=== PATIENT | male | born 1950 | race Caucasian/White ===

== ENCOUNTER 2017-11-16 08:43 | Inpatient (IN) | payer BC, MEDICARE ==
[2017-11-16] MEDS ORDERED: IPRATROPIUM-ALBUTEROL 3 ML NEB INHALATION STA (08:57)
[2017-11-16] MEDS ORDERED: SODIUM CHLORIDE 0.9% 1,000 ML IV STA (08:57)
[2017-11-16] MEDS ORDERED: SODIUM CHLORIDE 0.9% 500 ML IV STA (08:57)
--- NOTE | 2017-11-16 09:00 | ED ---
SOB HPI - General Chief Complaint: Shortness of Breath Stated Complaint: Difficulty Breathing Time Seen by Provider: 11/16/17 08:48 Source: patient, RN notes reviewed, old records reviewed Mode of arrival: wheelchair Limitations: no limitations - History of Present Illness Initial Comments: 67-year-old male presents to emergency department today chief complaint of shortness of breath. It's been worse over the past 2 days. He denies any chest pain this time. Shortness of breath worse with supine position. He does have a history of CHF,, cardiac stent, and COPD, and A. fib. He is on Coumadin. He does smoke half pack a day. He reports he did do a breathing treatment yesterday. He has had a nonproductive cough. He reports no nausea or vomiting. He denies any bloody stools. - Related Data Home Medications Medication Instructions Recorded Confirmed Atorvastatin [Lipitor] 40 mg PO HS 04/01/14 10/11/15 Isosorbide Mononitrate [Imdur] 30 mg PO HS 04/01/14 10/11/15 Losartan Potassium 100 mg PO HS 04/01/14 10/11/15 Nitroglycerin Sl Tabs [Nitrostat] 0.4 mg PO Q5M PRN 01/11/15 10/18/15 Warfarin [Coumadin] 7.5 mg PO DAILY 01/11/15 10/18/15 amLODIPine [Norvasc] 10 mg PO DAILY 01/11/15 10/11/15 Celecoxib [CeleBREX] 200 mg PO BID 02/15/15 10/11/15 Furosemide [Lasix] 40 mg PO DAILY 02/15/15 10/11/15 Metoprolol Tartrate [Lopressor] 25 mg PO BID 02/15/15 10/11/15 Ipratropium-Albuterol Nebulize 3 ml INHALATION QID PRN 02/16/15 10/18/15 [Duoneb 0.5 mg-3 mg/3 ml Soln] Etanercept [Enbrel] 50 mg SQ Q7DAYS 10/11/15 10/18/15 Omeprazole 20 mg PO DAILY 10/11/15 10/11/15 Aspirin 325 mg PO ONCE 10/18/15 10/18/15 Allergies Allergy/AdvReac Type Severity Reaction Status Date / Time No Known Allergies Allergy Verified 11/16/17 08:48 Review of Systems ROS Statement: Those systems with pertinent positive or pertinent negative responses have been documented in the HPI. ROS Other: All systems not noted in ROS Statement are negative. Past Medical History Past Medical History: Atrial Fibrillation, Coronary Artery Disease (CAD), Heart Failure, COPD, Diabetes Mellitus, GERD/Reflux, Hyperlipidemia, Hypertension, Osteoarthritis (OA), Pneumonia, Rheumatoid Arthritis (RA) Additional Past Medical History / Comment(s): heart murmer,hiatal hernia, "borderline diabetic", STATES DOES NOT CHECK BLOOD SUGAR, benign colon polyps, diverticulosis. History of Any Multi-Drug Resistant Organisms: None Reported Past Surgical History: Heart Catheterization With Stent, Orthopedic Surgery Additional Past Surgical History / Comment(s): 06/04/13 angioplasty with stent to LAD, 06/07/13 JOLIE, bone spur rt elbow removed, L elbow surgery, colonoscopies and polypectomy, EGD, bilateral cataract surgery. Past Anesthesia/Blood Transfusion Reactions: No Reported Reaction Additional Past Anesthesia/Blood Transfusion Reaction / Comment(s): Pt has never recieved blood. Date of Last Stent Placement:: 05/2013 Past Psychological History: No Psychological Hx Reported Smoking Status: Current every day smoker Past Alcohol Use History: None Reported Past Drug Use History: None Reported - Past Family History Father Family Medical History: Cancer Additional Family Medical History / Comment(s): Father of cancer at age 65yrs. Cancer was in his "chest" Mother Family Medical History: Coronary Artery Disease (CAD) Additional Family Medical History / Comment(s): Mother had CABG. She of CHF at age 73 yrs. Brother(s) Family Medical History: Coronary Artery Disease (CAD) Additional Family Medical History / Comment(s): CABG Sister(s) Family Medical History: Coronary Artery Disease (CAD), Myocardial Infarction ([place] ) Daughter(s) Family Medical History: No Reported History Son(s) Family Medical History: No Reported History General Exam - General Exam Comments Initial Comments: 67-year-old male. Alert and oriented. No acute distress. Limitations: no limitations General appearance: alert, in no apparent distress Head exam: Present: atraumatic, normocephalic, normal inspection Eye exam: Present: normal appearance, PERRL, EOMI. Absent: scleral icterus, conjunctival injection, periorbital swelling ENT exam: Present: normal exam, mucous membranes moist Neck exam: Present: normal inspection. Absent: tenderness, meningismus, lymphadenopathy Respiratory exam: Present: wheezes (Mild wheeze.), decreased breath sounds. Absent: normal lung sounds bilaterally, respiratory distress, rales, rhonchi, stridor Cardiovascular Exam: Present: normal rhythm, bradycardia (Heart rates between 40 -45 beats were minute. ), normal heart sounds. Absent: regular rate, systolic murmur, diastolic murmur, rubs, gallop, clicks GI/Abdominal exam: Present: soft, normal bowel sounds. Absent: distended, tenderness, guarding, rebound, rigid Extremities exam: Present: normal inspection, full ROM, normal capillary refill. Absent: tenderness, pedal edema, joint swelling, calf tenderness Back exam: Present: normal inspection Neurological exam: Present: alert, oriented X3, CN II-XII intact Psychiatric exam: Present: normal affect, normal mood Skin exam: Present: warm, dry, intact, normal color. Absent: rash Course Vital Signs 11/16/17 11/16/17 11/16/17 08:45 09:20 09:31 Temperature 98.7 F Pulse Rate 52 L 42 L 48 L Respiratory 20 22 Rate Blood Pressure 146/62 131/61 O2 Sat by Pulse 97 97 Oximetry 11/16/17 09:40 Temperature Pulse Rate 47 L Respiratory Rate Blood Pressure O2 Sat by Pulse Oximetry Medical Decision Making - Medical Decision Making 67-year-old male presents emergency department 2 days of shortness of breath. Patient denies emergency department for bradycardic heart rate between 40 and 45 beats minute. Patient reports this is abnormal. Does have history of A. fib. He is on Coumadin. Symptoms are showing some mild wheezing but are relatively clear on exam. I did give Patient a breathing treatment. Patient chest x-ray shows no evidence of acute pleural effusion. His BNP is elevated at 7650. Troponin is 0.8033. This is similiar his previous troponins. He denies any chest pain at this time. Patient is resting comfortably in bed. At this time, the Patient for her bradycardia, and CHF. Consult his refund clerk Dr. Sharp. - Lab Data Result diagrams: 11/16/17 08:05 11/16/17 08:05 Lab Results 11/16/17 11/16/17 11/16/17 Range/Units 08:05 08:05 08:05 WBC 9.0 (3.8-10.6) k/uL RBC 3.56 L (4.30-5.90) m/uL Hgb 11.0 L (13.0-17.5) gm/dL Hct 32.9 L (39.0-53.0) % MCV 92.4 (80.0-100.0) fL MCH 30.8 (25.0-35.0) pg MCHC 33.4 (31.0-37.0) g/dL RDW 14.4 (11.5-15.5) % Plt Count 239 (150-450) k/uL Neutrophils % 75 % Lymphocytes % 12 % Monocytes % 9 % Eosinophils % 2 % Basophils % 1 % Neutrophils # 6.7 (1.3-7.7) k/uL Lymphocytes # 1.1 (1.0-4.8) k/uL Monocytes # 0.8 (0-1.0) k/uL Eosinophils # 0.2 (0-0.7) k/uL Basophils # 0.0 (0-0.2) k/uL PT (9.0-12.0) sec INR (<1.2) APTT (22.0-30.0) sec Sodium 144 (137-145) mmol/L Potassium 4.4 (3.5-5.1) mmol/L Chloride 108 H (98-107) mmol/L Carbon Dioxide 25 (22-30) mmol/L Anion Gap 11 mmol/L BUN 23 H (9-20) mg/dL Creatinine 1.49 H (0.66-1.25) mg/dL Est GFR (CKD-EPI)AfAm 56 (>60 ml/min/1.73 sqM) Est GFR (CKD-EPI)NonAf 48 (>60 ml/min/1.73 sqM) Glucose 180 H (74-99) mg/dL Calcium 9.5 (8.4-10.2) mg/dL Magnesium 2.1 (1.6-2.3) mg/dL Total Bilirubin 0.7 (0.2-1.3) mg/dL AST 36 (17-59) U/L ALT 38 (21-72) U/L Alkaline Phosphatase 77 (38-126) U/L Total Creatine Kinase 45 L (55-170) U/L CK-MB (CK-2) 0.4 (0.0-2.4) ng/mL CK-MB (CK-2) Rel Index 0.9 Troponin I 0.033 (0.000-0.034) ng/mL NT-Pro-B Natriuret Pep pg/mL Total Protein 6.9 (6.3-8.2) g/dL Albumin 4.0 (3.5-5.0) g/dL Urine Color Urine Appearance (Clear) Urine pH (5.0-8.0) Ur Specific [place] (1.001-1.035) Urine Protein (Negative) Urine Glucose (UA) (Negative) Urine Ketones (Negative) Urine Blood (Negative) Urine Nitrite (Negative) Urine Bilirubin (Negative) Urine Urobilinogen (<2.0) mg/dL Ur Leukocyte Esterase (Negative) Urine RBC (0-5) /hpf Urine WBC (0-5) /hpf Ur Squamous Epith Cells (0-4) /hpf Urine Mucus (None) /hpf 11/16/17 11/16/17 11/16/17 Range/Units 08:05 08:05 08:05 WBC (3.8-10.6) k/uL RBC (4.30-5.90) m/uL Hgb (13.0-17.5) gm/dL Hct (39.0-53.0) % MCV (80.0-100.0) fL MCH (25.0-35.0) pg MCHC (31.0-37.0) g/dL RDW (11.5-15.5) % Plt Count (150-450) k/uL Neutrophils % % Lymphocytes % % Monocytes % % Eosinophils % % Basophils % % Neutrophils # (1.3-7.7) k/uL Lymphocytes # (1.0-4.8) k/uL Monocytes # (0-1.0) k/uL Eosinophils # (0-0.7) k/uL Basophils # (0-0.2) k/uL PT 18.4 H (9.0-12.0) sec INR 2.0 H (<1.2) APTT 31.9 H (22.0-30.0) sec Sodium (137-145) mmol/L Potassium (3.5-5.1) mmol/L Chloride (98-107) mmol/L Carbon Dioxide (22-30) mmol/L Anion Gap mmol/L BUN (9-20) mg/dL Creatinine (0.66-1.25) mg/dL Est GFR (CKD-EPI)AfAm (>60 ml/min/1.73 sqM) Est GFR (CKD-EPI)NonAf (>60 ml/min/1.73 sqM) Glucose (74-99) mg/dL Calcium (8.4-10.2) mg/dL Magnesium (1.6-2.3) mg/dL Total Bilirubin (0.2-1.3) mg/dL AST (17-59) U/L ALT (21-72) U/L Alkaline Phosphatase (38-126) U/L Total Creatine Kinase (55-170) U/L CK-MB (CK-2) (0.0-2.4) ng/mL CK-MB (CK-2) Rel Index Troponin I (0.000-0.034) ng/mL NT-Pro-B Natriuret Pep 7650 pg/mL Total Protein (6.3-8.2) g/dL Albumin (3.5-5.0) g/dL Urine Color Yellow Urine Appearance Clear (Clear) Urine pH 6.0 (5.0-8.0) Ur Specific [place] 1.014 (1.001-1.035) Urine Protein 1+ H (Negative) Urine Glucose (UA) Trace H (Negative) Urine Ketones Negative (Negative) Urine Blood Negative (Negative) Urine Nitrite Negative (Negative) Urine Bilirubin Negative (Negative) Urine Urobilinogen 2.0 (<2.0) mg/dL Ur Leukocyte Esterase Negative (Negative) Urine RBC <1 (0-5) /hpf Urine WBC <1 (0-5) /hpf Ur Squamous Epith Cells <1 (0-4) /hpf Urine Mucus Rare H (None) /hpf 11/16/17 10:13 EKG shows normal rhythm, left ventricular hypertrophy with repolarization abnormality. Abnormally KG. Injury reported. Basement repair want her checked. QRS duration 100 ms. QT QTc is 524/453 ms. - Radiology Data Radiology results: report reviewed Chest x-ray shows no focal air opacity pleural effusion or pneumothorax seen. Overlying cardiac leads. Patient is rotated. Apical pleural thickening stable. Cardiac silhouette is stable heart size may be borderline enlarged. Coronary artery calcifications. Prominent pulmonary artery suggest possible pulmonary artery hypertension, aortic stents and somewhat tachypneic. Osseous structures are intact. Dr. Hickman. Disposition Clinical Impression: Bradycardia, Congestive heart failure Disposition: ADMITTED IP TO THIS HOSP Condition: Stable Is patient prescribed a controlled substance at d/c from ED?: No When asked, does pt state using other controlled substances?: No If prescribed controlled substance>3 days was MAPS reviewed?: No If opioid is for acute pain is fill amount 7 days or less?: No If Rx opioid, was Start Talking consent form obtained?: No Referrals: Ilya Saavedra MD [Primary Care Provider] - 1-2 days Time of Disposition: 10:44
[2017-11-16 09:41] LABS: Basophils % (A) 1 %; Eosinophils # (A) 0.2 k/uL (0-0.7); Eosinophils % (A) 2 %; HCT 32.9 % (39.0-53.0); Lymphocytes # (A) 1.1 k/uL (1.0-4.8); Lymphocytes % (A) 12 %; MCH 30.8 pg (25.0-35.0); MCHC 33.4 g/dL (31.0-37.0); MCV 92.4 fL (80.0-100.0); Mean Platelet Volume 8.3; Monocytes # (A) 0.8 k/uL (0-1.0); Monocytes % (A) 9 %; Neutrophils # (A) 6.7 k/uL (1.3-7.7); Neutrophils % (A) 75 %; Platelet Count 239 k/uL (150-450); RBC 3.56 m/uL (4.30-5.90); RDW 14.4 % (11.5-15.5)
[2017-11-16 09:44] LABS: Appearance,Urine Clear (Clear); Bilirubin,Urine Negative (Negative); Blood,Urine Negative (Negative); Color,Urine Yellow; Glucose,Urine (UA) Trace (Negative); Ketones,Urine Negative (Negative); Leukocyte Esterase,Urine Negative (Negative); Mucus,Urine Rare /hpf; Nitrite,Urine Negative (Negative); Protein,Urine 1+ (Negative); RBC,Urine <1 /hpf (0-5); Specific Gravity,Urine 1.014 (1.001-1.035); Squamous Epithelial Cell,Urine <1 /hpf (0-4); WBC,Urine <1 /hpf (0-5)
--- NOTE | 2017-11-16 09:45 | XR ---
EXAMINATION TYPE: XR chest 2V DATE OF EXAM: 11/16/2017 COMPARISON: Prior chest x-ray 01/13/2015 HISTORY: Difficulty breathing, shortness of breath and cough TECHNIQUE: Frontal and lateral views of the chest are obtained. FINDINGS: There is no focal air space opacity, pleural effusion, or pneumothorax seen. There are ove rlying cardiac leads. Patient is rotated. Apical pleural thickening is stable. The cardiac silhouette size is stable, heart may be borderline enlarged. There are coronary artery calcifications. Prominen t pulmonary artery suggests possible pulmonary artery hypertension, aorta is dense and somewhat ectat ic. The osseous structures are intact. IMPRESSION: No acute cardiopulmonary process. Additional findings above.
[2017-11-16 09:49] LABS: Partial Thromboplastin Time 31.9 sec (22.0-30.0); Prothrombin Time 18.4 sec (9.0-12.0)
[2017-11-16 09:51] LABS: Calcium 9.5 mg/dL (8.4-10.2); Magnesium 2.1 mg/dL (1.6-2.3); Potassium 4.4 mmol/L (3.5-5.1); Total Bilirubin 0.7 mg/dL (0.2-1.3); Total Protein 6.9 g/dL (6.3-8.2)
[2017-11-16 10:24] LABS: Creatine Kinase MB 0.4 ng/mL (0.0-2.4); Troponin I 0.033 ng/mL (0.000-0.034)
[2017-11-16] MEDS ORDERED: ASPIRIN 325 MG TAB PO STA (10:45)
[2017-11-16] MEDS ORDERED: NITROGLYCERIN SL TABS 0.4 MG TAB SUBLINGUAL PRN (13:31)
[2017-11-16] MEDS: FUROSEMIDE 10 MG/ML 4 ML VIAL IV SCH ×2 (13:37→20:54)
[2017-11-16] MEDS: NITROGLYCERIN OINT 1 INCH/GM PACKET TOPICAL SCH ×3 (13:37→20:51)
[2017-11-16] MEDS: SODIUM CHLORIDE 0.9% 1,000 ML IV SCH (13:38)
--- NOTE | 2017-11-16 17:43 | P.HPIM ---
History of Present Illness H&P Date: 11/16/17 Chief Complaint: Shortness of breath his is a 67-year-old male one of Dr. Saavedra , Dr. GEORGE Sharp with a previous medical history significant for coronary artery disease status post PCI and stent placement of the LAD in May 2013, hypertension and hypertensive cardiovascular disease, hyperlipidemia, prediabetes, e\\atrial fibrillation chronically on Coumadin . His last cardiac vascular workup from our facility was 10/18/2015 with a JOLIE, showing mild degree of prolapse with the cost posterior mitral leaflet with evidence of moderate MR, poorly cooperating aortic valve with moderate AR left ventricle end-diastolic pressure normal, normal systolic function left atrium moderately enlarged intra-atrial septum intact cardiac catheterization 10/18/2015 Dr. Sharp, shows stenosis 35% on the previous stenting, located at the LAD, left posterior circumflex 80% stenosis, RCA 40% stenosis left main free of disease no intervention done at that time, medical management. Patient comes into the emergency room secondary to shortness of breath, worse for the past 3 days, worse with supine position, he does smoke half a pack per day, has nonproductive cough without fever and chills, patient denies any palpitations or lightheadedness, however he was noted to be bradycardic in the emergency room with a heart rate 42-52, troponins are 0.033 BNP 7650, creatinine of 1.49 INR 2.0 patient is mildly wheezing on examination given a nebulized treatment, patient was admitted for COPD exacerbation CHF exacerbation with bradycardia Review of Systems Constitutional: Reports as per HPI, Reports anorexia, Denies chills, Denies chronic headaches, Denies chronic pain, Denies daytime sleepiness, Denies fatigue, Denies fever, Denies lethargy, Denies malaise, Denies night sweats, Denies poor appetite, Denies sweats, Denies weakness, Denies weight gain, Denies weight loss Ears, nose, mouth and throat: Reports as per HPI, Denies ant. neck pain, Denies bleeding gums, Denies dental pain, Denies dysphagia, Denies epistaxis, Denies headache, Denies hoarseness, Denies mouth pain, Denies nasal congestion, Denies nasal discharge, Denies neck fullness/pressure, Denies neck lump, Denies nose pain, Denies odynophagia, Denies post-nasal drip, Denies sinus pain, Denies sinus pressure, Denies swelling in mouth, Denies swelling in throat, Denies sore throat, Denies vertigo, Denies voice changes Cardiovascular: Reports decreased exercise tolerance, Reports dyspnea on exertion, Reports shortness of breath Respiratory: Reports as per HPI, Reports cough, Reports dyspnea, Reports wheezing, Denies congestion, Denies cough with sputum, Denies excessive sputum, Denies hemoptysis, Denies home oxygen, Denies pain, Denies pain on inspiration, Denies pleurisy, Denies respiratory infections, Denies sleep apnea, Denies snoring Gastrointestinal: Reports as per HPI, Denies abdominal pain, Denies belching, Denies bloating, Denies BRBPR, Denies change in bowel habits, Denies coffee ground emesis, Denies constipation, Denies diarrhea, Denies dyspepsia, Denies early satiety, Denies excessive gas, Denies heartburn, Denies hematemesis, Denies hematochezia, Denies indigestion, Denies jaundice, Denies lactose intolerance, Denies loss of appetite, Denies melena, Denies nausea, Denies vomiting Genitourinary: Reports as per HPI Musculoskeletal: Reports as per HPI Integumentary: Reports as per HPI Neurological: Reports as per HPI, Denies aphasia, Denies ataxia, Denies balance difficulties, Denies change in mentation, Denies change in smell/taste, Denies change in speech, Denies confusion, Denies convulsions, Denies double vision, Denies gait dysfunction, Denies head injury, Denies headaches, Denies hearing difficulties, Denies lack of coordination, Denies loss of vision, Denies memory loss, Denies migraines, Denies motor disturbance, Denies numbness, Denies paralysis, Denies paresthesias, Denies seizures, Denies sensory deficit, Denies spasticity, Denies syncope, Denies tic, Denies tingling, Denies transient paralysis, Denies tremors, Denies vertigo, Denies weakness, Denies visual changes Psychiatric: Reports as per HPI Endocrine: Reports as per HPI Hematologic/Lymphatic: Reports as per HPI Allergic/Immunologic: Reports as per HPI Past Medical History Past Medical History: Atrial Fibrillation, Coronary Artery Disease (CAD), Heart Failure, COPD, Diabetes Mellitus, GERD/Reflux, Hyperlipidemia, Hypertension, Osteoarthritis (OA), Pneumonia, Rheumatoid Arthritis (RA) Additional Past Medical History / Comment(s): heart murmer,hiatal hernia, "borderline diabetic", STATES DOES NOT CHECK BLOOD SUGAR, benign colon polyps, diverticulosis. History of Any Multi-Drug Resistant Organisms: None Reported Past Surgical History: Heart Catheterization With Stent, Orthopedic Surgery Additional Past Surgical History / Comment(s): 06/04/13 angioplasty with stent to LAD, 06/07/13 JOLIE, bone spur rt elbow removed, L elbow surgery, colonoscopies and polypectomy, EGD, bilateral cataract surgery. Past Anesthesia/Blood Transfusion Reactions: No Reported Reaction Additional Past Anesthesia/Blood Transfusion Reaction / Comment(s): Pt has never recieved blood. Date of Last Stent Placement:: 05/2013 Past Psychological History: No Psychological Hx Reported Smoking Status: Current every day smoker Past Alcohol Use History: None Reported Past Drug Use History: None Reported - Past Family History Father Family Medical History: Cancer Additional Family Medical History / Comment(s): Father of cancer at age 65yrs. Cancer was in his "chest" Mother Family Medical History: Coronary Artery Disease (CAD) Additional Family Medical History / Comment(s): Mother had CABG. She of CHF at age 73 yrs. Brother(s) Family Medical History: Coronary Artery Disease (CAD) Additional Family Medical History / Comment(s): CABG Sister(s) Family Medical History: Coronary Artery Disease (CAD), Myocardial Infarction (AL ) Daughter(s) Family Medical History: No Reported History Son(s) Family Medical History: No Reported History Medications and Allergies Home Medications Medication Instructions Recorded Confirmed Type Atorvastatin [Lipitor] 40 mg PO DAILY 04/01/14 11/16/17 History Isosorbide Mononitrate [Imdur] 30 mg PO DAILY 04/01/14 11/16/17 History Losartan Potassium 100 mg PO DAILY 04/01/14 11/16/17 History Nitroglycerin Sl Tabs [Nitrostat] 0.4 mg PO Q5M PRN 01/11/15 11/16/17 History Warfarin [Coumadin] 7.5 mg PO MOTUWETHFRSA 01/11/15 11/16/17 History amLODIPine [Norvasc] 10 mg PO DAILY 01/11/15 11/16/17 History Celecoxib [CeleBREX] 400 mg PO BID 02/15/15 11/16/17 History Furosemide [Lasix] 80 mg PO DAILY 02/15/15 11/16/17 History Metoprolol Tartrate [Lopressor] 50 mg PO DAILY 02/15/15 11/16/17 History Etanercept [Enbrel] 50 mg SQ FR 10/11/15 11/16/17 History Omeprazole 20 mg PO DAILY 10/11/15 11/16/17 History Furosemide [Lasix] 40 mg PO HS 11/16/17 11/16/17 History Metoprolol Tartrate [Lopressor] 25 mg PO HS 11/16/17 11/16/17 History Warfarin [Coumadin] 10 mg PO HERZOG 11/16/17 11/16/17 History metFORMIN HCL [metFORMIN HCL ER] 1,000 mg PO BID 11/16/17 11/16/17 History Allergies Allergy/AdvReac Type Severity Reaction Status Date / Time No Known Allergies Allergy Verified 11/16/17 14:09 Physical Exam Vitals: Vital Signs Temp Pulse Resp BP Pulse Ox 11/16/17 09:40 47 L 11/16/17 09:31 48 L 11/16/17 09:20 42 L 22 131/61 97 11/16/17 08:45 98.7 F 52 L 20 146/62 97 Intake and Output 11/15/17 11/16/17 11/16/17 22:59 06:59 14:59 Other: Weight 89.811 kg Results CBC & Chem 7: 11/16/17 08:05 11/16/17 08:05 Labs: Abnormal Lab Results - Last 24 Hours (Table) 11/16/17 11/16/17 11/16/17 Range/Units 08:05 08:05 08:05 RBC 3.56 L (4.30-5.90) m/uL Hgb 11.0 L (13.0-17.5) gm/dL Hct 32.9 L (39.0-53.0) % PT (9.0-12.0) sec INR (<1.2) APTT (22.0-30.0) sec Chloride 108 H (98-107) mmol/L BUN 23 H (9-20) mg/dL Creatinine 1.49 H (0.66-1.25) mg/dL Glucose 180 H (74-99) mg/dL Total Creatine Kinase 45 L (55-170) U/L Urine Protein (Negative) Urine Glucose (UA) (Negative) Urine Mucus (None) /hpf 11/16/17 11/16/17 Range/Units 08:05 08:05 RBC (4.30-5.90) m/uL Hgb (13.0-17.5) gm/dL Hct (39.0-53.0) % PT 18.4 H (9.0-12.0) sec INR 2.0 H (<1.2) APTT 31.9 H (22.0-30.0) sec Chloride (98-107) mmol/L BUN (9-20) mg/dL Creatinine (0.66-1.25) mg/dL Glucose (74-99) mg/dL Total Creatine Kinase (55-170) U/L Urine Protein 1+ H (Negative) Urine Glucose (UA) Trace H (Negative) Urine Mucus Rare H (None) /hpf Laboratory Results WBC 9.0 k/uL (3.8-10.6) 11/16/17 08:05 RBC 3.56 m/uL (4.30-5.90) L 11/16/17 08:05 Hgb 11.0 gm/dL (13.0-17.5) L 11/16/17 08:05 Hct 32.9 % (39.0-53.0) L 11/16/17 08:05 MCV 92.4 fL (80.0-100.0) 11/16/17 08:05 MCH 30.8 pg (25.0-35.0) 11/16/17 08:05 MCHC 33.4 g/dL (31.0-37.0) 11/16/17 08:05 RDW 14.4 % (11.5-15.5) 11/16/17 08:05 Plt Count 239 k/uL (150-450) 11/16/17 08:05 Neutrophils % 75 % 11/16/17 08:05 Lymphocytes % 12 % 11/16/17 08:05 Monocytes % 9 % 11/16/17 08:05 Eosinophils % 2 % 11/16/17 08:05 Basophils % 1 % 11/16/17 08:05 Neutrophils # 6.7 k/uL (1.3-7.7) 11/16/17 08:05 Lymphocytes # 1.1 k/uL (1.0-4.8) 11/16/17 08:05 Monocytes # 0.8 k/uL (0-1.0) 11/16/17 08:05 Eosinophils # 0.2 k/uL (0-0.7) 11/16/17 08:05 Basophils # 0.0 k/uL (0-0.2) 11/16/17 08:05 PT 18.4 sec (9.0-12.0) H 11/16/17 08:05 INR 2.0 (<1.2) H 11/16/17 08:05 APTT 31.9 sec (22.0-30.0) H 11/16/17 08:05 Sodium 144 mmol/L (137-145) 11/16/17 08:05 Potassium 4.4 mmol/L (3.5-5.1) 11/16/17 08:05 Chloride 108 mmol/L (98-107) H 11/16/17 08:05 Carbon Dioxide 25 mmol/L (22-30) 11/16/17 08:05 Anion Gap 11 mmol/L 11/16/17 08:05 BUN 23 mg/dL (9-20) H 11/16/17 08:05 Creatinine 1.49 mg/dL (0.66-1.25) H 11/16/17 08:05 Est GFR (CKD-EPI)AfAm 56 (>60 ml/min/1.73 sqM) 11/16/17 08:05 Est GFR (CKD-EPI)NonAf 48 (>60 ml/min/1.73 sqM) 11/16/17 08:05 Glucose 180 mg/dL (74-99) H 11/16/17 08:05 Calcium 9.5 mg/dL (8.4-10.2) 11/16/17 08:05 Magnesium 2.1 mg/dL (1.6-2.3) 11/16/17 08:05 Total Bilirubin 0.7 mg/dL (0.2-1.3) 11/16/17 08:05 AST 36 U/L (17-59) 11/16/17 08:05 ALT 38 U/L (21-72) 11/16/17 08:05 Alkaline Phosphatase 77 U/L (38-126) 11/16/17 08:05 Total Creatine Kinase 45 U/L (55-170) L 11/16/17 08:05 CK-MB (CK-2) 0.4 ng/mL (0.0-2.4) 11/16/17 08:05 CK-MB (CK-2) Rel Index 0.9 11/16/17 08:05 Troponin I 0.027 ng/mL (0.000-0.034) 11/16/17 13:56 NT-Pro-B Natriuret Pep 7650 pg/mL 11/16/17 08:05 Total Protein 6.9 g/dL (6.3-8.2) 11/16/17 08:05 Albumin 4.0 g/dL (3.5-5.0) 11/16/17 08:05 Urine Color Yellow 11/16/17 08:05 Urine Appearance Clear (Clear) 11/16/17 08:05 Urine pH 6.0 (5.0-8.0) 11/16/17 08:05 Ur Specific [place] 1.014 (1.001-1.035) 11/16/17 08:05 Urine Protein 1+ (Negative) H 11/16/17 08:05 Urine Glucose (UA) Trace (Negative) H 11/16/17 08:05 Urine Ketones Negative (Negative) 11/16/17 08:05 Urine Blood Negative (Negative) 11/16/17 08:05 Urine Nitrite Negative (Negative) 11/16/17 08:05 Urine Bilirubin Negative (Negative) 11/16/17 08:05 Urine Urobilinogen 2.0 mg/dL (<2.0) 11/16/17 08:05 Ur Leukocyte Esterase Negative (Negative) 11/16/17 08:05 Urine RBC <1 /hpf (0-5) 11/16/17 08:05 Urine WBC <1 /hpf (0-5) 11/16/17 08:05 Ur Squamous Epith Cells <1 /hpf (0-4) 11/16/17 08:05 Urine Mucus Rare /hpf (None) H 11/16/17 08:05 Thrombosis Risk Factor Assmnt - DVT/VTE Prophylaxis DVT/VTE Prophylaxis: Pharmacologic Prophylaxis ordered - Choose All That Apply Each Risk Factor Represents 2 Points: Age 61-74 years Thrombosis Risk Factor Assessment Total Risk Factor Score: 2 Thrombosis Risk Factor Assessment Level: Low Risk Assessment and Plan Plan: 1. Acute diastolic heart failure, we will start the patient on the Lasix 40 mg IV push every 8 hours, continue metoprolol 50 mg orally twice every day, losartan 100 mg orally once every day, Imdur 30 mg orally once every day, we will obtain cardiology consultation, echocardiogram, patient has elevated BNP on entry we will check input and output and daily weight. 2. Acute COPD exacerbations currently a smoker, with bronchospasms, patient would be started on Solu-Medrol short-term with nebulized albuterol Atrovent, nicotine patches were offered, for smoking cessation, no current antibiotic needed 3. History of CAD status post PCI of the LAD back in May 2013. We will continue with aspirin 81 mg once a day, Plavix 75 mg orally once every day, Imdur 30 mg orally once every day, metoprolol 50 mg orally twice every day, Lipitor 40 mg orally once every day. 4. Current junctional rhythm with known history of Atrial fibrillation. Metoprolol is on hold secondary to bradycardia and junctional rhythm, Coumadin 5 mg alternating with 7.5 mg every other day, monitor PT and INR on a regular basis. Cardiology is going to follow the patient closely 5. Hypertension and hypertensive cardiovascular disease we will continue patient on metoprolol 50 mg orally twice every day, amlodipine 10 mg orally once every day, and losartan 100 mg orally once every day. 6. History of GERD. Stable 7 History of prediabetes. Patient will be placed on consistent carb her diet, A1c to be done, With the current use of Solu-Medrol, correctional insulin scale for coverage 8. History of rheumatoid arthritis. Stable. 9Valvular heart disease in the form of moderate MR, moderate AR, 10. DVT prophylaxis. Long-term anticoagulation with Coumadin, INRs to be done 11. GI prophylaxis. Omeprazole 20 mg orally once every day. 12. Estimated length of stay 3 days.
[2017-11-16] MEDS ORDERED: WARFARIN 10 MG TAB PO SCH (18:00)
[2017-11-16] MEDS ORDERED: WARFARIN 7.5 MG TAB PO SCH (18:00)
[2017-11-16] MEDS: methylPREDNISolone SOD SUCCI 125 MG/2 ML VIAL IV SCH ×2 (18:44→23:30)
[2017-11-16] MEDS: ATORVASTATIN 40 MG TAB PO SCH (20:54)
[2017-11-16] MEDS: LOSARTAN 50 MG TAB PO SCH (20:55)
[2017-11-16] MEDS: IPRATROPIUM-ALBUTEROL 3 ML NEB INHALATION PRN (20:57)
[2017-11-16] MEDS: BUDESONIDE 0.5 MG/2 ML NEBU INHALATION SCH (20:57)
[2017-11-16 21:04] LABS: Glucose,Whole Blood 251 mg/dL (75-99)
[2017-11-17] MEDS: FUROSEMIDE 10 MG/ML 4 ML VIAL IV SCH ×3 (05:47→21:39)
[2017-11-17 06:13] LABS: Glucose,Whole Blood 311 mg/dL (75-99)
[2017-11-17 06:15] LABS: Basophils % (A) 0 %; Eosinophils % (A) 0 %; HCT 32.4 % (39.0-53.0); HGB 10.6 gm/dL (13.0-17.5); Lymphocytes # (A) 0.3 k/uL (1.0-4.8); Lymphocytes % (A) 7 %; MCH 30.6 pg (25.0-35.0); MCHC 32.8 g/dL (31.0-37.0); MCV 93.5 fL (80.0-100.0); Mean Platelet Volume 7.9; Monocytes # (A) 0.1 k/uL (0-1.0); Monocytes % (A) 3 %; Neutrophils # (A) 4.2 k/uL (1.3-7.7); Neutrophils % (A) 89 %; Platelet Count 212 k/uL (150-450); RBC 3.47 m/uL (4.30-5.90); RDW 14.1 % (11.5-15.5); WBC 4.7 k/uL (3.8-10.6)
[2017-11-17] MEDS: methylPREDNISolone SOD SUCCI 125 MG/2 ML VIAL IV SCH (06:27)
[2017-11-17] MEDS: PANTOPRAZOLE 40 MG TABLET PO SCH (06:27)
[2017-11-17] MEDS: INSULIN ASPART 100 UNIT/ML 1 ML 10 ML VIAL SQ SCH ×4 (06:28→18:08)
[2017-11-17 06:29] LABS: INR 1.9 (<1.2); Prothrombin Time 17.3 sec (9.0-12.0)
[2017-11-17 06:37] LABS: Albumin 3.8 g/dL (3.5-5.0); Calcium 9.1 mg/dL (8.4-10.2); Potassium 4.3 mmol/L (3.5-5.1); Total Bilirubin 0.6 mg/dL (0.2-1.3); Total Protein 6.5 g/dL (6.3-8.2)
[2017-11-17 07:33] LABS: T4, Free (Free Thyroxine) 1.19 ng/dL (0.78-2.19)
[2017-11-17] MEDS: MELOXICAM 7.5 MG TAB PO SCH (08:31)
[2017-11-17] MEDS: NITROGLYCERIN OINT 1 INCH/GM PACKET TOPICAL SCH ×4 (08:32→21:39)
[2017-11-17] MEDS: BUDESONIDE 0.5 MG/2 ML NEBU INHALATION SCH ×2 (08:34→20:59)
[2017-11-17] MEDS: IPRATROPIUM-ALBUTEROL 3 ML NEB INHALATION PRN ×2 (08:34→20:59)
[2017-11-17 11:59] LABS: Glucose,Whole Blood 477 mg/dL (75-99)
[2017-11-17] MEDS ORDERED: INSULIN ASPART 100 UNIT/ML 1 ML 10 ML VIAL SQ ONE (12:14)
[2017-11-17] MEDS: SODIUM CHLORIDE 0.9% 1,000 ML IV SCH (12:18)
[2017-11-17] MEDS: NICOTINE 14MG/24HR PATCH TRANSDERM SCH (12:31)
--- NOTE | 2017-11-17 13:41 | P.PN ---
Subjective his is a 67-year-old male one of Dr. Saavedra , Dr. GEORGE Sharp with a previous medical history significant for coronary artery disease status post PCI and stent placement of the LAD in May 2013, hypertension and hypertensive cardiovascular disease, hyperlipidemia, prediabetes, e\atrial fibrillation chronically on Coumadin . His last cardiac vascular workup from our facility was 10/18/2015 with a JOLIE, showing mild degree of prolapse with the cost posterior mitral leaflet with evidence of moderate MR, poorly cooperating aortic valve with moderate AR left ventricle end-diastolic pressure normal, normal systolic function left atrium moderately enlarged intra-atrial septum intact cardiac catheterization 10/18/2015 Dr. Sharp, shows stenosis 35% on the previous stenting, located at the LAD, left posterior circumflex 80% stenosis, RCA 40% stenosis left main free of disease no intervention done at that time, medical management. Patient comes into the emergency room secondary to shortness of breath, worse for the past 3 days, worse with supine position, he does smoke half a pack per day, has nonproductive cough without fever and chills, patient denies any palpitations or lightheadedness, however he was noted to be bradycardic in the emergency room with a heart rate 42-52, troponins are 0.033 BNP 7650, creatinine of 1.49 INR 2.0 patient is mildly wheezing on examination given a nebulized treatment, patient was admitted for COPD exacerbation CHF exacerbation with bradycardia 7/2: Patient seen today, sitting up in bed with at bedside. States breathing and shortness of breath has improved from yesterday. Still has a slight cough, denies any chest pain or palpitations. Troponin's have been negative x3. Glucose elevated at 311. He continues on Novolog sliding scale, he is only on Metformin at home, metformin ordered. Will check A1c and adjust medication if needed. Solumedrol decreased to 40mg Q8 hours, will continue on pulmicort and Duonebs. Patient states he smokes about 1/2 packs per day, counseled on smoking cessation, agreeable to nicotine patches. Objective - Vital Signs Vital signs: Vital Signs Temp 96.7 F L 11/17/17 08:00 Pulse 58 L 11/17/17 08:50 Resp 16 11/17/17 08:50 BP 150/53 11/17/17 08:00 Pulse Ox 97 11/17/17 08:34 Intake & Output 11/16/17 11/17/17 11/17/17 18:59 06:59 18:59 Intake Total 416 Output Total 400 350 Balance -400 66 Weight 85.5 kg 81 kg Intake: Oral 416 Output: Urine 400 350 Other: Voiding Method Toilet - Constitutional General appearance: Present: cooperative, no acute distress - EENT Eyes: Present: EOMI, PERRLA, normal appearance ENT: Present: hearing grossly normal, normal oropharynx. Absent: pharyngeal erythema, thrush - Neck Neck: Present: normal ROM. Absent: lymphadenopathy, stridor, thyromegaly - Respiratory Respiratory: bilateral: wheezing, negative: diminished, dullness, rales, rhonchi - Cardiovascular Rhythm: regular Heart sounds: normal: S1, S2 - Gastrointestinal General gastrointestinal: Present: normal bowel sounds, soft. Absent: decreased bowel sounds, distended, hepatomegaly, organomegaly, tenderness - Integumentary Integumentary: Present: normal. Absent: cellulitis, rash - Neurologic Neurologic: Present: CNII-XII intact. Absent: focal deficits - Musculoskeletal Musculoskeletal: Present: gait normal, strength equal bilaterally - Psychiatric Psychiatric: Present: A&O x's 3, appropriate affect - Labs CBC & Chem 7: 11/17/17 05:18 11/17/17 05:18 Labs: Abnormal Lab Results - Last 24 Hours (Table) 11/16/17 11/16/17 11/16/17 Range/Units 08:05 08:05 20:59 RBC (4.30-5.90) m/uL Hgb (13.0-17.5) gm/dL Hct (39.0-53.0) % Lymphocytes # (1.0-4.8) k/uL PT (9.0-12.0) sec INR (<1.2) Chloride 108 H (98-107) mmol/L BUN 23 H (9-20) mg/dL Creatinine 1.49 H (0.66-1.25) mg/dL Glucose 180 H (74-99) mg/dL POC Glucose (mg/dL) 251 H (75-99) mg/dL Total Creatine Kinase 45 L (55-170) U/L TSH (0.465-4.680) mIU/L 11/17/17 11/17/17 11/17/17 Range/Units 05:18 05:18 05:18 RBC 3.47 L (4.30-5.90) m/uL Hgb 10.6 L (13.0-17.5) gm/dL Hct 32.4 L (39.0-53.0) % Lymphocytes # 0.3 L (1.0-4.8) k/uL PT 17.3 H (9.0-12.0) sec INR 1.9 H (<1.2) Chloride (98-107) mmol/L BUN 23 H (9-20) mg/dL Creatinine 1.37 H (0.66-1.25) mg/dL Glucose 306 H (74-99) mg/dL POC Glucose (mg/dL) (75-99) mg/dL Total Creatine Kinase (55-170) U/L TSH 0.397 L (0.465-4.680) mIU/L 11/17/17 Range/Units 06:03 RBC (4.30-5.90) m/uL Hgb (13.0-17.5) gm/dL Hct (39.0-53.0) % Lymphocytes # (1.0-4.8) k/uL PT (9.0-12.0) sec INR (<1.2) Chloride (98-107) mmol/L BUN (9-20) mg/dL Creatinine (0.66-1.25) mg/dL Glucose (74-99) mg/dL POC Glucose (mg/dL) 311 H (75-99) mg/dL Total Creatine Kinase (55-170) U/L TSH (0.465-4.680) mIU/L Assessment and Plan Plan: 1. Acute diastolic heart failure, we will start the patient on the Lasix 40 mg IV push every 8 hours, continue metoprolol 50 mg orally twice every day, losartan 100 mg orally once every day, Imdur 30 mg orally once every day, we will obtain cardiology consultation, echocardiogram, patient has elevated BNP on entry we will check input and output and daily weight. 2. Acute COPD exacerbations currently a smoker, with bronchospasms, patient would be started on Solu-Medrol short-term with nebulized albuterol Atrovent, nicotine patches were offered, for smoking cessation, no current antibiotic needed 3. History of CAD status post PCI of the LAD back in May 2013. We will continue with aspirin 81 mg once a day, Plavix 75 mg orally once every day, Imdur 30 mg orally once every day, metoprolol 50 mg orally twice every day, Lipitor 40 mg orally once every day. 4. Current junctional rhythm with known history of Atrial fibrillation. Metoprolol is on hold secondary to bradycardia and junctional rhythm, Coumadin 5 mg alternating with 7.5 mg every other day, monitor PT and INR on a regular basis. Cardiology is going to follow the patient closely 5. Hypertension and hypertensive cardiovascular disease we will continue patient on metoprolol 50 mg orally twice every day, amlodipine 10 mg orally once every day, and losartan 100 mg orally once every day. 6. History of GERD. Stable 7 History of prediabetes. Patient will be placed on consistent carb her diet, A1c to be done, With the current use of Solu-Medrol, correctional insulin scale for coverage 8. History of rheumatoid arthritis. Stable. 9Valvular heart disease in the form of moderate MR, moderate AR, 10. DVT prophylaxis. Long-term anticoagulation with Coumadin, INRs to be done 11. GI prophylaxis. Omeprazole 20 mg orally once every day. 12. Estimated length of stay 3 days. The above impression and plan of care have been discussed and directed by signing physician. Iram Sanders nurse practitioner acting as scribe for signing physician.
[2017-11-17 14:37] VITALS: BMI 22.3
[2017-11-17] MEDS: methylPREDNISolone SOD SUCCI 40 MG/ML 1 ML VIAL IV SCH (16:20)
[2017-11-17 16:29] LABS: Hemoglobin A1C 6.5 % (4.0-6.0)
--- NOTE | 2017-11-17 16:36 | CONS ---
CONSULTATION CHIEF COMPLAINT: Shortness of breath. This is a 67-year-old gentleman with history of coronary artery disease, status post angioplasty of LAD, hypertension, chronic atrial fibrillation and moderate mitral regurgitation who presented to hospital complaining of shortness of breath for the last 3 days. He has paroxysmal nocturnal dyspnea and orthopnea, also. His shortness of breath gets worse with activity and improves with rest. He does not have any leg edema. On admission, his BNP was elevated at 7650. He is in atrial fibrillation with slow ventricular rate. PAST MEDICAL HISTORY: 1. Coronary artery disease, status post angioplasty. 2. Mitral regurgitation. 3. Hypertension. 4. Diabetes. 5. Dyslipidemia. CURRENT MEDICATIONS: 1. Norvasc 10 daily. 2. Coumadin. 3. Omeprazole. 4. Lopressor .. 5. Losartan. 6. Imdur. 7. Lasix. 8. Enbrel. 9. Celebrex. 10.Lipitor. ALLERGIES: NO KNOWN DRUG ALLERGIES. FAMILY HISTORY: Negative for premature coronary artery disease. SOCIAL HISTORY: Negative for current smoking, EtOH abuse or drug abuse. REVIEW OF SYSTEMS: HEENT is unremarkable. CARDIAC: As described above. RESPIRATORY: As described above. GI: Negative. GENITOURINARY: Negative. : Negative. MUSCULOSKELETAL: Significant for arthritis. PSYCHOSOCIAL: Negative. ENDOCRINE: Negative. DERMATOLOGIC: Negative. CONSTITUTIONAL: Negative. ONCOLOGICAL: Negative. MIXING ROLL OPERATOR: Negative. Rest of the system review is not relevant. PHYSICAL EXAMINATION: Heart rate is 58 beats per minute. Blood pressure is 150/50, respiratory rate is 18. There is no jugular venous distention. Oxygen saturation is 97%. Carotid upstroke is diminished. There is no bruit. Chest exam reveals diminished air entry at the bases. Heart exam reveals first and second heart sounds, irregular rhythm, and a systolic murmur at the apex. Abdomen is soft. Examination of the extremities did not reveal any edema. Peripheral pulses are felt. ASSESSMENT: 1. Acute exacerbation of chronic congestive heart failure, probably diastolic. 2. Mitral regurgitation. 3. Coronary artery disease, status post angioplasty. 4. Chronic atrial fibrillation. PLAN: I will treat the patient with IV Lasix. Continue the Coumadin. Hold off on beta blockers because of slow ventricular rate. We can resume it at a lower dose. I will obtain a 2D echo to reassess the valvular heart disease. MMODL / IJN: [id number] /
[2017-11-17 16:40] LABS: Glucose,Whole Blood 327 mg/dL (75-99)
[2017-11-17] MEDS ORDERED: WARFARIN 7.5 MG TAB PO SCH (18:00)
[2017-11-17] MEDS: metFORMIN 500 MG TAB PO SCH (18:09)
--- NOTE | 2017-11-17 18:33 | ECHOF ---
Referral Reason:chf MEASUREMENTS -------- HEIGHT: 190.5 cm WEIGHT: 80.7 kg BP: 166/72 RVIDd: 3.5 cm (< 3.3) IVSd: 1.5 cm (0.6 - 1.1) LVIDd: 4.4 cm (3.9 - 5.3) LVPWd: 1.5 cm (0.6 - 1.1) IVSs: 1.9 cm LVIDs: 3.8 cm LVPWs: 1.7 cm LA Diam: 4.1 cm (2.7 - 3.8) LAESV Index (A-L): 44.47 ml/m Ao Diam: 3.5 cm (2.0 - 3.7) AV Cusp: 2.7 cm (1.5 - 2.6) MV EXCURSION: 12.690 mm (> 18.000) MV EF SLOPE: 64 mm/s (70 - 150) EPSS: 0.3 cm AV maxP.29 mmHg AV meanP.49 mmHg AR PHT: 490 ms RAP: 15.00 mmHg RVSP: 51.78 mmHg FINDINGS -------- Atrial fibrillation. This was a technically good study. The left ventricular size is normal. There is moderate concentric left ventricular hypertrophy. O verall left ventricular systolic function is normal with, an EF between 60 - 65 %. The right ventricle is mildly enlarged. LA is severely dilated >40 ml/m2 The right atrium is normal in size. There is mild aortic valve sclerosis. There is moderate aortic regurgitation. There is mild aorti c stenosis present. Peak/mean gradient across the Aortic Valve is 33.29mmHg / 15.49mmHg. The mitral valve leaflets are mildly thickened. Mild mitral annular calcification present. Mild m itral regurgitation is present. The peak and mean MV gradients are 15.62mmHg 4.27mmHg as measured by doppler. Mild tricuspid regurgitation present. There is moderate pulmonary hypertension. The right ventric ular systolic pressure, as measured by Doppler, is 51.78mmHg. Moderate pulmonic regurgitation. The aortic root size is normal. The inferior vena cava is dilated with no significant inspiratory collapse which is consistent estima felicia right atrial pressure of >15 mmHg. There is no pericardial effusion. CONCLUSIONS -------- 1. Atrial fibrillation. 2. This was a technically good study. 3. The left ventricular size is normal. 4. There is moderate concentric left ventricular hypertrophy. 5. Overall left ventricular systolic function is normal with, an EF between 60 - 65 %. 6. The right ventricle is mildly enlarged. 7. LA is severely dilated >40 ml/m2 8. The right atrium is normal in size. 9. There is mild aortic valve sclerosis. 10. There is moderate aortic regurgitation. 11. There is mild aortic stenosis present. 12. Peak/mean gradient across the Aortic Valve is 33.29mmHg / 15.49mmHg. 13. The mitral valve leaflets are mildly thickened. 14. Mild mitral annular calcification present. 15. Mild mitral regurgitation is present. 16. The peak and mean MV gradients are 15.62mmHg 4.27mmHg as measured by doppler. 17. Mild tricuspid regurgitation present. 18. There is moderate pulmonary hypertension. 19. The right ventricular systolic pressure, as measured by Doppler, is 51.78mmHg. 20. Moderate pulmonic regurgitation. 21. The aortic root size is normal. 22. The inferior vena cava is dilated with no significant inspiratory collapse which is consistent es timated right atrial pressure of >15 mmHg. 23. There is no pericardial effusion. [employer]: Lakisha Espana RDCS
[2017-11-17 20:48] LABS: Glucose,Whole Blood 280 mg/dL (75-99)
[2017-11-17] MEDS: ATORVASTATIN 40 MG TAB PO SCH (21:38)
[2017-11-17] MEDS: LOSARTAN 50 MG TAB PO SCH (21:38)
[2017-11-18] MEDS: methylPREDNISolone SOD SUCCI 40 MG/ML 1 ML VIAL IV SCH ×2 (03:08→08:06)
[2017-11-18 06:13] LABS: Glucose,Whole Blood 262 mg/dL (75-99)
[2017-11-18] MEDS: FUROSEMIDE 10 MG/ML 4 ML VIAL IV SCH ×2 (06:24→12:28)
[2017-11-18] MEDS: INSULIN ASPART 100 UNIT/ML 1 ML 10 ML VIAL SQ SCH ×4 (06:24→12:27)
[2017-11-18] MEDS: metFORMIN 500 MG TAB PO SCH (06:25)
[2017-11-18] MEDS: PANTOPRAZOLE 40 MG TABLET PO SCH (06:26)
[2017-11-18 06:51] LABS: INR 1.8 (<1.2); Prothrombin Time 16.5 sec (9.0-12.0)
[2017-11-18 06:53] LABS: Basophils % (A) 0 %; Eosinophils % (A) 0 %; HCT 30.8 % (39.0-53.0); HGB 10.1 gm/dL (13.0-17.5); Lymphocytes # (A) 0.4 k/uL (1.0-4.8); Lymphocytes % (A) 4 %; MCH 30.5 pg (25.0-35.0); MCHC 32.8 g/dL (31.0-37.0); MCV 92.9 fL (80.0-100.0); Mean Platelet Volume 8.4; Monocytes # (A) 0.4 k/uL (0-1.0); Monocytes % (A) 4 %; Neutrophils # (A) 9.6 k/uL (1.3-7.7); Neutrophils % (A) 91 %; Platelet Count 222 k/uL (150-450); RBC 3.31 m/uL (4.30-5.90); RDW 14.3 % (11.5-15.5); WBC 10.5 k/uL (3.8-10.6)
[2017-11-18 07:18] LABS: Albumin 3.7 g/dL (3.5-5.0); Calcium 9.4 mg/dL (8.4-10.2); Potassium 4.3 mmol/L (3.5-5.1); Total Bilirubin 0.3 mg/dL (0.2-1.3); Total Protein 6.4 g/dL (6.3-8.2)
[2017-11-18] MEDS ORDERED: INSULIN ASPART 100 UNIT/ML 1 ML 10 ML VIAL SQ SCH (07:30)
[2017-11-18] MEDS: NICOTINE 14MG/24HR PATCH TRANSDERM SCH (08:08)
[2017-11-18] MEDS: MELOXICAM 7.5 MG TAB PO SCH (08:08)
[2017-11-18] MEDS: NITROGLYCERIN OINT 1 INCH/GM PACKET TOPICAL SCH ×2 (08:08→12:28)
[2017-11-18] MEDS: BUDESONIDE 0.5 MG/2 ML NEBU INHALATION SCH (08:47)
[2017-11-18] MEDS: IPRATROPIUM-ALBUTEROL 3 ML NEB INHALATION PRN (08:48)
[2017-11-18] MEDS: SODIUM CHLORIDE 0.9% 1,000 ML IV SCH (09:42)
[2017-11-18 10:21] VITALS: RESP 18
[2017-11-18 11:38] LABS: Glucose,Whole Blood 334 mg/dL (75-99)
--- NOTE | 2017-11-18 12:41 | P.PN ---
Subjective Progress Note Date: 11/18/17 Principal diagnosis: bradycardia This a pleasant 67-year-old gentleman with a history of CAD, status post angioplasty of the LAD hypertension, chronic atrial fibrillation and moderate mitral regurgitation. Presented to the hospital with complaints of shortness of breath over the last few days. He also had complaints of paroxysmal nocturnal dyspnea and orthopnea. Patient was started on IV Lasix and has diuresed well. Patient was also found to be in atrial fibrillation with a slow ventricular response. Beta blockers have been held and heart rate has improved. Upon examination, patient is resting comfortably in bed. Head of bed is flat without any difficulties breathing. He's been up ambulating without difficulties. He has no complaints of dizziness, lightheadedness, syncope, shortness of breath, chest discomfort or edema. Echocardiogram completed yesterday showed an ejection fraction of 60-65% with moderate AR, mild AF, mild MR and moderate pulmonary hypertension. Objective - Vital Signs Vital signs: Vital Signs Temp 97.1 F L 11/18/17 08:00 Pulse 68 11/18/17 09:03 Resp 18 11/18/17 08:00 BP 150/60 11/18/17 08:00 Pulse Ox 99 11/18/17 08:49 Intake & Output 11/17/17 11/18/17 11/18/17 18:59 06:59 18:59 Intake Total 866 360 Output Total 1150 Balance -284 360 Weight 81 kg 84 kg Intake: Oral 866 360 Output: Urine 1150 Other: Voiding Method Urinal Urinal # Voids 1 1 - Exam PHYSICAL EXAMINATION: HEENT: Head is atraumatic, normocephalic. Pupils equal, round. Neck is supple. There is no elevated jugular venous pressure. HEART EXAMINATION: Heart sounds irregularly irregular, S1 and S2 with a systolic murmur. CHEST EXAMINATION: Lungs are clear to auscultation and precussion. No chest wall tenderness is noted on palpation or with deep breathing. ABDOMEN: Soft, nontender. Bowel sounds are heard. No organomegaly noted. EXTREMITIES: 2+ peripheral pulses with no evidence of peripheral edema and no calf tenderness noted. NEUROLOGIC patient is awake, alert and oriented x3. . - Labs CBC & Chem 7: 11/18/17 06:29 11/18/17 06:29 Labs: Abnormal Lab Results - Last 24 Hours (Table) 11/17/17 11/17/17 11/17/17 Range/Units 05:18 16:39 20:46 RBC (4.30-5.90) m/uL Hgb (13.0-17.5) gm/dL Hct (39.0-53.0) % Neutrophils # (1.3-7.7) k/uL Lymphocytes # (1.0-4.8) k/uL PT (9.0-12.0) sec INR (<1.2) BUN (9-20) mg/dL Creatinine (0.66-1.25) mg/dL Glucose (74-99) mg/dL POC Glucose (mg/dL) 327 H 280 H (75-99) mg/dL Hemoglobin A1c 6.5 H (4.0-6.0) % 11/18/17 11/18/17 11/18/17 Range/Units 06:01 06:29 06:29 RBC 3.31 L (4.30-5.90) m/uL Hgb 10.1 L (13.0-17.5) gm/dL Hct 30.8 L (39.0-53.0) % Neutrophils # 9.6 H (1.3-7.7) k/uL Lymphocytes # 0.4 L (1.0-4.8) k/uL PT (9.0-12.0) sec INR (<1.2) BUN 38 H (9-20) mg/dL Creatinine 1.40 H (0.66-1.25) mg/dL Glucose 261 H (74-99) mg/dL POC Glucose (mg/dL) 262 H (75-99) mg/dL Hemoglobin A1c (4.0-6.0) % 11/18/17 11/18/17 Range/Units 06:29 11:29 RBC (4.30-5.90) m/uL Hgb (13.0-17.5) gm/dL Hct (39.0-53.0) % Neutrophils # (1.3-7.7) k/uL Lymphocytes # (1.0-4.8) k/uL PT 16.5 H (9.0-12.0) sec INR 1.8 H (<1.2) BUN (9-20) mg/dL Creatinine (0.66-1.25) mg/dL Glucose (74-99) mg/dL POC Glucose (mg/dL) 334 H (75-99) mg/dL Hemoglobin A1c (4.0-6.0) % Microbiology - Last 24 Hours (Table) 11/16/17 08:05 Blood Culture - Preliminary Blood No Growth after 48 hours Assessment and Plan Assessment: #1 acute on chronic diastolic congestive heart failure #2 mitral regurgitation #3 coronary artery disease, status post angioplasty #4 chronic atrial fibrillation, anticoagulated on Coumadin #5 bradycardia, beta blockers have been on hold, will resume at a lower dose. #6 aortic regurgitation Plan: From cardiology's perspective, patient may be discharged home today. We will resume metoprolol tartrate at 12.5 mg by mouth twice a day. Patient will follow -up as an outpatient. The above dictated assessment and findings were discussed with signing physician. The impression and plan of care have been directed as dictated. Roselyn Milton, Nurse Practitioner, acting as scribe for signing physician.
--- NOTE | 2017-11-18 12:57 | P.DS ---
Providers Date of admission: 11/17/17 15:07 Attending physician: Leatha Moreno Consults: 11/16/17 10:45 Consult Physician Stat Consulting Provider: Fiorella Sharp Consult Reason/Comments: Bradycardia, CHF Do you want consulting provider notified?: Yes [facility] Course: This is a 67-year-old male one of Dr. Saavedra , Dr. GEORGE Sharp with a previous medical history significant for coronary artery disease status post PCI and stent placement of the LAD in May 2013, hypertension and hypertensive cardiovascular disease, hyperlipidemia, prediabetes, atrial fibrillation chronically on Coumadin . His last cardiac vascular workup from our facility was 10/18/2015 with a JOLIE, showing mild degree of prolapse with the cost posterior mitral leaflet with evidence of moderate MR, poorly cooperating aortic valve with moderate AR left ventricle end-diastolic pressure normal, normal systolic function left atrium moderately enlarged intra-atrial septum intact cardiac catheterization 10/18/2015 Dr. Sharp, shows stenosis 35% on the previous stenting, located at the LAD, left posterior circumflex 80% stenosis, RCA 40% stenosis left main free of disease no intervention done at that time, medical management. Patient comes into the emergency room secondary to shortness of breath, worse for the past 3 days, worse with supine position, he does smoke half a pack per day, has nonproductive cough without fever and chills, patient denies any palpitations or lightheadedness, however he was noted to be bradycardic in the emergency room with a heart rate 42-52, troponins are 0.033 BNP 7650, creatinine of 1.49 INR 2.0 patient is mildly wheezing on examination given a nebulized treatment, patient was admitted for COPD exacerbation CHF exacerbation with bradycardia 7/2: Patient seen today, sitting up in bed with at bedside. States breathing and shortness of breath has improved from yesterday. Still has a slight cough, denies any chest pain or palpitations. Troponin's have been negative x3. Glucose elevated at 311. He continues on Novolog sliding scale, he is only on Metformin at home, metformin ordered. Will check A1c and adjust medication if needed. Solumedrol decreased to 40mg Q8 hours, will continue on pulmicort and Duonebs. Patient states he smokes about 1/2 packs per day, counseled on smoking cessation, agreeable to nicotine patches. 11/18: Patient evaluated today, states he is feeling well today and would actually like to go home. He reports his breathing has improved significantly. Heart rate running in the 60's and still shows atrial fibrillation. He denies any chest pain, shortness of breath, or palpitations. He still has slight nonproductive cough. He's been ambulating in the hallways without difficulty. He denies any dizziness or syncope, shortness breath, chest discomfort. For his bradycardia, metoprolol was decreased to 12.5 mg twice a day. Echocardiogram revealed ejection fraction between 60 and 65%, moderate concentric left ventricular hypertrophy, mild aortic regurgitation, mild aortic stenosis, mild mitral regurgitation, mild tricuspid regurgitation, and moderate pulmonary hypertension. Discharge diagnoses 1. Acute diastolic heart failure 2. Acute COPD exacerbations 3. History of CAD status post PCI of the LAD back in May 2013. 4. Current junctional rhythm with known history of Atrial fibrillation. 5. Hypertension and hypertensive cardiovascular disease 6. History of GERD. 7 History of prediabetes. 8. History of rheumatoid arthritis. 9. Valvular heart disease The above impression and plan of care have been discussed and directed by signing physician. Iram Sanders nurse practitioner acting as scribe for signing physician. Patient Condition at Discharge: Good Plan - Discharge Summary Discharge Rx Participant: No New Discharge Prescriptions: New Budesonide-Formot 160-4.5 Mcg [Symbicort 160-4.5 Mcg Inhaler] 2 puff INHALATION BID #1 inhaler Ipratropium-Albuterol Nebulize [Duoneb 0.5 mg-3 mg/3 ml Soln] 3 ml INHALATION QID PRN ampul.neb PRN Reason: sob Ipratropium/Albuterol Sulfate [Combivent Respimat Inhaler] 1 puff INHALATION QID #1 inhaler metFORMIN HCL [Glucophage] 500 mg PO BID-W/MEALS #60 tab Metoprolol Tartrate 12.5 mg PO BID #1 tab Nicotine 14Mg/24Hr Patch [Habitrol] 1 patch TRANSDERM DAILY #21 patch predniSONE 10 mg PO DAILY #20 tab Metoprolol Tartrate [Lopressor] 12.5 mg PO BID #180 tab Continue Isosorbide Mononitrate [Imdur] 30 mg PO DAILY Atorvastatin [Lipitor] 40 mg PO DAILY Losartan Potassium 100 mg PO DAILY Nitroglycerin Sl Tabs [Nitrostat] 0.4 mg PO Q5M PRN PRN Reason: Chest Pain amLODIPine [Norvasc] 10 mg PO DAILY Warfarin [Coumadin] 7.5 mg PO MOTUWETHFRSA Furosemide [Lasix] 80 mg PO DAILY Celecoxib [CeleBREX] 400 mg PO BID Omeprazole 20 mg PO DAILY Etanercept [Enbrel] 50 mg SQ FR Furosemide [Lasix] 40 mg PO HS metFORMIN HCL [metFORMIN HCL ER] 1,000 mg PO BID Warfarin [Coumadin] 10 mg PO HERZOG Discontinued Metoprolol Tartrate [Lopressor] 50 mg PO DAILY Metoprolol Tartrate [Lopressor] 25 mg PO HS Discharge Medication List Atorvastatin [Lipitor] 40 mg PO DAILY 04/01/14 [History] Isosorbide Mononitrate [Imdur] 30 mg PO DAILY 04/01/14 [History] Losartan Potassium 100 mg PO DAILY 04/01/14 [History] Nitroglycerin Sl Tabs [Nitrostat] 0.4 mg PO Q5M PRN 01/11/15 [History] Warfarin [Coumadin] 7.5 mg PO MOTUWETHFRSA 01/11/15 [History] amLODIPine [Norvasc] 10 mg PO DAILY 01/11/15 [History] Celecoxib [CeleBREX] 400 mg PO BID 02/15/15 [History] Furosemide [Lasix] 80 mg PO DAILY 02/15/15 [History] Etanercept [Enbrel] 50 mg SQ FR 10/11/15 [History] Omeprazole 20 mg PO DAILY 10/11/15 [History] Furosemide [Lasix] 40 mg PO HS 11/16/17 [History] Warfarin [Coumadin] 10 mg PO HERZOG 11/16/17 [History] metFORMIN HCL [metFORMIN HCL ER] 1,000 mg PO BID 11/16/17 [History] Budesonide-Formot 160-4.5 Mcg [Symbicort 160-4.5 Mcg Inhaler] 2 puff INHALATION BID #1 inhaler 11/18/17 [Rx] Ipratropium-Albuterol Nebulize [Duoneb 0.5 mg-3 mg/3 ml Soln] 3 ml INHALATION QID PRN ampul.neb 11/18/17 [Rx] Ipratropium/Albuterol Sulfate [Combivent Respimat Inhaler] 1 puff INHALATION QID #1 inhaler 11/18/17 [Rx] Metoprolol Tartrate 12.5 mg PO BID #1 tab 11/18/17 [Rx] Metoprolol Tartrate [Lopressor] 12.5 mg PO BID #180 tab 11/18/17 [Rx] Nicotine 14Mg/24Hr Patch [Habitrol] 1 patch TRANSDERM DAILY #21 patch 11/18/17 [ Rx] metFORMIN HCL [Glucophage] 500 mg PO BID-W/MEALS #60 tab 11/18/17 [Rx] predniSONE 10 mg PO DAILY #20 tab 11/18/17 [Rx] Follow up Appointment(s)/Referral(s): Fiorella Sharp MD [Family Provider] - 1 Week (office will call with follow up appointment date and time) Ilya Saavedra MD [Primary Care Provider] - 11/24/17 2:00 pm (FRIDAY WITH [facility]NAL[facility]) Patient Instructions/Handouts: Heart Failure (DC), Heart Healthy Diet (DC) Discharge Disposition: HOME SELF-CARE
[2017-11-18 17:40] VITALS: BP 138/61; PULSE 64; TEMP 97.2
[2017-11-18] MEDS ORDERED: METOPROLOL TARTRATE 12.5 MG TAB PO SCH (21:00)
[2017-11-23] MEDS ORDERED: PATIENT'S OWN MED (Etanercept [Enbrel] 50 MG) SQ SCH (09:00)
== END 2017-11-18 14:00 | disposition home or self-care (01) | DRG 292 ==
LOC: EC 08:43 → 6SEL 11:31 → OBSVTOIN 11-17 15:07 → 6SEL 11-18 17:30
PROVIDERS: ADMIT Family Medicine; ATTEND Family Medicine
DX: I11.0 Hypertensive heart disease with heart failure (principal); J44.1 Chronic obstructive pulmonary disease with (acute) exacerbation; I50.33 Acute on chronic diastolic (congestive) heart failure; I25.10 Atherosclerotic heart disease of native coronary artery without angina pectoris; I48.2 Chronic atrial fibrillation; E11.9 Type 2 diabetes mellitus without complications; I08.0 Rheumatic disorders of both mitral and aortic valves; E78.5 Hyperlipidemia, unspecified; F17.210 Nicotine dependence, cigarettes, uncomplicated; R00.1 Bradycardia, unspecified; I27.20 Pulmonary hypertension, unspecified; K21.9 Gastro-esophageal reflux disease without esophagitis; M06.9 Rheumatoid arthritis, unspecified; Z95.5 Presence of coronary angioplasty implant and graft; Z79.01 Long term (current) use of anticoagulants; Z79.82 Long term (current) use of aspirin; Z79.899 Other long term (current) drug therapy; Z80.9 Family history of malignant neoplasm, unspecified; Z82.49 Family history of ischemic heart disease and other diseases of the circulatory system
CPT/HCPCS: 36415; 71046; 80053; 81001; 82550; 82553; 83036; 83735; 83880; 84439; 84443; 84484; 85025; 85610; 85730; 87040; 93005; 93306; 94640; 94760; 96361; 96374; 96375; 99285

== ENCOUNTER 2017-11-29 20:05 | Emergency (ER) | payer MEDICARE ==
[2017-11-29 20:15] VITALS: TEMP 97.9
--- NOTE | 2017-11-29 20:33 | ED ---
General Adult HPI - General Chief complaint: ENT Stated complaint: NOSE BLEED Time Seen by Provider: 11/29/17 20:08 Source: patient, EMS, RN notes reviewed Mode of arrival: EMS Limitations: no limitations - History of Present Illness Initial comments: Chief complaint history of present illness a 67-year-old male here with complaint of a bloody nose last 2 hours. She was EMS got there. The patient is a history of A. fib and is on Coumadin. His last INR was last week and was in a normal range at 2.0. Currently no bleeding anteriorly or posteriorly. The patient does report that he stuffed toilet paper in his nose and a forced the blood backwards. - Related Data Home Medications Medication Instructions Recorded Confirmed Atorvastatin [Lipitor] 40 mg PO DAILY 04/01/14 11/16/17 Isosorbide Mononitrate [Imdur] 30 mg PO DAILY 04/01/14 11/16/17 Losartan Potassium 100 mg PO DAILY 04/01/14 11/16/17 Nitroglycerin Sl Tabs [Nitrostat] 0.4 mg PO Q5M PRN 01/11/15 11/16/17 Warfarin [Coumadin] 7.5 mg PO MOTUWETHFRSA 01/11/15 11/16/17 amLODIPine [Norvasc] 10 mg PO DAILY 01/11/15 11/16/17 Celecoxib [CeleBREX] 400 mg PO BID 02/15/15 11/16/17 Furosemide [Lasix] 80 mg PO DAILY 02/15/15 11/16/17 Etanercept [Enbrel] 50 mg SQ FR 10/11/15 11/16/17 Omeprazole 20 mg PO DAILY 10/11/15 11/16/17 Furosemide [Lasix] 40 mg PO HS 11/16/17 11/16/17 Warfarin [Coumadin] 10 mg PO HERZOG 11/16/17 11/16/17 metFORMIN HCL [metFORMIN HCL ER] 1,000 mg PO BID 11/16/17 11/16/17 Previous Rx's Medication Instructions Recorded Budesonide-Formot 160-4.5 Mcg 2 puff INHALATION BID #1 inhaler 11/18/17 [Symbicort 160-4.5 Mcg Inhaler] Ipratropium-Albuterol Nebulize 3 ml INHALATION QID PRN ampul.neb 11/18/17 [Duoneb 0.5 mg-3 mg/3 ml Soln] Ipratropium/Albuterol Sulfate 1 puff INHALATION QID #1 inhaler 11/18/17 [Combivent Respimat Inhaler] Metoprolol Tartrate 12.5 mg PO BID #1 tab 11/18/17 Metoprolol Tartrate [Lopressor] 12.5 mg PO BID #180 tab 11/18/17 Nicotine 14Mg/24Hr Patch [Habitrol] 1 patch TRANSDERM DAILY #21 patch 11/18/17 metFORMIN HCL [Glucophage] 500 mg PO BID-W/MEALS #60 tab 11/18/17 predniSONE 10 mg PO DAILY #20 tab 11/18/17 Allergies Allergy/AdvReac Type Severity Reaction Status Date / Time No Known Allergies Allergy Verified 11/16/17 14:09 Review of Systems ROS Statement: Those systems with pertinent positive or pertinent negative responses have been documented in the HPI. Review of systems no complaint of headache or visual acuity changes no neck pain sore throat chest pain palpitations shortness of breath. Currently no epistaxis. Denies injuring his nose recently. Denies having a fever or ALLERGIES. All systems reviewed. Past medical problems significant for A. fib on Coumadin. History of CHF, COPD. He just stopped smoking 4 days ago. He has [id number] diabetes mellitus, GERD, hyperlipidemia hypertension. States he has osteoarthritis. Has had a history of pneumonia and rheumatoid arthritis. Patient REPORTS having had a heart murmur in the past hernia diagnosed. Surgeries include elbow, right arm. Cataracts, angioplasty with heart catheterization in 2013. Family history noncontributory no known ALLERGIES. He drinks alcohol daily. And again states he quit smoking 4 days ago. ROS Other: All systems not noted in ROS Statement are negative. Past Medical History Past Medical History: Atrial Fibrillation, Coronary Artery Disease (CAD), Heart Failure, COPD, Diabetes Mellitus, GERD/Reflux, Hyperlipidemia, Hypertension, Osteoarthritis (OA), Pneumonia, Rheumatoid Arthritis (RA) Additional Past Medical History / Comment(s): heart murmer,hiatal hernia, "borderline diabetic", STATES DOES NOT CHECK BLOOD SUGAR, benign colon polyps, diverticulosis. History of Any Multi-Drug Resistant Organisms: None Reported Past Surgical History: Heart Catheterization With Stent, Orthopedic Surgery Additional Past Surgical History / Comment(s): 06/04/13 angioplasty with stent to LAD, 06/07/13 JOLIE, bone spur rt elbow removed, L elbow surgery, colonoscopies and polypectomy, EGD, bilateral cataract surgery. Past Anesthesia/Blood Transfusion Reactions: No Reported Reaction Additional Past Anesthesia/Blood Transfusion Reaction / Comment(s): Pt has never recieved blood. Date of Last Stent Placement:: 05/2013 Past Psychological History: No Psychological Hx Reported Smoking Status: Current every day smoker Past Alcohol Use History: None Reported Past Drug Use History: None Reported - Past Family History Father Family Medical History: Cancer Additional Family Medical History / Comment(s): Father of cancer at age 65yrs. Cancer was in his "chest" Mother Family Medical History: Coronary Artery Disease (CAD) Additional Family Medical History / Comment(s): Mother had CABG. She of CHF at age 73 yrs. Brother(s) Family Medical History: Coronary Artery Disease (CAD) Additional Family Medical History / Comment(s): CABG Sister(s) Family Medical History: Coronary Artery Disease (CAD), Myocardial Infarction (ND ) Daughter(s) Family Medical History: No Reported History Son(s) Family Medical History: No Reported History General Exam - General Exam Comments Initial Comments: General: The patient is awake and alert, here because of episode of epistaxis for 2 hours which is stopped spontaneously. Current vital signs temp 97.9 pulse 50, respiratory rate 16 blood pressure 170/72 Eye: Pupils are equal, round and reactive to light, extra-ocular movements are intact ; there is normal conjunctiva bilaterally. No signs of icterus. History of cataract surgery. Ears, nose, mouth and throat: There are moist mucous membranes and no oral lesions. No evidence of any bleeding anteriorly and no blood posteriorly. No clear evidence of area of epistaxis can be seen by examination on the right side along the septum with the patient reports he had some bleeding. Neck: The neck is supple, there is no tenderness . Cardiovascular: There is a regular rate and rhythm. No murmur appreciated on today's examination but the patient does report having had a history of murmur in the past. Respiratory: Lungs are clear to auscultation, respirations are non-labored, breath sounds are equal. No wheezes, stridor, rales, or rhonchi. History of COPD. The patient used alcohol for earlier. States he stopped smoking 4 days ago. Gastrointestinal: Soft, non-distended, non-tender abdomen without masses or organomegaly noted. There is no rebound or guarding present. No CVA tenderness. Bowel sounds are unremarkable. Back: No back pain. Musculoskeletal: No pain to the upper or lower extremities. Neurological: Denies any numbness, no balance problems. No focal or lateralizing findings. Skin: Skin is warm and dry and no rashes or lesions are noted. Psychiatric: Cooperative, Limitations: no limitations Course Vital Signs 11/29/17 11/29/17 20:12 20:15 Temperature 97.9 F Pulse Rate 50 L 69 Respiratory 16 16 Rate Blood Pressure 170/72 O2 Sat by Pulse 98 100 Oximetry Medical Decision Making - Medical Decision Making Medical decision making; is a 67-year-old male here with family. He is brought in because of an epistaxis of 2 hour duration. EMS brought him in. Patient reports she was EMS got to the nosebleed stopped. Unable to determine if was an anterior posterior nasal bleed at this time. Examination did not find any strong evidence for anterior nasal bleed. No bleeding upon arrival. Vital signs are stable. Labs show white count 7.9 hemoglobin 11 hematocrit 33 an INR 3.0. The patient is on Coumadin for A. fib. Vital signs remained stable. We discussed at length anterior versus posterior nasal bleed. The patient received small fluid while in emergency room. He did some lawnmowing yesterday which may be irritated his nose. Neurologically intact patient does not feel dizzy. He was given a nose clamp advised how to use it. If though with nose Is No Bleeding Anteriorly and He Does Have Blood Going Posteriorly into the Back of His Throat He Is Return Emergency Room for Further Evaluation and Probable Posterior Nasal Packing. - Lab Data Result diagrams: 11/29/17 20:22 Lab Results 11/29/17 11/29/17 Range/Units 20:22 20:22 WBC 7.9 (3.8-10.6) k/uL RBC 3.68 L (4.30-5.90) m/uL Hgb 11.1 L (13.0-17.5) gm/dL Hct 33.2 L (39.0-53.0) % MCV 90.1 (80.0-100.0) fL MCH 30.2 (25.0-35.0) pg MCHC 33.5 (31.0-37.0) g/dL RDW 14.5 (11.5-15.5) % Plt Count 275 (150-450) k/uL Neutrophils % 68 % Lymphocytes % 20 % Monocytes % 6 % Eosinophils % 3 % Basophils % 1 % Neutrophils # 5.3 (1.3-7.7) k/uL Lymphocytes # 1.6 (1.0-4.8) k/uL Monocytes # 0.5 (0-1.0) k/uL Eosinophils # 0.2 (0-0.7) k/uL Basophils # 0.1 (0-0.2) k/uL PT 27.1 H (9.0-12.0) sec INR 3.0 H (<1.2) Disposition Clinical Impression: Epistaxis not due to trauma Disposition: HOME SELF-CARE Condition: Good Instructions: Nosebleed (ED) Additional Instructions: Do not pick or rub or blow your nose. Use a nasal clamp as directed. If he started bleeding again and the anterior nasal clamp does not stop the bleeding and is going back and throat return emergency room for further evaluation and posterior nasal packing. Follow-up with her family physician. Continue with her home medications. Increase fluid intake for the next 2 days. Is patient prescribed a controlled substance at d/c from ED?: No Referrals: Ilya Saavedra MD [Primary Care Provider] - 1-2 days Time of Disposition: 21:23
[2017-11-29 20:44] LABS: Basophils # (A) 0.1 k/uL (0-0.2); Basophils % (A) 1 %; Eosinophils # (A) 0.2 k/uL (0-0.7); Eosinophils % (A) 3 %; HCT 33.2 % (39.0-53.0); HGB 11.1 gm/dL (13.0-17.5); Lymphocytes # (A) 1.6 k/uL (1.0-4.8); Lymphocytes % (A) 20 %; MCH 30.2 pg (25.0-35.0); MCHC 33.5 g/dL (31.0-37.0); MCV 90.1 fL (80.0-100.0); Mean Platelet Volume 8.2; Monocytes # (A) 0.5 k/uL (0-1.0); Monocytes % (A) 6 %; Neutrophils # (A) 5.3 k/uL (1.3-7.7); Neutrophils % (A) 68 %; Platelet Count 275 k/uL (150-450); RBC 3.68 m/uL (4.30-5.90); RDW 14.5 % (11.5-15.5); WBC 7.9 k/uL (3.8-10.6)
[2017-11-29 20:46] LABS: Prothrombin Time 27.1 sec (9.0-12.0)
[2017-11-29 21:33] VITALS: BP 159/72; PULSE 50; RESP 18
== END 2017-11-29 21:35 | disposition home or self-care (01) ==
LOC: EC 20:05
DX: R04.0 Epistaxis (principal); I48.91 Unspecified atrial fibrillation; I25.10 Atherosclerotic heart disease of native coronary artery without angina pectoris; I11.0 Hypertensive heart disease with heart failure; I50.9 Heart failure, unspecified; K21.9 Gastro-esophageal reflux disease without esophagitis; E78.5 Hyperlipidemia, unspecified; E11.9 Type 2 diabetes mellitus without complications; M19.90 Unspecified osteoarthritis, unspecified site; M06.9 Rheumatoid arthritis, unspecified; F17.200 Nicotine dependence, unspecified, uncomplicated; Z95.1 Presence of aortocoronary bypass graft; Z79.01 Long term (current) use of anticoagulants; Z79.1 Long term (current) use of non-steroidal anti-inflammatories (NSAID); Z79.84 Long term (current) use of oral hypoglycemic drugs; Z79.899 Other long term (current) drug therapy
CPT/HCPCS: 36415; 85025; 85610; 99283

== ENCOUNTER 2017-12-17 06:42 | Day surgery (SDC) | payer MEDICARE ==
[2017-12-09 15:54] VITALS: BMI 23.1
[~2017-12-17 06:42] MED LIST: SODIUM CHLORIDE 0.9% 1,000 ML IV SCH
[2017-12-17 07:25] VITALS: TEMP 97.7
[2017-12-17 07:33] LABS: INR 3.5 (<1.2); Prothrombin Time 31.1 sec (9.0-12.0)
[2017-12-17 07:43] LABS: Glucose,Whole Blood 164 mg/dL (75-99)
[2017-12-17] MEDS ORDERED: SODIUM CHLORIDE 0.9% 500 ML IV ONE (07:47)
[2017-12-17] MEDS ORDERED: PROPOFOL 10 MG/ML 20 ML VIAL IV ONE (08:01)
--- NOTE | 2017-12-17 08:48 | CE ---
CARDIAC ELECTROPHYSIOLOGY REPORT DATE OF SERVICE: 12/17/2017 PROCEDURE: Electrical cardioversion. PERFORMED BY: Dr. Pako Sharp. INDICATION: Persistent atrial fibrillation. Mr. Ricco Cordova is a 67-year-old gentleman with history of CAD and valve disease with aortic and mitral regurgitation, status post stenting of LAD, who has developed atrial fibrillation with a somewhat slow ventricular rate. He was brought in for the procedure electively because of persistent A. fib. He was well anticoagulated with the Coumadin with acceptable INR. Rationale, risks, benefits, options were explained. PROCEDURE NOTE: Under the influence of ultra short-acting intravenous anesthetic agent with the attendance of the anesthesiologist, an initial shock of 200 joules was delivered. Patient remained in atrial fibrillation with a slow rate. A second shock of 250 joules was delivered with anterior and posterior patches. He converted to sinus rhythm, remained hemodynamically stable and neurologically intact. This was a successful electrical cardioversion. The patient will be discharged later today once he is up and about on the same medical regimen, but metoprolol will be reduced to 12.5 mg in the morning only. I will see him in the office within 1 week. Results were discussed with the patient and his . MMODL / IJN: [id number] /
[2017-12-17 11:18] VITALS: BP 164/70; PULSE 64; RESP 18
== END 2017-12-17 10:55 | disposition home or self-care (01) ==
LOC: CATHCVL 06:42
PROVIDERS: ATTEND Internal Medicine Interventional Cardiology
DX: I48.1 Persistent atrial fibrillation (principal); I25.10 Atherosclerotic heart disease of native coronary artery without angina pectoris; Z79.01 Long term (current) use of anticoagulants; Z95.5 Presence of coronary angioplasty implant and graft; I11.0 Hypertensive heart disease with heart failure; I50.9 Heart failure, unspecified; E11.9 Type 2 diabetes mellitus without complications; J44.9 Chronic obstructive pulmonary disease, unspecified; F17.200 Nicotine dependence, unspecified, uncomplicated; I08.0 Rheumatic disorders of both mitral and aortic valves; E78.00 Pure hypercholesterolemia, unspecified; E78.5 Hyperlipidemia, unspecified; K21.9 Gastro-esophageal reflux disease without esophagitis; Z79.899 Other long term (current) drug therapy; Z79.84 Long term (current) use of oral hypoglycemic drugs; Z79.1 Long term (current) use of non-steroidal anti-inflammatories (NSAID)
CPT/HCPCS: 92960; 85610; J2704

== ENCOUNTER → 2018-12-15 | Outpatient (CLI) | payer MEDICARE ==
--- NOTE | 2018-12-15 10:55 | CT ---
EXAMINATION TYPE: CT chest wo con DATE OF EXAM: 12/15/2018 COMPARISON: Prior chest x-ray 01/11/2015 HISTORY: Abnormal weight loss CT DLP: 270.1 mGycm. Automated Exposure Control for Dose Reduction was Utilized. TECHNIQUE: CT scan of the thorax is performed without IV contrast due to abnormal laboratory values. FINDINGS: Lack of contrast could compromise sensitivity. LUNGS: The lungs are grossly clear, there is no concerning parenchymal mass or nodule identified. T here is no pleural effusion or pneumothorax seen. The tracheobronchial tree is patent. MEDIASTINUM: Lack of IV contrast is noted to limit evaluation for mediastinal and especially hilar ad enopathy. There are no definitive greater than 1 cm hilar or mediastinal lymph nodes. No cardiomega ly or pericardial effusion is seen. There are extensive coronary artery calcifications. Pulmonary art zev is dilated, correlate for pulmonary artery hypertension. OTHER: Extensive aortic, mesenteric calcifications are present within the abdomen IMPRESSION: Correlate for pulmonary artery hypertension. Coronary artery disease. Noncontrast exam as described above.
== END | disposition home or self-care (01) ==
LOC: RADCTMAIN 07:53
PROVIDERS: ATTEND Internal Medicine Geriatric Medicine
DX: I27.20 Pulmonary hypertension, unspecified (principal); I25.10 Atherosclerotic heart disease of native coronary artery without angina pectoris; R63.4 Abnormal weight loss
CPT/HCPCS: 36415; 71250; 82565; 84520

== ENCOUNTER → 2019-01-01 | Outpatient (CLI) | payer MEDICARE ==
--- NOTE | 2019-01-02 09:34 | CT ---
EXAMINATION TYPE: CT abdomen pelvis w con DATE OF EXAM: 01/01/2019 COMPARISON: None HISTORY: vascular disorder of intestines CT DLP: 605.1 mGycm CONTRAST: CT scan of the abdomen and pelvis is performed with Oral Contrast and with IV Contrast, patient injec felicia with 100 mL of Isovue 300. FINDINGS: LUNG BASES-: No visible nodule. No infiltrate. LIVER/GB: No calcified gallstones. No space occupying hepatic lesion. Biliary tree is of normal ca liber. PANCREAS: No inflammation. No distinct mass. SPLEEN: No splenic enlargement. No lesion seen. ADRENALS: No nodule. No thickening. KIDNEYS/BLADDER: No hydronephrosis. No nephrolithiasis. No distinct renal mass. Urinary bladder g rossly unremarkable. BOWEL: Normal appendix. Normal bowel caliber. No inflammation. GENITAL ORGANS: No gross abnormality. LYMPH NODES: No greater than 1cm abdominal or pelvic lymph nodes are appreciated. AORTA: Atheromatous changes of the abdominal aorta without evidence for aneurysm. Dense calcification s at the origin of the SMA and to a lesser extent the celiac axis. Dense calcification is also noted at the origins of the bilateral renal arteries. OSSEOUS STRUCTURES: Degenerative changes of the lumbar spine and bilateral hips. OTHER: No significant additional abnormality is seen. IMPRESSION: 1. Atheromatous changes of the abdominal aorta and branch vessels as noted.
== END | disposition home or self-care (01) ==
LOC: RADCTMAIN 16:06
PROVIDERS: ATTEND Internal Medicine Geriatric Medicine
DX: I70.0 Atherosclerosis of aorta (principal); K55.1 Chronic vascular disorders of intestine
CPT/HCPCS: 82565; 84520; 74177; 36415; Q9967

== ENCOUNTER 2019-10-06 08:13 | Inpatient (IN) | payer MEDICARE ==
[2019-10-06] MEDS ORDERED: PANTOPRAZOLE 40 MG/10 ML VIAL IVP STA (08:32)
--- NOTE | 2019-10-06 08:40 | ED ---
SOB HPI <Maximiliano Hunt - Last Filed: 10/06/19 10:18> - General Source: family Mode of arrival: wheelchair Limitations: altered mental status, physical limitation <Aman Lundy - Last Filed: 10/06/19 10:38> - General Chief Complaint: Shortness of Breath Stated Complaint: chest discomfort Time Seen by Provider: 10/06/19 08:23 - History of Present Illness Initial Comments: Patient is 69-year-old male with history of COPD, heart failure, GI bleed and diabetes presenting to the emergency department with a chief complaint of shortness of breath. is also present in the room to answer questions. He states the patient was recently hospitalized in [place] about 2 months ago for a GI bleed. Patient states currently his developed substernal chest pain and epigastric abdominal pain started last night with gradual increase in severity. Patient also reports shortness breath at rest. States his pain is "in the esophagus". states Dr. Sharp recently increased his Coumadin dose due to insufficient therapeutic levels. Patient does report nausea but no vomiting. states the patient is also having dark stools over the last few days. Patient does report lightheadedness but no dizziness. Denies any headaches, one-sided weakness paresthesias. (Aman Lundy) - Related Data Home Medications Medication Instructions Recorded Confirmed Atorvastatin [Lipitor] 40 mg PO DAILY 04/01/14 12/09/17 Isosorbide Mononitrate [Imdur] 30 mg PO DAILY 04/01/14 12/09/17 Losartan Potassium 100 mg PO DAILY 04/01/14 12/09/17 Nitroglycerin Sl Tabs [Nitrostat] 0.4 mg PO Q5M PRN 01/11/15 12/09/17 Warfarin [Coumadin] 7.5 mg PO DIRECTED 01/11/15 12/17/17 amLODIPine [Norvasc] 10 mg PO DAILY 01/11/15 12/09/17 Celecoxib [CeleBREX] 400 mg PO BID 02/15/15 12/09/17 Furosemide [Lasix] 80 mg PO DAILY 02/15/15 12/09/17 Etanercept [Enbrel] 50 mg SQ FR 10/11/15 12/17/17 Omeprazole 20 mg PO DAILY 10/11/15 12/17/17 Furosemide [Lasix] 40 mg PO HS 11/16/17 12/17/17 metFORMIN HCL [metFORMIN HCL ER] 1,000 mg PO BID 11/16/17 12/17/17 Metoprolol Tartrate [Lopressor] 25 mg PO BID 12/09/17 12/09/17 Warfarin [Coumadin] 5 mg PO DIRECTED 12/09/17 12/17/17 Previous Rx's Medication Instructions Recorded Budesonide-Formot 160-4.5 Mcg 2 puff INHALATION BID #1 inhaler 11/18/17 [Symbicort 160-4.5 Mcg Inhaler] Ipratropium-Albuterol Nebulize 3 ml INHALATION QID PRN ampul.neb 11/18/17 [Duoneb 0.5 mg-3 mg/3 ml Soln] Ipratropium/Albuterol Sulfate 1 puff INHALATION QID #1 inhaler 11/18/17 [Combivent Respimat Inhaler] Allergies Allergy/AdvReac Type Severity Reaction Status Date / Time No Known Allergies Allergy Verified 10/06/19 08:21 Review of Systems ROS Other: All systems not noted in ROS Statement are negative. <Maximiliano Hunt - Last Filed: 10/06/19 10:18> ROS Other: All systems not noted in ROS Statement are negative. <Aman Lundy - Last Filed: 10/06/19 10:38> ROS Statement: Those systems with pertinent positive or pertinent negative responses have been documented in the HPI. Past Medical History Past Medical History: Atrial Fibrillation, Coronary Artery Disease (CAD), Heart Failure, COPD, Diabetes Mellitus, GERD/Reflux, Hyperlipidemia, Hypertension, Osteoarthritis (OA), Pneumonia, Rheumatoid Arthritis (RA) Additional Past Medical History / Comment(s): gi bleed, anemia, restless leg syndrome, alcoholism, kidney injury History of Any Multi-Drug Resistant Organisms: None Reported Past Surgical History: Heart Catheterization With Stent, Orthopedic Surgery Additional Past Surgical History / Comment(s): 06/04/13 angioplasty with stent to LAD, 06/07/13 JOLIE, bone spur rt elbow removed, L elbow surgery, bilateral cataract surgery. Past Anesthesia/Blood Transfusion Reactions: No Reported Reaction Additional Past Anesthesia/Blood Transfusion Reaction / Comment(s): Pt has never recieved blood. Date of Last Stent Placement:: 05/2013 Past Psychological History: No Psychological Hx Reported Smoking Status: Current some day smoker Past Alcohol Use History: Abuse, Daily Past Drug Use History: None Reported - Past Family History Father Family Medical History: Cancer Additional Family Medical History / Comment(s): Father of cancer at age 65yrs. Cancer was in his "chest" Mother Family Medical History: Coronary Artery Disease (CAD) Additional Family Medical History / Comment(s): Mother had CABG. She of CHF at age 73 yrs. Brother(s) Family Medical History: Coronary Artery Disease (CAD) Additional Family Medical History / Comment(s): CABG Sister(s) Family Medical History: Coronary Artery Disease (CAD), Myocardial Infarction (IA) Daughter(s) Family Medical History: No Reported History Son(s) Family Medical History: No Reported History <Aman Lundy Last Filed: 10/06/19 10:38> General Exam Limitations: altered mental status, physical limitation General appearance: alert, in no apparent distress Head exam: Present: atraumatic, normocephalic, normal inspection Eye exam: Present: normal appearance, PERRL, EOMI, other (Conjunctival pallor) Pupils: Present: normal accommodation ENT exam: Present: normal exam. Absent: normal oropharynx (Pale mucous membranes) Neck exam: Present: normal inspection, full ROM Respiratory exam: Present: normal lung sounds bilaterally. Absent: respiratory distress, wheezes, rales, rhonchi, stridor, chest wall tenderness Cardiovascular Exam: Present: regular rate, normal rhythm, normal heart sounds GI/Abdominal exam: Present: soft, tenderness (Epigastric tenderness). Absent: distended, guarding, rebound, rigid Extremities exam: Present: normal inspection, full ROM Back exam: Present: normal inspection, full ROM Neurological exam: Present: alert, oriented X3 Psychiatric exam: Present: normal affect, normal mood Skin exam: Present: warm, dry, intact, normal color <Aman Lundy Last Filed: 10/06/19 10:38> Course Vital Signs 10/06/19 10/06/19 10/06/19 08:18 08:30 08:41 Temperature Pulse Rate 95 70 Respiratory 24 17 20 Rate Blood Pressure 116/47 O2 Sat by Pulse 100 100 Oximetry 05/10/06/19 10/06/19 08:44 09:00 09:30 Temperature 97.4 F L Pulse Rate 65 73 Respiratory 18 17 Rate Blood Pressure 116/56 108/63 O2 Sat by Pulse 100 98 Oximetry 10/06/19 10:00 Temperature Pulse Rate 71 Respiratory 17 Rate Blood Pressure 123/62 O2 Sat by Pulse 100 Oximetry Medical Decision Making - Lab Data Result diagrams: 10/06/19 08:37 10/06/19 08:37 <Maximiliano Hunt - Last Filed: 10/06/19 10:18> - Lab Data Result diagrams: 10/06/19 08:37 10/06/19 08:37 <Aman Lundy - Last Filed: 10/06/19 10:38> - Medical Decision Making Patient was seen and evaluated bedside. He presents today with chest pain concerning for acute coronary syndrome. Chart review shows that patient has significant coronary artery disease. EKG was reviewed showing similar features to EKG compared from 2016 however there seemed to be more depressed lateral ST depressions. He does have ST elevations in the anterior precordial leads that appears similar to 2016 however with upsloping convexity that would not support the diagnosis of ST segment elevation IA. Nonetheless, case is discussed with Dr. Sepulveda at 9:05 AM. It was requested cardiology to review EKG. He states that he will be down shortly to evaluate patient and review EKG to determine possible need for emergent cardiac catheterization. Dr. Sepulveda bedside at 925a. Patient's clinical presentations complex because he did have melanotic stool digital rectal exam according to physician orthopaedic physician assistant. Laboratory results were reviewed by myself. Hemoglobin is 5.3, INR 6.5 still cold blood positive. Patient's lactic acidosis of 17.7., Troponin 1.570. Clinical presentation consistent with type II myocardial infarction. Patient case was rediscussed with Dr. Sepulveda. Here recommends that patient is not stable for cardiac catheterization at this time. He recommends Coumadin reversal. Considering degree of laboratory abnormalities we will admit patient to intensive care unit. (Maximiliano Hunt) - Lab Data Lab Results 10/06/19 10/06/19 10/06/19 Range/Units 08:36 08:37 08:37 WBC 15.8 H (3.8-10.6) k/uL RBC 2.05 L (4.30-5.90) m/uL Hgb 5.3 L* (13.0-17.5) gm/dL Hct 18.9 L* (39.0-53.0) % MCV 91.8 (80.0-100.0) fL MCH 25.7 (25.0-35.0) pg MCHC 28.0 L (31.0-37.0) g/dL RDW 18.9 H (11.5-15.5) % Plt Count 449 (150-450) k/uL Neutrophils % 89 % Lymphocytes % 5 % Monocytes % 4 % Eosinophils % 0 % Basophils % 0 % Neutrophils # 14.0 H (1.3-7.7) k/uL Lymphocytes # 0.8 L (1.0-4.8) k/uL Monocytes # 0.7 (0-1.0) k/uL Eosinophils # 0.0 (0-0.7) k/uL Basophils # 0.0 (0-0.2) k/uL Hypochromasia Marked Poikilocytosis Slight Anisocytosis Slight PT (9.0-12.0) sec INR (<1.2) APTT (22.0-30.0) sec Sodium (137-145) mmol/L Potassium (3.5-5.1) mmol/L Chloride (98-107) mmol/L Carbon Dioxide (22-30) mmol/L Anion Gap mmol/L BUN (9-20) mg/dL Creatinine (0.66-1.25) mg/dL Est GFR (CKD-EPI)AfAm (>60 ml/min/1.73 sqM) Est GFR (CKD-EPI)NonAf (>60 ml/min/1.73 sqM) Glucose (74-99) mg/dL Plasma Lactic Acid Rc (0.7-2.0) mmol/L Calcium (8.4-10.2) mg/dL Magnesium (1.6-2.3) mg/dL Total Bilirubin (0.2-1.3) mg/dL AST (17-59) U/L ALT (4-49) U/L Alkaline Phosphatase (38-126) U/L Troponin I (0.000-0.034) ng/mL Total Protein (6.3-8.2) g/dL Albumin (3.5-5.0) g/dL Stool Occult Blood Positive (Negative) Blood Type Blood Type Confirm O Positive Blood Type Recheck Bld Type Recheck Status Antibody Screen Crossmatch Spec Expiration Date 10/06/19 10/06/19 10/06/19 Range/Units 08:37 08:37 08:37 WBC (3.8-10.6) k/uL RBC (4.30-5.90) m/uL Hgb (13.0-17.5) gm/dL Hct (39.0-53.0) % MCV (80.0-100.0) fL MCH (25.0-35.0) pg MCHC (31.0-37.0) g/dL RDW (11.5-15.5) % Plt Count (150-450) k/uL Neutrophils % % Lymphocytes % % Monocytes % % Eosinophils % % Basophils % % Neutrophils # (1.3-7.7) k/uL Lymphocytes # (1.0-4.8) k/uL Monocytes # (0-1.0) k/uL Eosinophils # (0-0.7) k/uL Basophils # (0-0.2) k/uL Hypochromasia Poikilocytosis Anisocytosis PT 66.5 H (9.0-12.0) sec INR 6.5 H* (<1.2) APTT 32.9 H (22.0-30.0) sec Sodium 140 (137-145) mmol/L Potassium 4.3 (3.5-5.1) mmol/L Chloride 102 (98-107) mmol/L Carbon Dioxide 8 L* (22-30) mmol/L Anion Gap 30 mmol/L BUN 86 H (9-20) mg/dL Creatinine 2.22 H (0.66-1.25) mg/dL Est GFR (CKD-EPI)AfAm 34 (>60 ml/min/1.73 sqM) Est GFR (CKD-EPI)NonAf 29 (>60 ml/min/1.73 sqM) Glucose 249 H (74-99) mg/dL Plasma Lactic Acid Rc 17.7 H* (0.7-2.0) mmol/L Calcium 9.6 (8.4-10.2) mg/dL Magnesium 2.3 (1.6-2.3) mg/dL Total Bilirubin 0.3 (0.2-1.3) mg/dL AST 45 (17-59) U/L ALT 29 (4-49) U/L Alkaline Phosphatase 80 (38-126) U/L Troponin I (0.000-0.034) ng/mL Total Protein 6.8 (6.3-8.2) g/dL Albumin 3.9 (3.5-5.0) g/dL Stool Occult Blood (Negative) Blood Type Blood Type Confirm Blood Type Recheck Bld Type Recheck Status Antibody Screen Crossmatch Spec Expiration Date 10/06/19 10/06/19 Range/Units 08:37 08:59 WBC (3.8-10.6) k/uL RBC (4.30-5.90) m/uL Hgb (13.0-17.5) gm/dL Hct (39.0-53.0) % MCV (80.0-100.0) fL MCH (25.0-35.0) pg MCHC (31.0-37.0) g/dL RDW (11.5-15.5) % Plt Count (150-450) k/uL Neutrophils % % Lymphocytes % % Monocytes % % Eosinophils % % Basophils % % Neutrophils # (1.3-7.7) k/uL Lymphocytes # (1.0-4.8) k/uL Monocytes # (0-1.0) k/uL Eosinophils # (0-0.7) k/uL Basophils # (0-0.2) k/uL Hypochromasia Poikilocytosis Anisocytosis PT (9.0-12.0) sec INR (<1.2) APTT (22.0-30.0) sec Sodium (137-145) mmol/L Potassium (3.5-5.1) mmol/L Chloride (98-107) mmol/L Carbon Dioxide (22-30) mmol/L Anion Gap mmol/L BUN (9-20) mg/dL Creatinine (0.66-1.25) mg/dL Est GFR (CKD-EPI)AfAm (>60 ml/min/1.73 sqM) Est GFR (CKD-EPI)NonAf (>60 ml/min/1.73 sqM) Glucose (74-99) mg/dL Plasma Lactic Acid Rc (0.7-2.0) mmol/L Calcium (8.4-10.2) mg/dL Magnesium (1.6-2.3) mg/dL Total Bilirubin (0.2-1.3) mg/dL AST (17-59) U/L ALT (4-49) U/L Alkaline Phosphatase (38-126) U/L Troponin I 1.570 H* (0.000-0.034) ng/mL Total Protein (6.3-8.2) g/dL Albumin (3.5-5.0) g/dL Stool Occult Blood (Negative) Blood Type O Positive Blood Type Confirm Blood Type Recheck No Previous Record Bld Type Recheck Status CABO Indicated Antibody Screen NEGATIVE Crossmatch See Detail Spec Expiration Date 10/09/2019 0835 Disposition <Maximiliano Hunt - Last Filed: 10/06/19 10:18> Is patient prescribed a controlled substance at d/c from ED?: No Time of Disposition: 10:34 <Aman Lundy - Last Filed: 10/06/19 10:38> Clinical Impression: Anemia, GI bleed, Chest pain, Type 2 myocardial infarction due to anemia Disposition: ADMITTED IP TO THIS HOSP Condition: Fair Referrals: Ilya Saavedra MD [Primary Care Provider] - 1-2 days
[2019-10-06] MEDS ORDERED: ASPIRIN 81 MG PO STA (09:06)
--- NOTE | 2019-10-06 09:08 | XR ---
EXAMINATION TYPE: XR chest 2V DATE OF EXAM: 10/06/2019 COMPARISON: 11/16/2017 HISTORY: Difficulty breathing and weakness TECHNIQUE: Frontal and lateral views of the chest are obtained. FINDINGS: Chronic interstitial prominence. There is no focal air space opacity, pleural effusion, or pneumothorax seen. Pulmonary hyperinflation suggests underlying COPD. The cardiac silhouette size is enlarged. The osseous structures are intact. Mild multilevel degenerative change of the spine. IMPRESSION: Chronic changes with no acute cardiopulmonary process.
[2019-10-06] MEDS: NITROGLYCERIN OINT 1 INCH/GM PACKET TOPICAL STA ×2 (09:12→10:03)
[2019-10-06 09:38] LABS: Anisocytosis Slight; Basophils % (A) 0 %; Eosinophils % (A) 0 %; Hypochromasia Marked; Lymphocytes # (A) 0.8 k/uL (1.0-4.8); Lymphocytes % (A) 5 %; MCH 25.7 pg (25.0-35.0); MCV 91.8 fL (80.0-100.0); Monocytes # (A) 0.7 k/uL (0-1.0); Monocytes % (A) 4 %; Neutrophils % (A) 89 %; Platelet Count 449 k/uL (150-450); Poikilocytosis Slight; RBC 2.05 m/uL (4.30-5.90); RDW 18.9 % (11.5-15.5); WBC 15.8 k/uL (3.8-10.6)
[2019-10-06 09:41] LABS: HGB 5.3 gm/dL (13.0-17.5)
[2019-10-06 09:42] LABS: HCT 18.9 % (39.0-53.0); Potassium 4.3 mmol/L (3.5-5.1)
[2019-10-06 09:43] LABS: Albumin 3.9 g/dL (3.5-5.0); Calcium 9.6 mg/dL (8.4-10.2); Magnesium 2.3 mg/dL (1.6-2.3); Partial Thromboplastin Time 32.9 sec (22.0-30.0); Prothrombin Time 66.5 sec (9.0-12.0); Total Bilirubin 0.3 mg/dL (0.2-1.3); Total Protein 6.8 g/dL (6.3-8.2)
[2019-10-06 10:05] LABS: INR 6.5 (<1.2)
[2019-10-06] MEDS ORDERED: PHYTONADIONE 10 MG in SODIUM CHLORIDE 0.9% 50 ML IVPB STA (10:18)
[2019-10-06] MEDS ORDERED: NALOXONE 0.4 MG/ML 1 ML VIAL IV PRN (10:30)
[2019-10-06] MEDS ORDERED: SODIUM CHLORIDE 0.9% 1,000 ML IV ONE ×2 (10:51→14:51)
[2019-10-06] MEDS: SODIUM CHLORIDE 0.9% 1,000 ML IV SCH (10:59)
--- NOTE | 2019-10-06 11:55 | CONS ---
FRED Chacko is a 69-year-old gentleman with history of valvular heart disease, coronary artery disease, status post prior angioplasty of LAD, hypertension, dyslipidemia, permanent atrial fibrillation, and recent history of GI bleed, who presents to hospital complaining of epigastric discomfort and chest pain. His EKG shows atrial fibrillation with extensive ST-T wave changes which are worse than what the baseline EKG shows. The patient at the time of my evaluation appears in discomfort and his stool guaiac is positive. After my initial evaluation, his labs came back, hemoglobin is 5.3, INR is 6.5, BUN and creatinine are elevated. His clinical presentation seems to be related to acute blood loss anemia with a non ST-segment elevation secondary to severe anemia. I asked the emergency room doctor to transfuse him and then reverse the Coumadin. The patient does not require any cardiac evaluation at this time. He is not a candidate for invasive procedures. He is not a candidate for antiplatelets or anticoagulants at this time. In the long run, I do not think he is a candidate for anticoagulation for atrial fibrillation. PAST MEDICAL HISTORY: Significant for coronary artery disease, status post angioplasty. He had a cardiac catheterization in 2016. I reviewed the results. Hypertension, diabetes, dyslipidemia. MEDICATIONS: At home included metformin, Norvasc Coumadin, omeprazole, Lopressor, losartan, Imdur, Combivent, Lasix, Enbrel, Celebrex, Symbicort, and Lipitor. ALLERGIES: There are no known drug allergies. FAMILY HISTORY: Negative for premature coronary artery disease. SOCIAL HISTORY: Negative for smoking, EtOH abuse, or drug abuse. REVIEW OF SYSTEMS: HEENT: Unremarkable. CARDIAC: As described above. RESPIRATORY: As described above. GI: Significant for GI bleed. GENITOURINARY: Negative. ALLERGY/IMMUNOLOGY: Negative. SKIN: Negative. MUSCULOSKELETAL: Significant for arthritis. PSYCHOSOCIAL: Negative. ENDOCRINE: Negative. CONSTITUTIONAL: Negative. ONCOLOGICAL: Negative. Rest of the system review is not relevant. PHYSICAL EXAMINATION: On exam, patient is afebrile. Heart rate is 70 beats per minute, blood pressure is 122/60, respiratory rate is 18, O2 saturation is 100%. There is no jugular venous distention. Chest exam reveals good air entry bilaterally. Heart exam reveals first and second heart sounds, irregular rhythm, no murmur. Abdomen is soft, nontender. Exam of extremities did not reveal any edema. Peripheral pulses are palpable. LABS: Show a hemoglobin of 5.3, platelet count is 449, INR is 6.5, BUN is 86, creatinine is 2.2. Troponin is 1.5. ASSESSMENT: 1. Severe symptomatic anemia secondary to GI blood loss. 2. Permanent atrial fibrillation with controlled ventricular rate. 3. Acute non ST-segment elevation UT secondary to anemia. This is secondary to supply demand mismatch. 4. Permanent atrial fibrillation. PLAN: Patient is not a candidate for antiplatelet, anticoagulants or invasive procedures. Transfuse the patient, reverse the Coumadin, needs GI evaluation. He is not a candidate for long-term anticoagulation in the long run. MMODL / IJN: [id number] /
[2019-10-06 12:31] LABS: Glucose,Whole Blood 204 mg/dL (75-99)
[2019-10-06] MEDS ORDERED: MAG HYDROX/AL HYDROX/SIMETH 30 ML CUP PO PRN (12:43)
[2019-10-06 13:23] LABS: Anisocytosis Slight; HCT 20.5 % (39.0-53.0); Hypochromasia Marked; MCH 26.1 pg (25.0-35.0); MCV 93.1 fL (80.0-100.0); Mean Platelet Volume 10.8; Platelet Count 293 k/uL (150-450); Poikilocytosis Slight; WBC 14.6 k/uL (3.8-10.6)
--- NOTE | 2019-10-06 13:39 | P.CONS ---
History of Present Illness - Reason for Consult Consult date: 10/06/19 Anemia, GI bleed Requesting physician: Ilya Saavedra - Chief Complaint Shortness of breath - History of Present Illness 69-year-old male with multiple medical comorbidities including CHF, COPD, hypertension, hyperlipidemia, coronary artery disease, atrial fibrillation on anticoagulation therapy with warfarin who presents to the hospital due to complaints of shortness of breath. The patient had been having increasing shortness of breath over the past few days. He has also noticed dark melanotic bowel movements over the past 3 days. Denies any increased in frequency of bowel movements. He is reporting some epigastric abdominal pain and substernal chest pain. The patient had similar presentation 2 months ago in [place] and at that time reports are that the patient had endoscopic evaluation with treatment of a upper GI bleed. Coumadin was held for a short while and then restarted. Patient also reports taking Aleve daily. On presentation hemoglobin found to be 5.3 with 2 units of packed red blood cells ordered. He did have a supratherapeutic INR greater than 6 on presentation with an elevated creatinine of 2.22. Stool testing was positive for occult blood. Past Medical History Past Medical History: Atrial Fibrillation, Coronary Artery Disease (CAD), Heart Failure, COPD, Diabetes Mellitus, GERD/Reflux, Hyperlipidemia, Hypertension, Myocardial Infarction ([place]), Osteoarthritis (OA), Pneumonia, Rheumatoid Arthritis (RA) Additional Past Medical History / Comment(s): gi bleed, anemia, restless leg syndrome, alcoholism, kidney injury Last Myocardial Infarction Date:: 2013 History of Any Multi-Drug Resistant Organisms: None Reported Past Surgical History: Heart Catheterization With Stent, Orthopedic Surgery Additional Past Surgical History / Comment(s): 06/04/13 angioplasty with stent to LAD, 06/07/13 JOLIE, bone spur rt elbow removed, L elbow surgery, bilateral cataract surgery. Past Anesthesia/Blood Transfusion Reactions: No Reported Reaction Additional Past Anesthesia/Blood Transfusion Reaction / Comm: Pt has never recieved blood. Date of Last Stent Placement:: 05/2013 Past Psychological History: No Psychological Hx Reported Additional Psychological History / Comment(s): Pt resides with his spouse. He is independent. He uses no assistive device or home care. He drives. Smoking Status: Current every day smoker Past Alcohol Use History: Abuse, Daily Additional Past Alcohol Use History / Comment(s): He started smoking in 1968 and was 1ppd smoker-smoking approx 4 cig per day. He drinks 5-6 beers about 4 times a week-no alcohol Past Drug Use History: None Reported - Past Family History Father Family Medical History: Cancer Additional Family Medical History / Comment(s): Father of cancer at age 65yrs. Cancer was in his "chest" Mother Family Medical History: Coronary Artery Disease (CAD) Additional Family Medical History / Comment(s): Mother had CABG. She of CHF at age 73 yrs. Brother(s) Family Medical History: Coronary Artery Disease (CAD) Additional Family Medical History / Comment(s): CABG Sister(s) Family Medical History: Coronary Artery Disease (CAD), Myocardial Infarction ([place]) Daughter(s) Family Medical History: No Reported History Son(s) Family Medical History: No Reported History Medications and Allergies Home Medications Medication Instructions Recorded Confirmed Type Atorvastatin [Lipitor] 40 mg PO DAILY 04/01/14 10/06/19 History Isosorbide Mononitrate [Imdur] 30 mg PO DAILY 04/01/14 10/06/19 History Losartan Potassium 100 mg PO DAILY 04/01/14 10/06/19 History Warfarin [Coumadin] 7.5 mg PO DAILY 01/11/15 10/06/19 History amLODIPine [Norvasc] 10 mg PO DAILY 01/11/15 10/06/19 History Furosemide [Lasix] 40 mg PO DAILY 11/16/17 10/06/19 History metFORMIN HCL [metFORMIN HCL ER] 1,000 mg PO BID 11/16/17 10/06/19 History Clotrimazole Cream [Lotrimin Cream] 1 applic TOPICAL BID PRN 10/06/19 10/06/19 History Metolazone [Zaroxolyn] 2.5 mg PO DAILY 10/06/19 10/06/19 History Potassium Chloride ER [K-Dur 20] 20 meq PO BID 10/06/19 10/06/19 History Pramipexole [Mirapex] 0.5 mg PO HS 10/06/19 10/06/19 History hydrALAZINE HCL [Apresoline] 25 mg PO TID 10/06/19 10/06/19 History Allergies Allergy/AdvReac Type Severity Reaction Status Date / Time No Known Allergies Allergy Verified 10/06/19 08:21 Physical Exam Vitals: Vital Signs Temp Pulse Resp BP Pulse Ox 10/06/19 13:00 71 18 107/58 100 10/06/19 12:30 53 L 14 97/47 100 10/06/19 12:05 97 F L 62 20 110/49 100 10/06/19 12:00 97 F L 74 20 110/49 100 10/06/19 11:57 97.0 F L 61 18 98/66 97 10/06/19 11:35 97.0 F L 61 19 101/55 100 10/06/19 11:25 97 F L 61 18 98/59 100 10/06/19 10:00 71 17 123/62 100 10/06/19 09:30 73 17 108/63 98 10/06/19 09:00 65 18 116/56 100 10/06/19 08:44 97.4 F L 10/06/19 08:41 20 10/06/19 08:30 70 17 100 10/06/19 08:18 95 24 116/47 100 Intake and Output 10/05/19 10/06/19 10/06/19 22:59 06:59 14:59 Intake Total 1630 Balance 1630 Intake: IV 1150 Sodium Chloride 0.9% 1, 150 000 ml @ 75 mls/hr IV . [id number] Rx#:[id number] Sodium Chloride 0.9% 1, 1000 000 ml @ 999 mls/hr IV . Q1H1M [facility] Rx#:[id number] Oral 480 Blood Product 0 Rc As-1 Unit 0 [id number] Other: # Voids 1 Weight 65.771 kg On physical examination, patient appears comfortable in no apparent distress. HEAD: Normocephalic, atraumatic. EYES: No scleral icterus. No conjunctival injection. MOUTH: No lesions, tongue midline. NECK: Trachea midline, no gross abnormalities. CHEST: Decreased air entry in all lung alanis. HEART: S1-S2 appreciated. ABDOMEN: Soft, mildly tender to palpation. Bowel sounds are positive. No organomegaly. No guarding or rigidity. EXTREMITIES: No pedal edema. SKIN: No rashes, no jaundice. NEUROLOGIC: Alert and oriented x3. No focal deficits. Results CBC & Chem 7: 10/06/19 08:37 10/06/19 08:37 Labs: Abnormal Lab Results - Last 24 Hours (Table) 10/06/19 10/06/19 10/06/19 Range/Units 08:37 08:37 08:37 WBC 15.8 H (3.8-10.6) k/uL RBC 2.05 L (4.30-5.90) m/uL Hgb 5.3 L* (13.0-17.5) gm/dL Hct 18.9 L* (39.0-53.0) % MCHC 28.0 L (31.0-37.0) g/dL RDW 18.9 H (11.5-15.5) % Neutrophils # 14.0 H (1.3-7.7) k/uL Lymphocytes # 0.8 L (1.0-4.8) k/uL PT 66.5 H (9.0-12.0) sec INR 6.5 H* (<1.2) APTT 32.9 H (22.0-30.0) sec Carbon Dioxide 8 L* (22-30) mmol/L BUN 86 H (9-20) mg/dL Creatinine 2.22 H (0.66-1.25) mg/dL Glucose 249 H (74-99) mg/dL POC Glucose (mg/dL) (75-99) mg/dL Plasma Lactic Acid Rc (0.7-2.0) mmol/L Troponin I (0.000-0.034) ng/mL Crossmatch 10/06/19 10/06/19 10/06/19 Range/Units 08:37 08:37 08:59 WBC (3.8-10.6) k/uL RBC (4.30-5.90) m/uL Hgb (13.0-17.5) gm/dL Hct (39.0-53.0) % MCHC (31.0-37.0) g/dL RDW (11.5-15.5) % Neutrophils # (1.3-7.7) k/uL Lymphocytes # (1.0-4.8) k/uL PT (9.0-12.0) sec INR (<1.2) APTT (22.0-30.0) sec Carbon Dioxide (22-30) mmol/L BUN (9-20) mg/dL Creatinine (0.66-1.25) mg/dL Glucose (74-99) mg/dL POC Glucose (mg/dL) (75-99) mg/dL Plasma Lactic Acid Rc 17.7 H* (0.7-2.0) mmol/L Troponin I 1.570 H* (0.000-0.034) ng/mL Crossmatch See Detail 10/06/19 Range/Units 12:30 WBC (3.8-10.6) k/uL RBC (4.30-5.90) m/uL Hgb (13.0-17.5) gm/dL Hct (39.0-53.0) % MCHC (31.0-37.0) g/dL RDW (11.5-15.5) % Neutrophils # (1.3-7.7) k/uL Lymphocytes # (1.0-4.8) k/uL PT (9.0-12.0) sec INR (<1.2) APTT (22.0-30.0) sec Carbon Dioxide (22-30) mmol/L BUN (9-20) mg/dL Creatinine (0.66-1.25) mg/dL Glucose (74-99) mg/dL POC Glucose (mg/dL) 204 H (75-99) mg/dL Plasma Lactic Acid Rc (0.7-2.0) mmol/L Troponin I (0.000-0.034) ng/mL Crossmatch Chest x-ray: report reviewed (Chronic changes with no acute cardiopulmonary changes noted on chest x-ray) Assessment and Plan Assessment: 1. Melena: 61-year-old with multiple medical comorbidities including atrial fibrillation on anticoagulant therapy who presented to the hospital with a supratherapeutic INR status post administration of reversal agents, and found to be anemic with a hemoglobin of 5.3 initially with complaints of shortness of breath and chest and abdominal pain. The patient had been seen dark colored bowel movements over the past few days. He previously had similar symptoms a few months ago in [place] which was treated with endoscopic evaluation and holding of his Coumadin for approximately one week. The patient does have a mild elevation in his INR which is felt to be secondary to a supply demand mismatch in the setting of anemia. Denies any nausea or vomiting. Patient does take Aleve daily. Suspicion is for peptic ulcer disease, gastritis, esophagitis, AVM or other etiology. 2. Anemia of acute blood loss. 3. Other medical comorbidities per primary team. Plan: Supportive care Clear liquid diet Nothing by mouth after midnight Continue to monitor CBC and transfuse as needed, currently 2 units packed red blood cells are ordered Continue to hold anticoagulation therapy Protonix 40 mg IV twice daily Avoid NSAID use Plan for EGD tomorrow for further evaluation, patient should be nothing by mouth after midnight Cardiology has been contacted and have cleared the patient for endoscopic evaluation tomorrow Thank you for allowing us to participate in the care of the patient we will continue to follow
[2019-10-06] MEDS: clonazePAM 0.5 MG TAB PO SCH ×2 (13:55→21:07)
[2019-10-06] MEDS ORDERED: IPRATROPIUM-ALBUTEROL 3 ML NEB INHALATION PRN (13:56)
[2019-10-06] MEDS: CLOTRIMAZOLE 1% CREAM 15 GM TUBE TOPICAL SCH ×2 (13:56→21:00)
--- NOTE | 2019-10-06 13:56 | P.CNPUL ---
History of Present Illness Consult date: 10/06/19 Requesting physician: Ilya Saavedra Reason for consult: other Chief complaint: Shortness of breath and chest pain. History of present illness: This is a 69-year-old white male, known history of multiple medical problems including COPD, previous history of upper GI bleeding, his last episode of upper GI bleeding was in July while he was in [place], history of coronary artery disease, type 2 diabetes, patient presented to the ER complaining of 1 day history of intermittent episodes of chest pain, some shortness of breath, he also described epigastric discomfort and intermittent episodes of black stools. Patient is on anticoagulation therapy/Coumadin for chronic atrial fibrillation, at the dose was recently increased. Patient describes intermittent episodes of nausea, but no vomiting. And according to the he had black dark stools for the last few days. Patient was found to have a low hemoglobin of 5.3 his INR was 6.5, he was also noted to be metabolically acidotic with an anion gap of 30, his BUN was 86 and creatinine 2.22. Troponin was also elevated at 1.57 BNP was elevated at 9380 and his lactic acid was 17.7. Stool occult blood was positive. Considering his profound anemia abnormal troponin lactic acidosis chest pain, I was asked to see the patient on consultation. I did evaluate the patient in the ER, and I recommended that transfusion of 2 units of packed RBCs, a 1 L of IV fluid bolus in the form of 0.9 normal saline, and the patient was already seen by cardiology addressing his abnormal troponin. His EKG showed mostly atrial fibrillation with lateral T wave abnormality suggestive of ischemia. Chest x- ray showed chronic changes, no evidence of acute cardiopulmonary process. Looking back at this patient's previous workup, he did have a recent workup for weight loss, and he had basically unremarkable CT of the chest and CT of the abdomen and pelvis done less than a year ago. Patient was seen by cardiology and felt that the patient had severe symptomatic anemia and acute non-ST elevation TN secondary to anemia as well as permanent atrial fibrillation. Patient was seen by gastroenterology on consultation, the recommendation was to hold anticoagulation therapy, start Protonix at 40 mg IV push twice a day, and avoid nonsteroidal anti-inflammatory drugs. Patient may undergo EGD in the next 24 hours. Review of Systems Constitutional: Denies any fever or chills, denies any recent weight change, however last year had significant weight loss, and workup was nondiagnostic. HEENT: Negative Pulmonary: Shortness of breath, no cough, no wheezing, no fever no chills no hemoptysis. cardiac: Substernal chest pain associated with nausea, but no vomiting. GI: As noted in HPI, mostly nausea and black stools for the last few days. genitourinary: Negative Musculoskeletal: Negative Psychiatric: Negative Skin: Negative Neurologic: Denies any headache blurred vision or dizziness Hematologic: No previous history of clotting bleeding or bruising except for last episode of upper GI bleeding in July while he was in [place]. Patient is on Coumadin for chronic atrial fibrillation. Endocrine: Denies any cold or heat intolerance. Past Medical History Past Medical History: Atrial Fibrillation, Coronary Artery Disease (CAD), Heart Failure, COPD, Diabetes Mellitus, GERD/Reflux, Hyperlipidemia, Hypertension, Myocardial Infarction ([place]), Osteoarthritis (OA), Pneumonia, Rheumatoid Arthritis (RA) Additional Past Medical History / Comment(s): gi bleed, anemia, restless leg syndrome, alcoholism, kidney injury Last Myocardial Infarction Date:: 2013 History of Any Multi-Drug Resistant Organisms: None Reported Past Surgical History: Heart Catheterization With Stent, Orthopedic Surgery Additional Past Surgical History / Comment(s): 06/04/13 angioplasty with stent to LAD, 06/07/13 JOLIE, bone spur rt elbow removed, L elbow surgery, bilateral cataract surgery. Past Anesthesia/Blood Transfusion Reactions: No Reported Reaction Additional Past Anesthesia/Blood Transfusion Reaction / Comment(s): Pt has never recieved blood. Date of Last Stent Placement:: 05/2013 Past Psychological History: No Psychological Hx Reported Additional Psychological History / Comment(s): Pt resides with his spouse. He is independent. He uses no assistive device or home care. He drives. Smoking Status: Current every day smoker Past Alcohol Use History: Abuse, Daily Additional Past Alcohol Use History / Comment(s): He started smoking in 1968 and was 1ppd smoker-smoking approx 4 cig per day. He drinks 5-6 beers about 4 times a week-no alcohol Past Drug Use History: None Reported - Past Family History Father Family Medical History: Cancer Additional Family Medical History / Comment(s): Father of cancer at age 65yrs. Cancer was in his "chest" Mother Family Medical History: Coronary Artery Disease (CAD) Additional Family Medical History / Comment(s): Mother had CABG. She of CHF at age 73 yrs. Brother(s) Family Medical History: Coronary Artery Disease (CAD) Additional Family Medical History / Comment(s): CABG Sister(s) Family Medical History: Coronary Artery Disease (CAD), Myocardial Infarction ([place]) Daughter(s) Family Medical History: No Reported History Son(s) Family Medical History: No Reported History Medications and Allergies Home Medications Medication Instructions Recorded Confirmed Type Atorvastatin [Lipitor] 40 mg PO DAILY 04/01/14 10/06/19 History Isosorbide Mononitrate [Imdur] 30 mg PO DAILY 04/01/14 10/06/19 History Losartan Potassium 100 mg PO DAILY 04/01/14 10/06/19 History Warfarin [Coumadin] 7.5 mg PO DAILY 01/11/15 10/06/19 History amLODIPine [Norvasc] 10 mg PO DAILY 01/11/15 10/06/19 History Furosemide [Lasix] 40 mg PO DAILY 11/16/17 10/06/19 History metFORMIN HCL [metFORMIN HCL ER] 1,000 mg PO BID 11/16/17 10/06/19 History Clotrimazole Cream [Lotrimin Cream] 1 applic TOPICAL BID PRN 10/06/19 10/06/19 History Metolazone [Zaroxolyn] 2.5 mg PO DAILY 10/06/19 10/06/19 History Potassium Chloride ER [K-Dur 20] 20 meq PO BID 10/06/19 10/06/19 History Pramipexole [Mirapex] 0.5 mg PO HS 10/06/19 10/06/19 History hydrALAZINE HCL [Apresoline] 25 mg PO TID 10/06/19 10/06/19 History Allergies Allergy/AdvReac Type Severity Reaction Status Date / Time No Known Allergies Allergy Verified 10/06/19 08:21 Physical Exam Vitals: Vital Signs Temp Pulse Resp BP Pulse Ox 10/06/19 13:00 71 18 107/58 100 10/06/19 12:30 53 L 14 97/47 100 10/06/19 12:05 97 F L 62 20 110/49 100 10/06/19 12:00 97 F L 74 20 110/49 100 10/06/19 11:57 97.0 F L 61 18 98/66 97 10/06/19 11:35 97.0 F L 61 19 101/55 100 10/06/19 11:25 97 F L 61 18 98/59 100 10/06/19 10:00 71 17 123/62 100 10/06/19 09:30 73 17 108/63 98 10/06/19 09:00 65 18 116/56 100 10/06/19 08:44 97.4 F L 10/06/19 08:41 20 10/06/19 08:30 70 17 100 10/06/19 08:18 95 24 116/47 100 Intake and Output 10/05/19 10/06/19 10/06/19 22:59 06:59 14:59 Intake Total 1630 Balance 1630 Intake: IV 1150 Sodium Chloride 0.9% 1, 150 000 ml @ 75 mls/hr IV . [id number] [facility] Rx#:[id number] Sodium Chloride 0.9% 1, 1000 000 ml @ 999 mls/hr IV . Q1H1M [facility] Rx#:[id number] Oral 480 Blood Product 0 Rc As-1 Unit 0 [id number] Other: # Voids 1 Weight 65.771 kg General: Revealed 69-year-old white male in no form of respiratory distress. HEAD: Normocephalic, atraumatic. EYES: PERRLA, EOMI, no icterus, MOUTH: Dry mucous membranes, throat is clear. NECK: No neck masses no JVD no stridor. CHEST: Symmetrical chest expansion, diminished breath sounds at the bases no rhonchi and no wheezes HEART: Irregular irregular rhythm, no S3 gallop. ABDOMEN: Flat, soft, nontender, no megaly, no rebound, no guarding. EXTREMITIES: No clubbing, no edema, no cyanosis. SKIN: No rashes NEUROLOGIC: Alert and oriented 3, no gross focal neurologic deficits. Psychiatric: Normal mood, affect and normal mental status examination. Lymphatics: No lymphadenopathy was appreciated. Results - Laboratory Findings CBC and BMP: 10/06/19 08:37 10/06/19 08:37 PT/INR, D-dimer PT 66.5 sec (9.0-12.0) H 10/06/19 08:37 INR 6.5 (<1.2) H* 10/06/19 08:37 Abnormal lab findings: Abnormal Labs 10/06/19 10/06/19 10/06/19 08:37 08:37 08:37 WBC 15.8 H RBC 2.05 L Hgb 5.3 L* Hct 18.9 L* MCHC 28.0 L RDW 18.9 H Neutrophils # 14.0 H Lymphocytes # 0.8 L PT 66.5 H INR 6.5 H* APTT 32.9 H Carbon Dioxide 8 L* BUN 86 H Creatinine 2.22 H Glucose 249 H POC Glucose (mg/dL) Plasma Lactic Acid Rc Troponin I Crossmatch 10/06/19 10/06/19 10/06/19 08:37 08:37 08:59 WBC RBC Hgb Hct MCHC RDW Neutrophils # Lymphocytes # PT INR APTT Carbon Dioxide BUN Creatinine Glucose POC Glucose (mg/dL) Plasma Lactic Acid Rc 17.7 H* Troponin I 1.570 H* Crossmatch See Detail 10/06/19 12:30 WBC RBC Hgb Hct MCHC RDW Neutrophils # Lymphocytes # PT INR APTT Carbon Dioxide BUN Creatinine Glucose POC Glucose (mg/dL) 204 H Plasma Lactic Acid Rc Troponin I Crossmatch - Diagnostic Findings Chest x-ray: image reviewed (As noted in HPI.) Assessment and Plan Assessment: Impression: Acute blood loss anemia Acute melena, suspect upper GI bleeding Acute non-ST elevation myocardial infarction Coumadin coagulopathy with elevated INR. Symptomatic severe anemia secondary to GI blood loss. Chronic atrial fibrillation. History of coronary artery disease. History of COPD. Acute kidney injury secondary to acute tumor necrosis, hypotension, and profound anemia. Acute anion gap metabolic acidosis, multifactorial mostly secondary to acute kidney injury and poor perfusion secondary to anemia, strongly doubt sepsis. History of alcoholism. History of type 2 diabetes. History of GERD and hiatal hernia Degenerative joint disease Restless leg syndrome Recommendation: Patient to be transfused at least 2 units of packed RBCs while in the ER. Patient to receive fluid bolus of 1 L of 0.9 normal saline now. Patient to remain nothing by mouth, may have to be considered for EGD. Hold Coumadin, consider treatment with vitamin K and fresh was a plasma if necessary. Protonix 40 mg IV push twice a day. Monitor cardiac rhythm closely in the ICU. Patient is in chronic atrial fibrillation but rate seems to be fairly well controlled at present. Placed on bronchodilators for his underlying COPD Placed on thiamine and see what protocol for history of alcoholism. Monitor sugars closely, may have to consider insulin drip if necessary. Prognosis is guarded, we will monitor the patient closely in the ICU. Accepted for transfer to the ICU. We'll continue to follow. Time with Patient: Greater than 30
[2019-10-06 13:57] LABS: HGB 5.7 gm/dL (13.0-17.5)
[2019-10-06] MEDS ORDERED: LORazepam 2 MG/ML INJ IV PRN ×3 (13:57)
[2019-10-06] MEDS ORDERED: THIAMINE 100 MG/ML 2 ML VIAL IM STA (13:57)
--- NOTE | 2019-10-06 13:57 | P.HPIM ---
History of Present Illness H&P Date: 10/06/19 Chief Complaint: Difficulty in breathing, weakness, black stools This is a 64-year-old male one of Dr. Saavedra and Dr. GEORGE Sharp with a previous medical history significant for coronary artery disease status post PCI and stent placement of the LAD in May 2013, hypertension and hypertensive cardiovascular disease, hyperlipidemia, prediabetes, paroxysmal atrial fi brillation on long-term Coumadin, GERD, history of rheumatoid arthritis. Patient normally [facility] in [place] and was hospitalized at [facility], [place] for acute upper GI bleed in July. He underwent an EGD at that time and does not know results. His Coumadin was placed on hold from July 29 and resumed on August 09. Patient came back to [place] the end of August. He is complaining of difficulty breathing as well as a tightness in his chest but not true chest pain. He complains of epigastric and reflux type pain. He states he is waking up gasping for air like he's having a panic attack. He complains of black stools for the past few days. He also complains of lightheadedness. He is also complaining of restless leg syndrome recently started Requip without any improvement. Patient is drinking 6 beers per day on the weekends only. He states this is not a daily event. He is smoking 1 pack per day. Patient came into [facility] urgency center for evaluation. Kalpesh davis was afebrile, heart rate 70-95, blood pressure initially 116/47 fluctuating between 97/47. Hemoglobin 5.3, WBC 15.8, platelet count 449. INR 6.5, CO2 8, BUN 86, creatinine 2.22, blood sugar 204. Lactic acid 17.7, proBNP 9380, troponin 1.570, stool for occult blood positive. Chest x-ray reveals chronic changes with no acute cardio pulmonary process. EKG atrial fibrillation with T wave changes. 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 Patient is not currently requiring vasopressors. Review of Systems Constitutional: Reports anorexia, Reports chronic pain, Reports fatigue, Reports poor appetite, Reports weakness, Denies chills, Denies fever Eyes: denies blurred vision, denies pain Ears, nose, mouth and throat: Denies dysphagia, Denies headache, Denies nasal congestion, Denies nasal discharge, Denies sore throat, Denies vertigo Cardiovascular: Reports chest pain, Reports dyspnea on exertion, Reports lightheadedness, Denies edema, Denies leg edema Respiratory: Reports dyspnea, Denies cough, Denies cough with sputum, Denies excessive sputum, Denies hemoptysis, Denies home oxygen, Denies respiratory infections, Denies wheezing Gastrointestinal: Reports abdominal pain, Reports change in bowel habits, Reports dyspepsia, Reports heartburn, Reports loss of appetite, Reports melena, Denies coffee ground emesis, Denies diarrhea, Denies nausea, Denies vomiting Genitourinary: Denies dysuria, Denies urinary retention Musculoskeletal: Reports muscle weakness, Denies frequent falls, Denies gait dysfunction, Denies myalgias Integumentary: Denies pruritus, Denies rash, Denies wounds Neurological: Denies change in mentation, Denies change in speech, Denies gait dysfunction, Denies numbness, Denies seizures, Denies weakness Psychiatric: Denies anxiety, Denies depression Endocrine: Denies fatigue, Denies weight change Past Medical History Past Medical History: Atrial Fibrillation, Coronary Artery Disease (CAD), Heart Failure, COPD, Diabetes Mellitus, GERD/Reflux, Hyperlipidemia, Hypertension, Osteoarthritis (OA), Pneumonia, Rheumatoid Arthritis (RA) Additional Past Medical History / Comment(s): gi bleed, anemia, restless leg syndrome, alcoholism, kidney injury History of Any Multi-Drug Resistant Organisms: None Reported Past Surgical History: Heart Catheterization With Stent, Orthopedic Surgery Additional Past Surgical History / Comment(s): 06/04/13 angioplasty with stent to LAD, 06/07/13 JOLIE, bone spur rt elbow removed, L elbow surgery, bilateral cataract surgery. Past Anesthesia/Blood Transfusion Reactions: No Reported Reaction Additional Past Anesthesia/Blood Transfusion Reaction / Comment(s): Pt has never recieved blood. Date of Last Stent Placement:: 05/2013 Past Psychological History: No Psychological Hx Reported Smoking Status: Current some day smoker Past Alcohol Use History: Abuse, Daily Additional Past Alcohol Use History / Comment(s): Patient is a smoker one pack per day since he was 15 years of age. He is currently drinking 6 beers per day on the weekends. He denies daily alcohol intake. He lives at home with his . He does have a nebulizer. No CPAP, no oxygen at home. Patient denies any marijuana use, street drug use. Past Drug Use History: None Reported - Past Family History Father Family Medical History: Cancer Additional Family Medical History / Comment(s): Father of prostate cancer at age 65yrs. Mother Family Medical History: Coronary Artery Disease (CAD) Additional Family Medical History / Comment(s): Mother had CABG. She of CHF at age 73 yrs. Brother(s) Family Medical History: Coronary Artery Disease (CAD) Additional Family Medical History / Comment(s): Patient has 2 brothers and one has history of myocardial infarction and five-vessel CABG, one has history of prostate cancer. Sister(s) Family Medical History: Coronary Artery Disease (CAD), Myocardial Infarction (MT) Additional Family Medical History / Comment(s): Patient has 2 sisters and one has history of myocardial infarction. Daughter(s) Family Medical History: No Reported History Additional Family Medical History / Comment(s): Patient has a total of 3 children with no major medical problems. Son(s) Family Medical History: No Reported History Medications and Allergies Home Medications Medication Instructions Recorded Confirmed Type Atorvastatin [Lipitor] 40 mg PO DAILY 04/01/14 10/06/19 History Isosorbide Mononitrate [Imdur] 30 mg PO DAILY 04/01/14 10/06/19 History Losartan Potassium 100 mg PO DAILY 04/01/14 10/06/19 History Warfarin [Coumadin] 7.5 mg PO DAILY 01/11/15 10/06/19 History amLODIPine [Norvasc] 10 mg PO DAILY 01/11/15 10/06/19 History Furosemide [Lasix] 40 mg PO DAILY 11/16/17 10/06/19 History metFORMIN HCL [metFORMIN HCL ER] 1,000 mg PO BID 11/16/17 10/06/19 History Clotrimazole Cream [Lotrimin Cream] 1 applic TOPICAL BID PRN 10/06/19 10/06/19 History Metolazone [Zaroxolyn] 2.5 mg PO DAILY 10/06/19 10/06/19 History Potassium Chloride ER [K-Dur 20] 20 meq PO BID 10/06/19 10/06/19 History Pramipexole [Mirapex] 0.5 mg PO HS 10/06/19 10/06/19 History hydrALAZINE HCL [Apresoline] 25 mg PO TID 10/06/19 10/06/19 History Allergies Allergy/AdvReac Type Severity Reaction Status Date / Time No Known Allergies Allergy Verified 10/06/19 08:21 Physical Exam Vitals: Vital Signs Temp Pulse Resp BP Pulse Ox 10/06/19 10:00 71 17 123/62 100 10/06/19 09:30 73 17 108/63 98 10/06/19 09:00 65 18 116/56 100 10/06/19 08:44 97.4 F L 10/06/19 08:41 20 10/06/19 08:30 70 17 100 10/06/19 08:18 95 24 116/47 100 Intake and Output 10/05/19 10/06/19 10/06/19 22:59 06:59 14:59 Other: Weight 65.771 kg Gen: This is a 69-year-old thin male. He is resting in the ER stretcher. He appears to be in no acute distress. Patient's is at bedside. HEENT: Head is atraumatic, normocephalic. Pupils equal, round. Sclerae is anicteric. Conjunctiva pale. NECK: Supple. No JVD. No lymphadenopathy. No thyromegaly. LUNGS: Clear to auscultation. No wheezes or rhonchi. No intercostal retractions. HEART: Irregularly irate and rhythm. 2/6 murmur at the left sternal border. ABDOMEN: Soft. Bowel sounds are present. No masses. Mild epigastric tenderness. EXTREMITIES: No pedal edema. No calf tenderness. Dorsalis pedis +1 bilaterally. Tinea infection to bilateral feet. NEUROLOGICAL: Patient is awake, alert and oriented x3. Cranial nerves 2 through 12 are grossly intact. Results CBC & Chem 7: 10/06/19 08:37 10/06/19 08:37 Labs: Abnormal Lab Results - Last 24 Hours (Table) 10/06/19 10/06/19 10/06/19 Range/Units 08:37 08:37 08:37 WBC 15.8 H (3.8-10.6) k/uL RBC 2.05 L (4.30-5.90) m/uL Hgb 5.3 L* (13.0-17.5) gm/dL Hct 18.9 L* (39.0-53.0) % MCHC 28.0 L (31.0-37.0) g/dL RDW 18.9 H (11.5-15.5) % Neutrophils # 14.0 H (1.3-7.7) k/uL Lymphocytes # 0.8 L (1.0-4.8) k/uL PT 66.5 H (9.0-12.0) sec INR 6.5 H* (<1.2) APTT 32.9 H (22.0-30.0) sec Carbon Dioxide 8 L* (22-30) mmol/L BUN 86 H (9-20) mg/dL Creatinine 2.22 H (0.66-1.25) mg/dL Glucose 249 H (74-99) mg/dL Plasma Lactic Acid Rc (0.7-2.0) mmol/L Troponin I (0.000-0.034) ng/mL Crossmatch 10/06/19 10/06/19 10/06/19 Range/Units 08:37 08:37 08:59 WBC (3.8-10.6) k/uL RBC (4.30-5.90) m/uL Hgb (13.0-17.5) gm/dL Hct (39.0-53.0) % MCHC (31.0-37.0) g/dL RDW (11.5-15.5) % Neutrophils # (1.3-7.7) k/uL Lymphocytes # (1.0-4.8) k/uL PT (9.0-12.0) sec INR (<1.2) APTT (22.0-30.0) sec Carbon Dioxide (22-30) mmol/L BUN (9-20) mg/dL Creatinine (0.66-1.25) mg/dL Glucose (74-99) mg/dL Plasma Lactic Acid Rc 17.7 H* (0.7-2.0) mmol/L Troponin I 1.570 H* (0.000-0.034) ng/mL Crossmatch See Detail Thrombosis Risk Factor Assmnt - DVT/VTE Prophylaxis DVT/VTE Prophylaxis: Mechanical Prophylaxis ordered Assessment and Plan Plan: 1. Generalized weakness, fatigue, chest pain and hypotension secondary to acute blood loss anemia. 2. Acute blood loss anemia secondary to acute upper GI bleed. Coumadin on hold and status post vitamin K. Patient be transfused 2 units of packed RBCs. Recheck CBC every 8 hours, GI consultation with plan for EGD tomorrow, Protonix 40 mg IV twice daily. Patient to start clear liquids. 3. Acute non-ST elevated myocardial infarction secondary to anemia with supply and demand mismatch. Cardiology consult appreciated. 4. Chronic atrial fibrillation. Patient will be off Coumadin permanently. 5. Coagulopathy secondary to Coumadin and GI bleed. Status post vitamin K. Patient is off Coumadin. 6. SIRS with hypotension, leukocytosis and lactic acidosis. 7. Recent acute GI bleed while in [place]. Obtain documentation from [facility]. 8. Acute kidney injury. Hold Lasix and losartan, avoid hypotensive episodes and nephrotoxic agents. 9. Chronic diastolic heart failure. Hold Lasix 10. History of CAD status post PCI of the LAD back in May 2013. Continue Imdur 30 mg orally once every day with parameters, Lipitor 40 mg orally once every day. 11. Hypertension and hypertensive cardiovascular disease, presented with hypotension. Hold amlodipine 10 mg orally once every day and hold losartan 100 mg orally once every day. 12. History of GERD. Protonix. 13. History of prediabetes. Patient will be placed on NovoLog scale 14. History of rheumatoid arthritis. Stable. 15. DVT Prophylaxis. SCDs and ABE hose. 16. GI prophylaxis. Protonix. Estimated length of stay 3 days. CODE STATUS: Full code. Discharge plan: Most likely return home. Plan to order PT and OT once patient is stable. Impression and plan of care have been directed as dictated by the signing physician. Regina Shields nurse practitioner acting as scribe for signing physician.
[2019-10-06 13:58] LABS: Reticulocyte % 2.9 % (0.5-2.0)
[2019-10-06 16:43] LABS: Glucose,Whole Blood 221 mg/dL (75-99)
[2019-10-06] MEDS: INSULIN ASPART (NovoLOG) 100 UNIT/ML VIAL SQ SCH ×2 (17:01→20:55)
[2019-10-06] MEDS: THIAMINE 100 MG TAB PO SCH (17:01)
[2019-10-06 18:40] LABS: Anisocytosis Slight; HCT 22.7 % (39.0-53.0); Hypochromasia Marked; MCH 26.3 pg (25.0-35.0); MCHC 29.5 g/dL (31.0-37.0); MCV 89.3 fL (80.0-100.0); Platelet Count 277 k/uL (150-450); Poikilocytosis Slight; RBC 2.55 m/uL (4.30-5.90); RDW 17.6 % (11.5-15.5)
[2019-10-06 18:44] LABS: HGB 6.7 gm/dL (13.0-17.5)
[2019-10-06 20:03] LABS: % Iron Saturation 0.23 (15.00-50.00); Iron <2 ug/dL (65-175); Total Iron Binding Capacity 426 ug/dL (228-460)
[2019-10-06 20:32] LABS: Glucose,Whole Blood 237 mg/dL (75-99)
[2019-10-06] MEDS: PANTOPRAZOLE 40 MG/10 ML VIAL IVP SCH (20:56)
[2019-10-07 05:43] LABS: Anisocytosis Slight; HCT 25.5 % (39.0-53.0); HGB 7.9 gm/dL (13.0-17.5); Hypochromasia Marked; MCH 26.6 pg (25.0-35.0); MCHC 30.9 g/dL (31.0-37.0); Mean Platelet Volume 8.9; Platelet Count 267 k/uL (150-450); Poikilocytosis Moderate; RBC 2.96 m/uL (4.30-5.90); RDW 17.7 % (11.5-15.5); WBC 30.6 k/uL (3.8-10.6)
[2019-10-07] MEDS: SODIUM CHLORIDE 0.9% 1,000 ML IV SCH ×2 (05:49→20:45)
[2019-10-07 05:53] LABS: Partial Thromboplastin Time 26.8 sec (22.0-30.0); Prothrombin Time 19.7 sec (9.0-12.0)
[2019-10-07 06:22] LABS: Calcium 9.1 mg/dL (8.4-10.2); Potassium 4.8 mmol/L (3.5-5.1)
[2019-10-07 07:01] LABS: Glucose,Whole Blood 179 mg/dL (75-99)
[2019-10-07] MEDS: THIAMINE 100 MG TAB PO SCH ×2 (07:28→16:40)
[2019-10-07] MEDS: INSULIN ASPART (NovoLOG) 100 UNIT/ML VIAL SQ SCH ×4 (07:28→20:44)
[2019-10-07] MEDS: clonazePAM 0.5 MG TAB PO SCH ×2 (08:12→20:43)
[2019-10-07] MEDS: ISOSORBIDE MONONITRATE ER 30 MG TAB.ER.24H PO SCH (08:12)
[2019-10-07] MEDS: PANTOPRAZOLE 40 MG/10 ML VIAL IVP SCH ×2 (08:13→20:43)
[2019-10-07] MEDS: CLOTRIMAZOLE 1% CREAM 15 GM TUBE TOPICAL SCH ×2 (08:15→20:46)
--- NOTE | 2019-10-07 09:18 | XR ---
EXAMINATION TYPE: XR chest 1V portable DATE OF EXAM: 10/07/2019 COMPARISON: 10/06/2019 INDICATION: Short of breath TECHNIQUE: Single frontal view of the chest is obtained. FINDINGS: The heart size is normal. The pulmonary vasculature is normal. Diffuse mild increased lung markings are present. This is slightly increased over the interval. Consi dianne atypical pneumonia. IMPRESSION: 1. Mild increasing diffuse lung markings. Consider atypical pneumonia within the differential for a f ollow-up is recommended.
--- NOTE | 2019-10-07 11:55 | ECHOF ---
Referral Reason:shortness of breath MEASUREMENTS -------- HEIGHT: 182.9 cm WEIGHT: 73.0 kg BP: RVIDd: 3.2 cm (< 3.3) IVSd: 1.3 cm (0.6 - 1.1) LVIDd: 4.6 cm (3.9 - 5.3) LVPWd: 1.4 cm (0.6 - 1.1) IVSs: 2.0 cm LVIDs: 2.5 cm LVPWs: 2.3 cm LAESV Index (A-L): 51.23 ml/m Ao Diam: 3.2 cm (2.0 - 3.7) AV Cusp: 2.0 cm (1.5 - 2.6) LA Diam: 3.4 cm (2.7 - 3.8) MV EXCURSION: 12.495 mm (> 18.000) MV EF SLOPE: 99 mm/s (70 - 150) EPSS: 0.8 cm MV E Soham: 1.21 m/s MV DecT: 207 ms MV A Soham: 0.22 m/s MV E/A Ratio: 5.45 AR PHT: 404 ms RAP: 15.00 mmHg RVSP: 72.83 mmHg FINDINGS -------- The left ventricular size is normal. There is mild concentric left ventricular hypertrophy. Overa ll left ventricular systolic function is low-normal with, an EF between 50 - 55 %. Increased LAP Gr nicole 3 Diastolic Dysfunction. The right ventricle is mildly enlarged. LA is severely dilated >40 ml/m2 The right atrial size is normal. Interatrial and interventricular septum intact. Aortic valve is trileaflet and is mildly thickened. There is [id number] aortic regurgitatio n. The mitral valve is normal. The mitral valve leaflets are mildly thickened. Severe mitral regurgi tation is present. The tricuspid valve appears structurally normal. Severe tricuspid regurgitation present. There is severe pulmonary hypertension. The right ventricular systolic pressure, as measured by Doppler, is 72.83mmHg. There is no pulmonic regurgitation present. The aortic root size is normal. There is no pericardial effusion. CONCLUSIONS -------- 1. The left ventricular size is normal. 2. There is mild concentric left ventricular hypertrophy. 3. Increased LAP Grade 3 Diastolic Dysfunction. 4. The right ventricle is mildly enlarged. 5. LA is severely dilated >40 ml/m2 6. The right atrial size is normal. 7. Interatrial and interventricular septum intact. 8. Aortic valve is trileaflet and is mildly thickened. 9. The mitral valve is normal. 10. The mitral valve leaflets are mildly thickened. 11. Severe mitral regurgitation is present. 12. The tricuspid valve appears structurally normal. 13. Severe tricuspid regurgitation present. 14. There is severe pulmonary hypertension. 15. The right ventricular systolic pressure, as measured by Doppler, is 72.83mmHg. 16. There is no pulmonic regurgitation present. 17. The aortic root size is normal. 18. There is no pericardial effusion. FINANCIAL SALES PROFESSIONAL: Kelly Cintron RDCS
--- NOTE | 2019-10-07 12:03 | P.PN ---
Subjective Progress Note Date: 10/07/19 This is a 64-year-old male one of Dr. Saavedra and Dr. GEORGE Sharp with a previous medical history significant for coronary artery disease status post PCI and stent placement of the LAD in May 2013, hypertension and hypertensive cardiovascular disease, hyperlipidemia, prediabetes, paroxysmal atrial fibrillation on long-term Coumadin, GERD, history of rheumatoid arthritis. Patient normally [place] in [place] and was hospitalized at [facility] [place] for acute upper GI bleed in July. He underwent an EGD at that time and does not know results. His Coumadin was placed on hold from July 29 and resumed on August 09. Patient came back to [place] the end of August. He is complaining of difficulty breathing as well as a tightness in his chest but not true chest pain. He complains of epigastric and reflux type pain. He states he is waking up gasping for air like he's having a panic attack. He complains of black stools for the past few days. He also complains of lightheadedness. He is also complaining of restless leg syndrome recently started Requip without any improvement. Patient is drinking 6 beers per day on the weekends only. He states this is not a daily event. He is smoking 1 pack per day. Patient came into [facility] urgency center for evaluation. Patient was afebrile, heart rate 70-95, blood pressure initially 116/47 fluctuating between 97/47. Hemoglobin 5.3, WBC 15.8, platelet count 449. INR 6.5, CO2 8, BUN 86, creatinine 2.22, blood sugar 204. Lactic acid 17.7, proBNP 9380, troponin 1.570, stool for occult blood positive. Chest x-ray reveals chronic changes with no acute cardio pulmonary process. EKG atrial fibrillation with T wave changes. Patient was given vitamin K 10 mg, 1 L of IV fluids, Protonix, aspirin, transfusion of 2 units packed RBCs, consult with GI, cardiology, benefits clerk. Patient is not currently requiring vasopressors. 10/06: Patient remains in the intensive care unit. He is status post transfusion of 3 units of packed RBCs and hemoglobin is currently at 7.9, INR 2, BUN 87 creatinine 1.73, CO2 21, troponin 4.4 with repeat at 10 AM of 2.3. Repeat troponin 14.2. Another repeat troponin and echocardiogram has been ordered by Dr. Melendez. Patient is tentatively scheduled for EGD today at noon. Patient has been afebrile, heart rate in the 60s to 70s, blood pressure 134/71, pulse ox 94% on 2 L nasal cannula. Objective - Vital Signs Vital signs: Vital Signs Temp 98 F 10/07/19 08:00 Pulse 76 10/07/19 08:00 Resp 21 10/07/19 08:00 BP 134/71 10/07/19 08:00 Pulse Ox 94 L 10/07/19 08:00 Intake & Output 10/06/19 10/07/19 10/07/19 18:59 06:59 18:59 Intake Total 3985 1530 150 Output Total 0 700 100 Balance 3985 830 50 Weight 65.771 kg 65.7 kg Intake: IV 2525 900 150 Sodium Chloride 0.9% 1, 525 900 150 000 ml @ 75 mls/hr IV . [id number] GUEVARA Rx#:[id number] Sodium Chloride 0.9% 1, 1000 000 ml @ 999 mls/hr IV . Q1H1M ONE Rx#:[id number] Sodium Chloride 0.9% 1, 1000 000 ml @ 999 mls/hr IV . Q1H1M ONE Rx#:[id number] Oral 840 320 Blood Product 620 310 As-1 Unit 310 [id number] As-1 Unit 310 [id number] Rc As-3 Unit 310 [id number] Output: Urine 0 700 100 Other: Voiding Method Urinal Urinal # Voids 1 1 # Bowel Movements 1 - Exam Review of Systems Constitutional: Reports anorexia, Reports chronic pain, Reports fatigue, Reports poor appetite, Reports weakness, Denies chills, Denies fever Eyes: denies blurred vision, denies pain Ears, nose, mouth and throat: Denies dysphagia, Denies headache, Denies nasal congestion, Denies nasal discharge, Denies sore throat, Denies vertigo Cardiovascular: Reports chest pain, Reports dyspnea on exertion, Reports lightheadedness, Denies edema, Denies leg edema Respiratory: Reports dyspnea, Denies cough, Denies cough with sputum, Denies excessive sputum, Denies hemoptysis, Denies home oxygen, Denies respiratory infections, Denies wheezing Gastrointestinal: Denies abdominal pain, Reports change in bowel habits, Reports dyspepsia, denies heartburn, Reports loss of appetite, Reports melena, Denies coffee ground emesis, Denies diarrhea, Denies nausea, Denies vomiting Genitourinary: Denies dysuria, Denies urinary retention Musculoskeletal: Reports muscle weakness, Denies frequent falls, Denies gait dysfunction, Denies myalgias Integumentary: Denies pruritus, Denies rash, Denies wounds Neurological: Denies change in mentation, Denies change in speech, Denies gait dysfunction, Denies numbness, Denies seizures, Denies weakness Psychiatric: Denies anxiety, Denies depression Endocrine: Denies fatigue, Denies weight change Physical examination: Gen: This is a 69-year-old thin male. He is resting in the ICU bed. He appears to be in no acute distress. HEENT: Head is atraumatic, normocephalic. Pupils equal, round. Sclerae is anicteric. Conjunctiva pale. NECK: Supple. No JVD. No lymphadenopathy. No thyromegaly. LUNGS: Clear to auscultation. No wheezes or rhonchi. No intercostal retraction s. HEART: Irregularly irate and rhythm. 2/6 murmur at the left sternal border. ABDOMEN: Soft. Bowel sounds are present. No masses. No tenderness. EXTREMITIES: No pedal edema. No calf tenderness. Dorsalis pedis +1 bilaterally. Tinea infection to bilateral feet. NEUROLOGICAL: Patient is awake, alert and oriented x3. Cranial nerves 2 through 12 are grossly intact. - Labs CBC & Chem 7: 10/07/19 05:14 10/07/19 05:14 Labs: Abnormal Lab Results - Last 24 Hours (Table) 10/06/19 10/06/19 10/06/19 Range/Units 08:33 08:37 08:59 WBC (3.8-10.6) k/uL RBC (4.30-5.90) m/uL Hgb (13.0-17.5) gm/dL Hct (39.0-53.0) % MCHC (31.0-37.0) g/dL RDW (11.5-15.5) % Retic Count (0.5-2.0) % PT (9.0-12.0) sec INR (<1.2) Carbon Dioxide (22-30) mmol/L BUN (9-20) mg/dL Creatinine (0.66-1.25) mg/dL Glucose (74-99) mg/dL POC Glucose (mg/dL) (75-99) mg/dL Plasma Lactic Acid Rc (0.7-2.0) mmol/L Iron <2 L (65-175) ug/dL % Saturation 0.23 L (15.00-50.00) Ferritin 21.0 L (22.0-322.0) ng/mL Troponin I 1.570 H* (0.000-0.034) ng/mL Crossmatch See Detail 10/06/19 10/06/19 10/06/19 Range/Units 12:30 13:09 13:09 WBC 14.6 H (3.8-10.6) k/uL RBC 2.20 L (4.30-5.90) m/uL Hgb 5.7 L* (13.0-17.5) gm/dL Hct 20.5 L (39.0-53.0) % MCHC 28.0 L (31.0-37.0) g/dL RDW 18.0 H (11.5-15.5) % Retic Count 2.9 H (0.5-2.0) % PT (9.0-12.0) sec INR (<1.2) Carbon Dioxide (22-30) mmol/L BUN (9-20) mg/dL Creatinine (0.66-1.25) mg/dL Glucose (74-99) mg/dL POC Glucose (mg/dL) 204 H (75-99) mg/dL Plasma Lactic Acid Rc 16.7 H* (0.7-2.0) mmol/L Iron (65-175) ug/dL % Saturation (15.00-50.00) Ferritin (22.0-322.0) ng/mL Troponin I (0.000-0.034) ng/mL Crossmatch 10/06/19 10/06/19 10/06/19 Range/Units 16:41 18:13 18:13 WBC 20.0 H (3.8-10.6) k/uL RBC 2.55 L (4.30-5.90) m/uL Hgb 6.7 L* (13.0-17.5) gm/dL Hct 22.7 L (39.0-53.0) % MCHC 29.5 L (31.0-37.0) g/dL RDW 17.6 H (11.5-15.5) % Retic Count (0.5-2.0) % PT (9.0-12.0) sec INR (<1.2) Carbon Dioxide (22-30) mmol/L BUN (9-20) mg/dL Creatinine (0.66-1.25) mg/dL Glucose (74-99) mg/dL POC Glucose (mg/dL) 221 H (75-99) mg/dL Plasma Lactic Acid Rc 11.0 H* (0.7-2.0) mmol/L Iron (65-175) ug/dL % Saturation (15.00-50.00) Ferritin (22.0-322.0) ng/mL Troponin I (0.000-0.034) ng/mL Crossmatch 10/06/19 10/06/19 10/07/19 Range/Units 20:31 22:07 02:01 WBC (3.8-10.6) k/uL RBC (4.30-5.90) m/uL Hgb (13.0-17.5) gm/dL Hct (39.0-53.0) % MCHC (31.0-37.0) g/dL RDW (11.5-15.5) % Retic Count (0.5-2.0) % PT (9.0-12.0) sec INR (<1.2) Carbon Dioxide (22-30) mmol/L BUN (9-20) mg/dL Creatinine (0.66-1.25) mg/dL Glucose (74-99) mg/dL POC Glucose (mg/dL) 237 H (75-99) mg/dL Plasma Lactic Acid Rc 8.3 H* 4.7 H* (0.7-2.0) mmol/L Iron (65-175) ug/dL % Saturation (15.00-50.00) Ferritin (22.0-322.0) ng/mL Troponin I (0.000-0.034) ng/mL Crossmatch 10/07/19 10/07/19 10/07/19 Range/Units 05:14 05:14 05:14 WBC 30.6 H (3.8-10.6) k/uL RBC 2.96 L (4.30-5.90) m/uL Hgb 7.9 L (13.0-17.5) gm/dL Hct 25.5 L (39.0-53.0) % MCHC 30.9 L (31.0-37.0) g/dL RDW 17.7 H (11.5-15.5) % Retic Count (0.5-2.0) % PT 19.7 H (9.0-12.0) sec INR 2.0 H (<1.2) Carbon Dioxide 21 L (22-30) mmol/L BUN 87 H (9-20) mg/dL Creatinine 1.73 H (0.66-1.25) mg/dL Glucose 138 H (74-99) mg/dL POC Glucose (mg/dL) (75-99) mg/dL Plasma Lactic Acid Rc (0.7-2.0) mmol/L Iron (65-175) ug/dL % Saturation (15.00-50.00) Ferritin (22.0-322.0) ng/mL Troponin I (0.000-0.034) ng/mL Crossmatch 10/07/19 10/07/19 10/07/19 Range/Units 06:03 06:03 06:59 WBC (3.8-10.6) k/uL RBC (4.30-5.90) m/uL Hgb (13.0-17.5) gm/dL Hct (39.0-53.0) % MCHC (31.0-37.0) g/dL RDW (11.5-15.5) % Retic Count (0.5-2.0) % PT (9.0-12.0) sec INR (<1.2) Carbon Dioxide (22-30) mmol/L BUN (9-20) mg/dL Creatinine (0.66-1.25) mg/dL Glucose (74-99) mg/dL POC Glucose (mg/dL) 179 H (75-99) mg/dL Plasma Lactic Acid Rc 4.4 H* (0.7-2.0) mmol/L Iron (65-175) ug/dL % Saturation (15.00-50.00) Ferritin (22.0-322.0) ng/mL Troponin I 14.200 H* (0.000-0.034) ng/mL Crossmatch Assessment and Plan Plan: 1. Generalized weakness, fatigue, chest pain and hypotension secondary to acute blood loss anemia. 2. Acute blood loss anemia secondary to acute upper GI bleed. Coumadin on hold and status post vitamin K. Patient be transfused 2 units of packed RBCs. Recheck CBC every 8 hours, GI consultation with plan for EGD tomorrow, Protonix 40 mg IV twice daily. Patient to start clear liquids. 3. Acute non-ST elevated myocardial infarction secondary to anemia with supply and demand mismatch. Cardiology consult appreciated. 4. Chronic atrial fibrillation. Patient will be off Coumadin permanently. 5. Coagulopathy secondary to Coumadin and GI bleed. Status post vitamin K. Patient is off Coumadin. 6. SIRS with hypotension, leukocytosis and lactic acidosis. 7. Recent acute GI bleed while in [place]. Obtain documentation from [facility]. 8. Acute kidney injury. Hold Lasix and losartan, avoid hypotensive episodes and nephrotoxic agents. 9. Chronic diastolic heart failure. Hold Lasix 10. History of CAD status post PCI of the LAD back in May 2013. Continue Imdur 30 mg orally once every day with parameters, Lipitor 40 mg orally once every day. 11. Hypertension and hypertensive cardiovascular disease, presented with hypotension. Hold amlodipine 10 mg orally once every day and hold losartan 100 mg orally once every day. 12. History of GERD. Protonix. 13. History of prediabetes. Patient will be placed on NovoLog scale, new glucometer ordered for the patient. 14. History of rheumatoid arthritis. Stable. 15. DVT Prophylaxis. SCDs and ABE hose. 16. GI prophylaxis. Protonix. 17. COVID-19 infection not present. 18. History of alcohol abuse. CIWA protocol. CODE STATUS: Full code. Discharge plan: Most likely return home. PT and OT ordered. Impression and plan of care have been directed as dictated by the signing physician. Regina Shields nurse practitioner acting as scribe for signing physician.
[2019-10-07] MEDS ORDERED: FUROSEMIDE 10 MG/ML 2 ML VIAL IV ONE (12:06)
--- NOTE | 2019-10-07 12:12 | P.PN ---
Subjective Progress Note Date: 10/07/19 Principal diagnosis: Upper GI bleeding and acute blood loss anemia, acute non-ST elevation myocardial infarction This is a 69-year-old white male, known history of multiple medical problems including COPD, previous history of upper GI bleeding, his last episode of upper GI bleeding was in July while he was in [place], history of coronary artery disease, type 2 diabetes, patient presented to the ER complaining of 1 day history of intermittent episodes of chest pain, some shortness of breath, he also described epigastric discomfort and intermittent episodes of black stools. Patient is on anticoagulation therapy/Coumadin for chronic atrial fibrillation, at the dose was recently increased. Patient describes intermittent episodes of nausea, but no vomiting. And according to the he had black dark stools for the last few days. Patient was found to have a low hemoglobin of 5.3 his INR was 6.5, he was also noted to be metabolically acidotic with an anion gap of 30, his BUN was 86 and creatinine 2.22. Troponin was also elevated at 1.57 BNP was elevated at 9380 and his lactic acid was 17.7. Stool occult blood was positive. Considering his profound anemia abnormal troponin lactic acidosis chest pain, I was asked to see the patient on consultation. I did evaluate the patient in the ER, and I recommended that transfusion of 2 units of packed RBCs, a 1 L of IV fluid bolus in the form of 0.9 normal saline, and the patient was already seen by cardiology addressing his abnormal troponin. His EKG showed mostly atrial fibrillation with lateral T wave abnormality suggestive of ischemia. Chest x- ray showed chronic changes, no evidence of acute cardiopulmonary process. Looking back at this patient's previous workup, he did have a recent workup for weight loss, and he had basically unremarkable CT of the chest and CT of the abdomen and pelvis done less than a year ago. Patient was seen by cardiology and felt that the patient had severe symptomatic anemia and acute non-ST elevation TX secondary to anemia as well as permanent atrial fibrillation. Pat angelant was seen by gastroenterology on consultation, the recommendation was to hold anticoagulation therapy, start Protonix at 40 mg IV push twice a day, and avoid nonsteroidal anti-inflammatory drugs. Patient may undergo EGD in the next 24 hours. Patient was reevaluated today on 10/07/19, patient is still in the ICU, I saw him yesterday on consultation, he was admitted with non-ST elevation myocardial infarction and anemia with suspected upper GI bleeding. Patient received a total of 3 units of packed RBCs since admission. Continues to have symptoms of shortness of breath, his IV fluid is at 75 mL per hour. Hemoglobin today is 7.9. INR is 2.0. Basic metabolic profile is normal BUN is down to 87 and creatinine is down to 1.73. Troponin is even much higher today, 14.2. His troponin yesterday was 1.57. Patient is being followed closely by cardiology. Lactic acid is down to 2.3. It was as high as 17.7 on admission. Chest x-ray showed slight increase in interstitial markings, suspect some component of mild interstitial edema, hence I will cut down his IV fluid to KVO. We will hold on diuretics for now. His echocardiogram showed good LV function, however there is suggestion of grade 3 diastolic dysfunction. There is also evidence of severe pulmonary hypertension with a right-sided pressures in the range of 73. There is also evidence of severe mitral regurgitation. After reviewing the echocardiogram, I believe the patient may benefit from a touch of diuresis hence I recommended Lasix 20 mg IV push 1. Objective - Vital Signs Vital signs: Vital Signs Temp 98 F 10/07/19 08:00 Pulse 67 10/07/19 10:00 Resp 18 10/07/19 10:00 BP 147/84 10/07/19 10:00 Pulse Ox 94 L 10/07/19 08:00 Intake & Output 10/06/19 10/07/19 10/07/19 18:59 06:59 18:59 Intake Total 3985 1530 200 Output Total 0 700 350 Balance 3985 830 -150 Weight 65.771 kg 65.7 kg Intake: IV 2525 900 200 Sodium Chloride 0.9% 1, 525 900 200 000 ml @ 20 mls/hr IV . Q24H GUEVARA Rx#:[id number] Sodium Chloride 0.9% 1, 1000 000 ml @ 999 mls/hr IV . Q1H1M ONE Rx#:[id number] Sodium Chloride 0.9% 1, 1000 000 ml @ 999 mls/hr IV . Q1H1M ONE Rx#:[id number] Oral 840 320 Blood Product 620 310 Rc As-1 Unit 310 [id number] Rc As-1 Unit 310 [id number] Rc As-3 Unit 310 [id number] Output: Urine 0 700 350 Other: Voiding Method Urinal Urinal # Voids 1 1 # Bowel Movements 1 - Exam General: Revealed 69-year-old white male in no form of respiratory distress. On 2 L nasal cannula, O2 saturations 94%. HEAD: Normocephalic, atraumatic. EYES: PERRLA, EOMI, no icterus, MOUTH: Dry mucous membranes, throat is clear. NECK: No neck masses no JVD no stridor. CHEST: Symmetrical chest expansion, diminished breath sounds at the bases no rhonchi and no wheezes HEART: Irregular irregular rhythm, no S3 gallop. ABDOMEN: Flat, soft, nontender, no megaly, no rebound, no guarding. EXTREMITIES: No clubbing, 1+ bipedal edema, no cyanosis. SKIN: No rashes NEUROLOGIC: Alert and oriented 3, no gross focal neurologic deficits. Psychiatric: Normal mood, affect and normal mental status examination. Lymphatics: No lymphadenopathy was appreciated. - Labs CBC & Chem 7: 10/07/19 05:14 10/07/19 05:14 Labs: Abnormal Lab Results - Last 24 Hours (Table) 10/06/19 10/06/19 10/06/19 Range/Units 08:33 08:59 12:30 WBC (3.8-10.6) k/uL RBC (4.30-5.90) m/uL Hgb (13.0-17.5) gm/dL Hct (39.0-53.0) % MCHC (31.0-37.0) g/dL RDW (11.5-15.5) % Retic Count (0.5-2.0) % PT (9.0-12.0) sec INR (<1.2) Carbon Dioxide (22-30) mmol/L BUN (9-20) mg/dL Creatinine (0.66-1.25) mg/dL Glucose (74-99) mg/dL POC Glucose (mg/dL) 204 H (75-99) mg/dL Plasma Lactic Acid Rc (0.7-2.0) mmol/L Iron <2 L (65-175) ug/dL % Saturation 0.23 L (15.00-50.00) Ferritin 21.0 L (22.0-322.0) ng/mL Troponin I (0.000-0.034) ng/mL Crossmatch See Detail 10/06/19 10/06/19 10/06/19 Range/Units 13:09 13:09 16:41 WBC 14.6 H (3.8-10.6) k/uL RBC 2.20 L (4.30-5.90) m/uL Hgb 5.7 L* (13.0-17.5) gm/dL Hct 20.5 L (39.0-53.0) % MCHC 28.0 L (31.0-37.0) g/dL RDW 18.0 H (11.5-15.5) % Retic Count 2.9 H (0.5-2.0) % PT (9.0-12.0) sec INR (<1.2) Carbon Dioxide (22-30) mmol/L BUN (9-20) mg/dL Creatinine (0.66-1.25) mg/dL Glucose (74-99) mg/dL POC Glucose (mg/dL) 221 H (75-99) mg/dL Plasma Lactic Acid Rc 16.7 H* (0.7-2.0) mmol/L Iron (65-175) ug/dL % Saturation (15.00-50.00) Ferritin (22.0-322.0) ng/mL Troponin I (0.000-0.034) ng/mL Crossmatch 10/06/19 10/06/19 10/06/19 Range/Units 18:13 18:13 20:31 WBC 20.0 H (3.8-10.6) k/uL RBC 2.55 L (4.30-5.90) m/uL Hgb 6.7 L* (13.0-17.5) gm/dL Hct 22.7 L (39.0-53.0) % MCHC 29.5 L (31.0-37.0) g/dL RDW 17.6 H (11.5-15.5) % Retic Count (0.5-2.0) % PT (9.0-12.0) sec INR (<1.2) Carbon Dioxide (22-30) mmol/L BUN (9-20) mg/dL Creatinine (0.66-1.25) mg/dL Glucose (74-99) mg/dL POC Glucose (mg/dL) 237 H (75-99) mg/dL Plasma Lactic Acid Cr 11.0 H* (0.7-2.0) mmol/L Iron (65-175) ug/dL % Saturation (15.00-50.00) Ferritin (22.0-322.0) ng/mL Troponin I (0.000-0.034) ng/mL Crossmatch 10/06/19 10/07/19 10/07/19 Range/Units 22:07 02:01 05:14 WBC 30.6 H (3.8-10.6) k/uL RBC 2.96 L (4.30-5.90) m/uL Hgb 7.9 L (13.0-17.5) gm/dL Hct 25.5 L (39.0-53.0) % MCHC 30.9 L (31.0-37.0) g/dL RDW 17.7 H (11.5-15.5) % Retic Count (0.5-2.0) % PT (9.0-12.0) sec INR (<1.2) Carbon Dioxide (22-30) mmol/L BUN (9-20) mg/dL Creatinine (0.66-1.25) mg/dL Glucose (74-99) mg/dL POC Glucose (mg/dL) (75-99) mg/dL Plasma Lactic Acid Rc 8.3 H* 4.7 H* (0.7-2.0) mmol/L Iron (65-175) ug/dL % Saturation (15.00-50.00) Ferritin (22.0-322.0) ng/mL Troponin I (0.000-0.034) ng/mL Crossmatch 10/07/19 10/07/19 10/07/19 Range/Units 05:14 05:14 06:03 WBC (3.8-10.6) k/uL RBC (4.30-5.90) m/uL Hgb (13.0-17.5) gm/dL Hct (39.0-53.0) % MCHC (31.0-37.0) g/dL RDW (11.5-15.5) % Retic Count (0.5-2.0) % PT 19.7 H (9.0-12.0) sec INR 2.0 H (<1.2) Carbon Dioxide 21 L (22-30) mmol/L BUN 87 H (9-20) mg/dL Creatinine 1.73 H (0.66-1.25) mg/dL Glucose 138 H (74-99) mg/dL POC Glucose (mg/dL) (75-99) mg/dL Plasma Lactic Acid Rc 4.4 H* (0.7-2.0) mmol/L Iron (65-175) ug/dL % Saturation (15.00-50.00) Ferritin (22.0-322.0) ng/mL Troponin I (0.000-0.034) ng/mL Crossmatch 10/07/19 10/07/19 10/07/19 Range/Units 06:03 06:59 10:16 WBC (3.8-10.6) k/uL RBC (4.30-5.90) m/uL Hgb (13.0-17.5) gm/dL Hct (39.0-53.0) % MCHC (31.0-37.0) g/dL RDW (11.5-15.5) % Retic Count (0.5-2.0) % PT (9.0-12.0) sec INR (<1.2) Carbon Dioxide (22-30) mmol/L BUN (9-20) mg/dL Creatinine (0.66-1.25) mg/dL Glucose (74-99) mg/dL POC Glucose (mg/dL) 179 H (75-99) mg/dL Plasma Lactic Acid Rc 2.3 H* (0.7-2.0) mmol/L Iron (65-175) ug/dL % Saturation (15.00-50.00) Ferritin (22.0-322.0) ng/mL Troponin I 14.200 H* (0.000-0.034) ng/mL Crossmatch Assessment and Plan Assessment: Impression: Acute blood loss anemia, patient received a total of 3 units of packed RBCs since admission. Acute melena, suspect upper GI bleeding, gastroenterology is consider EGD. Acute non-ST elevation myocardial infarction, significant rise in troponin noted, that being addressed by cardiology on the case. Coumadin coagulopathy with elevated INR. Symptomatic severe anemia secondary to GI blood loss. Chronic atrial fibrillation. Severe mitral regurgitation. Severe pulmonary hypertension. Acute diastolic congestive heart failure is strongly suspected. History of coronary artery disease. History of COPD. Acute kidney injury secondary to acute tumor necrosis, hypotension, and profound anemia. Improving since yesterday. Acute anion gap metabolic acidosis, multifactorial mostly secondary to acute kidney injury and poor perfusion secondary to anemia, improving since admission. History of alcoholism. History of type 2 diabetes. History of GERD and hiatal hernia Degenerative joint disease Restless leg syndrome Recommendation: Continue to monitor the patient in the ICU. IV fluid to KVO and gentle diuresis. Patient to remain nothing by mouth, GI to decide on EGD today. Continue to hold Coumadin. Protonix 40 mg IV push twice a day. Monitor cardiac rhythm closely in the ICU. Patient is in chronic atrial fibrillation but rate seems to be fairly well controlled at present. Continue bronchodilators for his underlying COPD Placed on thiamine and see what protocol for history of alcoholism. Monitor sugars closely, may have to consider insulin drip if necessary. Prognosis remains relatively poor and guarded. Critical care time is 33 minutes. We'll continue to follow. Time with Patient: Greater than 30
[2019-10-07 12:25] LABS: Glucose,Whole Blood 211 mg/dL (75-99)
[2019-10-07] MEDS ORDERED: FUROSEMIDE 10 MG/ML 4 ML VIAL IV STA (12:35)
[2019-10-07 12:37] LABS: Anisocytosis Slight; HGB 7.9 gm/dL (13.0-17.5); Hypochromasia Marked; MCH 27.1 pg (25.0-35.0); MCHC 31.6 g/dL (31.0-37.0); MCV 85.7 fL (80.0-100.0); Mean Platelet Volume 8.9; Platelet Count 264 k/uL (150-450); Poikilocytosis Moderate; RBC 2.91 m/uL (4.30-5.90); RDW 17.5 % (11.5-15.5); WBC 24.6 k/uL (3.8-10.6)
[2019-10-07] MEDS ORDERED: PROPOFOL 10 MG/ML 20 ML VIAL IV ONE (12:51)
[2019-10-07] MEDS ORDERED: LIDOCAINE 1% INJ 10MG/ML (20 ML MDV) ONE (12:51)
[2019-10-07] MEDS ORDERED: IV FLUID CONTINUATION 1,000 ML IV ONE ×2 (12:56)
--- NOTE | 2019-10-07 13:15 | P.PCN ---
Date of Procedure: 10/07/19 Procedure(s) Performed: BRIEF HISTORY: Patient is a 61-year-old, pleasant, 8 male scheduled for an upper endoscopy as a part of evaluation of anemia and black tarry stools. He presents to the hospital with a hemoglobin of 5.6 requiring 2 units of blood transfusion. He had an episode of acute upper GI bleed while he was in [place] early part of this year and he had an upper endoscopy. He has A. fib on Coumadin which is currently on hold and INR is 2 today. He scheduled for an upper endoscopy to evaluate for upper GI source of bleeding. PROCEDURE PERFORMED: Esophagogastroduodenoscopy. PREOPERATIVE DIAGNOSIS:. GI bleed/anemia. IV sedation per anesthesia. PROCEDURE: After informed consent was obtained, the patient was brought into the endoscopy unit. IV sedation was administered by Anesthesia under continuous monitoring. Initially the Olympus GIF-140 video endoscope was inserted into the mouth. Esophagus intubated without any difficulty. It was gradually advanced into the stomach and duodenum and carefully examined. The bulb and the second part of the duodenum appeared normal. The scope at this time was withdrawn to the stomach, adequately insufflated with air, and upon careful examination, mucosa of the antrum, body, cardia and the fundus appeared normal. The scope was then withdrawn into the esophagus. Small sliding type hiatal hernia noted. The GE junction was located at 39 cm from the incisors. The esophagus appeared normal. There were no erosions or ulcerations seen and the patient tolerated the procedure well. IMPRESSION: 1. Small hiatal hernia. 2. No evidence of esophagitis, peptic ulcer disease or active upper GI bleed. RECOMMENDATIONS: The findings of this examination were discussed with the patient. At this time will be started on clear liquid diet. He is noted to have elevated troponin and hence will discuss with cardiology and decide if she'll be a candidate for a colonoscopy to evaluate for colonic source of GI bleed. At this time continue to hold Coumadin..
[2019-10-07 16:36] LABS: Glucose,Whole Blood 204 mg/dL (75-99)
[2019-10-07] MEDS: ATORVASTATIN 40 MG TAB PO SCH (16:40)
[2019-10-07] MEDS: ACETAMINOPHEN TAB 500 MG TAB PO PRN (18:49)
--- NOTE | 2019-10-07 19:29 | PN ---
PROGRESS NOTE 69-year-old gentleman is admitted to hospital with symptomatic anemia, GI bleed and non ST-segment elevation NM and permanent atrial fibrillation. The patient underwent blood transfusion this morning. He is chest pain-free and he is awaiting an EGD. On exam, heart rate is 67 beats per minute. Blood pressure is 140/82, respirations 18. Chest exam reveals diminished air entry at the bases. Patient has occasional crackles and bilateral rhonchi in the lung. Heart exam reveals first and second heart sounds, irregular rhythm and grade 3 x 6 systolic murmur at the apex. Abdomen is soft. Exam of extremities reveal trace edema. Labs show a hemoglobin of 7.9. Troponin is 14. An echocardiogram shows normal LV systolic function, severe mitral regurgitation, positive severe aortic regurgitation, severe tricuspid regurgitation. Severe pulmonary hypertension. ASSESSMENT: 1. Severe gastrointestinal bleed. 2. Symptomatic anemia. 3. Acute non ST-segment elevation myocardial infarction. 4. Severe mitral regurgitation. 5. Permanent atrial fibrillation. PLAN: Continue with current therapy. Will await EGD results. He is not a candidate for any cardiac intervention at this time. MMODL / IJN: [id number] /
[2019-10-07 20:38] LABS: Glucose,Whole Blood 205 mg/dL (75-99)
[2019-10-08 00:10] LABS: Anisocytosis Slight; HCT 23.8 % (39.0-53.0); HGB 7.3 gm/dL (13.0-17.5); Hypochromasia Marked; MCH 26.3 pg (25.0-35.0); MCHC 30.8 g/dL (31.0-37.0); MCV 85.5 fL (80.0-100.0); Mean Platelet Volume 10.7; Platelet Count 222 k/uL (150-450); Poikilocytosis Moderate; RBC 2.78 m/uL (4.30-5.90); RDW 17.8 % (11.5-15.5); WBC 18.4 k/uL (3.8-10.6)
[2019-10-08 05:51] LABS: Albumin 3.3 g/dL (3.5-5.0); Calcium 8.7 mg/dL (8.4-10.2); Potassium 3.7 mmol/L (3.5-5.1); Total Bilirubin 1.1 mg/dL (0.2-1.3); Total Protein 6.2 g/dL (6.3-8.2)
[2019-10-08 07:15] LABS: Glucose,Whole Blood 189 mg/dL (75-99)
--- NOTE | 2019-10-08 07:32 | XR ---
EXAMINATION TYPE: XR chest 1V portable DATE OF EXAM: 10/08/2019 COMPARISON: 10/07/2019 HISTORY: Shortness of breath with exertion TECHNIQUE: Single frontal view of the chest is obtained. FINDINGS: Pulmonary hyperinflation of underlying COPD. Diffuse interstitial prominence appears to co ntinue increasing slightly. Cardiomediastinal silhouette is upper limits of normal. Osseous structure s are grossly intact. No sizable pleural effusion or pneumothorax. IMPRESSION: Continued increase in diffuse interstitial prominence. Consider fluid overload or atypic al pneumonia.
[2019-10-08] MEDS ORDERED: FUROSEMIDE 10 MG/ML 4 ML VIAL IV STA (07:58)
[2019-10-08 08:28] LABS: Glucose,Whole Blood 331 mg/dL (75-99)
[2019-10-08] MEDS: clonazePAM 0.5 MG TAB PO SCH ×2 (08:36→20:12)
[2019-10-08] MEDS: PANTOPRAZOLE 40 MG/10 ML VIAL IVP SCH ×2 (08:36→20:12)
[2019-10-08] MEDS: ISOSORBIDE MONONITRATE ER 30 MG TAB.ER.24H PO SCH (08:36)
[2019-10-08] MEDS: ATORVASTATIN 40 MG TAB PO SCH (08:36)
[2019-10-08] MEDS: THIAMINE 100 MG TAB PO SCH ×2 (08:37→18:03)
[2019-10-08] MEDS: INSULIN ASPART (NovoLOG) 100 UNIT/ML VIAL SQ SCH ×4 (08:37→20:25)
[2019-10-08] MEDS: CLOTRIMAZOLE 1% CREAM 15 GM TUBE TOPICAL SCH (08:37)
--- NOTE | 2019-10-08 11:25 | P.PN ---
Subjective Progress Note Date: 10/08/19 This is a 64-year-old male one of Dr. Saavedra and Dr. GEORGE Sharp with a previous medical history significant for coronary artery disease status post PCI and stent placement of the LAD in May 2013, hypertension and hypertensive cardiovascular disease, hyperlipidemia, prediabetes, paroxysmal atrial fibrillation on long-term Coumadin, GERD, history of rheumatoid arthritis. Patient normally [place] in [place] and was hospitalized at [facility] for acute upper GI bleed in July. He underwent an EGD at that time and does not know results. His Coumadin was placed on hold from July 29 and resumed on August 09. Patient came back to [place] the end of August. He is complaining of difficulty breathing as well as a tightness in his chest but not true chest pain. He complains of epigastric and reflux type pain. He states he is waking up gasping for air like he's having a panic attack. He complains of black stools for the past few days. He also complains of lightheadedness. He is also complaining of restless leg syndrome recently started Requip without any improvement. Patient is drinking 6 beers per day on the weekends only. He states this is not a daily event. He is smoking 1 pack per day. Patient came into [facility] urgency center for evaluation. Patient was afebrile, heart rate 70-95, blood pressure initially 116/47 fluctuating between 97/47. Hemoglobin 5.3, WBC 15.8, platelet count 449. INR 6.5, CO2 8, BUN 86, creatinine 2.22, blood sugar 204. Lactic acid 17.7, proBNP 9380, troponin 1.570, stool for occult blood positive. Chest x-ray reveals chronic changes with no acute cardio pulmonary process. EKG atrial fibrillation with T wave changes. Patient was given vitamin K 10 mg, 1 L of IV fluids, Protonix, aspirin, transfusion of 2 units packed RBCs, consult with GI, cardiology, castables worker. Patient is not currently requiring vasopressors. 10/06: Patient remains in the intensive care unit. He is status post transfusion of 3 units of packed RBCs and hemoglobin is currently at 7.9, INR 2, BUN 87 creatinine 1.73, CO2 21, troponin 4.4 with repeat at 10 AM of 2.3. Repeat troponin 14.2. Another repeat troponin and echocardiogram has been ordered by Dr. Melendez. Patient is tentatively scheduled for EGD today at noon. Patient has been afebrile, heart rate in the 60s to 70s, blood pressure 134/71, pulse ox 94% on 2 L nasal cannula. 10/07: Patient underwent EGD yesterday with Dr. Irby that found a small hiatal hernia. No evidence of esophagitis, peptic ulcer disease or active upper GI bleed. Patient was cleared to start a clear liquid diet. She was planning to discuss if patient is a candidate for colonoscopy. Coumadin remains on hold. Cardiology is not planning for any cardiac intervention at this time. Hemoglo bin this morning is 7.3 and patient is status post a total of 3 units of packed RBCs. No active bleeding. White count is 18.4, BUN 66 and creatinine 1.4. Blood sugars running anywhere between 146 - 331. Patient has been afebrile, heart rate in 80s, blood pressure initially this morning 162/114 and repeated 161/69, pulse ox 96% on 3 L nasal cannula. Patient has been cleared by Dr. Melendez for transfer out of the intensive care unit. Ferrlecit has been ordered daily for 3 doses. Anticipate discharge on Friday. Objective - Vital Signs Vital signs: Vital Signs Temp 98.2 F 10/08/19 08:00 Pulse 85 10/08/19 09:00 Resp 25 H 10/08/19 09:00 BP 161/69 10/08/19 09:00 Pulse Ox 95 10/08/19 09:00 Intake & Output 10/07/19 10/08/19 10/08/19 18:59 06:59 18:59 Intake Total 1350 655 30 Output Total 3400 1200 0 Balance -2049 - 30 Weight 65 kg Intake: IV 525 255 30 Sodium Chloride 0.9% 1, 425 255 30 000 ml @ 20 mls/hr IV . Q24H GUEVARA Rx#:[id number] Intake, IV Titration 25 Amount Sodium Chloride 0.9% 1, 25 000 ml @ 20 mls/hr IV . Q24H GUEVARA Rx#:[id number] Oral 800 250 Tube Feeding 150 Output: Urine 3400 1200 0 Other: Voiding Method Urinal Urinal # Voids 1 1 - Exam Review of Systems Constitutional: Denies anorexia, Reports chronic pain, Reports fatigue, Reports poor appetite, Reports weakness, Denies chills, Denies fever Eyes: denies blurred vision, denies pain Ears, nose, mouth and throat: Denies dysphagia, Denies headache, Denies nasal congestion, Denies nasal discharge, Denies sore throat, Denies vertigo Cardiovascular: Denies eports chest pain, Reports dyspnea on exertion, Reports lightheadedness, Denies edema, Denies leg edema Respiratory: Reports dyspnea, Denies cough, Denies cough with sputum, Denies excessive sputum, Denies hemoptysis, Denies home oxygen, Denies respiratory infections, Denies wheezing Gastrointestinal: Denies abdominal pain, Reports change in bowel habits, Reports dyspepsia, denies heartburn, Reports loss of appetite, Reports melena, Denies coffee ground emesis, Denies diarrhea, Denies nausea, Denies vomiting Genitourinary: Denies dysuria, Denies urinary retention Musculoskeletal: Reports muscle weakness, Denies frequent falls, Denies gait dysfunction, Denies myalgias Integumentary: Denies pruritus, Denies rash, Denies wounds Neurological: Denies change in mentation, Denies change in speech, Denies gait dysfunction, Denies numbness, Denies seizures, Denies weakness Psychiatric: Denies anxiety, Denies depression Endocrine: Denies fatigue, Denies weight change Physical examination: Gen: This is a 69-year-old thin male. He is resting in the ICU bed patient is resting comfortably and appears to be in no acute distress. HEENT: Head is atraumatic, normocephalic. Pupils equal, round. Sclerae is anicteric. Conjunctiva pale. NECK: Supple. No JVD. No lymphadenopathy. No thyromegaly. LUNGS: Clear to auscultation. No wheezes or rhonchi. No intercostal retractions. HEART: Irregularly irate and rhythm. 2/6 murmur at the left sternal border. ABDOMEN: Soft. Bowel sounds are present. No masses. No tenderness. EXTREMITIES: No pedal edema. No calf tenderness. Dorsalis pedis +1 bilaterally. Tinea infection to bilateral feet. NEUROLOGICAL: Patient is awake, alert and oriented x3. Cranial nerves 2 through 12 are grossly intact. - Labs CBC & Chem 7: 10/07/19 23:52 10/08/19 05:07 Labs: Abnormal Lab Results - Last 24 Hours (Table) 10/06/19 10/07/19 10/07/19 Range/Units 08:33 10:16 12:14 WBC 24.6 H (3.8-10.6) k/uL RBC 2.91 L (4.30-5.90) m/uL Hgb 7.9 L (13.0-17.5) gm/dL Hct 25.0 L (39.0-53.0) % MCHC (31.0-37.0) g/dL RDW 17.5 H (11.5-15.5) % Sodium (137-145) mmol/L BUN (9-20) mg/dL Creatinine (0.66-1.25) mg/dL Glucose (74-99) mg/dL POC Glucose (mg/dL) (75-99) mg/dL Plasma Lactic Acid Rc 2.3 H* (0.7-2.0) mmol/L AST (17-59) U/L ALT (4-49) U/L Troponin I (0.000-0.034) ng/mL Total Protein (6.3-8.2) g/dL Albumin (3.5-5.0) g/dL RBC Folate 2,038 H (280 - 791) ng/mL 10/07/19 10/07/19 10/07/19 Range/Units 12:24 15:29 16:34 WBC (3.8-10.6) k/uL RBC (4.30-5.90) m/uL Hgb (13.0-17.5) gm/dL Hct (39.0-53.0) % MCHC (31.0-37.0) g/dL RDW (11.5-15.5) % Sodium (137-145) mmol/L BUN (9-20) mg/dL Creatinine (0.66-1.25) mg/dL Glucose (74-99) mg/dL POC Glucose (mg/dL) 211 H 204 H (75-99) mg/dL Plasma Lactic Acid Rc (0.7-2.0) mmol/L AST (17-59) U/L ALT (4-49) U/L Troponin I 8.520 H* (0.000-0.034) ng/mL Total Protein (6.3-8.2) g/dL Albumin (3.5-5.0) g/dL RBC Folate (280 - 791) ng/mL 10/07/19 10/07/19 10/08/19 Range/Units 20:36 23:52 05:07 WBC 18.4 H (3.8-10.6) k/uL RBC 2.78 L (4.30-5.90) m/uL Hgb 7.3 L (13.0-17.5) gm/dL Hct 23.8 L (39.0-53.0) % MCHC 30.8 L (31.0-37.0) g/dL RDW 17.8 H (11.5-15.5) % Sodium 135 L (137-145) mmol/L BUN 66 H (9-20) mg/dL Creatinine 1.40 H (0.66-1.25) mg/dL Glucose 146 H (74-99) mg/dL POC Glucose (mg/dL) 205 H (75-99) mg/dL Plasma Lactic Acid Rc (0.7-2.0) mmol/L AST 490 H (17-59) U/L ALT 411 H (4-49) U/L Troponin I (0.000-0.034) ng/mL Total Protein 6.2 L (6.3-8.2) g/dL Albumin 3.3 L (3.5-5.0) g/dL RBC Folate (280 - 791) ng/mL 10/08/19 10/08/19 Range/Units 07:13 08:26 WBC (3.8-10.6) k/uL RBC (4.30-5.90) m/uL Hgb (13.0-17.5) gm/dL Hct (39.0-53.0) % MCHC (31.0-37.0) g/dL RDW (11.5-15.5) % Sodium (137-145) mmol/L BUN (9-20) mg/dL Creatinine (0.66-1.25) mg/dL Glucose (74-99) mg/dL POC Glucose (mg/dL) 189 H 331 H (75-99) mg/dL Plasma Lactic Acid Rc (0.7-2.0) mmol/L AST (17-59) U/L ALT (4-49) U/L Troponin I (0.000-0.034) ng/mL Total Protein (6.3-8.2) g/dL Albumin (3.5-5.0) g/dL RBC Folate (280 - 791) ng/mL Assessment and Plan Plan: 1. Generalized weakness, fatigue, chest pain and hypotension secondary to acute blood loss anemia. 2. Acute blood loss anemia secondary to acute upper GI bleed. Coumadin on hold and status post vitamin K. Patient be transfused total of 3 units of packed RBCs. Monitor hemoglobin daily, GI consultation appreciated status post EGD, Protonix 40 mg IV twice daily. Patient on clear liquids. 3. Acute non-ST elevated myocardial infarction secondary to anemia with supply and demand mismatch. Cardiology consult appreciated. No plan for intervention. 4. Chronic atrial fibrillation. Patient will be off Coumadin permanently. 5. Coagulopathy secondary to Coumadin and GI bleed. Status post vitamin K. Patient is off Coumadin. 6. SIRS with hypotension, leukocytosis and lactic acidosis. 7. Recent acute GI bleed while in [place]. Obtain documentation from [facility]. 8. Acute kidney injury. Hold Lasix and losartan, avoid hypotensive episodes and nephrotoxic agents. 9. Chronic diastolic heart failure. Hold Lasix 10. History of CAD status post PCI of the LAD back in May 2013. Continue Imdur 30 mg orally once every day with parameters, Lipitor 40 mg orally once every day. 11. Hypertension and hypertensive cardiovascular disease, presented with hypotension. Hold amlodipine 10 mg orally once every day and hold losartan 100 mg orally once every day. 12. History of GERD. Protonix. 13. History of prediabetes. Patient will be placed on NovoLog scale, new glucometer ordered for the patient. 14. History of rheumatoid arthritis. Stable. 15. DVT Prophylaxis. SCDs and ABE hose. 16. GI prophylaxis. Protonix. 17. COVID-19 infection not present. 18. History of alcohol abuse. CIWA protocol. CODE STATUS: Full code. Discharge plan: Most likely return home. PT and OT ordered. Impression and plan of care have been directed as dictated by the signing physician. Regina Shields nurse practitioner acting as scribe for signing physician.
[2019-10-08 11:31] LABS: Anisocytosis Slight; HCT 24.1 % (39.0-53.0); HGB 7.5 gm/dL (13.0-17.5); Hypochromasia Marked; MCH 27.6 pg (25.0-35.0); MCHC 31.1 g/dL (31.0-37.0); MCV 88.8 fL (80.0-100.0); Platelet Count 227 k/uL (150-450); Poikilocytosis Moderate; RBC 2.71 m/uL (4.30-5.90); RDW 17.4 % (11.5-15.5); WBC 17.5 k/uL (3.8-10.6)
[2019-10-08] MEDS: SODIUM FERRIC GLUCONAT-SUCROSE 125 MG in SODIUM CHLORIDE 0.9% 100 ML IVPB SCH (11:34)
--- NOTE | 2019-10-08 11:41 | PN ---
PROGRESS NOTE DATE OF SERVICE: 10/08/2019 Patient is a 69-year-old pleasant white male admitted to the hospital with severe symptomatic anemia and hemoglobin of 5.7, requiring 3 units of blood transfusion. He was having some black-colored stools. He underwent an upper endoscopy by me yesterday that revealed a small hiatal hernia, but no evidence of active upper GI bleed or peptic ulcer disease noted. 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 Had also had an EGD colonoscopy study followed by a small bowel capsule endoscopy done in July of 2018 in [place] for severe symptomatic anemia and according to the patient, no obvious source of bleeding was identified. He is doing well. He denies any active bleeding. He reports no abdominal pain. Has some shortness of breath. PHYSICAL EXAMINATION: Appears comfortable, in no apparent distress. VITAL SIGNS: Stable, blood pressure is 162/114, temperature 98.2, pulse rate 88. HEENT: Examination unremarkable, conjunctivae are pink, sclerae nonicteric, oral cavity no lesions. NECK: No JVD or lymph node enlargement. CHEST: Clear to auscultation. HEART: Regular rate and rhythm. ABDOMEN: Soft, nontender, nondistended. Bowel sounds are positive. No organomegaly. EXTREMITIES: No pedal edema. SKIN: No rashes. NEURO: He is alert and oriented x3. No focal deficits. LABS: From today are still pending, BUN is down to 56 and creatinine 1.40. Troponins were 14 an yesterday and today is 8.5. This is consistent with severe iron deficiency anemia with an iron saturation of 0.2% and ferritin of 21. IMPRESSION: 1. Severe iron-deficiency anemia and intermittent black-colored stools, status post EGD yesterday that was unremarkable. He has an upper endoscopy as well as colonoscopy in [place] in July of 2018 along with a small bowel capsule endoscopy for evaluation of anemia and according to the patient it was all negative. He received 3 units of blood transfusion and his hemoglobin at this time, stable at 7.3 g/dL. 2. History of atrial fibrillation on Coumadin. This was currently on hold for the last 3 days. He presents with supratherapeutic INR at 6.5. 3. Elevated troponin/non ST-segment elevation myocardial infarction. Cardiology following the patient closely. 4. History of congestive heart failure, hypertension and hyperlipidemia. RECOMMENDATIONS: 1. Continue to hold Coumadin. 2. Had a lengthy discussion with the patient in regards to anemia. At this time, he received three units of blood transfusion and hemoglobin is 7.3 g/dL. He did not have any further episodes of bleeding. Upper endoscopy yesterday was unremarkable. Since he did have a colonoscopy and a small bowel capsule endoscopy a year ago in [place], I do not plan on any repeat endoscopy intervention at the present time, especially in view of elevated troponins. This was discussed with his auxiliary equipment tender and at this time, they recommended no further endoscopic investigations. Will treat him symptomatic and transfuse him if the hemoglobin is less than 7. Will follow with him closely. Thank you for this consultation. DESTINY / REID: [id number] /
[2019-10-08 11:42] LABS: Glucose,Whole Blood 80 mg/dL (75-99)
--- NOTE | 2019-10-08 12:12 | P.PN ---
Subjective Progress Note Date: 10/08/19 Principal diagnosis: Upper GI bleeding and acute blood loss anemia, acute non-ST elevation myocardial infarction This is a 69-year-old white male, known history of multiple medical problems including COPD, previous history of upper GI bleeding, his last episode of upper GI bleeding was in July while he was in [place], history of coronary artery disease, type 2 diabetes, patient presented to the ER complaining of 1 day history of intermittent episodes of chest pain, some shortness of breath, he also described epigastric discomfort and intermittent episodes of black stools. Patient is on anticoagulation therapy/Coumadin for chronic atrial fibrillation, at the dose was recently increased. Patient describes intermittent episodes of nausea, but no vomiting. And according to the he had black dark stools for the last few days. Patient was found to have a low hemoglobin of 5.3 his INR was 6.5, he was also noted to be metabolically acidotic with an anion gap of 30, his BUN was 86 and creatinine 2.22. Troponin was also elevated at 1.57 BNP was elevated at 9380 and his lactic acid was 17.7. Stool occult blood was positive. Considering his profound anemia abnormal troponin lactic acidosis chest pain, I was asked to see the patient on consultation. I did evaluate the patient in the ER, and I recommended that transfusion of 2 units of packed RBCs, a 1 L of IV fluid bolus in the form of 0.9 normal saline, and the patient was already seen by cardiology addressing his abnormal troponin. His EKG showed mostly atrial fibrillation with lateral T wave abnormality suggestive of ischemia. Chest x- ray showed chronic changes, no evidence of acute cardiopulmonary process. Looking back at this patient's previous workup, he did have a recent workup for weight loss, and he had basically unremarkable CT of the chest and CT of the abdomen and pelvis done less than a year ago. Patient was seen by cardiology and felt that the patient had severe symptomatic anemia and acute non-ST elevation HI secondary to anemia as well as permanent atrial fibrillation. Pat angelant was seen by gastroenterology on consultation, the recommendation was to hold anticoagulation therapy, start Protonix at 40 mg IV push twice a day, and avoid nonsteroidal anti-inflammatory drugs. Patient may undergo EGD in the next 24 hours. Patient was reevaluated today on 10/07/19, patient is still in the ICU, I saw him yesterday on consultation, he was admitted with non-ST elevation myocardial infarction and anemia with suspected upper GI bleeding. Patient received a total of 3 units of packed RBCs since admission. Continues to have symptoms of shortness of breath, his IV fluid is at 75 mL per hour. Hemoglobin today is 7.9. INR is 2.0. Basic metabolic profile is normal BUN is down to 87 and creatinine is down to 1.73. Troponin is even much higher today, 14.2. His troponin yesterday was 1.57. Patient is being followed closely by cardiology. Lactic acid is down to 2.3. It was as high as 17.7 on admission. Chest x-ray showed slight increase in interstitial markings, suspect some component of mild interstitial edema, hence I will cut down his IV fluid to KVO. We will hold on diuretics for now. His echocardiogram showed good LV function, however there is suggestion of grade 3 diastolic dysfunction. There is also evidence of severe pulmonary hypertension with a right-sided pressures in the range of 73. There is also evidence of severe mitral regurgitation. After reviewing the echocardiogram, I believe the patient may benefit from a touch of diuresis hence I recommended Lasix 20 mg IV push 1. Reevaluated today on 10/08/19, patient remains in the ICU today, he is on 3 L nasal cannula with O2 saturation of 96%. Patient is doing relatively well. He underwent EGD yesterday, and there was no evidence of active upper GI bleeding. He was noted to have small hiatal hernia, no evidence of peptic ulcer disease, esophageal varices, and no evidence of esophagitis. His hemoglobin today is 7.3, patient received a total of 3 units of packed RBCs since admission. Clinically is not having any active bleeding. Patient denies any chest pain. He was seen by cardiology and he is not felt to be a candidate for cardiac catheterization or intervention at this point. Hence I plan to thousand the patient out of the ICU to a monitor bed on selective today. And I discussed his status with his admitting physician/Dr. Saavedra. Objective - Vital Signs Vital signs: Vital Signs Temp 98.2 F 10/08/19 08:00 Pulse 85 10/08/19 09:00 Resp 25 H 10/08/19 09:00 BP 161/69 10/08/19 09:00 Pulse Ox 95 10/08/19 09:00 Intake & Output 10/07/19 10/08/19 10/08/19 18:59 06:59 18:59 Intake Total 1350 655 30 Output Total 3400 1200 0 Balance -2049 30 Weight 65 kg Intake: IV 525 255 30 Sodium Chloride 0.9% 1, 425 255 30 000 ml @ 20 mls/hr IV . Q24H [facility] Rx#:[id number] Intake, IV Titration 25 Amount Sodium Chloride 0.9% 1, 25 000 ml @ 20 mls/hr IV . Q24H [facility] Rx#:[id number] Oral 800 250 Tube Feeding 150 Output: Urine 3400 1200 0 Other: Voiding Method Urinal Urinal Urinal # Voids 1 1 - Exam General: Revealed 69-year-old white male in no form of respiratory distress. On 3 L nasal cannula, Head: Atraumatic, normocephalic. EYES: PERRLA, EOMI, no icterus, MOUTH: Dry mucous membranes, throat is clear. NECK: No neck masses no JVD no stridor. CHEST: Symmetrical chest expansion, diminished breath sounds at the bases no rhonchi and no wheezes HEART: Irregular irregular rhythm, no S3 gallop. ABDOMEN: Flat, soft, nontender, no megaly, no rebound, no guarding. EXTREMITIES: No clubbing, 1+ bipedal edema, no cyanosis. SKIN: No rashes NEUROLOGIC: Alert and oriented 3, no gross focal neurologic deficits. Psychiatric: Normal mood, affect and normal mental status examination. Lymphatics: No lymphadenopathy was appreciated. - Labs CBC & Chem 7: 10/08/19 05:43 10/08/19 05:07 Labs: Abnormal Lab Results - Last 24 Hours (Table) 10/06/19 10/07/19 10/07/19 Range/Units 08:33 12:14 12:24 WBC 24.6 H (3.8-10.6) k/uL RBC 2.91 L (4.30-5.90) m/uL Hgb 7.9 L (13.0-17.5) gm/dL Hct 25.0 L (39.0-53.0) % MCHC (31.0-37.0) g/dL RDW 17.5 H (11.5-15.5) % Sodium (137-145) mmol/L BUN (9-20) mg/dL Creatinine (0.66-1.25) mg/dL Glucose (74-99) mg/dL POC Glucose (mg/dL) 211 H (75-99) mg/dL AST (17-59) U/L ALT (4-49) U/L Troponin I (0.000-0.034) ng/mL Total Protein (6.3-8.2) g/dL Albumin (3.5-5.0) g/dL RBC Folate 2,038 H (280 - 791) ng/mL 10/07/19 10/07/19 10/07/19 Range/Units 15:29 16:34 20:36 WBC (3.8-10.6) k/uL RBC (4.30-5.90) m/uL Hgb (13.0-17.5) gm/dL Hct (39.0-53.0) % MCHC (31.0-37.0) g/dL RDW (11.5-15.5) % Sodium (137-145) mmol/L BUN (9-20) mg/dL Creatinine (0.66-1.25) mg/dL Glucose (74-99) mg/dL POC Glucose (mg/dL) 204 H 205 H (75-99) mg/dL AST (17-59) U/L ALT (4-49) U/L Troponin I 8.520 H* (0.000-0.034) ng/mL Total Protein (6.3-8.2) g/dL Albumin (3.5-5.0) g/dL RBC Folate (280 - 791) ng/mL 10/07/19 10/08/19 10/08/19 Range/Units 23:52 05:07 05:43 WBC 18.4 H 17.5 H (3.8-10.6) k/uL RBC 2.78 L 2.71 L (4.30-5.90) m/uL Hgb 7.3 L 7.5 L (13.0-17.5) gm/dL Hct 23.8 L 24.1 L (39.0-53.0) % MCHC 30.8 L (31.0-37.0) g/dL RDW 17.8 H 17.4 H (11.5-15.5) % Sodium 135 L (137-145) mmol/L BUN 66 H (9-20) mg/dL Creatinine 1.40 H (0.66-1.25) mg/dL Glucose 146 H (74-99) mg/dL POC Glucose (mg/dL) (75-99) mg/dL AST 490 H (17-59) U/L ALT 411 H (4-49) U/L Troponin I (0.000-0.034) ng/mL Total Protein 6.2 L (6.3-8.2) g/dL Albumin 3.3 L (3.5-5.0) g/dL RBC Folate (280 - 791) ng/mL 10/08/19 10/08/19 Range/Units 07:13 08:26 WBC (3.8-10.6) k/uL RBC (4.30-5.90) m/uL Hgb (13.0-17.5) gm/dL Hct (39.0-53.0) % MCHC (31.0-37.0) g/dL RDW (11.5-15.5) % Sodium (137-145) mmol/L BUN (9-20) mg/dL Creatinine (0.66-1.25) mg/dL Glucose (74-99) mg/dL POC Glucose (mg/dL) 189 H 331 H (75-99) mg/dL AST (17-59) U/L ALT (4-49) U/L Troponin I (0.000-0.034) ng/mL Total Protein (6.3-8.2) g/dL Albumin (3.5-5.0) g/dL RBC Folate (280 - 791) ng/mL Assessment and Plan Assessment: Impression: Acute blood loss anemia, patient received a total of 3 units of packed RBCs since admission. Hemoglobin today is 7.5. Upper GI bleeding, however negative EGD findings. And aspirin and urology is not planning any further workup since he had colonoscopy in the last 2 years. Not to mention he is not actively bleeding at this point.. Acute non-ST elevation myocardial infarction, significant rise in troponin noted, that being addressed by cardiology on the case. Coumadin coagulopathy with elevated INR. Symptomatic severe anemia secondary to GI blood loss. Chronic atrial fibrillation. Severe mitral regurgitation. Severe pulmonary hypertension. Acute diastolic congestive heart failure is strongly suspected. History of coronary artery disease. History of COPD. Acute kidney injury secondary to acute tumor necrosis, hypotension, and profound anemia. Improving since yesterday. Acute anion gap metabolic acidosis, multifactorial mostly secondary to acute kidney injury and poor perfusion secondary to anemia, improving since admission. History of alcoholism. History of type 2 diabetes. History of GERD and hiatal hernia Degenerative joint disease Restless leg syndrome Recommendation: Transfer patient to cardiac telemetry bed. Lasix 20 mg IV push 1 today. Continue to hold Coumadin. Protonix 40 mg IV push twice a day. Can be switched to oral Protonix upon disc harge. Continue bronchodilators for his underlying COPD Placed on thiamine and see what protocol for history of alcoholism. Prognosis remains relatively poor and guarded. Discussed his condition with the admitting physician/Dr. Saavedra on the case. We'll continue to follow. Time with Patient: Less than 30
[2019-10-08] MEDS: amLODIPine 10 MG TAB PO SCH (12:25)
[2019-10-08] MEDS: LOSARTAN 25 MG TAB PO SCH (12:25)
--- NOTE | 2019-10-08 16:25 | PN ---
PROGRESS NOTE CARDIOLOGY FOLLOW-UP NOTE: This patient is a 69-year-old gentleman who is admitted to hospital with chest pain and abdominal discomfort, ruled in for myocardial infarction. Peak troponin was 14. He, however, has severe anemia with hemoglobin around 6. The patient was on Coumadin for atrial fibrillation, which is stopped, and he is not a candidate for long-term anticoagulation as this is his second episode of bleeding. He had an EGD yesterday that did not reveal any active bleeding. The patient is currently on Lipitor, Imdur. On exam, heart rate is 85 beats per minute, blood pressure 160/69, respiration rate 18. Oxygen saturation is 95%. There is no jugular venous distention. Chest exam reveals diminished air entry at the bases. I do not hear any crackles or rhonchi. Heart exam reveals first and second heart sounds, systolic murmur at the apex. Abdomen is soft. Examination of extremities did not reveal any edema. Peripheral pulses are felt. Labs show a BUN of 66, creatinine of 1.4. Hemoglobin is 7.5. ASSESSMENT: 1. Acute symptomatic anemia secondary to gastrointestinal blood loss. 2. Acute rea-DP-japvagk-elevation myocardial infarction. 3. Permanent atrial fibrillation. PLAN: The patient is not a candidate for anticoagulation. Once he is stable from GI standpoint, he will need a cardiac catheterization to evaluate his coronary anatomy, but it will not be at this time. His blood pressure is elevated. I am going to start back the Norvasc that he was on along with the losartan. Prognosis is guarded. MMODL / IJN: [id number] /
[2019-10-08] MEDS: SODIUM CHLORIDE 0.9% 1,000 ML IV SCH (17:57)
[2019-10-08] MEDS: ACETAMINOPHEN TAB 500 MG TAB PO PRN (20:13)
[2019-10-08 20:23] LABS: Glucose,Whole Blood 207 mg/dL (75-99)
[2019-10-08] MEDS: INSULIN DETEMIR (LEVEMIR) 100 UNIT/ML SYR SQ SCH (20:25)
[2019-10-08 20:40] LABS: Glucose,Whole Blood 198 mg/dL (75-99)
[2019-10-09] MEDS: CLOTRIMAZOLE 1% CREAM 15 GM TUBE TOPICAL SCH ×3 (00:04→20:43)
[2019-10-09] MEDS: ACETAMINOPHEN TAB 500 MG TAB PO PRN (04:30)
[2019-10-09] MEDS: THIAMINE 100 MG TAB PO SCH ×2 (06:17→15:45)
[2019-10-09] MEDS: INSULIN ASPART (NovoLOG) 100 UNIT/ML VIAL SQ SCH ×4 (06:17→20:47)
[2019-10-09 06:24] LABS: Glucose,Whole Blood 90 mg/dL (75-99)
[2019-10-09 06:40] LABS: Magnesium 2.4 mg/dL (1.6-2.3); Potassium 3.1 mmol/L (3.5-5.1)
[2019-10-09] MEDS: SODIUM FERRIC GLUCONAT-SUCROSE 125 MG in SODIUM CHLORIDE 0.9% 100 ML IVPB SCH (08:38)
[2019-10-09] MEDS: ATORVASTATIN 40 MG TAB PO SCH (08:45)
[2019-10-09] MEDS: amLODIPine 10 MG TAB PO SCH (08:45)
[2019-10-09] MEDS: PANTOPRAZOLE 40 MG/10 ML VIAL IVP SCH ×2 (08:45→20:31)
[2019-10-09] MEDS: ISOSORBIDE MONONITRATE ER 30 MG TAB.ER.24H PO SCH (08:45)
[2019-10-09] MEDS: LOSARTAN 25 MG TAB PO SCH (08:45)
[2019-10-09] MEDS: clonazePAM 0.5 MG TAB PO SCH ×2 (08:45→20:31)
[2019-10-09 08:50] LABS: Anisocytosis Slight; HCT 23.3 % (39.0-53.0); HGB 7.2 gm/dL (13.0-17.5); Hypochromasia Marked; MCH 26.6 pg (25.0-35.0); MCHC 30.7 g/dL (31.0-37.0); MCV 86.6 fL (80.0-100.0); Mean Platelet Volume 9.3; Platelet Count 221 k/uL (150-450); Poikilocytosis Moderate; RBC 2.69 m/uL (4.30-5.90); RDW 17.7 % (11.5-15.5); WBC 12.3 k/uL (3.8-10.6)
[2019-10-09] MEDS ORDERED: Potassium Replacement Protocol 1 EACH MISC MISCELLANE PRN ×2 (08:54→14:23)
[2019-10-09 09:07] LABS: Calcium 8.4 mg/dL (8.4-10.2)
[2019-10-09] MEDS: POTASSIUM CHLORIDE ER 20 MEQ TAB.ER PO SCH ×3 (09:16→15:28)
[2019-10-09] MEDS: HYDROmorphone 1 MG/ML 1 ML SYRINGE IVP PRN ×3 (12:04→20:32)
[2019-10-09 12:20] LABS: Glucose,Whole Blood 232 mg/dL (75-99)
--- NOTE | 2019-10-09 12:37 | PN ---
PROGRESS NOTE DATE OF DICTATION: October 09, 2019. REQUESTING PHYSICIAN: Dr. Saavedra. The patient is a 69-year-old pleasant white male admitted to hospital with severe symptomatic anemia with a hemoglobin of 5.3, requiring 3 units of blood transfusion. He underwent an upper endoscopy by me 2 days ago that was unremarkable. In the meantime, his troponins were elevated to 14 and a consult with Cardiology, recommended no endoscopic intervention during this hospitalization. In the meantime, his Coumadin is on hold. The patient had no further episodes of bleeding. He remained stable. He was transferred from the intensive care unit to the [facility] care today. He denies any bleeding. PHYSICAL EXAMINATION: He appears comfortable. No apparent distress. VITAL SIGNS: Stable. Blood pressure 137/56, pulse rate 87, temperature 98.2. HEENT: Examination unremarkable. Conjunctivae pink. Sclerae anicteric. Oral cavity no lesions. NECK: No JVD or lymph node enlargement. CHEST: Clear to auscultation. HEART: Regular rate and rhythm. ABDOMEN: Soft, it was nontender, nondistended. Bowel sounds are positive. No organomegaly. EXTREMITIES: No pedal edema. SKIN no rashes. NEUROLOGIC: Alert and oriented x3. No focal deficits. LABS: WBC 12.3, hemoglobin 7.2, platelets normal. IMPRESSION: Severe symptomatic anemia with black tarry stools, status post EGD 2 days ago that was unremarkable. The patient had an EGD as well as colonoscopy a year ago while he was in [place] along with a small bowel capsule endoscopy as a part of evaluation of anemia and according to the patient, no obvious source of bleeding identified at that time. He received a total of 3 units of blood transfusion. Hemoglobin is stable at 7.2 g/dL. He denies any episodes of active bleeding. Coumadin is currently on hold. RECOMMENDATIONS: 1. Monitor CBC on a daily basis. 2. Continue Protonix 40 mg daily. 3. Hold off on colonoscopy during this hospitalization. 4. We will consider a small bowel capsule endoscopy if he continues to have drop in hemoglobin. I discussed with the patient the plan and he is agreeable to it. For now, we will follow him closely. Thank you for this consultation. MMODL / IJN: [id number] /
[2019-10-09] MEDS: HYDROcodone/APAP 7.5-325MG 1 EACH TAB PO PRN (12:46)
--- NOTE | 2019-10-09 12:54 | XR ---
Right hip HISTORY: Right hip pain Single frontal view of the right hip There is marginal spurring present. Bone mineralization is maintained. Mild joint space loss. Alignme nt is normal. There are vascular calcifications present. Possible prostate calcifications also seen. IMPRESSION: Osteoarthritis.
--- NOTE | 2019-10-09 13:21 | P.PN ---
Subjective Progress Note Date: 10/09/19 Principal diagnosis: Upper GI bleeding and acute blood loss anemia, acute non-ST segment elevation myocardial infarction This is a 69-year-old white male, known history of multiple medical problems including COPD, previous history of upper GI bleeding, his last episode of upper GI bleeding was in July while he was in [place], history of coronary artery disease, type 2 diabetes, patient presented to the ER complaining of 1 day history of intermittent episodes of chest pain, some shortness of breath, he also described epigastric discomfort and intermittent episodes of black stools. Patient is on anticoagulation therapy/Coumadin for chronic atrial fibrillation, at the dose was recently increased. Patient describes intermittent episodes of nausea, but no vomiting. And according to the he had black dark stools for the last few days. Patient was found to have a low hemoglobin of 5.3 his INR was 6.5, he was also noted to be metabolically acidotic with an anion gap of 30, his BUN was 86 and creatinine 2.22. Troponin was also elevated at 1.57 BNP was elevated at 9380 and his lactic acid was 17.7. Stool occult blood was positive. Considering his profound anemia abnormal troponin lactic acidosis chest pain, I was asked to see the patient on consultation. I did evaluate the patient in the ER, and I recommended that transfusion of 2 units of packed RBCs, a 1 L of IV fluid bolus in the form of 0.9 normal saline, and the patient was already seen by cardiology addressing his abnormal troponin. His EKG showed mostly atrial fibrillation with lateral T wave abnormality suggestive of ischemia. Chest x- ray showed chronic changes, no evidence of acute cardiopulmonary process. Looking back at this patient's previous workup, he did have a recent workup for weight loss, and he had basically unremarkable CT of the chest and CT of the abdomen and pelvis done less than a year ago. Patient was seen by cardiology and felt that the patient had severe symptomatic anemia and acute non-ST elevation NM secondary to anemia as well as permanent atrial fibrillation. Patient was seen by gastroenterology on consultation, the recommendation was to hold anticoagulation therapy, start Protonix at 40 mg IV push twice a day, and avoid nonsteroidal anti-inflammatory drugs. Patient may undergo EGD in the next 24 hours. Patient was reevaluated today on 10/07/19, patient is still in the ICU, I saw him yesterday on consultation, he was admitted with non-ST elevation myocardial infarction and anemia with suspected upper GI bleeding. Patient received a total of 3 units of packed RBCs since admission. Continues to have symptoms of shortness of breath, his IV fluid is at 75 mL per hour. Hemoglobin today is 7.9. INR is 2.0. Basic metabolic profile is normal BUN is down to 87 and creatinine is down to 1.73. Troponin is even much higher today, 14.2. His tro ponin yesterday was 1.57. Patient is being followed closely by cardiology. Lactic acid is down to 2.3. It was as high as 17.7 on admission. Chest x-ray showed slight increase in interstitial markings, suspect some component of mild interstitial edema, hence I will cut down his IV fluid to KVO. We will hold on diuretics for now. His echocardiogram showed good LV function, however there is suggestion of grade 3 diastolic dysfunction. There is also evidence of severe pulmonary hypertension with a right-sided pressures in the range of 73. There is also evidence of severe mitral regurgitation. After reviewing the echocardiogram, I believe the patient may benefit from a touch of diuresis hence I recommended Lasix 20 mg IV push 1. Reevaluated today on 10/08/19, patient remains in the ICU today, he is on 3 L nasal cannula with O2 saturation of 96%. Patient is doing relatively well. He underwent EGD yesterday, and there was no evidence of active upper GI bleeding. He was noted to have small hiatal hernia, no evidence of peptic ulcer disease, esophageal varices, and no evidence of esophagitis. His hemoglobin today is 7.3, patient received a total of 3 units of packed RBCs since admission. Clinically is not having any active bleeding. Patient denies any chest pain. He was seen by cardiology and he is not felt to be a candidate for cardiac catheterization or intervention at this point. Hence I plan to thousand the patient out of the ICU to a monitor bed on selective today. And I discussed his status with his admitting physician/Dr. Saavedra. The patient is seen today 10/09/2019 in follow-up on the selective care unit. He is currently resting in bed. Awake and alert in no acute distress. No shortness of breath, cough or congestion. No chest pain. No active bleeding noted. EGD from 10/07/2019 revealed a small hiatal hernia. No evidence of esophagitis, peptic ulcer disease or active upper GI bleeding. His main complaint today is right hip pain that has been new and started yesterday. No trauma. Hip x-ray reveals evidence of osteoarthritis. No acute fracture. White count 12.3. Hemoglobin 7.2. Sodium 134. Potassium 3.1. Creatinine 1.24. He is status post 3 units of packed red blood cells this admission. Objective - Vital Signs Vital signs: Vital Signs Temp 97.6 F 10/09/19 12:00 Pulse 65 10/09/19 12:01 Resp 16 10/09/19 12:01 BP 105/44 10/09/19 12:00 Pulse Ox 94 L 10/09/19 12:00 Intake & Output 10/08/19 10/09/19 10/09/19 18:59 06:59 18:59 Intake Total 190 357 250 Output Total 650 400 Balance -460 -43 250 Weight 74.3 kg Intake: IV 190 20 Invasive Line 1 20 Sodium Chloride 0.9% 1, 90 000 ml @ 20 mls/hr IV . Q24H [facility] Rx#:[id number] Sodium Ferric Gluconat- 100 Sucrose 125 mg In Sodium Chloride 0.9% 100 ml @ 100 mls/hr IVPB DAILY [facility] Rx#:[id number] Oral 357 230 Output: Urine 650 400 Other: Voiding Method Urinal Urinal Urinal # Voids 1 # Bowel Movements 1 - Exam GENERAL EXAM: Alert, 69-year-old gentleman, on room air, fairly comfortable in no apparent distress. HEAD: Normocephalic. EYES: Normal reaction of pupils, equal size. NOSE: Clear with pink turbinates. THROAT: No erythema or exudates. NECK: No masses, no JVD. CHEST: No chest wall deformity. LUNGS: Equal air entry with crackles in the bilateral posterior bases. CVS: S1 and S2 normal with no audible murmur, regular rhythm. ABDOMEN: No hepatosplenomegaly, normal bowel sounds, no guarding or rigidity. SPINE: No scoliosis or deformity SKIN: No rashes CENTRAL NERVOUS SYSTEM: No focal deficits, tone is normal in all 4 extremities. EXTREMITIES: Right hip pain. There is no peripheral edema. No clubbing, no cyanosis. Peripheral pulses are intact. - Labs CBC & Chem 7: 10/09/19 06:14 10/09/19 06:14 Labs: Abnormal Lab Results - Last 24 Hours (Table) 10/06/19 10/08/19 10/08/19 Range/Units 08:59 20:22 20:39 WBC (3.8-10.6) k/uL RBC (4.30-5.90) m/uL Hgb (13.0-17.5) gm/dL Hct (39.0-53.0) % MCHC (31.0-37.0) g/dL RDW (11.5-15.5) % Sodium (137-145) mmol/L Potassium (3.5-5.1) mmol/L BUN (9-20) mg/dL POC Glucose (mg/dL) 207 H 198 H (75-99) mg/dL Magnesium (1.6-2.3) mg/dL Crossmatch See Detail 10/09/19 10/09/19 10/09/19 Range/Units 06:14 06:14 12:18 WBC 12.3 H (3.8-10.6) k/uL RBC 2.69 L (4.30-5.90) m/uL Hgb 7.2 L (13.0-17.5) gm/dL Hct 23.3 L (39.0-53.0) % MCHC 30.7 L (31.0-37.0) g/dL RDW 17.7 H (11.5-15.5) % Sodium 134 L (137-145) mmol/L Potassium 3.1 L (3.5-5.1) mmol/L BUN 63 H (9-20) mg/dL POC Glucose (mg/dL) 232 H (75-99) mg/dL Magnesium 2.4 H (1.6-2.3) mg/dL Crossmatch Assessment and Plan Assessment: Acute blood loss anemia, patient received a total of 3 units of packed RBCs since admission. Hemoglobin today is 7.2. Upper GI bleeding, however negative EGD findings. And aspirin and urology is not planning any further workup since he had colonoscopy in the last 2 years. Not to mention he is not actively bleeding at this point.. Acute non-ST elevation myocardial infarction, significant rise in troponin noted, that being addressed by cardiology on the case. Coumadin coagulopathy with elevated INR. Symptomatic severe anemia secondary to GI blood loss. Chronic atrial fibrillation. Severe mitral regurgitation. Severe pulmonary hypertension. Acute diastolic congestive heart failure is strongly suspected. History of coronary artery disease. History of COPD. Acute kidney injury secondary to acute tumor necrosis, hypotension, and profound anemia. Improving since yesterday. Acute anion gap metabolic acidosis, multifactorial mostly secondary to acute kidney injury and poor perfusion secondary to anemia, improving since admission. History of alcoholism. History of type 2 diabetes. History of GERD and hiatal hernia Degenerative joint disease Restless leg syndrome Plan: The patient was seen by Dr. Mccullough Currently stable from the pulmonary and critical care standpoint New issues with right hip pain, x-ray shows no acute fracture Dilaudid for pain control No active bleeding, receiving iron supplement Increase his activity as tolerated We'll continue to follow I, the cosigning physician, performed a history & physical examination of the patient. Lungs sounds with crackles in the bilateral posterior bases. Maintaining good O2 saturations in the 90s on room air. I discussed the assessment and plan of care with my nurse practitioner, Florinda Tafoya. I attest to the above note as dictated by her.
--- NOTE | 2019-10-09 14:01 | P.PN ---
Subjective Progress Note Date: 10/09/19 Principal diagnosis: Acute blood loss anemia, acute gastrointestinal bleed, acute non-ST myocardial infarction, severe restless leg syndrome, chronic A. fib, coagulopathy, SIRS This is a 64-year-old male one of Dr. Saavedra and Dr. GEORGE Sharp with a previous medical history significant for coronary artery disease status post PCI and stent placement of the LAD in May 2013, hypertension and hypertensive cardiovascular disease, hyperlipidemia, prediabetes, paroxysmal atrial fibrillation on long-term Coumadin, GERD, history of rheumatoid arthritis. Patient normally [facility] in [place] and was hospitalized at [facility] [place] for acute upper GI bleed in July. He underwent an EGD at that time and does not know results. His Coumadin was placed on hold from July 29 and resumed on August 09. Patient came back to [place] the end of August. He is complaining of difficulty breathing as well as a tightness in his chest but not true chest pain. He complains of epigastric and reflux type pain. He states he is waking up gasping for air like he's having a panic attack. He complains of black stools for the past few days. He also complains of lightheadedness. He is also complaining of restless leg syndrome recently started Requip without any improvement. Patient is drinking 6 beers per day on the weekends only. He states this is not a daily event. He is smoking 1 pack per day. Patient came into [facility] urgency center for evaluation. Patient was afebrile, heart rate 70-95, blood pressure initially 116/47 fluctuating between 97/47. Hemoglobin 5.3, WBC 15.8, platelet count 449. INR 6.5, CO2 8, BUN 86, creatinine 2.22, blood sugar 204. Lactic acid 17.7, proBNP 9380, troponin 1.570, stool for occult blood positive. Chest x-ray reveals chronic changes with no acute cardio pulmonary process. EKG atrial fibrillation with T wave changes. Patient was given vitamin K 10 mg, 1 L of IV fluids, Protonix, aspirin, transfusion of 2 units packed RBCs, consult with GI, cardiology, pickle cutter. Patient is not currently requiring vasopressors. 10/06: Patient remains in the intensive care unit. He is status post transfusion of 3 units of packed RBCs and hemoglobin is currently at 7.9, INR 2, BUN 87 creatinine 1.73, CO2 21, troponin 4.4 with repeat at 10 AM of 2.3. Repeat troponin 14.2. Another repeat troponin and echocardiogram has been ordered by Dr. Melendez. Patient is tentatively scheduled for EGD today at noon. Patient has been afebrile, heart rate in the 60s to 70s, blood pressure 134/71, pulse ox 94% on 2 L nasal cannula. 10/07: Patient underwent EGD yesterday with Dr. Irby that found a small hiatal hernia. No evidence of esophagitis, peptic ulcer disease or active upper GI bleed. Patient was cleared to start a clear liquid diet. She was planning to discuss if patient is a candidate for colonoscopy. Coumadin remains on hold. Cardiology is not planning for any cardiac intervention at this time. Hem oglobin this morning is 7.3 and patient is status post a total of 3 units of packed RBCs. No active bleeding. White count is 18.4, BUN 66 and creatinine 1.4. Blood sugars running anywhere between 146 - 331. Patient has been afebrile, heart rate in 80s, blood pressure initially this morning 162/114 and repeated 161/69, pulse ox 96% on 3 L nasal cannula. Patient has been cleared by Dr. Melendez for transfer out of the intensive care unit. Ferrlecit has been ordered daily for 3 doses. Anticipate discharge on Friday. 10/08: Patient is doing slightly better today is less symptomatic hemoglobin is down 7.1, 1 unit of blood transfusion be done, patient will continue on iron infusion. He still might be symptomatic with atypical angina, if no improvement might require to go for angiogram on Friday otherwise if his better might continue medical management and discharge patient home in 24-48 hours and follow with cardiology as an outpatient. Objective - Vital Signs Vital signs: Vital Signs Temp 97.6 F 10/09/19 12:00 Pulse 65 10/09/19 12:01 Resp 16 10/09/19 12:01 BP 105/44 10/09/19 12:00 Pulse Ox 94 L 10/09/19 12:00 Intake & Output 10/08/19 10/09/19 10/09/19 18:59 06:59 18:59 Intake Total 190 357 710 Output Total 650 400 Balance -460 -43 710 Weight 74.3 kg Intake: IV 190 120 Invasive Line 1 20 Sodium Chloride 0.9% 1, 90 000 ml @ 20 mls/hr IV . Q24H [facility] Rx#:[id number] Sodium Ferric Gluconat- 100 100 Sucrose 125 mg In Sodium Chloride 0.9% 100 ml @ 100 mls/hr IVPB DAILY [facility] Rx#:[id number] Oral 357 590 Output: Urine 650 400 Other: Voiding Method Urinal Urinal Urinal # Voids 1 # Bowel Movements 1 - Exam - Exam Review of Systems Constitutional: Denies anorexia, Reports chronic pain, Reports fatigue, Reports poor appetite, Reports weakness, Denies chills, Denies fever Eyes: denies blurred vision, denies pain Ears, nose, mouth and throat: Denies dysphagia, Denies headache, Denies nasal congestion, Denies nasal discharge, Denies sore throat, Denies vertigo Cardiovascular: Denies eports chest pain, Reports dyspnea on exertion, Reports lightheadedness, Denies edema, Denies leg edema Respiratory: Reports dyspnea, Denies cough, Denies cough with sputum, Denies excessive sputum, Denies hemoptysis, Denies home oxygen, Denies respiratory infections, Denies wheezing Gastrointestinal: Denies abdominal pain, Reports change in bowel habits, Reports dyspepsia, denies heartburn, Reports loss of appetite, Reports melena, Denies coffee ground emesis, Denies diarrhea, Denies nausea, Denies vomiting Genitourinary: Denies dysuria, Denies urinary retention Musculoskeletal: Reports muscle weakness, Denies frequent falls, Denies gait dysfunction, Denies myalgias Integumentary: Denies pruritus, Denies rash, Denies wounds Neurological: Denies change in mentation, Denies change in speech, Denies gait dysfunction, Denies numbness, Denies seizures, Denies weakness Psychiatric: Denies anxiety, Denies depression Endocrine: Denies fatigue, Denies weight change Physical examination: Gen: This is a 69-year-old thin male. He is resting in the ICU bed patient is resting comfortably and appears to be in no acute distress. HEENT: Head is atraumatic, normocephalic. Pupils equal, round. Sclerae is anicteric. Conjunctiva pale. NECK: Supple. No JVD. No lymphadenopathy. No thyromegaly. LUNGS: Clear to auscultation. No wheezes or rhonchi. No intercostal retraction s. HEART: Irregularly irate and rhythm. 2/6 murmur at the left sternal border. ABDOMEN: Soft. Bowel sounds are present. No masses. No tenderness. EXTREMITIES: No pedal edema. No calf tenderness. Dorsalis pedis +1 bilaterally. Tinea infection to bilateral feet. NEUROLOGICAL: Patient is awake, alert and oriented x3. Cranial nerves 2 through 12 are grossly intact. - Labs CBC & Chem 7: 10/09/19 06:14 10/09/19 06:14 Labs: Abnormal Lab Results - Last 24 Hours (Table) 10/06/19 10/08/19 10/08/19 Range/Units 08:59 20:22 20:39 WBC (3.8-10.6) k/uL RBC (4.30-5.90) m/uL Hgb (13.0-17.5) gm/dL Hct (39.0-53.0) % MCHC (31.0-37.0) g/dL RDW (11.5-15.5) % Sodium (137-145) mmol/L Potassium (3.5-5.1) mmol/L BUN (9-20) mg/dL POC Glucose (mg/dL) 207 H 198 H (75-99) mg/dL Magnesium (1.6-2.3) mg/dL Crossmatch See Detail 10/09/19 10/09/19 10/09/19 Range/Units 06:14 06:14 12:15 WBC 12.3 H (3.8-10.6) k/uL RBC 2.69 L (4.30-5.90) m/uL Hgb 7.2 L (13.0-17.5) gm/dL Hct 23.3 L (39.0-53.0) % MCHC 30.7 L (31.0-37.0) g/dL RDW 17.7 H (11.5-15.5) % Sodium 134 L (137-145) mmol/L Potassium 3.1 L (3.5-5.1) mmol/L BUN 63 H (9-20) mg/dL POC Glucose (mg/dL) (75-99) mg/dL Magnesium 2.4 H (1.6-2.3) mg/dL Crossmatch See Detail 10/09/19 Range/Units 12:18 WBC (3.8-10.6) k/uL RBC (4.30-5.90) m/uL Hgb (13.0-17.5) gm/dL Hct (39.0-53.0) % MCHC (31.0-37.0) g/dL RDW (11.5-15.5) % Sodium (137-145) mmol/L Potassium (3.5-5.1) mmol/L BUN (9-20) mg/dL POC Glucose (mg/dL) 232 H (75-99) mg/dL Magnesium (1.6-2.3) mg/dL Crossmatch Assessment and Plan Assessment: 1 acute blood loss anemia: Post 3 units of blood transfusion and 3 pack of iron, patient hemoglobin still 7.1, we do another unit of RBC transfusion today. He is not in any active bleed at this point hemoglobin still a bit low. 2 acute gastrointestinal bleed: Post GI workup and upper gastroscopy, no more active bleed at this point continue PPI IV. 3 acute non-ST myocardial infarction: Possibility of intervention has not been confirmed so far patient is asymptomatic continue to have slight shortness of breath with no chest pain is troponin was quite but elevated cardiology or trying to avoid doing angiogram unless patient still not stable. 4 chronic atrophy fibrillation with rapid ventricular spine: Patient is off anticoagulation completely for now at least with try to keep him off for the next 2 months in the meanwhile pulse rates under control. 5 coagulopathy: Has improved significantly with fresh frozen plasma and vitamin K patient INR is down and better. 6 SIRS with leukocytosis and lactic acidosis along with mild hypotension cultures negative so far. 7 acute kidney injury: Still holding ARB and Lasix blood pressures better so far and significant improvement in kidney function and urine output. 8 history of CAD: Post angioplasty and stent placement doing much better. 9 history of rheumatoid arthritis: Stable for now. 10 diabetes: Continue patient on Accu-Chek with sliding scales coverage. 11 Covid 19 infection was negative. 12 history of alcohol abuse: [facility] protocol is in order. Discharge planning: Possible return home in 24 hours after 1 more unit of blood transfusion and iron infusion specially if no intervention is required otherwise might keep patient to Friday and go for heart cath.
[2019-10-09] MEDS: SODIUM CHLORIDE 0.9% 1,000 ML IV SCH (14:15)
[2019-10-09 17:42] LABS: Glucose,Whole Blood 140 mg/dL (75-99)
[2019-10-09 20:41] LABS: Glucose,Whole Blood 330 mg/dL (75-99)
[2019-10-09] MEDS: INSULIN DETEMIR (LEVEMIR) 100 UNIT/ML SYR SQ SCH (20:43)
[2019-10-09 22:14] VITALS: RESP 18
[2019-10-10 05:56] LABS: Glucose,Whole Blood 137 mg/dL (75-99)
[2019-10-10 06:38] LABS: Anisocytosis Slight; Basophils % (A) 0 %; Eosinophils % (A) 0 %; HCT 25.8 % (39.0-53.0); HGB 7.8 gm/dL (13.0-17.5); Hypochromasia Marked; Lymphocytes # (A) 0.7 k/uL (1.0-4.8); Lymphocytes % (A) 5 %; MCH 26.7 pg (25.0-35.0); MCHC 30.4 g/dL (31.0-37.0); MCV 87.8 fL (80.0-100.0); Mean Platelet Volume 10.8; Monocytes # (A) 1.2 k/uL (0-1.0); Monocytes % (A) 9 %; Neutrophils # (A) 11.3 k/uL (1.3-7.7); Neutrophils % (A) 82 %; Platelet Count 225 k/uL (150-450); Poikilocytosis Moderate; RBC 2.94 m/uL (4.30-5.90); WBC 13.8 k/uL (3.8-10.6)
[2019-10-10] MEDS: THIAMINE 100 MG TAB PO SCH (06:43)
[2019-10-10] MEDS: INSULIN ASPART (NovoLOG) 100 UNIT/ML VIAL SQ SCH ×2 (06:43→11:33)
[2019-10-10 06:49] LABS: Albumin 3.2 g/dL (3.5-5.0); Calcium 8.4 mg/dL (8.4-10.2); Potassium 3.8 mmol/L (3.5-5.1); Total Bilirubin 1.3 mg/dL (0.2-1.3); Total Protein 6.3 g/dL (6.3-8.2)
[2019-10-10 08:25] VITALS: BP 117/63; PULSE 78; TEMP 97
[2019-10-10] MEDS: PANTOPRAZOLE 40 MG/10 ML VIAL IVP SCH (08:30)
[2019-10-10] MEDS: HYDROcodone/APAP 7.5-325MG 1 EACH TAB PO PRN (08:30)
[2019-10-10] MEDS: ATORVASTATIN 40 MG TAB PO SCH (08:30)
[2019-10-10] MEDS: LOSARTAN 25 MG TAB PO SCH (08:30)
[2019-10-10] MEDS: ISOSORBIDE MONONITRATE ER 30 MG TAB.ER.24H PO SCH (08:30)
[2019-10-10] MEDS: clonazePAM 0.5 MG TAB PO SCH (08:30)
[2019-10-10] MEDS: amLODIPine 10 MG TAB PO SCH (08:30)
[2019-10-10] MEDS: CLOTRIMAZOLE 1% CREAM 15 GM TUBE TOPICAL SCH (08:33)
[2019-10-10] MEDS: SODIUM FERRIC GLUCONAT-SUCROSE 125 MG in SODIUM CHLORIDE 0.9% 100 ML IVPB SCH (08:50)
[2019-10-10 11:21] LABS: Glucose,Whole Blood 129 mg/dL (75-99)
--- NOTE | 2019-10-10 12:29 | P.DS ---
Providers Date of admission: 10/06/19 10:22 Attending physician: Ilya Saavedra Consults: 10/06/19 09:07 Consult Physician Stat Consulting Provider: Rylan Sepulveda Consult Reason/Comments: abnormal ekg, acs type symptoms Do you want consulting provider notified?: Already Contacted 10/06/19 10:22 Consult Physician Routine Consulting Provider: Courtney Mccullough Consult Reason/Comments: icu patient Do you want consulting provider notified?: Already Contacted 10/06/19 11:58 Consult Physician Routine Consulting Provider: Donn Larson Consult Reason/Comments: GIB Do you want consulting provider notified?: Yes Primary care physician: [facility] Course: Principal diagnosis: Acute blood loss anemia, acute gastrointestinal bleed, acute non-ST myocardial infarction, severe restless leg syndrome, chronic A. fib, coagulopathy, SIRS This is a 64-year-old male one of Dr. Saavedra and Dr. GEORGE Sharp with a previous medical history significant for coronary artery disease status post PCI and stent placement of the LAD in May 2013, hypertension and hypertensive cardiovascular disease, hyperlipidemia, prediabetes, paroxysmal atrial fibrillation on long-term Coumadin, GERD, history of rheumatoid arthritis. Patient normally [place] in [place] and was hospitalized at [facility] for acute upper GI bleed in July. He underwent an EGD at that time and does not know results. His Coumadin was placed on hold from July 29 and resumed on August 09. Patient came back to [place] the end of August. He is complaining of difficulty breathing as well as a tightness in his chest but not true chest pain. He complains of epigastric and reflux type pain. He states he is waking up gasping for air like he's having a panic attack. He complains of black stools for the past few days. He also complains of lightheadedness. He is also complaining of restless leg syndrome recently started Requip without any improvement. Patient is drinking 6 beers per day on the weekends only. He states this is not a daily event. He is smoking 1 pack per day. Patient came into [facility] urgency center for evaluation. Patient was afebrile, heart rate 70-95, blood pressure initially 116/47 fluctuating between 97/47. Hemoglobin 5.3, WBC 15.8, platelet count 449. INR 6.5, CO2 8, BUN 86, creatinine 2.22, blood sugar 204. Lactic acid 17.7, proBNP 9380, troponin 1.570, stool for occult blood positive. Chest x-ray reveals chronic changes with no acute cardio pulmonary process. EKG atrial fibrillation with T wave changes. Patient was given vitamin K 10 mg, 1 L of IV fluids, Protonix, aspirin, transfusion of 2 units packed RBCs, consult with GI, cardiology, principal developer. Patient is not currently requiring vasopressors. 10/06: Patient remains in the intensive care unit. He is status post transfusion of 3 units of packed RBCs and hemoglobin is currently at 7.9, INR 2, BUN 87 creatinine 1.73, CO2 21, troponin 4.4 with repeat at 10 AM of 2.3. Repeat troponin 14.2. Another repeat troponin and echocardiogram has been ordered by Dr. Melendez. Patient is tentatively scheduled for EGD today at noon. Patient has been afebrile, heart rate in the 60s to 70s, blood pressure 134/71, pulse ox 94% on 2 L nasal cannula. 10/07: Patient underwent EGD yesterday with Dr. Irby that found a small hiatal hernia. No evidence of esophagitis, peptic ulcer disease or active upper GI bleed. Patient was cleared to start a clear liquid diet. She was planning to discuss if patient is a candidate for colonoscopy. Coumadin remains on hold. Cardiology is not planning for any cardiac intervention at this time. Hemoglobin this morning is 7.3 and patient is status post a total of 3 units of packed RBCs. No active bleeding. White count is 18.4, BUN 66 and creatinine 1.4. Blood sugars running anywhere between 146 - 331. Patient has been afebrile, heart rate in 80s, blood pressure initially this morning 162/114 and repeated 161/69, pulse ox 96% on 3 L nasal cannula. Patient has been cleared by Dr. Melendez for transfer out of the intensive care unit. Ferrlecit has been ordered daily for 3 doses. Anticipate discharge on Friday. 10/08: Patient is doing slightly better today is less symptomatic hemoglobin is down 7.1, 1 unit of blood transfusion be done, patient will continue on iron infusion. He still might be symptomatic with atypical angina, if no improvement might require to go for angiogram on Friday otherwise if his better might continue medical management and discharge patient home in 24-48 hours and follow with cardiology as an outpatient. 10/09: Patient is feeling much better hemoglobin is up 7.8, no active bleed, no further chest pain. Spoke with cardiology in detail about the case day are not going to do heart cath at this point rationalize because of the anemia and the GI bleed if patient need to replace on any anticoagulation Will treat major problem. We'll wait and if patient is still symptomatic might have a heart cath as an outpatient. The meanwhile he is going to be discharged home his hip x-ray came back negative will continue mild hydrocodone for pain and discomfort along with baclofen continue pantoprazole twice a day and patient is stable to be discharged. Objective - Vital Signs Vital signs: Vital Signs Temp 97 F L 10/10/19 08:23 Pulse 78 10/10/19 08:25 Resp 18 10/10/19 08:25 BP 117/63 10/10/19 08:23 Pulse Ox 97 10/10/19 08:23 Intake & Output 10/09/19 10/10/19 10/10/19 18:59 06:59 18:59 Intake Total 1390 240 680 Output Total 600 100 Balance 790 140 680 Weight 76.2 kg Intake: IV 130 Invasive Line 1 20 Invasive Line 3 10 Sodium Ferric Gluconat- 100 Sucrose 125 mg In Sodium Chloride 0.9% 100 ml @ 100 mls/hr IVPB DAILY [facility] Rx#:[id number] Oral 950 240 680 Blood Product 310 Rc Pheresis As-3 Unit 310 [id number] Output: Urine 600 100 Straight 400 Other: Voiding Method Urinal Urinal Urinal Diaper Diaper Diaper # Voids 1 1 - Exam - Exam Review of Systems Constitutional: Denies anorexia, Reports chronic pain, Reports fatigue, Reports poor appetite, Reports weakness, Denies chills, Denies fever Eyes: denies blurred vision, denies pain Ears, nose, mouth and throat: Denies dysphagia, Denies headache, Denies nasal congestion, Denies nasal discharge, Denies sore throat, Denies vertigo Cardiovascular: Denies eports chest pain, Reports dyspnea on exertion, Reports lightheadedness, Denies edema, Denies leg edema Respiratory: Reports dyspnea, Denies cough, Denies cough with sputum, Denies excessive sputum, Denies hemoptysis, Denies home oxygen, Denies respiratory infections, Denies wheezing Gastrointestinal: Denies abdominal pain, Reports change in bowel habits, Reports dyspepsia, denies heartburn, Reports loss of appetite, Reports melena, Denies coffee ground emesis, Denies diarrhea, Denies nausea, Denies vomiting Genitourinary: Denies dysuria, Denies urinary retention Musculoskeletal: Reports muscle weakness, Denies frequent falls, Denies gait dysfunction, Denies myalgias Integumentary: Denies pruritus, Denies rash, Denies wounds Neurological: Denies change in mentation, Denies change in speech, Denies gait dysfunction, Denies numbness, Denies seizures, Denies weakness Psychiatric: Denies anxiety, Denies depression Endocrine: Denies fatigue, Denies weight change Physical examination: Gen: This is a 69-year-old thin male. He is resting in the ICU bed patient is resting comfortably and appears to be in no acute distress. HEENT: Head is atraumatic, normocephalic. Pupils equal, round. Sclerae is anicteric. Conjunctiva pale. NECK: Supple. No JVD. No lymphadenopathy. No thyromegaly. LUNGS: Clear to auscultation. No wheezes or rhonchi. No intercostal retractions. HEART: Irregularly irate and rhythm. 2/6 murmur at the left sternal border. ABDOMEN: Soft. Bowel sounds are present. No masses. No tenderness. EXTREMITIES: No pedal edema. No calf tenderness. Dorsalis pedis +1 bilaterally. Tinea infection to bilateral feet. NEUROLOGICAL: Patient is awake, alert and oriented x3. Cranial nerves 2 through 12 are grossly intact. - Labs CBC & Chem 7: 10/10/19 06:19 10/10/19 06:19 Labs: Abnormal Lab Results - Last 24 Hours (Table) 10/09/19 10/09/19 10/09/19 Range/Units 12:15 12:18 14:05 WBC (3.8-10.6) k/uL RBC (4.30-5.90) m/uL Hgb (13.0-17.5) gm/dL Hct (39.0-53.0) % MCHC (31.0-37.0) g/dL RDW (11.5-15.5) % Neutrophils # (1.3-7.7) k/uL Lymphocytes # (1.0-4.8) k/uL Monocytes # (0-1.0) k/uL Sodium (137-145) mmol/L Potassium 3.2 L (3.5-5.1) mmol/L BUN (9-20) mg/dL Creatinine (0.66-1.25) mg/dL Glucose (74-99) mg/dL POC Glucose (mg/dL) 232 H (75-99) mg/dL AST (17-59) U/L ALT (4-49) U/L Alkaline Phosphatase (38-126) U/L Albumin (3.5-5.0) g/dL Crossmatch See Detail 10/09/19 10/09/19 10/10/19 Range/Units 17:38 20:39 05:55 WBC (3.8-10.6) k/uL RBC (4.30-5.90) m/uL Hgb (13.0-17.5) gm/dL Hct (39.0-53.0) % MCHC (31.0-37.0) g/dL RDW (11.5-15.5) % Neutrophils # (1.3-7.7) k/uL Lymphocytes # (1.0-4.8) k/uL Monocytes # (0-1.0) k/uL Sodium (137-145) mmol/L Potassium (3.5-5.1) mmol/L BUN (9-20) mg/dL Creatinine (0.66-1.25) mg/dL Glucose (74-99) mg/dL POC Glucose (mg/dL) 140 H 330 H 137 H (75-99) mg/dL AST (17-59) U/L ALT (4-49) U/L Alkaline Phosphatase (38-126) U/L Albumin (3.5-5.0) g/dL Crossmatch 10/10/19 10/10/19 Range/Units 06:19 06:19 WBC 13.8 H (3.8-10.6) k/uL RBC 2.94 L (4.30-5.90) m/uL Hgb 7.8 L (13.0-17.5) gm/dL Hct 25.8 L (39.0-53.0) % MCHC 30.4 L (31.0-37.0) g/dL RDW 18.0 H (11.5-15.5) % Neutrophils # 11.3 H (1.3-7.7) k/uL Lymphocytes # 0.7 L (1.0-4.8) k/uL Monocytes # 1.2 H (0-1.0) k/uL Sodium 134 L (137-145) mmol/L Potassium (3.5-5.1) mmol/L BUN 60 H (9-20) mg/dL Creatinine 1.51 H (0.66-1.25) mg/dL Glucose 100 H (74-99) mg/dL POC Glucose (mg/dL) (75-99) mg/dL AST 334 H (17-59) U/L ALT 406 H (4-49) U/L Alkaline Phosphatase 169 H (38-126) U/L Albumin 3.2 L (3.5-5.0) g/dL Crossmatch Assessment and Plan Assessment: 1 acute blood loss anemia: Post 3 units of blood transfusion and 3 pack of iron, patient hemoglobin still 7.1, we do another unit of RBC transfusion today. He is not in any active bleed at this point hemoglobin still a bit low. More stable today with hemoglobin of 7.8 no need for any further transfusion. 2 acute gastrointestinal bleed: Post GI workup and upper gastroscopy, no more active bleed at this point continue pantoprazole 40 mg twice a day. 3 acute non-ST myocardial infarction: Possibility of intervention has not been confirmed so far patient is asymptomatic continue to have slight shortness of breath with no chest pain is troponin was quite but elevated cardiology or trying to avoid doing angiogram unless patient still not stable. Patient is not symptomatic cardiology went to continue medical management if recurrent chest pain and angina heart cath can be done as an outpatient otherwise if he developed symptoms and have a heart cath require angioplasty patient is not able to stay on any anticoagulation. 4 chronic atrophy fibrillation with rapid ventricular spine: Patient is off anticoagulation completely for now at least with try to keep him off for the next 2 months in the meanwhile pulse rates under control. 5 coagulopathy: Has improved significantly with fresh frozen plasma and vitamin K patient INR is down and better. 6 SIRS with leukocytosis and lactic acidosis along with mild hypotension cultures negative so far. 7 acute kidney injury: Still holding ARB and Lasix blood pressures better so far and significant improvement in kidney function and urine output. 8 history of CAD: Post angioplasty and stent placement doing much better. 9 history of rheumatoid arthritis: Stable for now. 10 diabetes: Continue patient on Accu-Chek with sliding scales coverage. 11 Covid 19 infection was negative. 12 history of alcohol abuse: [facility] protocol is in order. Patient is not symptomatic has not had any withdrawal symptoms. Patient is very stable medically will be discharged home today to follow up in the office in follow-up with cardiology this week. Patient Condition at Discharge: Fair Plan - Discharge Summary Discharge Rx Participant: No New Discharge Prescriptions: New Losartan [Cozaar] 25 mg PO DAILY #30 tab HYDROcodone/APAP 7.5-325MG [Oracle 7.5-325] 1 each PO Q6H PRN #9 tab PRN Reason: Pain Pantoprazole Sodium [Protonix] 40 mg PO AC-BID #60 tablet. Acetaminophen Tab [Tylenol] 1,000 mg PO Q6HR PRN tab PRN Reason: Fever And/ Or Pain Continue Isosorbide Mononitrate [Imdur] 30 mg PO DAILY Atorvastatin [Lipitor] 40 mg PO DAILY amLODIPine [Norvasc] 10 mg PO DAILY Furosemide [Lasix] 40 mg PO DAILY metFORMIN HCL [metFORMIN HCL ER] 1,000 mg PO BID Pramipexole [Mirapex] 0.5 mg PO HS Potassium Chloride ER [K-Dur 20] 20 meq PO BID hydrALAZINE HCL [Apresoline] 25 mg PO TID Clotrimazole Cream [Lotrimin Cream] 1 applic TOPICAL BID PRN PRN Reason: feet Discontinued Losartan Potassium 100 mg PO DAILY Warfarin [Coumadin] 7.5 mg PO DAILY Metolazone [Zaroxolyn] 2.5 mg PO DAILY Discharge Medication List Atorvastatin [Lipitor] 40 mg PO DAILY 04/01/14 [History] Isosorbide Mononitrate [Imdur] 30 mg PO DAILY 04/01/14 [History] amLODIPine [Norvasc] 10 mg PO DAILY 01/11/15 [History] Furosemide [Lasix] 40 mg PO DAILY 11/16/17 [History] metFORMIN HCL [metFORMIN HCL ER] 1,000 mg PO BID 11/16/17 [History] Clotrimazole Cream [Lotrimin Cream] 1 applic TOPICAL BID PRN 10/06/19 [History] Potassium Chloride ER [K-Dur 20] 20 meq PO BID 10/06/19 [History] Pramipexole [Mirapex] 0.5 mg PO HS 10/06/19 [History] hydrALAZINE HCL [Apresoline] 25 mg PO TID 10/06/19 [History] Acetaminophen Tab [Tylenol] 1,000 mg PO Q6HR PRN tab 10/10/19 [Rx] HYDROcodone/APAP 7.5-325MG [Oracle 7.5-325] 1 each PO Q6H PRN #9 tab 10/10/19 [Rx] Losartan [Cozaar] 25 mg PO DAILY #30 tab 10/10/19 [Rx] Pantoprazole Sodium [Protonix] 40 mg PO AC-BID #60 tablet. 10/10/19 [Rx] Follow up Appointment(s)/Referral(s): Deepa Marshall MD [STAFF PHYSICIAN] - 1 Week Patient Instructions/Handouts: Chest Pain (DC), Gastrointestinal Bleeding (DC), Iron Rich Diet (ED) Activity/Diet/Wound Care/Special Instructions: Glucometer and testing supplies are in [facility] Discharge Disposition: HOME SELF-CARE
--- NOTE | 2019-10-10 13:19 | US ---
EXAMINATION TYPE: US abdomen complete DATE OF EXAM: 10/10/2019 COMPARISON: CT 01/01/2019 CLINICAL HISTORY: abd Pain and Abx LFT. EXAM MEASUREMENTS: Liver Length: 16.4 cm Gallbladder Wall: 0.8 cm CBD: 0.4 cm Spleen: 13.0 cm Right Kidney: 11.9 x 4.3 x 4.1 cm Left Kidney: 11.2 x 6.2 x 4.9 cm Pancreas: Obscured by bowel gas Liver: wnl, Tiny amount of free fluid visualized adjacent to the liver as seen in image 49 Gallbladder: Thickened wall, no stones visualized Evidence for sonographic Puga's sign: No CBD: wnl as visualized Spleen: Measuring upper limits of normal Right Kidney: No hydronephrosis or masses seen Left Kidney: No hydronephrosis or masses seen Upper IVC: wnl Abd Aorta: Obscured by overlying bowel gas The liver is homogenous. The intrahepatic portion of the IVC and proximal abdominal aorta are within normal limits. There is no evidence of cholelithiasis. Common bile duct is unremarkable. The panc reas is obscured by bowel gas. The spleen is prominent in size. Kidneys are symmetric and free of h ydronephrosis. No renal lesions are seen. IMPRESSION: 1. Severe gallbladder wall thickening seen circumferentially. HIDA scan is recommended to exclude glu ed acute cholecystitis despite the nonenlarged common bile duct. 2. Trace amount of perihepatic ascites. 3. Prominent size of the spleen.
--- NOTE | 2019-10-10 13:26 | P.PN ---
Subjective Progress Note Date: 10/10/19 Principal diagnosis: Upper GI bleeding and acute blood loss anemia, acute non-ST segment elevation myocardial infarction This is a 69-year-old white male, known history of multiple medical problems including COPD, previous history of upper GI bleeding, his last episode of upper GI bleeding was in July while he was in [place], history of coronary artery disease, type 2 diabetes, patient presented to the ER complaining of 1 day history of intermittent episodes of chest pain, some shortness of breath, he also described epigastric discomfort and intermittent episodes of black stools. Patient is on anticoagulation therapy/Coumadin for chronic atrial fibrillation, at the dose was recently increased. Patient describes intermittent episodes of nausea, but no vomiting. And according to the he had black dark stools for the last few days. Patient was found to have a low hemoglobin of 5.3 his INR was 6.5, he was also noted to be metabolically acidotic with an anion gap of 30, his BUN was 86 and creatinine 2.22. Troponin was also elevated at 1.57 BNP was elevated at 9380 and his lactic acid was 17.7. Stool occult blood was positive. Considering his profound anemia abnormal troponin lactic acidosis chest pain, I was asked to see the patient on consultation. I did evaluate the patient in the ER, and I recommended that transfusion of 2 units of packed RBCs, a 1 L of IV fluid bolus in the form of 0.9 normal saline, and the patient was already seen by cardiology addressing his abnormal troponin. His EKG showed mostly atrial fibrillation with lateral T wave abnormality suggestive of ischemia. Chest x- ray showed chronic changes, no evidence of acute cardiopulmonary process. Looking back at this patient's previous workup, he did have a recent workup for weight loss, and he had basically unremarkable CT of the chest and CT of the abdomen and pelvis done less than a year ago. Patient was seen by cardiology and felt that the patient had severe symptomatic anemia and acute non-ST elevation MS secondary to anemia as well as permanent atrial fibrillation. Patient was seen by gastroenterology on consultation, the recommendation was to hold anticoagulation therapy, start Protonix at 40 mg IV push twice a day, and avoid nonsteroidal anti-inflammatory drugs. Patient may undergo EGD in the next 24 hours. Patient was reevaluated today on 10/07/19, patient is still in the ICU, I saw him yesterday on consultation, he was admitted with non-ST elevation myocardial infarction and anemia with suspected upper GI bleeding. Patient received a total of 3 units of packed RBCs since admission. Continues to have symptoms of shortness of breath, his IV fluid is at 75 mL per hour. Hemoglobin today is 7.9. INR is 2.0. Basic metabolic profile is normal BUN is down to 87 and creatinine is down to 1.73. Troponin is even much higher today, 14.2. His tro ponin yesterday was 1.57. Patient is being followed closely by cardiology. Lactic acid is down to 2.3. It was as high as 17.7 on admission. Chest x-ray showed slight increase in interstitial markings, suspect some component of mild interstitial edema, hence I will cut down his IV fluid to KVO. We will hold on diuretics for now. His echocardiogram showed good LV function, however there is suggestion of grade 3 diastolic dysfunction. There is also evidence of severe pulmonary hypertension with a right-sided pressures in the range of 73. There is also evidence of severe mitral regurgitation. After reviewing the echocardiogram, I believe the patient may benefit from a touch of diuresis hence I recommended Lasix 20 mg IV push 1. Reevaluated today on 10/08/19, patient remains in the ICU today, he is on 3 L nasal cannula with O2 saturation of 96%. Patient is doing relatively well. He underwent EGD yesterday, and there was no evidence of active upper GI bleeding. He was noted to have small hiatal hernia, no evidence of peptic ulcer disease, esophageal varices, and no evidence of esophagitis. His hemoglobin today is 7.3, patient received a total of 3 units of packed RBCs since admission. Clinically is not having any active bleeding. Patient denies any chest pain. He was seen by cardiology and he is not felt to be a candidate for cardiac catheterization or intervention at this point. Hence I plan to thousand the patient out of the ICU to a monitor bed on selective today. And I discussed his status with his admitting physician/Dr. Saavedra. The patient is seen today 10/09/2019 in follow-up on the selective care unit. He is currently resting in bed. Awake and alert in no acute distress. No shortness of breath, cough or congestion. No chest pain. No active bleeding noted. EGD from 10/07/2019 revealed a small hiatal hernia. No evidence of esophagitis, peptic ulcer disease or active upper GI bleeding. His main complaint today is right hip pain that has been new and started yesterday. No trauma. Hip x-ray reveals evidence of osteoarthritis. No acute fracture. White count 12.3. Hemoglobin 7.2. Sodium 134. Potassium 3.1. Creatinine 1.24. He is status post 3 units of packed red blood cells this admission. The patient is seen today 10/10/2019 in follow-up on the selective care unit. He is awake and alert in no acute distress. No shortness of breath cough or congestion. He is maintaining good O2 saturations in the upper 90s on 2 L/m per nasal cannula. He's been afebrile. Hemodynamically stable. Hip pain is better controlled today. Status post 4 units packed red blood cells this admission. Current hemoglobin 7.8. White count 13.8. Platelets 225. Creatinine 1.51. AST 334. ALT 406. Objective - Vital Signs Vital signs: Vital Signs Temp 97 F L 10/10/19 08:23 Pulse 78 10/10/19 08:25 Resp 18 10/10/19 08:25 BP 117/63 10/10/19 08:23 Pulse Ox 97 10/10/19 08:23 Intake & Output 10/09/19 10/10/19 10/10/19 18:59 06:59 18:59 Intake Total 1390 240 680 Output Total 600 100 200 Balance 790 140 480 Weight 76.2 kg Intake: IV 130 Invasive Line 1 20 Invasive Line 3 10 Sodium Ferric Gluconat- 100 Sucrose 125 mg In Sodium Chloride 0.9% 100 ml @ 100 mls/hr IVPB DAILY [facility] Rx#:[id number] Oral 950 240 680 Blood Product 310 Rc Pheresis As-3 Unit 310 [id number] Output: Urine 600 100 200 Straight 400 Other: Voiding Method Urinal Urinal Urinal Diaper Diaper Diaper # Voids 1 1 - Exam GENERAL EXAM: Alert, 69-year-old gentleman, on room air, comfortable in no apparent distress. HEAD: Normocephalic. EYES: Normal reaction of pupils, equal size. NOSE: Clear with pink turbinates. THROAT: No erythema or exudates. NECK: No masses, no JVD. CHEST: No chest wall deformity. LUNGS: Equal air entry with crackles in the bilateral posterior bases. CVS: S1 and S2 normal with no audible murmur, regular rhythm. ABDOMEN: No hepatosplenomegaly, normal bowel sounds, no guarding or rigidity. SPINE: No scoliosis or deformity SKIN: No rashes CENTRAL NERVOUS SYSTEM: No focal deficits, tone is normal in all 4 extremities. EXTREMITIES: Right hip pain. There is no peripheral edema. No clubbing, no cyanosis. Peripheral pulses are intact. - Labs CBC & Chem 7: 10/10/19 06:19 10/10/19 06:19 Labs: Abnormal Lab Results - Last 24 Hours (Table) 10/09/19 10/09/19 10/09/19 Range/Units 12:15 14:05 17:38 WBC (3.8-10.6) k/uL RBC (4.30-5.90) m/uL Hgb (13.0-17.5) gm/dL Hct (39.0-53.0) % MCHC (31.0-37.0) g/dL RDW (11.5-15.5) % Neutrophils # (1.3-7.7) k/uL Lymphocytes # (1.0-4.8) k/uL Monocytes # (0-1.0) k/uL Sodium (137-145) mmol/L Potassium 3.2 L (3.5-5.1) mmol/L BUN (9-20) mg/dL Creatinine (0.66-1.25) mg/dL Glucose (74-99) mg/dL POC Glucose (mg/dL) 140 H (75-99) mg/dL AST (17-59) U/L ALT (4-49) U/L Alkaline Phosphatase (38-126) U/L Albumin (3.5-5.0) g/dL Crossmatch See Detail 10/09/19 10/10/19 10/10/19 Range/Units 20:39 05:55 06:19 WBC 13.8 H (3.8-10.6) k/uL RBC 2.94 L (4.30-5.90) m/uL Hgb 7.8 L (13.0-17.5) gm/dL Hct 25.8 L (39.0-53.0) % MCHC 30.4 L (31.0-37.0) g/dL RDW 18.0 H (11.5-15.5) % Neutrophils # 11.3 H (1.3-7.7) k/uL Lymphocytes # 0.7 L (1.0-4.8) k/uL Monocytes # 1.2 H (0-1.0) k/uL Sodium (137-145) mmol/L Potassium (3.5-5.1) mmol/L BUN (9-20) mg/dL Creatinine (0.66-1.25) mg/dL Glucose (74-99) mg/dL POC Glucose (mg/dL) 330 H 137 H (75-99) mg/dL AST (17-59) U/L ALT (4-49) U/L Alkaline Phosphatase (38-126) U/L Albumin (3.5-5.0) g/dL Crossmatch 10/10/19 10/10/19 Range/Units 06:19 11:14 WBC (3.8-10.6) k/uL RBC (4.30-5.90) m/uL Hgb (13.0-17.5) gm/dL Hct (39.0-53.0) % MCHC (31.0-37.0) g/dL RDW (11.5-15.5) % Neutrophils # (1.3-7.7) k/uL Lymphocytes # (1.0-4.8) k/uL Monocytes # (0-1.0) k/uL Sodium 134 L (137-145) mmol/L Potassium (3.5-5.1) mmol/L BUN 60 H (9-20) mg/dL Creatinine 1.51 H (0.66-1.25) mg/dL Glucose 100 H (74-99) mg/dL POC Glucose (mg/dL) 129 H (75-99) mg/dL AST 334 H (17-59) U/L ALT 406 H (4-49) U/L Alkaline Phosphatase 169 H (38-126) U/L Albumin 3.2 L (3.5-5.0) g/dL Crossmatch Assessment and Plan Assessment: Acute blood loss anemia, patient received a total of 4 units of packed RBCs since admission. Hemoglobin today is 7.8. Upper GI bleeding, however negative EGD findings. And aspirin and urology is not planning any further workup since he had colonoscopy in the last 2 years. Not to mention he is not actively bleeding at this point.. Acute non-ST elevation myocardial infarction, significant rise in troponin noted, that being addressed by cardiology on the case. Coumadin coagulopathy with elevated INR. Symptomatic severe anemia secondary to GI blood loss. Chronic atrial fibrillation. Severe mitral regurgitation. Severe pulmonary hypertension. Acute diastolic congestive heart failure is strongly suspected. History of coronary artery disease. History of COPD. Acute kidney injury secondary to acute tumor necrosis, hypotension, and profound anemia. Improving since yesterday. Acute anion gap metabolic acidosis, multifactorial mostly secondary to acute kidney injury and poor perfusion secondary to anemia, improving since admission. History of alcoholism. History of type 2 diabetes. History of GERD and hiatal hernia Degenerative joint disease Restless leg syndrome Plan: The patient was seen by Dr. Mccullough Currently stable from the pulmonary and critical care standpoint Home once cleared medically I, the cosigning physician, performed a history & physical examination of the patient. Lungs sounds with crackles in the bilateral posterior bases. Maintaining good O2 saturations in the 90s on 2 L/m per nasal cannula. I discussed the assessment and plan of care with my nurse practitioner, Florinda Tafoya. I attest to the above note as dictated by her.
--- NOTE | 2019-10-10 23:17 | PN ---
PROGRESS NOTE DATE OF SERVICE: 10/10/2019 Patient is a 69-year-old pleasant white male admitted to the hospital with acute GI bleed and severe symptomatic anemia. He underwent an upper endoscopy three days ago that was unremarkable. He had an EGD and colonoscopy a year ago in [place] along with small bowel capsule endoscopy that was unremarkable. His Coumadin has been on hold and he has no further episodes of bleeding. He also had elevated troponins secondary to non ST-segment elevation myocardial infarction. Cardiology following the patient closely. He denies any symptoms today. PHYSICAL EXAMINATION: Appears comfortable. No apparent distress. VITAL SIGNS: Stable. Blood pressure 117/63, pulse is 78, temperature 97. HEENT examination unremarkable. Conjunctivae pink. Sclerae anicteric. Oral cavity no lesions. NECK: No JVD or lymph node enlargement. CHEST: Clear to auscultation. HEART: Regular rate and rhythm. ABDOMEN: Soft. Bowel sounds are positive. No organomegaly. EXTREMITIES: No pedal edema. SKIN: No rashes. NEUROLOGIC: Alert and oriented x3. No focal deficits. LABS: WBC 13.8, hemoglobin 7.8, platelets normal. Basic metabolic panel is within normal limits. IMPRESSION: 1. Severe symptomatic anemia with a hemoglobin of 5.3, status post 3 units of blood transfusion. Hemoglobin stable at 7.8 g/dL. No further bleeding. 2. Atrial fibrillation on Coumadin, currently on hold. 3. Status post EGD three days ago that showed small hiatal hernia, otherwise unremarkable. He also had an EGD, colonoscopy in [place] in July of 2018 for evaluation of anemia and according to the patient it was unremarkable. Subsequently he had a small bowel capsule endoscopy also done that was unremarkable. The etiology of the anemia remains unclear, possibly small bowel source of acute GI bleed. 4. Non ST-segment elevated myocardial infarction with elevated troponins. Cardiology following the patient closely. RECOMMENDATIONS: 1. Monitor CBC. 2. No plans for any endoscopic intervention at the present time given the recent acute OR. 3. Continue to hold Coumadin. 4. Continue Protonix 40 mg daily. 5. If patient is discharged home he was advised to follow up in the office in 2 weeks. Thank you for this consultation. MMODL / IJN: [id number] /
--- NOTE | 2019-10-14 09:13 | CDI ---
Documentation Clarification Form Date: 10/14/19 From: Joan Judge Phone: If you have a question about this query, please contact Maru Vásquez, Product Test Specialist at [phone] between 8am and 5pm. Admit Date: 10/06/19 Discharge Date: 10/10/19 Patient Name: LUX VALENZUELA Visit Number: [id number] ATTENTION: The Clinical Documentation Specialists (CDI) and [facility] Coding Staff appreciate your assistance in clarifying documentation. Please respond to the clarification below the line at the bottom and electronically sign. The CDI & [facility] Coding staff will review the response and follow-up if needed. Please note: Queries are made part of the Legal Health Record. If you have any questions, please contact the author of this message via ITS. Dear Conflicting documentation has been found in the medical record: H&P, Cardiology consul and numerous PNst: Type 2 CO due to anemia. Your 09/2323/ PNs: Acute non-ST myocardial infarction: Possibility of intervention has not been confirmed so far patient is asymptomatic continue to have slight shortness of breath with no chest pain is troponin was quite but elevated cardiology or trying to avoid doing angiogram unless patient still not stable. History/Risk Factors: GI bleed, SIRS, ATN,HTN w acute on chronic diastolic CHF, acidosis, chronic atrial fib, ABLA, hypotension, Type II DM, COPD, RA, alcohol dependence Clinical Indicators: Difficulty in breathing as well as tightness in his chest but not true chest pain. Troponin: 1.570, 14.200, 8.520 Hgb: 5.3, 5.7, 6.7, 7.9, 7.9, 7.3, 7.5, 7.2, 7.8 Hct: 18.9, 20.5, 22.7, 25.5, 25.0, 23.8, 24.1, 23.3, 25.8 Treatment: cardiology consult, not a candidate for antiplatelet, anticoagulants or invasive procedures. Transfuse and reverse Coumadin, received 4 units of RBCs In your opinion, what is the most clinically appropriate diagnosis for this patient? Type II CO secondary to anemia with supply and demand mismatch XX Non-ST CO Other explanation of clinical findings Unable to determine (no explanation for clinical findings) MTDD
== END 2019-10-10 13:44 | disposition home or self-care (01) | DRG 377 ==
LOC: EC 08:13 → 2SICU 10:22 → 3SCARD 10-08 17:09
PROVIDERS: ADMIT Internal Medicine Geriatric Medicine; ATTEND Internal Medicine Geriatric Medicine
PROC: 0DJ08ZZ Inspection of Upper Intestinal Tract, Via Natural or Artificial Opening Endoscopic (ICD-10-PCS; principal; 2019-10-06)
PROC: 30233N1 Transfusion of Nonautologous Red Blood Cells into Peripheral Vein, Percutaneous Approach (ICD-10-PCS; 2019-10-06)
DX: K92.2 Gastrointestinal hemorrhage, unspecified (principal); R65.11 Systemic inflammatory response syndrome (SIRS) of non-infectious origin with acute organ dysfunction; N17.0 Acute kidney failure with tubular necrosis; I21.4 Non-ST elevation (NSTEMI) myocardial infarction; I50.33 Acute on chronic diastolic (congestive) heart failure; E87.2 Acidosis; I48.20 Chronic atrial fibrillation, unspecified; D62 Acute posthemorrhagic anemia; I95.9 Hypotension, unspecified; E11.9 Type 2 diabetes mellitus without complications; D72.829 Elevated white blood cell count, unspecified; I27.20 Pulmonary hypertension, unspecified; I11.0 Hypertensive heart disease with heart failure; M06.9 Rheumatoid arthritis, unspecified; J44.9 Chronic obstructive pulmonary disease, unspecified; F10.20 Alcohol dependence, uncomplicated; Z20.828 Contact with and (suspected) exposure to other viral communicable diseases; E78.5 Hyperlipidemia, unspecified; G25.81 Restless legs syndrome; T45.515A Adverse effect of anticoagulants, initial encounter; R79.1 Abnormal coagulation profile; I08.3 Combined rheumatic disorders of mitral, aortic and tricuspid valves; I25.10 Atherosclerotic heart disease of native coronary artery without angina pectoris; K21.9 Gastro-esophageal reflux disease without esophagitis; I25.2 Old myocardial infarction; K44.9 Diaphragmatic hernia without obstruction or gangrene; M25.551 Pain in right hip; M19.90 Unspecified osteoarthritis, unspecified site; F17.210 Nicotine dependence, cigarettes, uncomplicated; Z71.6 Tobacco abuse counseling; Z79.01 Long term (current) use of anticoagulants; Z79.84 Long term (current) use of oral hypoglycemic drugs; Z79.899 Other long term (current) drug therapy; Z87.01 Personal history of pneumonia (recurrent); Z95.5 Presence of coronary angioplasty implant and graft; Z98.42 Cataract extraction status, left eye; Z98.41 Cataract extraction status, right eye; Z98.890 Other specified postprocedural states; Z82.49 Family history of ischemic heart disease and other diseases of the circulatory system; Z80.42 Family history of malignant neoplasm of prostate
CPT/HCPCS: 36415; 36430; 43235; 71045; 71046; 73501; 76700; 80048; 80053; 82272; 82607; 82728; 82747; 83540; 83550; 83605; 83735; 83880; 84132; 84484; 85025; 85027; 85045; 85610; 85730; 86850; 86900; 86901; 86920; 87635; 93005; 93306; 94640; 96365; 96375; 99285

== ENCOUNTER → 2020-01-11 | Outpatient (CLI) | payer MEDICARE ==
--- NOTE | 2020-01-11 15:34 | CT ---
EXAMINATION TYPE: CT angio neck DATE OF EXAM: 01/11/2020 HISTORY: left sided stenosis, bilateral carotid disease per report. COMPARISON: NONE CT DLP: 573 mGycm. Automated Exposure Control for Dose Reduction was Utilized. TECHNIQUE: CTA scan of the neck is performed without and with IV Contrast, patient injected with 65c c mL of Isovue 370, axial images are obtained, coronal and sagittal reformatted images are reviewed. Three-D reconstructed images are created on an independent workstation and reviewed. FINDINGS: Carotid/Vascular Structures: Moderate peripheral plaque in the aorta extending into 3 great branch ve ssels from arch without significant stenosis. Normal origin right common carotid artery from the righ t brachiocephalic artery. [id number] scattered peripheral calcified plaque along course of the right common carotid artery. More severe calcified plaque right carotid bulb extends into internal an d external carotid arteries, significant stenosis in the right external carotid artery is present. No significant stenosis at origin of right internal carotid artery There is more severe calcified plaqu e in the proximal internal carotid artery roughly 2 to 3 cm pass its origin, stenosis with lumen diam eter measuring 2.1 mm along the right aspect of artery axial image 57 image 8 and reconstitution to 5 .6 mm distal to this axial image 61. This is less prominent on the reconstructed images. Remainder of right internal carotid artery shows mild to moderate calcified plaque without significant stenosis. Mild to moderate mixed plaque in the periphery of the left common carotid artery seen without signifi cant stenosis. There is severely calcified plaque left carotid bulb extending into proximal internal and external carotid arteries without significant stenosis in the left internal carotid artery identi fied as there is more prominent noncalcified plaque noted. No significant stenosis in the left advisory intern al carotid artery. There is moderate peripheral calcified plaque in the proximal left internal caroti d artery. There are some tortuous course to the mid segment. There is moderate to severe calcified pl aque supraclinoid and petrous segment without significant stenosis. There is dominant left vertebral artery. Vertebral arteries are patent to basilar junction. Other: Slight underlying levoconvex scoliotic curvature. Moderate multilevel spurring and disc space narrowing greatest C5-C6 and C6-C7 levels in the cervical spine. IMPRESSION: Severe calcified plaque at bilateral carotid bulbs with significant stenosis of bilateral external carotid arteries. No significant stenosis at origin of either internal carotid artery. Dist al to the right bifurcation by roughly 3 cm there is severe focal calcified plaque right proximal int ernal carotid artery causing stenosis measured 60-65%.
== END | disposition home or self-care (01) ==
LOC: RADCTMAIN 13:56
PROVIDERS: ATTEND Internal Medicine Interventional Cardiology
DX: I65.23 Occlusion and stenosis of bilateral carotid arteries (principal); I77.89 Other specified disorders of arteries and arterioles; R09.89 Other specified symptoms and signs involving the circulatory and respiratory systems
CPT/HCPCS: 82565; 84520; 70498; 36415; Q9967

== ENCOUNTER → 2020-01-14 | Outpatient (CLI) | payer MEDICARE ==
[2020-01-14 11:18] LABS: Anisocytosis Slight; HCT 30.4 % (39.0-53.0); HGB 9.8 gm/dL (13.0-17.5); Hypochromasia Slight; MCH 28.5 pg (25.0-35.0); MCHC 32.2 g/dL (31.0-37.0); MCV 88.7 fL (80.0-100.0); Mean Platelet Volume 7.4; Platelet Count 245 k/uL (150-450); RBC 3.42 m/uL (4.30-5.90); RDW 16.9 % (11.5-15.5); WBC 6.8 k/uL (3.8-10.6)
[2020-01-14 11:24] LABS: African American GFR (CKD) >90 (>60 ml/min/1.73 sqM); Anion Gap 7 mmol/L; Blood Urea Nitrogen 24 mg/dL (9-20); Carbon Dioxide 32 mmol/L (22-30); Chloride 96 mmol/L (98-107); Non-African American GFR(CKD) 80 (>60 ml/min/1.73 sqM); Potassium 4.6 mmol/L (3.5-5.1); Sodium 135 mmol/L (137-145)
== END | disposition home or self-care (01) ==
LOC: LABPAT 09:00
PROVIDERS: ATTEND Internal Medicine Interventional Cardiology
DX: Z01.818 Encounter for other preprocedural examination (principal); I25.118 Atherosclerotic heart disease of native coronary artery with other forms of angina pectoris
CPT/HCPCS: 36415; 80051; 82565; 84520; 85027

== ENCOUNTER 2020-01-18 07:34 | Day surgery (SDC) | payer MEDICARE ==
[2020-01-14 08:35] VITALS: BMI 20.2
[~2020-01-18 07:34] MED LIST changes: +ALPRAZolam 0.25 MG TAB PO PRN; +ALPRAZolam 0.5 MG TAB PO PRN; +ASPIRIN 325 MG TAB PO ONE; +ATORVASTATIN 80 MG TAB PO ONE; +NITROGLYCERIN SL TABS 0.4 MG TAB SUBLINGUAL PRN; -SODIUM CHLORIDE 0.9% 1,000 ML IV SCH; +SODIUM CHLORIDE 0.9% 1,000 ML in EMPTY BAG 1 BAG IV ONE
[2020-01-18 08:33] LABS: Glucose,Whole Blood 133 mg/dL (75-99)
[2020-01-18] MEDS ORDERED: SODIUM CHLORIDE 0.9% 1,000 ML IV ONE (09:45)
[2020-01-18] MEDS ORDERED: LIDOCAINE 1% INJ 10MG/ML (20 ML MDV) ONE (09:52)
[2020-01-18] MEDS ORDERED: VERAPAMIL 2.5 MG/ML 2 ML AMP ONE (09:52)
[2020-01-18] MEDS ORDERED: HEPARIN SODIUM 1,000 UN/ML (10ML VL) ONE (09:58)
[2020-01-18] MEDS ORDERED: MIDAZOLAM 2 MG/2 ML VIAL IVP ONE (10:01)
[2020-01-18] MEDS ORDERED: LIDOCAINE 1% INJ 10MG/ML (20 ML MDV) SQ ONE (10:04)
[2020-01-18] MEDS ORDERED: VERAPAMIL SYRINGE (5 MG/10 ML) INTRAARTER ONE (10:06)
[2020-01-18] MEDS: HEPARIN SODIUM 1,000 UN/ML (10ML VL) IV ONE ×2 (10:08→10:37)
[2020-01-18] MEDS ORDERED: HYDROmorphone 1 MG/ML 1 ML SYRINGE ONE (10:27)
[2020-01-18] MEDS ORDERED: HYDROmorphone 1 MG/ML 1 ML SYRINGE IVP ONE (10:30)
[2020-01-18] MEDS ORDERED: IOPAMIDOL-370 50ML BTL INJ ONE (10:36)
[2020-01-18] MEDS ORDERED: IOPAMIDOL-370 100ML BTL INJ ONE ×3 (10:36→11:16)
[2020-01-18] MEDS ORDERED: CLOPIDOGREL 75 MG TAB ONE (10:46)
[2020-01-18] MEDS ORDERED: CLOPIDOGREL 75 MG TAB PO ONE (10:48)
[2020-01-18] MEDS ORDERED: NITROGLYCERIN 1000MCG/10ML SYRINGE INTRACORON ONE (11:17)
[2020-01-18] MEDS ORDERED: SODIUM CHLORIDE 0.9% 1,000 ML IV SCH (11:26)
--- NOTE | 2020-01-18 12:38 | CC ---
CARDIAC CATHETERIZATION REPORT PROCEDURE: Cardiac catheterization and PCI of circumflex. PERFORMED BY: Dr. Pako Sharp. PROCEDURE PERFORMED: 1. Left heart catheterization and coronary angiography. 2. PTCA and stenting of mid circumflex with a drug-eluting stent of calcified vessel, difficult procedure. PERFORMED BY: Dr. Pako Sharp Moderate conscious sedation time was 73 minutes. Patient was administered Versed. Oxygen saturation, hemodynamics and EKG were monitored closely. CLINICAL INFORMATION: Mr. Ricco Cordova is a 69-year-old gentleman with a history of smoking, COPD, hypertension, hyperlipidemia, and episode of GI bleed. He has chronic atrial fibrillation, slow ventricular rate with underlying sick sinus syndrome. In 2013, I performed stenting of mid LAD. He has mild coarctation of aortic valve leaflets with aortic regurgitation of moderate extent and also moderate mitral regurgitation with mitral valve prolapse. Ejection fraction is in the 55% range. He was having symptoms of exertional chest tightness and shortness of breath. Stress test revealed inferior wall fixed defect with also significant area of reversibility in the inferolateral wall. He was advised cardiac catheterization after due discussion regarding risks, benefits, and options. PROCEDURE NOTE: Under local anesthesia and strict aseptic precautions, a 6-Amharic sheath was placed in the right radial artery. Using a JR4 catheter, I performed selective coronary angiography of the right coronary artery. I used a Ultimate 2 diagnostic catheter. With this, I performed selective coronary angiography of the left system. Following this, I noted the circumflex had a mid lesion of 85%, which was the culprit. He was advised intervention that was performed in the same setting. Following the procedure, the sheath was taken out and TR band applied as per protocol and saturation of the fingers of the right hand was same as baseline at 91%. The patient tolerated the procedure well without complications. I used a pigtail catheter to check LV pressure but did not perform an LV gram. CARDIAC CATHETERIZATION FINDINGS: THE RIGHT CORONARY ARTERY: This is technically a very dominant vessel, moderate to heavily calcified in the proximal portion, has a 40% stenosis which is not significant. No significant change compared to 2016 catheterization and distally bifurcates into a PDA and PLV, both of which supply a sizable amount of myocardium. There is moderate to heavy calcification throughout the vessel which is super dominant. No critical lesions. The proximal RCA lesion is unchanged. LEFT MAIN CORONARY ARTERY: A very short vessel that immediately bifurcates into LAD and circumflex, almost look like 2 separate origins. No significant disease. LEFT ANTERIOR DESCENDING CORONARY ARTERY: Good caliber vessel, extends along the anterior wall. In the midportion, the stented segment is widely patent with no more than 30% narrowing. Proximal to the stented area, there is about a 30% to 35% narrowing. Beyond this stented area, the caliber is good, the vessel is a large in caliber and distribution curves over the apex to supply the inferoapical portion. No significant disease. Major diagonal branch has also minor irregularities, no significant disease. LAD therefore has 30%-40% narrowing, moderate calcification. No significant disease and stented segment is widely patent. LEFT POSTERIOR CIRCUMFLEX CORONARY ARTERY: Nondominant vessel gives off the 2 obtuse marginal branches, but in the midportion before the origin of any major branches, there appears to be an eccentric 80% narrowing after which two obtuse marginal branches come off and vessel runs in the AV groove. Moderate caliber, moderate distribution vessel with a mid lesion of 85%, which I believe is the culprit lesion. Left Ventriculogram was not performed. FINAL IMPRESSION: This patient has a right dominant system, elevated mildly elevated filling pressures. No gradient across the aortic valve. Right coronary is dominant, moderate calcification, 40% proximal lesion. Left main is an almost non-existent. LAD has a 30%-40% calcified areas in the disease. The stented segment is widely patent. No more than 30% narrowing. Circumflex has a mid lesion of 85%, eccentric in nature, nondominant vessel with moderate distribution SNF fair caliber. RECOMMENDATION: I recommended PCI of circumflex that was performed in the same setting. PCI PROCEDURE DETAILS: I used a JL4.5 guide catheter to cannulate the left coronary artery. I tried to get better access into the circumflex. A run-through wire was used to cross the lesion, wire was kept distally. I advanced a 2.25 caliber 12 mm NC Trek balloon with side had pre-dilated the lesion. I had difficulty advancing the balloon because of calcification, angulation and not so good guide support. I tried to advance a 2.5 caliber 12 mm Xience stent, but I had a lot of difficulty because of inadequate guide support and also calcification and tortuosity. I then placed an additional whisper wire alongside with a diego wire also. I tried without success. I then switched over to a 2.0 caliber abdifatah 15 mm stent and this was deployed in the lesion with some manipulation. Excellent angiographic result was achieved. I used a Whisper wire as the wire to do to advance the stent and the diego wire was the run-through wire. Good angiographic result was achieved. I then advanced over the whisper wire, a 2.5 caliber 12 mm NC emerged balloon. With this I postdilated the on extent of up to 12 atmospheres. Excellent angiographic result was achieved. Patient received heparin intravenously and ACT was 350. He also received 600 mg of Plavix. Excellent angiographic result without complication was achieved. Results were discussed with the patient and family. I expect he will be discharged later on this evening if he remains stable and he will be on Plavix 75 mg daily, Eliquis 2.5 mg b.i.d. and I will see him in the office within 1 week. Discharge instructions regarding activity, medications and diet were given. Advised to quit smoking. MMODL / IJN: [id number] /
[2020-01-18 13:32] VITALS: RESP 16
[2020-01-18 15:23] VITALS: BP 135/63; PULSE 61
--- NOTE | 2020-01-18 18:00 | ECHOF ---
Referral Reason:assess valves MEASUREMENTS -------- HEIGHT: 180.3 cm WEIGHT: 72.1 kg BP: RVIDd: 3.4 cm (< 3.3) IVSd: 1.6 cm (0.6 - 1.1) LVIDd: 4.4 cm (3.9 - 5.3) LVPWd: 1.6 cm (0.6 - 1.1) IVSs: 2.2 cm LVIDs: 2.7 cm LVPWs: 2.2 cm LAESV Index (A-L): 85.12 ml/m Ao Diam: 3.1 cm (2.0 - 3.7) AV Cusp: 2.2 cm (1.5 - 2.6) LA Diam: 4.2 cm (2.7 - 3.8) MV EXCURSION: 16.144 mm (> 18.000) MV EF SLOPE: 92 mm/s (70 - 150) MV E Soham: 1.38 m/s MV DecT: 246 ms MV A Soham: 0.59 m/s MV E/A Ratio: 2.32 AR PHT: 577 ms RAP: 15.00 mmHg RVSP: 58.43 mmHg TAPSE: 20.20 mm FINDINGS -------- Sinus rhythm. This was a technically good study. The left ventricular size is normal. There is moderate concentric left ventricular hypertrophy. O verall left ventricular systolic function is normal with, an EF between 55 - 60 %. Increased LAP. G rade 3 Diastolic Dysfunction. The right ventricle is mildly enlarged. LA is severely dilated >40 ml/m2 The right atrium is mildly enlarged. Turbulent flow in the RA which likely related to tricupsid regurgitation however cannot exclude intra atrial septum communication. Further assessment with JOLIE recommended if clinically indicated. Aortic valve is trileaflet and is mildly thickened. There is [id number] aortic regurgitatio n. The mitral valve is normal. Severe mitral regurgitation is present. The tricuspid valve appears structurally normal. Severe tricuspid regurgitation present. There is moderate to severe pulmonary hypertension. The right ventricular systolic pressure, as measured by Doppler, is 58.43mmHg. There is no pulmonic regurgitation present. The aortic root size is normal. The inferior vena cava is mildly dilated. There is a trivial pericardial effusion present. CONCLUSIONS -------- 1. The left ventricular size is normal. 2. There is moderate concentric left ventricular hypertrophy. 3. Overall left ventricular systolic function is normal with, an EF between 55 - 60 %. 4. Increased LAP. Grade 3 Diastolic Dysfunction. 5. The right ventricle is mildly enlarged. 6. LA is severely dilated >40 ml/m2 7. The right atrium is mildly enlarged. 8. Turbulent flow in the RA which likely related to tricupsid regurgitation however cannot exclude in traatrial septum communication. Further assessment with JOLIE recommended if clinically indicated. 9. Aortic valve is trileaflet and is mildly thickened. 10. There is mlmigwsf-le-nqpfbw aortic regurgitation. 11. Severe mitral regurgitation is present. 12. Severe tricuspid regurgitation present. 13. There is moderate to severe pulmonary hypertension. 14. The right ventricular systolic pressure, as measured by Doppler, is 58.43mmHg. 15. The inferior vena cava is mildly dilated. 16. There is a trivial pericardial effusion present. SLIDE FORMING MACHINE OPERATOR: Kelly Cintron RDCS
== END 2020-01-18 17:05 | disposition home or self-care (01) ==
LOC: CATHCVL 07:34
PROVIDERS: ATTEND Internal Medicine Interventional Cardiology
DX: I25.110 Atherosclerotic heart disease of native coronary artery with unstable angina pectoris (principal); I25.84 Coronary atherosclerosis due to calcified coronary lesion; I10 Essential (primary) hypertension; I49.5 Sick sinus syndrome; I27.20 Pulmonary hypertension, unspecified; F17.210 Nicotine dependence, cigarettes, uncomplicated; E78.00 Pure hypercholesterolemia, unspecified; R09.89 Other specified symptoms and signs involving the circulatory and respiratory systems; I08.0 Rheumatic disorders of both mitral and aortic valves; I77.1 Stricture of artery; Z95.5 Presence of coronary angioplasty implant and graft; R94.39 Abnormal result of other cardiovascular function study; J44.9 Chronic obstructive pulmonary disease, unspecified; E78.5 Hyperlipidemia, unspecified; I48.19 Other persistent atrial fibrillation; Z87.19 Personal history of other diseases of the digestive system; Z79.01 Long term (current) use of anticoagulants; Z79.84 Long term (current) use of oral hypoglycemic drugs; Z79.899 Other long term (current) drug therapy
CPT/HCPCS: 93306; 93458; C9600; C1769 ×3; C1887; C1725 ×2; C1874 ×2; J2250; J2001; J1644; J1170; Q9967

== ENCOUNTER 2020-02-06 06:26 | Inpatient (IN) | payer MEDICARE ==
[2020-02-06] MEDS ORDERED: MORPHINE SULFATE 4 MG/ML SYRINGE IV STA (06:41)
[2020-02-06] MEDS ORDERED: NITROGLYCERIN SL TABS 0.4 MG TAB SUBLINGUAL STA (06:41)
[2020-02-06] MEDS ORDERED: SODIUM CHLORIDE 0.9% 1,000 ML IV STA ×2 (06:41)
[2020-02-06] MEDS ORDERED: IPRATROPIUM-ALBUTEROL 3 ML NEB INHALATION STA (06:43)
--- NOTE | 2020-02-06 06:46 | ED ---
Chest Pain HPI - General Chief Complaint: Chest Pain Stated Complaint: chest pain Time Seen by Provider: 02/06/20 06:32 Source: patient, RN notes reviewed, old records reviewed Mode of arrival: ambulatory - History of Present Illness Initial Comments: Patient is a 69 -year-old male presents to the ER today for evaluation for chest tightness and shortness of breath for the past 2 days. Patient had a recent cardiac catheterization and stenting procedure done on January 17. Patient states that he is a smoker. He states that he's had a symptoms the past and was previously related to anemia and GI bleed. Patient's states that she has held his L Ellis for the past 2 days but he continued his Plavix. He states that he did take nitro yesterday but reports no significant relief of symptoms at that time. Patient states that he has had no nausea or vomiting. He has been complaining of referred pain to the left arm. - Related Data Home Medications Medication Instructions Recorded Confirmed Atorvastatin [Lipitor] 40 mg PO DAILY 04/01/14 01/14/20 Isosorbide Mononitrate [Imdur] 30 mg PO DAILY 04/01/14 01/14/20 amLODIPine [Norvasc] 10 mg PO DAILY 01/11/15 01/14/20 Furosemide [Lasix] 40 mg PO DAILY 11/16/17 01/14/20 metFORMIN HCL [metFORMIN HCL ER] 1,000 mg PO BID 11/16/17 01/14/20 Clotrimazole Cream [Lotrimin Cream] 1 applic TOPICAL BID PRN 10/06/19 01/14/20 Potassium Chloride ER [K-Dur 20] 20 meq PO BID 10/06/19 01/14/20 Pramipexole [Mirapex] 1 mg PO HS 10/06/19 01/14/20 hydrALAZINE HCL [Apresoline] 25 mg PO TID 10/06/19 01/14/20 Acetaminophen [Tylenol Arthritis] 2 tab PO BID 01/14/20 01/14/20 Apixaban [Eliquis] 2.5 mg PO BID 01/14/20 01/14/20 metOLazone [Zaroxolyn] 2.5 mg PO Q48H 01/14/20 01/14/20 Previous Rx's Medication Instructions Recorded Losartan [Cozaar] 25 mg PO DAILY #30 tab 10/10/19 Pantoprazole Sodium [Protonix] 40 mg PO AC-BID #60 tablet. 10/10/19 Allergies Allergy/AdvReac Type Severity Reaction Status Date / Time No Known Allergies Allergy Verified 01/18/20 07:58 Review of Systems ROS Statement: Those systems with pertinent positive or pertinent negative responses have been documented in the HPI. ROS Other: All systems not noted in ROS Statement are negative. EKG Findings - EKG Comments: EKG Findings:: EKG shows atrial fibrillation with premature and inadvertently conducted complex. Blood type ventricular hypertrophy. Hearing around consider inferolateral ischemia. Abnormal EKG. Ventricular rate is 78 bpm. Both undetectable. QRS duration is 126 ms. QT QTc is 442/503 ms. Past Medical History Past Medical History: Atrial Fibrillation, Coronary Artery Disease (CAD), Heart Failure, COPD, Diabetes Mellitus, GERD/Reflux, Hyperlipidemia, Hypertension, Osteoarthritis (OA), Pneumonia, Rheumatoid Arthritis (RA) Additional Past Medical History / Comment(s): gi bleed, anemia, restless leg syndrome, alcoholism, kidney injury Last Myocardial Infarction Date:: 2013 History of Any Multi-Drug Resistant Organisms: None Reported Past Surgical History: Heart Catheterization With Stent, Orthopedic Surgery Additional Past Surgical History / Comment(s): 06/04/13 angioplasty with stent to LAD, 06/07/13 JOLIE, bone spur rt elbow removed, L elbow surgery, bilateral cataract surgery. Past Anesthesia/Blood Transfusion Reactions: No Reported Reaction Additional Past Anesthesia/Blood Transfusion Reaction / Comment(s): Pt has never recieved blood. Date of Last Stent Placement:: 05/2013 Past Psychological History: No Psychological Hx Reported Smoking Status: Current every day smoker Past Alcohol Use History: Occasional Past Drug Use History: None Reported - Past Family History Father Family Medical History: Cancer Additional Family Medical History / Comment(s): Father of prostate cancer at age 65yrs. Mother Family Medical History: Coronary Artery Disease (CAD) Additional Family Medical History / Comment(s): Mother had CABG. She of CHF at age 73 yrs. Brother(s) Family Medical History: Coronary Artery Disease (CAD) Additional Family Medical History / Comment(s): Patient has 2 brothers and one has history of myocardial infarction and five-vessel CABG, one has history of prostate cancer. Sister(s) Family Medical History: Coronary Artery Disease (CAD), Myocardial Infarction ([place]) Additional Family Medical History / Comment(s): Patient has 2 sisters and one has history of myocardial infarction. Daughter(s) Family Medical History: No Reported History Additional Family Medical History / Comment(s): Patient has a total of 3 children with no major medical problems. Son(s) Family Medical History: No Reported History General Exam - General Exam Comments Initial Comments: Alert and oriented 69-year-old male. No distress. General appearance: alert, in no apparent distress Head exam: Present: atraumatic, normocephalic, normal inspection Eye exam: Present: normal appearance, PERRL, EOMI. Absent: scleral icterus, conjunctival injection, periorbital swelling ENT exam: Present: normal exam, mucous membranes moist Neck exam: Present: normal inspection. Absent: tenderness, meningismus, lymphadenopathy Respiratory exam: Present: normal lung sounds bilaterally. Absent: respiratory distress, wheezes, rales, rhonchi, stridor Cardiovascular Exam: Present: regular rate, normal rhythm, normal heart sounds. Absent: systolic murmur, diastolic murmur, rubs, gallop, clicks GI/Abdominal exam: Present: soft, normal bowel sounds. Absent: distended, tenderness, guarding, rebound, rigid Rectal exam: Present: normal inspection, heme (+) stool Extremities exam: Present: normal inspection, full ROM, normal capillary refill. Absent: tenderness, pedal edema, joint swelling, calf tenderness Back exam: Present: normal inspection, full ROM Neurological exam: Present: alert, oriented X3, CN II-XII intact Psychiatric exam: Present: normal affect, normal mood Skin exam: Present: warm, dry, intact, normal color. Absent: rash Course Vital Signs 02/06/20 02/06/20 02/06/20 06:28 07:10 07:20 Temperature 97.7 F Pulse Rate 58 L 58 L 56 L Respiratory 18 18 Rate Blood Pressure 141/51 121/55 O2 Sat by Pulse 99 100 Oximetry Chest Pain [facility] Patient is a 69-year-old male with history of coronary artery disease recent stenting procedure and January 17. He presents today with shortness of breath and chest pain the past 2 days. Patient EKG showed no significant change from previous of the month. He was given IV fluids and morphine for pain and nitro. He denied any significant relief of the shortness of breath. Labs reviewed and he has significant drop of his hemoglobin of 5.5. He doesn't to daily alcohol use. Patient be given Protonix and given a 1 unit of PRBCs. Fecal occult is positive. Patient will be admitted at this time for concern for GI bleed, chest pain and shortness breath likely secondary to anemia. Patient with consult to cardiology and GI. Chest x-ray shows no acute croup on my process. Coronary artery disease possible pulmonary artery hypertension, COPD. Disposition Clinical Impression: GI bleed, Chest pain, SOB (shortness of breath), Anemia, History of ETOH abuse Disposition: ADMITTED IP TO THIS HOSP Condition: Stable Is patient prescribed a controlled substance at d/c from ED?: No Referrals: Ilya Saavedra MD [Primary Care Provider] - 1-2 days Time of Disposition: 07:44
[2020-02-06 06:58] LABS: Anisocytosis Slight; Basophils % (A) 1 %; Eosinophils # (A) 0.1 k/uL (0-0.7); Eosinophils % (A) 1 %; Hypochromasia Marked; Lymphocytes # (A) 0.6 k/uL (1.0-4.8); Lymphocytes % (A) 10 %; MCH 26.7 pg (25.0-35.0); MCHC 29.7 g/dL (31.0-37.0); MCV 89.8 fL (80.0-100.0); Mean Platelet Volume 9.2; Monocytes # (A) 0.5 k/uL (0-1.0); Monocytes % (A) 9 %; Neutrophils # (A) 4.6 k/uL (1.3-7.7); Neutrophils % (A) 78 %; Platelet Count 271 k/uL (150-450); Poikilocytosis Slight; RBC 2.06 m/uL (4.30-5.90); RDW 17.1 % (11.5-15.5); WBC 5.8 k/uL (3.8-10.6)
[2020-02-06 07:07] LABS: Albumin 4.1 g/dL (3.5-5.0); Calcium 9.2 mg/dL (8.4-10.2); Magnesium 1.6 mg/dL (1.6-2.3); Potassium 4.2 mmol/L (3.5-5.1); Total Bilirubin 0.6 mg/dL (0.2-1.3); Total Protein 6.8 g/dL (6.3-8.2)
--- NOTE | 2020-02-06 07:25 | XR ---
EXAMINATION TYPE: XR chest 2V DATE OF EXAM: 02/06/2020 COMPARISON: 10/08/[address] 01/11/2020, 12/15/2018 HISTORY: Chest pain and shortness of breath TECHNIQUE: Frontal and lateral views of the chest are obtained on 3 images. FINDINGS: The patient is rotated. Prominent lung volumes are consistent with underlying COPD, emphyse ma. There is no focal air space opacity, pleural effusion, or pneumothorax seen. The cardiac silhoue tte size is stable. Prominence of the pulmonary arteries could be indicative of pulmonary artery hype rtension. The aorta is dense. There are coronary artery calcifications. The osseous structures are i ntact. IMPRESSION: No acute cardiopulmonary process. Coronary artery disease, possible pulmonary artery hyp ertension, COPD.
[2020-02-06 07:26] LABS: HCT 18.5 % (39.0-53.0); HGB 5.5 gm/dL (13.0-17.5)
[2020-02-06 07:28] LABS: INR 1.1 (<1.2); Partial Thromboplastin Time 23.5 sec (22.0-30.0)
[2020-02-06] MEDS ORDERED: PANTOPRAZOLE 40 MG/10 ML VIAL IVP ONE (07:35)
[2020-02-06] MEDS ORDERED: MORPHINE SULFATE 4 MG/ML SYRINGE IV PRN (07:46)
[2020-02-06] MEDS ORDERED: NALOXONE 0.4 MG/ML 1 ML VIAL IV PRN (07:46)
[2020-02-06] MEDS ORDERED: ONDANSETRON 4 MG/2 ML VIAL IVP PRN (07:46)
[2020-02-06] MEDS ORDERED: PANTOPRAZOLE 40 MG/10 ML VIAL IVP STA (07:57)
[2020-02-06] MEDS: SODIUM CHLORIDE 0.9% 1,000 ML IV SCH ×2 (08:04→20:26)
[2020-02-06 08:16] LABS: Appearance,Urine Clear (Clear); Bacteria,Urine Moderate /hpf; Bilirubin,Urine Negative (Negative); Blood,Urine Negative (Negative); Color,Urine Light Yellow; Glucose,Urine (UA) Negative (Negative); Hyaline Casts,Urine 4 /lpf (0-2); Ketones,Urine Negative (Negative); Leukocyte Esterase,Urine Trace (Negative); Mucus,Urine Rare /hpf; Nitrite,Urine Positive (Negative); Protein,Urine Negative (Negative); RBC,Urine <1 /hpf (0-5); Specific Gravity,Urine 1.008 (1.001-1.035); Urobilinogen,Urine <2.0 mg/dL (<2.0); WBC,Urine 3 /hpf (0-5)
[2020-02-06] MEDS ORDERED: traZODone HCL 50 MG TAB PO PRN (10:10)
[2020-02-06] MEDS: LOSARTAN 25 MG TAB PO SCH (10:40)
[2020-02-06] MEDS: FUROSEMIDE 40 MG TAB PO SCH (10:40)
[2020-02-06] MEDS: hydrALAZINE HCL 25 MG TAB PO SCH ×3 (10:40→20:26)
[2020-02-06] MEDS: ISOSORBIDE MONONITRATE ER 30 MG TAB.ER.24H PO SCH (10:40)
[2020-02-06] MEDS: CLOPIDOGREL 75 MG TAB PO SCH (10:40)
--- NOTE | 2020-02-06 10:58 | P.CRDCN ---
History of Present Illness History of present illness: HISTORY OF PRESENTING ILLNESS This is a pleasant 69-year-old male past medical history significant for coronary artery disease status post recent PCI January 17, chronic persistent atrial fibrillation on long-term anticoagulation, valvular heart disease, daily alcohol abuse, hypertension and dyslipidemia. He follows in the office with Dr. Sharp. We have been asked to see in consultation for chest pain, recent PCI and GI bleeding. He is seen and examined sitting up in bed in no acute distress. His is at the bedside. He states for the previous 3 days he has been noticing dark stools. He is currently maintained on Plavix and Eliquis. He had a similar type episode occur in September of this year on Coumadin. The Coumadin was discontinued and Eliquis was initiated. At that time he underwent GI evaluation with Dr. Sepulveda. EGD at that time revealed a small hiatal hernia and otherwise unremarkable. He also had a similar episode while in [place] in July and also had a full GI workup that was unremarkable at that time. He complains of feeling somewhat short of breath and having exertional chest discomfort. DIAGNOSTICS EKG reveals atrial fibrillation heart rate [address] depression in lateral leads consistent with previous EKGs with no acute changes noted. Chest xray negative for an acute cardiopulmonary process with underlying COPD. Laboratory reviewed, CBC 5.8, hemoglobin 5.5, platelets 271, sodium 139, potassium 4.2, creatinine 1.46, cardiac enzymes negative 1, NT proBNP 10,200. Current cardiac medications include Eliquis 5 mg twice a day, atorvastatin 40 mg daily, Lasix 40 mg daily, Imdur 30 mg daily, losartan 25 mg daily, amlodipine 10 mg daily, hydralazine 25 mg 3 times a day and Plavix 75 mg daily. Most recent echocardiogram obtained January 2020 reveals preserved LV systolic function with ejection fraction 55-60%, grade 2 diastolic dysfunction, severely dilated left atrium, moderate to severe aortic regurgitation, severe mitral regurgitation, severe tricuspid regurgitation and moderate pulmonary hypertension with an RVSP of 58 mmHg. REVIEW OF SYSTEMS At the time of my exam: CONSTITUTIONAL: Denies fever or chills. CARDIOVASCULAR: Denies chest pain, shortness of breath, orthopnea, PND or palpitations. RESPIRATORY: Denies cough. GASTROINTESTINAL: Denies abdominal pain, diarrhea, constipation, nausea or vomiting. MUSCULOSKELETAL: Denies myalgias. NEUROLOGIC: Denies numbness, tingling or weakness. ENDOCRINE: Denies fatigue, weight change, polydipsia or polyurina. GENITOURINARY: Denies burning, hematuria or urgency with micturation. HEMATOLOGIC: Denies history of anemia or bleeding. PHYSICAL EXAMINATION Blood pressure 138/55 heart rate 60 afebrile and maintaining oxygen saturation on room air. CONSTITUTIONAL: No apparent distress. HEENT: Head is normocephalic. Pupils are equal, round. Sclerae anicteric. Mucous membranes of the mouth are moist. No JVD. No carotid bruit. CHEST EXAMINATION: Lungs are clear to auscultation. No chest wall tenderness is noted on palpation or with deep breathing. Diminished bilaterally. HEART EXAMINATION: Regular rate and rhythm. S1, S2 heard. Holosystolic murmur at all listening points, no gallops or rub. ABDOMEN: Soft, nontender. Positive bowel sounds. EXTREMITIES: 2+ peripheral pulses, no lower extremity edema and no calf tenderness. NEUROLOGIC EXAMINATION: Patient is awake, alert and oriented x3. ASSESSMENT Significant blood loss anemia, currently receiving blood transfusion Coronary artery disease status post recent PCI of the circumflex artery January 17 maintained on Plavix Chronic persistent atrial fibrillation on long-term anticoagulation with Eliquis Hypertension Dyslipidemia Valvular heart disease Daily alcohol abuse PLAN Recommend continuation of plavx as long as he can tolerate. Eliquis has been held per the patient since Friday, this will be discontinued at this time indefinitely. We will await further GI evaluation. Further recommendations to follow based on clinical course. Thank you kindly for this consultation. Nurse Practitioner note has been reviewed, I agree with a documented findings and plan of care. Patient was seen and examined. Past Medical History Past Medical History: Atrial Fibrillation, Coronary Artery Disease (CAD), Heart Failure, COPD, Diabetes Mellitus, GERD/Reflux, Hyperlipidemia, Hypertension, Osteoarthritis (OA), Pneumonia, Rheumatoid Arthritis (RA) Additional Past Medical History / Comment(s): gi bleed, anemia, restless leg syndrome, alcoholism, kidney injury Last Myocardial Infarction Date:: 2013 History of Any Multi-Drug Resistant Organisms: None Reported Past Surgical History: Heart Catheterization With Stent, Orthopedic Surgery Additional Past Surgical History / Comment(s): 06/04/13 angioplasty with stent to LAD, Stent -(R) radial approach 06/07/13 JOLIE, bone spur rt elbow removed, L elbow surgery, bilateral cataract surgery. Past Anesthesia/Blood Transfusion Reactions: No Reported Reaction Additional Past Anesthesia/Blood Transfusion Reaction / Comment(s): Pt has never recieved blood. Date of Last Stent Placement:: 01/18/2020 Smoking Status: Current every day smoker - Past Family History Father Family Medical History: Cancer Additional Family Medical History / Comment(s): Father of prostate cancer at age 65yrs. Mother Family Medical History: Coronary Artery Disease (CAD) Additional Family Medical History / Comment(s): Mother had CABG. She of CHF at age 73 yrs. Brother(s) Family Medical History: Coronary Artery Disease (CAD) Additional Family Medical History / Comment(s): Patient has 2 brothers and one has history of myocardial infarction and five-vessel CABG, one has history of prostate cancer. Sister(s) Family Medical History: Coronary Artery Disease (CAD), Myocardial Infarction ([place]) Additional Family Medical History / Comment(s): Patient has 2 sisters and one has history of myocardial infarction. Daughter(s) Family Medical History: No Reported History Additional Family Medical History / Comment(s): Patient has a total of 3 children with no major medical problems. Son(s) Family Medical History: No Reported History Medications and Allergies Home Medications Medication Instructions Recorded Confirmed Type Atorvastatin [Lipitor] 40 mg PO DAILY 04/01/14 02/06/20 History Isosorbide Mononitrate [Imdur] 30 mg PO DAILY 04/01/14 02/06/20 History amLODIPine [Norvasc] 10 mg PO DAILY 01/11/15 02/06/20 History Furosemide [Lasix] 40 mg PO DAILY 11/16/17 02/06/20 History metFORMIN HCL [metFORMIN HCL ER] 1,000 mg PO BID 11/16/17 02/06/20 History Clotrimazole Cream [Lotrimin Cream] 1 applic TOPICAL BID PRN 10/06/19 02/06/20 History Potassium Chloride ER [K-Dur 20] 20 meq PO BID 10/06/19 02/06/20 History Pramipexole [Mirapex] 1 mg PO HS 10/06/19 02/06/20 History hydrALAZINE HCL [Apresoline] 25 mg PO TID 10/06/19 02/06/20 History Losartan [Cozaar] 25 mg PO DAILY #30 tab 10/10/19 02/06/20 Rx Pantoprazole Sodium [Protonix] 40 mg PO AC-BID #60 tablet. 10/10/19 02/06/20 Rx Acetaminophen [Tylenol Arthritis] 2 tab PO BID 01/14/20 02/06/20 History metOLazone [Zaroxolyn] 2.5 mg PO Q48H 01/14/20 02/06/20 History Apixaban [Eliquis] 5 mg PO BID 02/06/20 02/06/20 History Clopidogrel [Plavix] 75 mg PO DAILY 02/06/20 02/06/20 History traZODone HCL [TraZODone HCl] 50 mg PO HS PRN 02/06/20 02/06/20 History Allergies Allergy/AdvReac Type Severity Reaction Status Date / Time No Known Allergies Allergy Verified 02/06/20 09:26 Physical Exam Vitals: Vital Signs Temp Pulse Resp BP Pulse Ox 02/06/20 10:28 97.4 F L 60 138/55 99 02/06/20 09:58 97.5 F L 66 16 137/69 100 02/06/20 09:48 97.6 F 58 L 16 150/62 99 02/06/20 08:46 97.6 F 66 18 123/71 99 02/06/20 07:20 56 L 02/06/20 07:10 58 L 18 121/55 100 02/06/20 06:28 97.7 F 58 L 18 141/51 99 Intake and Output 02/05/20 02/06/20 02/06/20 22:59 06:59 14:59 Intake Total 1000 Balance 1000 Intake: Intake, IV Titration 1000 Amount Sodium Chloride 0.9% 1, 1000 000 ml @ 999 mls/hr IV . Q1H1M STA Rx#:[id number] Blood Product 0 Rc As-3 Unit 0 [id number] Other: Weight 68.039 kg Results 02/06/20 06:45 02/06/20 06:45 Cardiac Enzymes 02/06/20 02/06/20 Range/Units 06:45 06:45 AST 79 H (17-59) U/L Troponin I 0.024 (0.000-0.034) ng/mL Coagulation 02/06/20 Range/Units 06:45 PT 11.0 (9.0-12.0) sec APTT 23.5 (22.0-30.0) sec CBC 02/06/20 Range/Units 06:45 WBC 5.8 (3.8-10.6) k/uL RBC 2.06 L (4.30-5.90) m/uL Hgb 5.5 L* D (13.0-17.5) gm/dL Hct 18.5 L* (39.0-53.0) % Plt Count 271 (150-450) k/uL Comprehensive Metabolic Panel 02/06/20 Range/Units 06:45 Sodium 139 (137-145) mmol/L Potassium 4.2 (3.5-5.1) mmol/L Chloride 100 (98-107) mmol/L Carbon Dioxide 27 (22-30) mmol/L BUN 53 H (9-20) mg/dL Creatinine 1.46 H (0.66-1.25) mg/dL Glucose 119 H (74-99) mg/dL Calcium 9.2 (8.4-10.2) mg/dL AST 79 H (17-59) U/L ALT 42 (4-49) U/L Alkaline Phosphatase 123 (38-126) U/L Total Protein 6.8 (6.3-8.2) g/dL Albumin 4.1 (3.5-5.0) g/dL Current Medications Generic Name Dose Route Start Last Admin Trade Name Freq PRN Reason Stop Dose Admin Amlodipine Besylate 10 mg 02/07/20 09:00 Amlodipine 10 Mg Tab PO DAILY [facility] Atorvastatin Calcium 40 mg 02/07/20 09:00 Atorvastatin 40 Mg Tab PO DAILY [facility] Clopidogrel Bisulfate 75 mg 02/06/20 10:15 02/06/20 10:40 Clopidogrel 75 Mg Tab PO Not Given DAILY [facility] Furosemide 40 mg 02/06/20 10:15 02/06/20 10:40 Furosemide 40 Mg Tab PO Not Given DAILY [facility] Hydralazine HCl 25 mg 02/06/20 10:15 02/06/20 10:40 Hydralazine Hcl 25 Mg Tab PO Not Given TID [facility] Hydromorphone HCl 0.5 mg 02/06/20 07:46 Hydromorphone 0.5 Mg/0.5 Ml Syringe IVP Q3HR PRN Moderate Pain Sodium Chloride 1,000 mls @ 100 mls/hr 02/06/20 06:41 02/06/20 07:53 Saline 0.9% IV 02/06/20 16:40 Not Given .Q10H STA Sodium Chloride 1,000 mls @ 100 mls/hr 02/06/20 08:00 02/06/20 08:04 Saline 0.9% IV Not Given .Q10H [facility] Isosorbide Mononitrate 30 mg 02/06/20 10:15 02/06/20 10:40 Isosorbide Mononitrate Er 30 Mg Tab.Er.24h PO Not Given DAILY [facility] Losartan Potassium 25 mg 02/06/20 10:15 02/06/20 10:40 Losartan 25 Mg Tab PO Not Given DAILY [facility] Metformin HCl 1,000 mg 02/06/20 17:30 Metformin 500 Mg Tab PO BID-W/MEALS [facility] Metolazone 2.5 mg 02/07/20 09:00 Metolazone 2.5 Mg Tab PO Q48H [facility] Morphine Sulfate 4 mg 02/06/20 07:46 Morphine Sulfate 4 Mg/Ml Syringe IV Q4HR PRN Severe Pain Naloxone HCl 0.2 mg 02/06/20 07:46 Naloxone 0.4 Mg/Ml 1 Ml Vial IV Q2M PRN Opioid Reversal Ondansetron HCl 4 mg 02/06/20 07:46 Ondansetron 4 Mg/2 Ml Vial IVP Q8HR PRN Nausea And Vomiting Pantoprazole Sodium 40 mg 02/06/20 17:30 Pantoprazole 40 Mg Tablet PO AC-BID [facility] Potassium Chloride 20 meq 02/06/20 21:00 Potassium Chloride Er 20 Meq Tab.Er PO BID [facility] Pramipexole Dihydrochloride 1 mg 02/06/20 21:00 Pramipexole 1 Mg Tab PO HS [facility] Trazodone HCl 50 mg 02/06/20 10:10 Trazodone Hcl 50 Mg Tab PO HS PRN Insomnia Intake and Output 02/05/20 02/06/20 02/06/20 22:59 06:59 14:59 Intake Total 1000 Balance 1000 Intake: Intake, IV Titration 1000 Amount Sodium Chloride 0.9% 1, 1000 000 ml @ 999 mls/hr IV . Q1H1M STA Rx#:[id number] Blood Product 0 Rc As-3 Unit 0 [id number] Other: Weight 68.039 kg 02/06/20 06:45 02/06/20 06:45
--- NOTE | 2020-02-06 11:35 | P.HPIM ---
History of Present Illness H&P Date: 02/06/20 History of present illness This is a 69-year-old pleasant gentleman of Dr. Herndon with a past medical history significant for coronary artery disease, atrial fibrillation, heart failure, COPD, diabetes, GERD, hyperlipidemia, hypertension, osteoporosis, pneumonia, rheumatoid arthritis and alcoholism, GI bleed, and anemia. Patient underwent a cardiac catheterization with PCI on 01/18/2020 of the mid circumflex. Patient was on liquids and Plavix at that time. Patient presented to the emergency room for complaints of chest tightness and shortness of breath for the past 2 days. He is currently a smoker. He also noticed bright red blood in his stool. He stopped his request and continued his Plavix for 2 days. Patient denies any nausea or vomiting. Patient does complain of 60 pound unintentional weight loss within the last 3 months. At this time patient is found sitting up in bed in no acute distress. Patient states that he had a colonoscopy performed in [place] approximately one year ago. At that time there was no significant findings found. Patient states that he has not had an appetite since reason for his weight loss is just not feel like eating. Hemoglobin 5.5, potassium 4.2, BUN 53, creatinine 1.46. Occult stool was positive, urinalysis unremarkable. Patient has been afebrile, pulse rate 60, respirations 16, blood pressure 130/55, pulse ox 99% on room air. Review Of Systems: Constitutional: No fever, no chills, no night sweats. No weight change. Repo rts weakness and fatigue or lethargy. No daytime sleepiness. EENT: No headache. No blurred vision or double vision, no loss of vision. No loss of Hearing, no ringing in the ears, no dizziness. No nasal drainage or congestion. No epistaxis. No sore throat. Lungs: Reports shortness of breath, no cough, no sputum production. No wheezing. Cardiovascular: Reports chest pain, no lower extremity edema. No palpitations. No paroxysmal nocturnal dyspnea. No orthopnea. No lightheadedness or dizz iness. No syncopal episodes. Abdominal: no abdominal discomfort. No nausea, vomiting. no diarrhea. No constipation. Reports bloody no tarry stools. Reports loss of appetite. Reports unintentional weight loss Genitourinary: No dysuria, increased frequency, urgency. No urinary retention. Musculoskeletal: No myalgias. No muscle weakness, no gait dysfunction, no frequent falls. No back pain. No neck pain. Integumentary: No wounds, no lesions. No rash or pruritus. No unusual bruising. No change in hair or nails. Neurologic: No aphasia. No facial droop. No change in mentation. No head injury. No headache. No paralysis. No paresthesia. Psychiatric: No depression. No anxiety. No mood swings. Endocrine: No abnormal blood sugars. No weight change. No excessive sweating or thirst. Social history: Patient is a current every day smoker stating that he quit smoking approximately 2 weeks ago. Patient drinks approximate 4-6 beers a day. He lives at home with his . Family history: His father of prostate cancer at 65. Physical examination General Appearance: Alert, cooperative, mild distress, 69-year-old appears older stated age. Neck HEENT: Supple, no lymphadenopathy, no thyroid enlargement, no carotid bruits. Lungs: Clear to auscultation without crackles or wheezes no rhonchi, no deformity. Chest Wall: Chest wall normal expansion with deep inspiration no tenderness and no deformity was found on exam, no costochondral pain or discomfort. Heart: Regular rate and rhythm, S1, S2 normal, no murmur, rub or gallop. Back: Symmetric, no curvature, ROM normal, no CVA tenderness. Abdomen: Soft, non-tender, no rebound or rigidity, no hepatosplenomegaly. Extremities: Extremities normal, atraumatic, no cyanosis or edema. Pulses: 2+ and symmetric. Skin: Skin color, texture, tugor decreased, saggy no rashes or lesions. Neurologic: Alert oriented x3 cranial nerves II through XII intact, no motor deficit, no abnormal balance or gait Assessment and plan 1. Acute GI bleed hemoglobin 5.5 anemia. Consult gastroenterology, transfuse 1 unit of packed red blood cells. Continue hemoglobin every 6 hours. Hold liquids. May continue Plavix and aspirin. 2. Coronary artery disease post stent 01/18/2020. Hold liquids. Continue Plavix and 5 mg by mouth daily. Consult cardiology 3. Unintentional 60 pound weight loss. If upper GI scope is negative consideration for a low-dose CT of the chest to rule out malignancy, obtain PSA, TSH, vitamin B12 vitamin D and folic acid 4. Atrial fibrillation. Hold eliguis 5. Congestive Heart failure. Lasix 40 mg by mouth daily, metolazone 2.5mg q48hrs, 6. Diabetes mellitus. Metformin 1000 mg by mouth twice a day with meals 7. Hypertension. amlodipine 10 mg by mouth daily, hydralazine 25 mg by mouth 3 times a day, Imdur 30 mg by mouth daily, losartan 25 mg by mouth daily 8. Hyperlipidemia atorvastatin 40 mg by mouth daily 9. GERD. Protonix 40 mg by mouth before meals twice a day 10. Alcohol dependence, trazodone 50 mg by mouth at bedtime 11. Nicotine dependence, patient quit smoking 2 weeks ago. 12. Rheumatoid arthritis, stable. 13. DVT prophylaxis. SCDs 14. GI prophylaxis. Protonix CODE STATUS: Full code Discharge plan: Minimum of 2 nights in the hospital Impression and plan of care have been directed as dictated by the signing physician. Cynthia Mcneal nurse practitioner acting as scribe for signing physician. Past Medical History Past Medical History: Atrial Fibrillation, Coronary Artery Disease (CAD), Heart Failure, COPD, Diabetes Mellitus, GERD/Reflux, Hyperlipidemia, Hypertension, Osteoarthritis (OA), Pneumonia, Rheumatoid Arthritis (RA) Additional Past Medical History / Comment(s): gi bleed, anemia, restless leg syndrome, alcoholism, kidney injury Last Myocardial Infarction Date:: 2013 History of Any Multi-Drug Resistant Organisms: None Reported Past Surgical History: Heart Catheterization With Stent, Orthopedic Surgery Additional Past Surgical History / Comment(s): 06/04/13 angioplasty with stent to LAD, Stent -(R) radial approach 06/07/13 JOLIE, bone spur rt elbow removed, L elbow surgery, bilateral cataract surgery. Past Anesthesia/Blood Transfusion Reactions: No Reported Reaction Additional Past Anesthesia/Blood Transfusion Reaction / Comment(s): Pt has never recieved blood. Date of Last Stent Placement:: 01/18/2020 Smoking Status: Current every day smoker - Past Family History Father Family Medical History: Cancer Additional Family Medical History / Comment(s): Father of prostate cancer at age 65yrs. Mother Family Medical History: Coronary Artery Disease (CAD) Additional Family Medical History / Comment(s): Mother had CABG. She of CHF at age 73 yrs. Brother(s) Family Medical History: Coronary Artery Disease (CAD) Additional Family Medical History / Comment(s): Patient has 2 brothers and one has history of myocardial infarction and five-vessel CABG, one has history of prostate cancer. Sister(s) Family Medical History: Coronary Artery Disease (CAD), Myocardial Infarction ([place]) Additional Family Medical History / Comment(s): Patient has 2 sisters and one has history of myocardial infarction. Daughter(s) Family Medical History: No Reported History Additional Family Medical History / Comment(s): Patient has a total of 3 children with no major medical problems. Son(s) Family Medical History: No Reported History Medications and Allergies Home Medications Medication Instructions Recorded Confirmed Type Atorvastatin [Lipitor] 40 mg PO DAILY 04/01/14 02/06/20 History Isosorbide Mononitrate [Imdur] 30 mg PO DAILY 04/01/14 02/06/20 History amLODIPine [Norvasc] 10 mg PO DAILY 01/11/15 02/06/20 History Furosemide [Lasix] 40 mg PO DAILY 11/16/17 02/06/20 History metFORMIN HCL [metFORMIN HCL ER] 1,000 mg PO BID 11/16/17 02/06/20 History Clotrimazole Cream [Lotrimin Cream] 1 applic TOPICAL BID PRN 10/06/19 02/06/20 History Potassium Chloride ER [K-Dur 20] 20 meq PO BID 10/06/19 02/06/20 History Pramipexole [Mirapex] 1 mg PO HS 10/06/19 02/06/20 History hydrALAZINE HCL [Apresoline] 25 mg PO TID 10/06/19 02/06/20 History Losartan [Cozaar] 25 mg PO DAILY #30 tab 10/10/19 02/06/20 Rx Pantoprazole Sodium [Protonix] 40 mg PO AC-BID #60 tablet.dr 10/10/19 02/06/20 Rx Acetaminophen [Tylenol Arthritis] 2 tab PO BID 01/14/20 02/06/20 History metOLazone [Zaroxolyn] 2.5 mg PO Q48H 01/14/20 02/06/20 History Apixaban [Eliquis] 5 mg PO BID 02/06/20 02/06/20 History Clopidogrel [Plavix] 75 mg PO DAILY 02/06/20 02/06/20 History traZODone HCL [TraZODone HCl] 50 mg PO HS PRN 02/06/20 02/06/20 History Allergies Allergy/AdvReac Type Severity Reaction Status Date / Time No Known Allergies Allergy Verified 02/06/20 09:26 Physical Exam Vitals: Vital Signs Temp Pulse Resp BP Pulse Ox 02/06/20 10:28 97.4 F L 60 138/55 99 02/06/20 09:58 97.5 F L 66 16 137/69 100 02/06/20 09:48 97.6 F 58 L 16 150/62 99 02/06/20 08:46 97.6 F 66 18 123/71 99 02/06/20 07:20 56 L 02/06/20 07:10 58 L 18 121/55 100 02/06/20 06:28 97.7 F 58 L 18 141/51 99 Intake and Output 02/05/20 02/06/20 02/06/20 22:59 06:59 14:59 Intake Total 1000 Balance 1000 Intake: Intake, IV Titration 1000 Amount Sodium Chloride 0.9% 1, 1000 000 ml @ 999 mls/hr IV . Q1H1M STA Rx#:[id number] Blood Product 0 Rc As-3 Unit 0 [id number] Other: Weight 68.039 kg Results CBC & Chem 7: 02/06/20 06:45 02/06/20 06:45 Labs: Abnormal Lab Results - Last 24 Hours (Table) 02/06/20 02/06/20 02/06/20 Range/Units 06:45 06:45 06:45 RBC 2.06 L (4.30-5.90) m/uL Hgb 5.5 L* D (13.0-17.5) gm/dL Hct 18.5 L* (39.0-53.0) % MCHC 29.7 L (31.0-37.0) g/dL RDW 17.1 H (11.5-15.5) % Lymphocytes # 0.6 L (1.0-4.8) k/uL BUN 53 H (9-20) mg/dL Creatinine 1.46 H (0.66-1.25) mg/dL Glucose 119 H (74-99) mg/dL AST 79 H (17-59) U/L Ur Leukocyte Esterase Trace H (Negative) Urine Bacteria Moderate H (None) /hpf Hyaline Casts 4 H (0-2) /lpf Urine Mucus Rare H (None) /hpf Crossmatch 02/06/20 Range/Units 08:15 RBC (4.30-5.90) m/uL Hgb (13.0-17.5) gm/dL Hct (39.0-53.0) % MCHC (31.0-37.0) g/dL RDW (11.5-15.5) % Lymphocytes # (1.0-4.8) k/uL BUN (9-20) mg/dL Creatinine (0.66-1.25) mg/dL Glucose (74-99) mg/dL AST (17-59) U/L Ur Leukocyte Esterase (Negative) Urine Bacteria (None) /hpf Hyaline Casts (0-2) /lpf Urine Mucus (None) /hpf Crossmatch See Detail Thrombosis Risk Factor Assmnt - Choose All That Apply Any of the Below Risk Factors Present?: No Other Risk Factors: Yes Each Risk Factor Represents 2 Points: Age 61-74 years Other congenital or acquired thrombophilia - If yes, enter type in comment: No Thrombosis Risk Factor Assessment Total Risk Factor Score: 2 Thrombosis Risk Factor Assessment Level: Low Risk
[2020-02-06 12:31] LABS: Glucose,Whole Blood 268 mg/dL (75-99)
--- NOTE | 2020-02-06 14:04 | CONS ---
CONSULTATION DATE OF SERVICE: February 06, 2020 REASON FOR CONSULTATION: Severe symptomatic anemia. HISTORY OF PRESENT ILLNESS: The patient is a 69-year-old pleasant white male who was admitted to the hospital with shortness of breath and was noted to have a hemoglobin of 5.7 g/dL requiring 2 units of blood transfusion. The patient recently underwent cardiac catheterization with septum stent placement on January 17 and since then has been on aspirin, Plavix, as well as Eliquis. The patient was admitted to the hospital in September of this year with acute upper GI bleed. He had an upper endoscopy done by me on October 06 which revealed a small hiatal hernia but no evidence of active upper GI bleed. The patient states that he did have a colonoscopy while he was in [place] a year ago for acute GI bleed and apparently was noted to have a colon polyp. He denies any prior history of peptic ulcer disease or recent NSAID use. He has been on aspirin, Plavix as well as Eliquis for underlying cardiac condition. Eliquis has been on hold for the last 2 days but he continues to remain on aspirin and Plavix because of recent stent placement. He denies any abdominal pain. He reports no nausea, vomiting. He did state that he has been having some dark-colored stools. He denies any NSAID use. In the past he was on Coumadin which was changed to Eliquis about 3 months ago. PAST HISTORY: Atrial fibrillation, currently on Eliquis on hold. Coronary artery disease, congestive heart failure, COPD, diabetes mellitus, hypertension, hyperlipidemia, degenerative joint disease, and rheumatoid arthritis. PAST SURGICAL HISTORY: Cardiac catheterization with stent placement in January 17, left elbow surgery, bilateral cataract surgery, EGD October 06 of this year. Colonoscopy a year ago. MEDICATIONS: Medications at home include Lipitor, Imdur, Norvasc, Lasix, metformin, Lotrimin, K-Dur, Naprosyn, Mirapex, Protonix, Cozaar, Tylenol arthritis, Zaroxolyn, Eliquis, Plavix and trazodone. ALLERGIES: None. SOCIAL HISTORY: Remote smoker. No alcohol use. FAMILY HISTORY: Father prostate cancer. Mother coronary artery disease. Brother coronary artery disease and sister has coronary artery disease and OR. REVIEW OF SYSTEMS: CARDIOPULMONARY: She did have some vague chest pain, but it resolved. Shortness of breath is improving. GI: As mentioned above. NEUROLOGY unremarkable. PSYCHIATRIC unremarkable. ENT/vision unremarkable. MUSCULOSKELETAL: Chronic back pain, prior history of back surgery. CONSTITUTIONAL: No recent weight loss. No fever, chills, night sweats. PHYSICAL EXAMINATION: He appears comfortable. No apparent distress. Vital signs stable. Blood pressure is 132/86. Pulse rate 84 per minute and afebrile. HEENT examination unremarkable. Conjunctivae pink. Sclerae anicteric. Oral cavity no lesions. NECK no JVD or lymph node enlargement. CHEST was clear to auscultation. HEART: Regular rate and rhythm. ABDOMEN: Soft. Bowel sounds are positive. No organomegaly. NEURO he is alert and oriented x3. EXTREMITIES: Multiple bruises noted on the upper extremities. LABS: From today WBC is 5.8, hemoglobin 5.5, MCV 89, platelets 271. INR normal. BUN 53, creatinine 1.46. Hemoglobin during last hospitalization in September was 7.8. Stool occult blood positive. IMPRESSION: 1. Severe symptomatic anemia with a hemoglobin of 5.9 g/dL, has been having intermittent dark-colored stools. Presently on Eliquis, aspirin and Plavix and Eliquis has been on hold for the last 2 days. He is status post 2 units of PRBC transfusion. Repeat CBC is pending. Rule out upper GI source of bleeding. He did have an upper endoscopy by me on October 09 that showed small hiatal hernia but no other pathology noted. At this time, possibility of an upper GI/small bowel source of bleeding needs to be considered. He did have a colonoscopy about a year ago in [place] that was unremarkable. 2. History of congestive heart failure. 3. Atrial fibrillation on Eliquis, currently on hold. 4. Coronary artery disease status post stent on January 17, presently on aspirin and Plavix. 5. Congestive heart failure. 6. Hypertension and diabetes mellitus. RECOMMENDATIONS: 1. Start him on a clear liquid diet. 2. Proceed with an upper endoscopy tomorrow and if negative, will consider a small bowel capsule endoscopy. 3. Agree with blood transfusion. 4. Monitor CBC closely. 5. Continue with Protonix 40 mg daily. 6. We will follow with you closely. Thank you for this consultation. MMODL / IJN: [id number] /
[2020-02-06] MEDS ORDERED: FUROSEMIDE 10 MG/ML 4 ML VIAL ONE (15:00)
[2020-02-06 16:09] LABS: Anisocytosis Slight; Basophils % (A) 1 %; Eosinophils # (A) 0.1 k/uL (0-0.7); Eosinophils % (A) 1 %; HCT 22.1 % (39.0-53.0); Hypochromasia Marked; Lymphocytes # (A) 0.8 k/uL (1.0-4.8); Lymphocytes % (A) 17 %; MCH 28.5 pg (25.0-35.0); MCHC 31.2 g/dL (31.0-37.0); MCV 91.2 fL (80.0-100.0); Monocytes # (A) 0.4 k/uL (0-1.0); Monocytes % (A) 9 %; Neutrophils # (A) 3.4 k/uL (1.3-7.7); Neutrophils % (A) 70 %; Platelet Count 244 k/uL (150-450); Poikilocytosis Moderate; RBC 2.42 m/uL (4.30-5.90); RDW 16.6 % (11.5-15.5); WBC 4.9 k/uL (3.8-10.6)
[2020-02-06 16:37] LABS: HGB 6.9 gm/dL (13.0-17.5)
[2020-02-06 17:01] LABS: Glucose,Whole Blood 166 mg/dL (75-99)
[2020-02-06] MEDS ORDERED: FUROSEMIDE 10 MG/ML 2 ML VIAL IV ONE (17:14)
[2020-02-06] MEDS: PANTOPRAZOLE 40 MG TABLET PO SCH (17:30)
[2020-02-06] MEDS: metFORMIN 500 MG TAB PO SCH (17:30)
[2020-02-06 20:19] LABS: Glucose,Whole Blood 149 mg/dL (75-99)
[2020-02-06] MEDS: PRAMIPEXOLE 1 MG TAB PO SCH (20:26)
[2020-02-06] MEDS: POTASSIUM CHLORIDE ER 20 MEQ TAB.ER PO SCH (20:26)
[2020-02-06 21:19] LABS: Anisocytosis Slight; Basophils % (A) 1 %; Eosinophils # (A) 0.1 k/uL (0-0.7); Eosinophils % (A) 1 %; HCT 24.3 % (39.0-53.0); HGB 7.6 gm/dL (13.0-17.5); Hypochromasia Moderate; Lymphocytes # (A) 0.6 k/uL (1.0-4.8); Lymphocytes % (A) 8 %; MCH 28.3 pg (25.0-35.0); MCHC 31.2 g/dL (31.0-37.0); MCV 90.8 fL (80.0-100.0); Mean Platelet Volume 8.7; Monocytes # (A) 0.6 k/uL (0-1.0); Monocytes % (A) 8 %; Neutrophils # (A) 5.8 k/uL (1.3-7.7); Neutrophils % (A) 81 %; Platelet Count 265 k/uL (150-450); Poikilocytosis Moderate; RBC 2.68 m/uL (4.30-5.90); RDW 16.6 % (11.5-15.5); WBC 7.1 k/uL (3.8-10.6)
[2020-02-06 21:35] LABS: Potassium 4.1 mmol/L (3.5-5.1)
[2020-02-07] MEDS: SODIUM CHLORIDE 0.9% 1,000 ML IV SCH ×2 (05:05→17:32)
[2020-02-07 06:06] LABS: Glucose,Whole Blood 154 mg/dL (75-99)
[2020-02-07] MEDS: metFORMIN 500 MG TAB PO SCH ×2 (06:45→17:32)
[2020-02-07] MEDS: PANTOPRAZOLE 40 MG TABLET PO SCH ×2 (06:45→17:32)
[2020-02-07 07:51] LABS: Anisocytosis Slight; Basophils % (A) 1 %; Eosinophils # (A) 0.1 k/uL (0-0.7); Eosinophils % (A) 1 %; HCT 24.3 % (39.0-53.0); HGB 7.7 gm/dL (13.0-17.5); Hypochromasia Moderate; Lymphocytes # (A) 0.5 k/uL (1.0-4.8); Lymphocytes % (A) 7 %; MCH 28.5 pg (25.0-35.0); MCHC 31.6 g/dL (31.0-37.0); MCV 90.2 fL (80.0-100.0); Mean Platelet Volume 8.1; Monocytes # (A) 0.5 k/uL (0-1.0); Monocytes % (A) 7 %; Neutrophils # (A) 5.8 k/uL (1.3-7.7); Neutrophils % (A) 83 %; Platelet Count 254 k/uL (150-450); Poikilocytosis Moderate; RBC 2.69 m/uL (4.30-5.90); RDW 16.5 % (11.5-15.5); WBC 6.9 k/uL (3.8-10.6)
[2020-02-07 08:02] LABS: Albumin 3.9 g/dL (3.5-5.0); Calcium 9.1 mg/dL (8.4-10.2); Potassium 3.5 mmol/L (3.5-5.1); Total Bilirubin 1.2 mg/dL (0.2-1.3); Total Protein 6.8 g/dL (6.3-8.2)
[2020-02-07] MEDS: metOLazone 2.5 MG TAB PO SCH (08:48)
[2020-02-07] MEDS: hydrALAZINE HCL 25 MG TAB PO SCH ×3 (08:48→20:50)
[2020-02-07] MEDS: LOSARTAN 25 MG TAB PO SCH (08:48)
[2020-02-07] MEDS: FUROSEMIDE 40 MG TAB PO SCH (08:48)
[2020-02-07] MEDS: amLODIPine 10 MG TAB PO SCH (08:48)
[2020-02-07] MEDS: POTASSIUM CHLORIDE ER 20 MEQ TAB.ER PO SCH ×2 (08:48→20:50)
[2020-02-07] MEDS: CLOPIDOGREL 75 MG TAB PO SCH (08:48)
[2020-02-07] MEDS: ATORVASTATIN 40 MG TAB PO SCH (08:48)
[2020-02-07] MEDS: ISOSORBIDE MONONITRATE ER 30 MG TAB.ER.24H PO SCH (08:49)
[2020-02-07] MEDS: HYDROmorphone 0.5 MG/0.5 ML SYRINGE IVP PRN (08:51)
--- NOTE | 2020-02-07 10:42 | P.PN ---
Subjective Progress Note Date: 02/07/20 HISTORY OF PRESENTING ILLNESS This is a pleasant 69-year-old male past medical history significant for coronary artery disease status post recent PCI January 17, chronic persistent atrial fibrillation on long-term anticoagulation, valvular heart disease, daily alcohol abuse, rheumatoid arthritis, hypertension and dyslipidemia. He follows in the office with Dr. Sahrp. He presented to the [facility] with symptoms of weakness and fatigue with associated chest discomfort. Patient had also noticed for 3 days that he had been having dark stools at home. He was maintained on Plavix and Eliquis as an outpatient. He had a similar type episode in September of this year, patient was on Coumadin at that time. This was discontinued and he was initiated on Eliquis. He underwent a GI evaluation at that time, EGD showed a small hiatal hernia and otherwise unremarkable. He also again had a similar episode in July while he was in [place], full GI workup at that time which came back to be unremarkable. At the time of my examination this morning he denies any chest discomfort, he is complaining of significant pain in his ankles. His breathing is overall stable. He is scheduled today to undergo an EGD. Blood pressure this morning 154/60 with a heart rate in the 80s, 93% on 2 L of oxygen. White blood cell count 6.9, hemoglobin 7.7, platelet count 254. Sodium 138, potassium 3.5, BUN 34, c reatinine 1.1. Tsh 1.04. Objective - Vital Signs Vital signs: Vital Signs Temp 97.6 F 02/06/20 20:17 Pulse 80 02/07/20 04:00 Resp 20 02/07/20 04:00 BP 155/66 02/07/20 03:59 Pulse Ox 93 L 02/07/20 03:59 Intake & Output 02/06/20 02/07/20 02/07/20 18:59 06:59 18:59 Intake Total 1670 674 Output Total 1025 1650 Balance 645 -976 Weight 68.9 kg Intake: Intake, IV Titration 1000 Amount Sodium Chloride 0.9% 1, 1000 000 ml @ 999 mls/hr IV . Q1H1M STA Rx#:[id number] Oral 360 520 Blood Product 310 154 Rc As-3 Unit 310 [id number] Rc As-3 Unit 0 154 [id number] Other 0 Rc As-3 Unit 0 [id number] Output: Urine 1025 1650 Other: Voiding Method Toilet Urinal - Exam PHYSICAL EXAMINATION Blood pressure 155/66 heart rate 70 afebrile and maintaining oxygen saturation on room air. CONSTITUTIONAL: No apparent distress. HEENT: Head is normocephalic. Pupils are equal, round. Sclerae anicteric. Mucous membranes of the mouth are moist. No JVD. No carotid bruit. CHEST EXAMINATION: Lungs are clear to auscultation. No chest wall tenderness is noted on palpation or with deep breathing. Diminished bilaterally. HEART EXAMINATION: Regular rate and rhythm. S1, S2 heard. Holosystolic murmur at all listening points, no gallops or rub. ABDOMEN: Soft, nontender. Positive bowel sounds. EXTREMITIES: 2+ peripheral pulses, no lower extremity edema and no calf tenderness. NEUROLOGIC EXAMINATION: Patient is awake, alert and oriented x3. - Labs CBC & Chem 7: 02/07/20 06:54 02/07/20 06:54 Labs: Abnormal Lab Results - Last 24 Hours (Table) 02/06/20 02/06/20 02/06/20 Range/Units 08:15 12:15 15:43 RBC 2.42 L (4.30-5.90) m/uL Hgb 6.9 L* (13.0-17.5) gm/dL Hct 22.1 L (39.0-53.0) % RDW 16.6 H (11.5-15.5) % Lymphocytes # 0.8 L (1.0-4.8) k/uL Sodium (137-145) mmol/L Chloride (98-107) mmol/L Carbon Dioxide (22-30) mmol/L BUN (9-20) mg/dL Creatinine (0.66-1.25) mg/dL Glucose (74-99) mg/dL POC Glucose (mg/dL) 268 H (75-99) mg/dL Crossmatch See Detail 02/06/20 02/06/20 02/06/20 Range/Units 16:49 20:17 20:45 RBC 2.68 L (4.30-5.90) m/uL Hgb 7.6 L (13.0-17.5) gm/dL Hct 24.3 L (39.0-53.0) % RDW 16.6 H (11.5-15.5) % Lymphocytes # 0.6 L (1.0-4.8) k/uL Sodium (137-145) mmol/L Chloride (98-107) mmol/L Carbon Dioxide (22-30) mmol/L BUN (9-20) mg/dL Creatinine (0.66-1.25) mg/dL Glucose (74-99) mg/dL POC Glucose (mg/dL) 166 H 149 H (75-99) mg/dL Crossmatch 02/06/20 02/07/20 02/07/20 Range/Units 20:45 06:05 06:54 RBC 2.69 L (4.30-5.90) m/uL Hgb 7.7 L (13.0-17.5) gm/dL Hct 24.3 L (39.0-53.0) % RDW 16.5 H (11.5-15.5) % Lymphocytes # 0.5 L (1.0-4.8) k/uL Sodium 135 L (137-145) mmol/L Chloride 97 L (98-107) mmol/L Carbon Dioxide (22-30) mmol/L BUN 44 H (9-20) mg/dL Creatinine 1.31 H (0.66-1.25) mg/dL Glucose 122 H (74-99) mg/dL POC Glucose (mg/dL) 154 H (75-99) mg/dL Crossmatch 02/07/20 Range/Units 06:54 RBC (4.30-5.90) m/uL Hgb (13.0-17.5) gm/dL Hct (39.0-53.0) % RDW (11.5-15.5) % Lymphocytes # (1.0-4.8) k/uL Sodium (137-145) mmol/L Chloride (98-107) mmol/L Carbon Dioxide 32 H (22-30) mmol/L BUN 34 H (9-20) mg/dL Creatinine (0.66-1.25) mg/dL Glucose 121 H (74-99) mg/dL POC Glucose (mg/dL) (75-99) mg/dL Crossmatch Assessment and Plan Plan: ASSESSMENT AND PLAN #1Significant blood loss anemia, currently receiving blood transfusion #2Coronary artery disease status post recent PCI of the circumflex artery January 17 maintained on Plavix #3Chronic persistent atrial fibrillation on long-term anticoagulation with Eliquis #4Hypertension #5Dyslipidemia #6Valvular heart disease #7Daily alcohol abuse Plan Eliquis continues to be on hold, we will continue the Plavix, once cleared by GI we will resume the patient's Eliquis. We will continue to follow along with you. DNP note has been reviewed, I agree with a documented findings and plan of care. Patient was seen and examined.
--- NOTE | 2020-02-07 11:22 | P.PN ---
Subjective Progress Note Date: 02/07/20 History of present illness This is a 69-year-old pleasant gentleman of Dr. Herndon with a past me dical history significant for coronary artery disease, atrial fibrillation, heart failure, COPD, diabetes, GERD, hyperlipidemia, hypertension, osteoporosis, pneumonia, rheumatoid arthritis and alcoholism, GI bleed, and anemia. Patient underwent a cardiac catheterization with PCI on 01/18/2020 of the mid circumflex. Patient was on liquids and Plavix at that time. Patient presented to the emergency room for complaints of chest tightness and shortness of breath for the past 2 days. He is currently a smoker. He also noticed bright red blood in his stool. He stopped his request and continued his Plavix for 2 days. Patient denies any nausea or vomiting. Patient does complain of 60 pound un intentional weight loss within the last 3 months. At this time patient is found sitting up in bed in no acute distress. Patient states that he had a colonoscopy performed in [place] approximately one year ago. At that time there was no significant findings found. Patient states that he has not had an appetite since reason for his weight loss is just not feel like eating. Hemoglobin 5.5, potassium 4.2, BUN 53, creatinine 1.46. Occult stool was positive, urinalysis unremarkable. Patient has been afebrile, pulse rate 60, respirations 16, blood pressure 130/55, pulse ox 99% on room air. 02/06: Patient was seen by GI over the weekend and is scheduled for EGD today with Dr. Larson. He is currently NPO. He denies any abdominal pain, nausea or vomiting. No bowel movements. Eliquis on hold. Patient has been afebrile, heart rate in the 80s, blood pressure 154/60, pulse ox 93% on 2 L nasal cannula. WBC 6.9, hemoglobin 7.7, platelet count 254, sodium 138, potassium 3.5, BUN 34 and creatinine 1.1, TSH 1.04. Patient is status post transfusion of 2 units packed RBCs total. Review Of Systems Constitutional: No fever, no chills, no night sweats. No weight change. Reports weakness and fatigue or lethargy. No daytime sleepiness. EENT: No headache. No blurred vision or double vision, no loss of vision. No loss of Hearing, no ringing in the ears, no dizziness. No nasal drainage or congestion. No epistaxis. No sore throat. Lungs: Reports shortness of breath, no cough, no sputum production. No wheezing. Cardiovascular: Denies chest pain, no lower extremity edema. No palpitations. No paroxysmal nocturnal dyspnea. No orthopnea. No lightheadedness or dizziness. No syncopal episodes. Abdominal: no abdominal discomfort. No nausea, vomiting. no diarrhea. No constipation. Reports bloody no tarry stools. Reports loss of appetite. Reports unintentional weight loss Genitourinary: No dysuria, increased frequency, urgency. No urinary retention. Musculoskeletal: No myalgias. No muscle weakness, no gait dysfunction, no frequent falls. No back pain. No neck pain. Integumentary: No wounds, no lesions. No rash or pruritus. No unusual bru ising. No change in hair or nails. Neurologic: No aphasia. No facial droop. No change in mentation. No head injury. No headache. No paralysis. No paresthesia. Psychiatric: No depression. No anxiety. No mood swings. Endocrine: No abnormal blood sugars. No weight change. No excessive sweating or thirst. Physical examination General Appearance: Alert, cooperative, mild distress, 69-year-old appears older stated age. Neck HEENT: Supple, no lymphadenopathy, no thyroid enlargement, no carotid bruits. Lungs: Clear to auscultation without crackles or wheezes no rhonchi, no deformity. Chest Wall: Chest wall normal expansion with deep inspiration no tenderness and no deformity was found on exam, no costochondral pain or discomfort. Heart: Regular rate and rhythm, S1, S2 normal, no murmur, rub or gallop. Back: Symmetric, no curvature, ROM normal, no CVA tenderness. Abdomen: Soft, no abdominal tenderness, no rebound or rigidity, no hepatosplenomegaly. Extremities: Extremities normal, atraumatic, no cyanosis or edema. Pulses: 2+ and symmetric. Skin: Skin color, texture, tugor decreased, saggy no rashes or lesions. Neurologic: Alert oriented x3 cranial nerves II through XII intact, no motor deficit, no abnormal balance or gait Assessment and plan 1. Acute GI bleed with acute blood loss anemia status post transfusion 2 units packed RBCs. Plavix and aspirin hemoglobin 5.5 anemia. GI is planning for EGD today. Eliquis is on hold. Patient has been continued on Plavix only. 2. Coronary artery disease post stent 01/18/2020. Hold eliquis. Continue Plavix and 5 mg by mouth daily. Consult cardiology 3. Unintentional 60 pound weight loss. If upper GI scope is negative consideration for a low-dose CT of the chest to rule out malignancy, obtain PSA, TSH, vitamin B12 vitamin D and folic acid 4. Chronic persistent Atrial fibrillation. Hold eliguis to be resumed once cleared by GI 5. Chronic diastolic heart failure. Continue Lasix and metolazone. 6. Diabetes mellitus type 2. Metformin 1000 mg by mouth twice a day with meals 7. Hypertension. amlodipine 10 mg by mouth daily, hydralazine 25 mg by mouth 3 times a day, Imdur 30 mg by mouth daily, losartan 25 mg by mouth daily, 8. Hyperlipidemia atorvastatin 40 mg by mouth daily 9. GERD. Protonix 40 mg by mouth before meals twice a day 10. Alcohol dependence, trazodone 50 mg by mouth at bedtime 11. Nicotine dependence, patient quit smoking 2 weeks ago. 12. Rheumatoid arthritis, stable. 13. DVT prophylaxis. SCDs 14. GI prophylaxis. Protonix 15. Valvular heart disease with moderate to severe aortic regurgitation, severe mitral regurgitation, severe tricuspid regurgitation. 16. Severe pulmonary hypertension. Continue Lasix. CODE STATUS: Full code Discharge plan: Home in the next 24-48 hours Impression and plan of care have been directed as dictated by the signing physician. Regina Shields nurse practitioner acting as scribe for signing physician. Objective - Vital Signs Vital signs: Vital Signs Temp 97.6 F 02/06/20 20:17 Pulse 80 02/07/20 04:00 Resp 20 02/07/20 04:00 BP 155/66 02/07/20 03:59 Pulse Ox 93 L 02/07/20 03:59 Intake & Output 02/06/20 02/07/20 02/07/20 18:59 06:59 18:59 Intake Total 1670 674 Output Total 1025 1650 Balance 645 -976 Weight 68.9 kg Intake: Intake, IV Titration 1000 Amount Sodium Chloride 0.9% 1, 1000 000 ml @ 999 mls/hr IV . Q1H1M STA Rx#:[id number] Oral 360 520 Blood Product 310 154 As-3 Unit 310 [id number] Rc As-3 Unit 0 154 [id number] Other 0 Rc As-3 Unit 0 [id number] Output: Urine 1025 1650 Other: Voiding Method Toilet Urinal - Labs CBC & Chem 7: 02/07/20 06:54 02/07/20 06:54 Labs: Abnormal Lab Results - Last 24 Hours (Table) 02/06/20 02/06/20 02/06/20 Range/Units 08:15 12:15 15:43 RBC 2.42 L (4.30-5.90) m/uL Hgb 6.9 L* (13.0-17.5) gm/dL Hct 22.1 L (39.0-53.0) % RDW 16.6 H (11.5-15.5) % Lymphocytes # 0.8 L (1.0-4.8) k/uL Sodium (137-145) mmol/L Chloride (98-107) mmol/L Carbon Dioxide (22-30) mmol/L BUN (9-20) mg/dL Creatinine (0.66-1.25) mg/dL Glucose (74-99) mg/dL POC Glucose (mg/dL) 268 H (75-99) mg/dL Crossmatch See Detail 02/06/20 02/06/20 02/06/20 Range/Units 16:49 20:17 20:45 RBC 2.68 L (4.30-5.90) m/uL Hgb 7.6 L (13.0-17.5) gm/dL Hct 24.3 L (39.0-53.0) % RDW 16.6 H (11.5-15.5) % Lymphocytes # 0.6 L (1.0-4.8) k/uL Sodium (137-145) mmol/L Chloride (98-107) mmol/L Carbon Dioxide (22-30) mmol/L BUN (9-20) mg/dL Creatinine (0.66-1.25) mg/dL Glucose (74-99) mg/dL POC Glucose (mg/dL) 166 H 149 H (75-99) mg/dL Crossmatch 02/06/20 02/07/20 02/07/20 Range/Units 20:45 06:05 06:54 RBC 2.69 L (4.30-5.90) m/uL Hgb 7.7 L (13.0-17.5) gm/dL Hct 24.3 L (39.0-53.0) % RDW 16.5 H (11.5-15.5) % Lymphocytes # 0.5 L (1.0-4.8) k/uL Sodium 135 L (137-145) mmol/L Chloride 97 L (98-107) mmol/L Carbon Dioxide (22-30) mmol/L BUN 44 H (9-20) mg/dL Creatinine 1.31 H (0.66-1.25) mg/dL Glucose 122 H (74-99) mg/dL POC Glucose (mg/dL) 154 H (75-99) mg/dL Crossmatch 02/07/20 Range/Units 06:54 RBC (4.30-5.90) m/uL Hgb (13.0-17.5) gm/dL Hct (39.0-53.0) % RDW (11.5-15.5) % Lymphocytes # (1.0-4.8) k/uL Sodium (137-145) mmol/L Chloride (98-107) mmol/L Carbon Dioxide 32 H (22-30) mmol/L BUN 34 H (9-20) mg/dL Creatinine (0.66-1.25) mg/dL Glucose 121 H (74-99) mg/dL POC Glucose (mg/dL) (75-99) mg/dL Crossmatch
[2020-02-07 11:47] LABS: Glucose,Whole Blood 141 mg/dL (75-99)
[2020-02-07] MEDS ORDERED: PROPOFOL 10 MG/ML 20 ML VIAL IV ONE (12:13)
[2020-02-07] MEDS ORDERED: SODIUM CHLORIDE 0.9% 500 ML IV ONE (12:13)
--- NOTE | 2020-02-07 12:53 | P.PCN ---
Date of Procedure: 02/07/20 Description of Procedure: BRIEF HISTORY: Patient is a 61-year-old male presenting for severe symptomatic anemia. Patient found to have a hemoglobin of 5.9. He had been noted intermittent dark-colored stools and was on Eliquis therapy for atrial fibrillation as well as Plavix and aspirin therapy for recent stent placement. He's undergone extensive endoscopic evaluation past for GI bleeding with suspicion for small bowel bleeding. PROCEDURE PERFORMED: Esophagogastroduodenoscopy with gold probe ablation. PREOPERATIVE DIAGNOSIS: Symptomatic anemia. ESTIMATED BLOOD LOSS: Minimal. IV sedation per anesthesia. PROCEDURE: After informed consent was obtained, the patient was brought into the endoscopy unit. IV sedation was administered by Anesthesia under continuous monitoring. Initially the Olympus GIF-190 video endoscope was inserted into the mouth. Esophagus intubated without any difficulty. It was gradually advanced into the stomach and duodenum and carefully examined. The bulb and the second part of the duodenum appeared normal, except for a nonbleeding AVM in the second portion of the duodenum treated with gold probe ablation. The scope at this time was withdrawn to the stomach, adequately insufflated with air, and upon careful examination, mucosa of the antrum, body, cardia and the fundus appeared normal. The scope was then withdrawn into the esophagus. The GE junction was located at 39 cm from the incisors, with 2 cm hiatal hernia noted. The esophagus appeared normal. There were no erosions or ulcerations seen and the patient tolerated the procedure well. IMPRESSION: 1. 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 2. Small hiatal hernia. RECOMMENDATIONS: The findings of this examination were discussed with the patient. Okay for diet. Okay to continue Plavix and aspirin therapy. Patient remains at high risk for anticoagulation therapy due to history of GI bleeding and findings of a small bowel AVM, decision to resume anticoagulation deferred to the cardiology team.
[2020-02-07 16:23] LABS: Glucose,Whole Blood 221 mg/dL (75-99)
[2020-02-07 20:05] LABS: Folate, Serum 10.6 ng/mL
[2020-02-07] MEDS: PRAMIPEXOLE 1 MG TAB PO SCH (20:50)
[2020-02-07 21:10] LABS: Glucose,Whole Blood 160 mg/dL (75-99)
[2020-02-08] MEDS: SODIUM CHLORIDE 0.9% 1,000 ML IV SCH ×3 (01:07→21:28)
[2020-02-08 06:16] LABS: Glucose,Whole Blood 210 mg/dL (75-99)
[2020-02-08] MEDS: PANTOPRAZOLE 40 MG TABLET PO SCH ×2 (06:17→17:23)
[2020-02-08] MEDS: metFORMIN 500 MG TAB PO SCH ×2 (06:17→17:23)
[2020-02-08] MEDS: POTASSIUM CHLORIDE ER 20 MEQ TAB.ER PO SCH ×2 (09:12→21:28)
[2020-02-08] MEDS: hydrALAZINE HCL 25 MG TAB PO SCH ×3 (09:12→21:28)
[2020-02-08] MEDS: ISOSORBIDE MONONITRATE ER 30 MG TAB.ER.24H PO SCH (09:12)
[2020-02-08] MEDS: LOSARTAN 25 MG TAB PO SCH (09:12)
[2020-02-08] MEDS: amLODIPine 10 MG TAB PO SCH (09:12)
[2020-02-08] MEDS: FUROSEMIDE 40 MG TAB PO SCH (09:12)
[2020-02-08] MEDS: ATORVASTATIN 40 MG TAB PO SCH (09:12)
[2020-02-08] MEDS: CLOPIDOGREL 75 MG TAB PO SCH (09:17)
--- NOTE | 2020-02-08 10:17 | P.PN ---
Subjective Progress Note Date: 02/08/20 History of present illness This is a 69-year-old pleasant gentleman of Dr. Herndon with a past me dical history significant for coronary artery disease, atrial fibrillation, heart failure, COPD, diabetes, GERD, hyperlipidemia, hypertension, osteoporosis, pneumonia, rheumatoid arthritis and alcoholism, GI bleed, and anemia. Patient underwent a cardiac catheterization with PCI on 01/18/2020 of the mid circumflex. Patient was on liquids and Plavix at that time. Patient presented to the emergency room for complaints of chest tightness and shortness of breath for the past 2 days. He is currently a smoker. He also noticed bright red blood in his stool. He stopped his request and continued his Plavix for 2 days. Patient denies any nausea or vomiting. Patient does complain of 60 pound un intentional weight loss within the last 3 months. At this time patient is found sitting up in bed in no acute distress. Patient states that he had a colonoscopy performed in [place] approximately one year ago. At that time there was no significant findings found. Patient states that he has not had an appetite since reason for his weight loss is just not feel like eating. Hemoglobin 5.5, potassium 4.2, BUN 53, creatinine 1.46. Occult stool was positive, urinalysis unremarkable. Patient has been afebrile, pulse rate 60, respirations 16, blood pressure 130/55, pulse ox 99% on room air. 02/06: Patient was seen by GI over the weekend and is scheduled for EGD today with Dr. Larson. He is currently NPO. He denies any abdominal pain, nausea or vomiting. No bowel movements. Eliquis on hold. Patient has been afebrile, heart rate in the 80s, blood pressure 154/60, pulse ox 93% on 2 L nasal cannula. WBC 6.9, hemoglobin 7.7, platelet count 254, sodium 138, potassium 3.5, BUN 34 and creatinine 1.1, TSH 1.04. Patient is status post transfusion of 2 units packed RBCs total. 02/07: Yesterday, patient underwent EGD with Dr. 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 Patient was okay for diet. Patient denies having any bloody or tarry stools. He denies any nausea vomiting. We have discussed with Dr. Sean Sharp anticoag ulation medications and recommendations are to hold Plavix for 1 week. Patient will be off aspirin and eliquis permanently. Blood sugars are running in the 200s. Repeat hemoglobin will be ordered for today and tomorrow. Plan is to monitor patient overnight and plan for discharge home tomorrow. Review Of Systems Constitutional: No fever, no chills, no night sweats. No weight change. Reports weakness and fatigue or lethargy. No daytime sleepiness. EENT: No headache. No blurred vision or double vision, no loss of vision. No loss of Hearing, no ringing in the ears, no dizziness. No nasal drainage or congestion. No epistaxis. No sore throat. Lungs: Reports shortness of breath, no cough, no sputum production. No wheezing. Cardiovascular: Denies chest pain, no lower extremity edema. No palpitations. No paroxysmal nocturnal dyspnea. No orthopnea. No lightheadedness or dizziness. No syncopal episodes. Abdominal: no abdominal discomfort. No nausea, vomiting. no diarrhea. No constipation. Denies bloody no tarry stools. Denies loss of appetite. Reports unintentional weight loss Genitourinary: No dysuria, increased frequency, urgency. No urinary retention. Musculoskeletal: No myalgias. No muscle weakness, no gait dysfunction, no frequent falls. No back pain. No neck pain. Integumentary: No wounds, no lesions. No rash or pruritus. No unusual bruising. No change in hair or nails. Neurologic: No aphasia. No facial droop. No change in mentation. No head injury. No headache. No paralysis. No paresthesia. Psychiatric: No depression. No anxiety. No mood swings. Endocrine: No abnormal blood sugars. No weight change. No excessive sweating or thirst. Physical examination General Appearance: Alert, cooperative, resting in bed in no acute distress. Neck HEENT: Supple, no lymphadenopathy, no thyroid enlargement, no carotid bruits. Lungs: Clear to auscultation without crackles or wheezes no rhonchi, no def ormity. Chest Wall: Chest wall normal expansion with deep inspiration no tenderness and no deformity was found on exam, no costochondral pain or discomfort. Heart: Regular rate and rhythm, S1, S2 normal, no murmur, rub or gallop. Back: Symmetric, no curvature, ROM normal, no CVA tenderness. Abdomen: Soft, no abdominal tenderness, no rebound or rigidity, no hepatosplenomegaly. Extremities: Extremities normal, atraumatic, no cyanosis or edema. Pulses: 2+ and symmetric. Skin: Skin color, texture, tugor decreased, saggy no rashes or lesions. Neurologic: Alert oriented x3 cranial nerves II through XII intact, no motor deficit, no abnormal balance or gait Assessment and plan 1. 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 Plavix and aspirin will be discontinued permanently. Dr. Chris Sharp would like to hold Plavix for 1 week. EGD as above. 2. Coronary artery disease post stent 01/18/2020. Hold eliquis and Plavix. Consult cardiology appreciated. 3. Unintentional 60 pound weight loss. Obtain PSA, TSH, vitamin B12 vitamin D and folic acid 4. Chronic persistent Atrial fibrillation. Hold eliguis 5. Chronic diastolic heart failure. Continue Lasix and metolazone. 6. Diabetes mellitus type 2. Metformin 1000 mg by mouth twice a day with meals 7. Hypertension. amlodipine 10 mg by mouth daily, hydralazine 25 mg by mouth 3 times a day, Imdur 30 mg by mouth daily, losartan 25 mg by mouth daily, 8. Hyperlipidemia atorvastatin 40 mg by mouth daily 9. GERD. Protonix 40 mg by mouth before meals twice a day 10. Alcohol dependence, trazodone 50 mg by mouth at bedtime 11. Nicotine dependence, patient quit smoking 2 weeks ago. 12. Rheumatoid arthritis, stable. 13. DVT prophylaxis. SCDs 14. GI prophylaxis. Protonix 15. Valvular heart disease with moderate to severe aortic regurgitation, severe mitral regurgitation, severe tricuspid regurgitation. 16. Severe pulmonary hypertension. Continue Lasix. CODE STATUS: Full code Discharge plan: Home in the next 24 hours Impression and plan of care have been directed as dictated by the signing physician. Regina Shields nurse practitioner acting as scribe for signing physician. Objective - Vital Signs Vital signs: Vital Signs Temp 97.8 F 02/08/20 04:00 Pulse 61 02/08/20 04:00 Resp 18 02/08/20 04:00 BP 139/64 02/08/20 04:00 Pulse Ox 96 02/08/20 04:00 Intake & Output 0902/08/20 02/08/20 18:59 06:59 18:59 Intake Total 386 10 240 Output Total 750 200 Balance -364 -190 240 Weight 73.5 kg Intake: IV 150 10 0.9 10 Oral 236 240 Output: Urine 750 200 Other: Voiding Method Toilet Urinal # Voids 1 1 - Labs CBC & Chem 7: 02/07/20 06:54 02/07/20 06:54 Labs: Abnormal Lab Results - Last 24 Hours (Table) 02/07/20 02/07/20 02/07/20 Range/Units 11:46 16:21 21:09 POC Glucose (mg/dL) 141 H 221 H 160 H (75-99) mg/dL 02/08/20 Range/Units 06:14 POC Glucose (mg/dL) 210 H (75-99) mg/dL
[2020-02-08 11:16] LABS: Anisocytosis Slight; HCT 22.8 % (39.0-53.0); Hypochromasia Marked; MCH 27.7 pg (25.0-35.0); MCHC 30.5 g/dL (31.0-37.0); MCV 90.8 fL (80.0-100.0); Mean Platelet Volume 9.6; Platelet Count 225 k/uL (150-450); Poikilocytosis Slight; RBC 2.51 m/uL (4.30-5.90); RDW 16.6 % (11.5-15.5); WBC 6.1 k/uL (3.8-10.6)
[2020-02-08 11:40] LABS: Vitamin D, 1, 25-Dihydroxy 31 pg/mL (20 - 79)
[2020-02-08 11:56] LABS: Glucose,Whole Blood 114 mg/dL (75-99)
--- NOTE | 2020-02-08 13:09 | P.PN ---
Subjective Progress Note Date: 02/08/20 Principal diagnosis: Severe symptomatic anemia This is a pleasant 69-year-old male who was admitted to the hospital with shortness of breath and noted to have a hemoglobin of 5.7 requiring 2 units of packed red blood cells. He has recently underwent a stent placement on of this year, And was on Plavix and Eliquis. Yesterday he underwent EGD findings that included a nonbleeding duodenal AVM treated with cold probe ablation and a small hiatal hernia. The patient denies any bowel movement today, denies any rectal bleeding, abdominal pain, nausea, or vomiting. Objective - Vital Signs Vital signs: Vital Signs Temp 98.0 F 02/08/20 08:00 Pulse 66 02/08/20 08:00 Resp 16 02/08/20 08:00 BP 118/55 02/08/20 08:00 Pulse Ox 100 02/08/20 08:00 Intake & Output 02/07/20 02/08/20 02/08/20 18:59 06:59 18:59 Intake Total 386 10 240 Output Total 750 200 200 Balance -364 -190 40 Weight 73.5 kg Intake: IV 150 10 0.9 10 Oral 236 240 Output: Urine 750 200 200 Other: Voiding Method Toilet Urinal # Voids 1 1 - Exam General appearance: The patient is alert, oriented, in no acute distress. HET: Head is normocephalic and atraumatic. Pupils are equal and reactive. Oropharynx is clear without lesions. Neck: Supple without lymphadenopathy. Trachea midline. Abdomen: Soft, nontender, nondistended with bowel sounds. No palpable organomegaly. Extremities: Normal skin color and turgor. No pedal edema. Neurological: No focal deficits. Alert and oriented 3. - Labs CBC & Chem 7: 02/08/20 10:48 02/07/20 06:54 Labs: Abnormal Lab Results - Last 24 Hours (Table) 02/07/20 02/07/20 02/08/20 Range/Units 16:21 21:09 06:14 RBC (4.30-5.90) m/uL Hgb (13.0-17.5) gm/dL Hct (39.0-53.0) % MCHC (31.0-37.0) g/dL RDW (11.5-15.5) % POC Glucose (mg/dL) 221 H 160 H 210 H (75-99) mg/dL 02/08/20 02/08/20 Range/Units 10:48 11:54 RBC 2.51 L (4.30-5.90) m/uL Hgb 7.0 L (13.0-17.5) gm/dL Hct 22.8 L (39.0-53.0) % MCHC 30.5 L (31.0-37.0) g/dL RDW 16.6 H (11.5-15.5) % POC Glucose (mg/dL) 114 H (75-99) mg/dL Assessment and Plan Assessment: 1. Severe symptomatic anemia with hemoglobin of 5.9 was having intermittent dark colored stools. He was on Eliquis and Plavix. He is status post 2 units of PRBC transfusion. He underwent EGD yesterday with findings that included a nonbleeding duodenal AVM treated with gold probe ablation and a small hiatal hernia. 2. History of congestive heart failure 3. Atrial fibrillation on Eliquis and Plavix, currently on hold 4. Coronary artery disease status post stent on January on aspirin and Plavix currently on hold. 5. Congestive heart failure 6. Hypertension and diabetes mellitus Plan: 1. Advance diet as tolerated 2. EGD performed findings as above 3. Agree with blood transfusion 4. Monitor CBC closely, transfuse for hemoglobin less than 7 5. Continue with Protonix 40 mg daily 6. Patient remains high risk for anticoagulation therapy due to history of GI bleeding and findings of small bowel AVM, recommend holding anticoagulation for at least one week and recommend discontinuation of Eliquis. Review of notes from chart states that Dr. GEORGE Sharp agrees to hold Plavix for one week and will be off ASA and Eliquis permanently. The impression and plan of care has been dictated as directed. I performed a history and examination of this patient, discussed the same with the dictator. I agree with the dictator's note ,documented as a scribe. Any additional findings or plans will be noted.
--- NOTE | 2020-02-08 14:47 | P.PN ---
Subjective Progress Note Date: 02/08/20 HISTORY OF PRESENTING ILLNESS This is a pleasant 69-year-old male past medical history significant for coronary artery disease status post recent PCI January 17, chronic persistent atrial fibrillation on long-term anticoagulation, valvular heart disease, daily alcohol abuse, rheumatoid arthritis, hypertension and dyslipidemia. He follows in the office with Dr. Sharp. He presented to the [facility] with symptoms of weakness and fatigue with associated chest discomfort. Patient had also noticed for 3 days that he had been having dark stools at home. He was maintained on Plavix and Eliquis as an outpatient. He had a similar type episode in September of this year, patient was on Coumadin at that time. This was discontinued and he was initiated on Eliquis. He underwent a GI evaluation at that time, EGD showed a small hiatal hernia and otherwise unremarkable. He also again had a similar episode in July while he was in [place], full GI workup at that time which came back to be unremarkable. At the time of my examination this morning he denies any chest discomfort, he is complaining of significant pain in his ankles. His breathing is overall stable. He is scheduled today to undergo an EGD. Blood pressure this morning 154/60 with a heart rate in the 80s, 93% on 2 L of oxygen. White blood cell count 6.9, hemoglobin 7.7, platelet count 254. Sodium 138, potassium 3.5, BUN 34, c reatinine 1.1. Tsh 1.04. 02/08/2020 Patient was seen and examined this morning, he underwent an EGD yesterday with Dr. Justice willams which revealed a nonbleeding duodenal AVM treated with ablation, small hiatal hernia. He denies having any bloody or tarry stools, no nausea or vomiting. The recommendation is to discontinue anticoagulation in the form of Eliquis, completely, no aspirin, I spoke with Dr. Larson yesterday, who was recommending to continue the Plavix, in the current note I see that the recommendation is to hold the Plavix for one week. Being that the patient just recently had a stent earlier this month, he is at increased risk, according to the notes, the Plavix for one week was approved by Dr. Leslie Sharp. Blood pressure 118/50 with a heart rate of 60, 100% on 2 L of oxygen. White blood cell count 6.1, hemoglobin 7.0, platelet count 225. Objective - Vital Signs Vital signs: Vital Signs Temp 98.0 F 02/08/20 08:00 Pulse 66 02/08/20 08:00 Resp 16 02/08/20 08:00 BP 118/55 02/08/20 08:00 Pulse Ox 100 02/08/20 08:00 Intake & Output 02/07/20 02/08/20 02/08/20 18:59 06:59 18:59 Intake Total 386 10 720 Output Total 750 200 200 Balance -364 -190 520 Weight 73.5 kg Intake: IV 150 10 0.9 10 Oral 236 720 Output: Urine 750 200 200 Other: Voiding Method Toilet Urinal # Voids 1 1 - Exam PHYSICAL EXAMINATION Blood pressure 155/66 heart rate 70 afebrile and maintaining oxygen saturation on room air. CONSTITUTIONAL: No apparent distress. HEENT: Head is normocephalic. Pupils are equal, round. Sclerae anicteric. Mucous membranes of the mouth are moist. No JVD. No carotid bruit. CHEST EXAMINATION: Lungs are clear to auscultation. No chest wall tenderness is noted on palpation or with deep breathing. Diminished bilaterally. HEART EXAMINATION: Regular rate and rhythm. S1, S2 heard. Holosystolic murmur at all listening points, no gallops or rub. ABDOMEN: Soft, nontender. Positive bowel sounds. EXTREMITIES: 2+ peripheral pulses, no lower extremity edema and no calf tenderness. NEUROLOGIC EXAMINATION: Patient is awake, alert and oriented x3. - Labs CBC & Chem 7: 02/08/20 10:48 02/07/20 06:54 Labs: Abnormal Lab Results - Last 24 Hours (Table) 02/07/20 02/07/20 02/08/20 Range/Units 16:21 21:09 06:14 RBC (4.30-5.90) m/uL Hgb (13.0-17.5) gm/dL Hct (39.0-53.0) % MCHC (31.0-37.0) g/dL RDW (11.5-15.5) % POC Glucose (mg/dL) 221 H 160 H 210 H (75-99) mg/dL 02/08/20 02/08/20 Range/Units 10:48 11:54 RBC 2.51 L (4.30-5.90) m/uL Hgb 7.0 L (13.0-17.5) gm/dL Hct 22.8 L (39.0-53.0) % MCHC 30.5 L (31.0-37.0) g/dL RDW 16.6 H (11.5-15.5) % POC Glucose (mg/dL) 114 H (75-99) mg/dL Assessment and Plan Plan: ASSESSMENT AND PLAN #1Significant blood loss anemia, currently receiving blood transfusion #2Coronary artery disease status post recent PCI of the circumflex artery S eptember 1 maintained on Plavix #3Chronic persistent atrial fibrillation on long-term anticoagulation with Eliquis #4Hypertension #5Dyslipidemia #6Valvular heart disease #7Daily alcohol abuse Plan Recommendation from GI perspective is to discontinue the Eliquis and aspirin completely, to hold the Plavix for one week. Communication was made with Dr. Leslie Sharp who consented to hold the Plavix for one week. DNP note has been reviewed, I agree with a documented findings and plan of care. Patient was seen and examined.
[2020-02-08 16:56] LABS: Glucose,Whole Blood 162 mg/dL (75-99)
[2020-02-08 20:23] LABS: Glucose,Whole Blood 169 mg/dL (75-99)
[2020-02-08] MEDS: PRAMIPEXOLE 1 MG TAB PO SCH (21:28)
[2020-02-08] MEDS: HYDROmorphone 0.5 MG/0.5 ML SYRINGE IVP PRN (23:12)
[2020-02-09 06:11] LABS: Glucose,Whole Blood 157 mg/dL (75-99)
[2020-02-09] MEDS: PANTOPRAZOLE 40 MG TABLET PO SCH (06:33)
[2020-02-09] MEDS: metFORMIN 500 MG TAB PO SCH (06:33)
[2020-02-09] MEDS: SODIUM CHLORIDE 0.9% 1,000 ML IV SCH ×2 (06:33→15:29)
[2020-02-09 07:31] LABS: Anisocytosis Slight; HCT 22.9 % (39.0-53.0); Hypochromasia Marked; MCH 28.1 pg (25.0-35.0); MCHC 30.7 g/dL (31.0-37.0); MCV 91.6 fL (80.0-100.0); Platelet Count 216 k/uL (150-450); Poikilocytosis Slight; RBC 2.49 m/uL (4.30-5.90); RDW 16.7 % (11.5-15.5); WBC 5.9 k/uL (3.8-10.6)
[2020-02-09] MEDS: POTASSIUM CHLORIDE ER 20 MEQ TAB.ER PO SCH (08:38)
[2020-02-09] MEDS: FUROSEMIDE 40 MG TAB PO SCH (08:38)
[2020-02-09] MEDS: hydrALAZINE HCL 25 MG TAB PO SCH ×2 (08:38→15:31)
[2020-02-09] MEDS: ATORVASTATIN 40 MG TAB PO SCH (08:38)
[2020-02-09] MEDS: ISOSORBIDE MONONITRATE ER 30 MG TAB.ER.24H PO SCH (08:38)
[2020-02-09] MEDS: LOSARTAN 25 MG TAB PO SCH (08:38)
[2020-02-09] MEDS: amLODIPine 10 MG TAB PO SCH (08:38)
[2020-02-09] MEDS: metOLazone 2.5 MG TAB PO SCH (08:38)
[2020-02-09] MEDS ORDERED: FUROSEMIDE 10 MG/ML 4 ML VIAL IV PRN (09:07)
[2020-02-09] MEDS ORDERED: SODIUM FERRIC GLUCONAT-SUCROSE 125 MG in SODIUM CHLORIDE 0.9% 100 ML IVPB ONE (09:07)
[2020-02-09] MEDS ORDERED: ACETAMINOPHEN TAB 325 MG TAB PO PRN (09:08)
--- NOTE | 2020-02-09 09:12 | P.DS ---
Providers Date of admission: 02/06/20 08:03 Expected date of discharge: 02/09/20 Attending physician: Lis Mead Consults: 02/06/20 07:46 Consult Physician Stat Consulting Provider: Fiorella Sharp Consult Reason/Comments: Chest pain, post stent, GI bleed Do you want consulting provider notified?: Yes Consult Physician Stat Consulting Provider: Nallely Sepulveda Consult Reason/Comments: Chest pain, gi bleed, etoh Do you want consulting provider notified?: Yes Primary care physician: [facility] Course: History of present illness This is a 69-year-old pleasant gentleman of Dr. Herndon with a past medical history significant for coronary artery disease, atrial fibrillation, heart failure, COPD, diabetes, GERD, hyperlipidemia, hypertension, osteoporosis, pneumonia, rheumatoid arthritis and alcoholism, GI bleed, and anemia. Patient underwent a cardiac catheterization with PCI on 01/18/2020 of the mid circumflex. Patient was on liquids and Plavix at that time. Patient presented to the emergency room for complaints of chest tightness and shortness of breath for the past 2 days. He is currently a smoker. He also noticed bright red blood in his stool. He stopped his request and continued his Plavix for 2 days. Patient denies any nausea or vomiting. Patient does complain of 60 pound unintentional weight loss within the last 3 months. At this time patient is found sitting up in bed in no acute distress. Patient states that he had a colonoscopy performed in [place] approximately one year ago. At that time there was no significant findings found. Patient states that he has not had an appetite since reason for his weight loss is just not feel like eating. Hemoglobin 5.5, potassium 4.2, BUN 53, creatinine 1.46. Occult stool was positive, urinalysis unremarkable. Patient has been afebrile, pulse rate 60, respirations 16, blood pressure 130/55, pulse ox 99% on room air. 02/06: Patient was seen by GI over the weekend and is scheduled for EGD today with Dr. Larson. He is currently NPO. He denies any abdominal pain, nausea or vomiting. No bowel movements. Eliquis on hold. Patient has been afebrile, heart rate in the 80s, blood pressure 154/60, pulse ox 93% on 2 L nasal cannula. WBC 6.9, hemoglobin 7.7, platelet count 254, sodium 138, potassium 3.5, BUN 34 and creatinine 1.1, TSH 1.04. Patient is status post transfusion of 2 units packed RBCs total. 02/07: Yesterday, patient underwent EGD with Dr. 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 Patient was okay for diet. Patient denies having any bloody or tarry stools. He denies any nausea vomiting. We have discussed with Dr. Sean Sharp anticoagulation medications and recommendations are to hold Plavix for 1 week. Patient will be off aspirin and eliquis permanently. Blood sugars are running in the 200s. Repeat hemoglobin will be ordered for today and tomorrow. Plan is to monitor patient overnight and plan for discharge home tomorrow. 02/08: Repeat hemoglobin is 7.0. We will order a nail third unit of packed RBCs to be transfused today which will make a total of 3 units during this hosp italization. Patient developed shortness of breath after his previous transfusion and Lasix will be ordered to be given half-way through this unit. One dose of Ferrlecit also ordered to be infused prior to discharge. Patient has had some complaints of restless leg syndrome and is already on Mirapex and Tylenol added. Patient has been afebrile, heart rate 64, blood pressure 149/72, pulse ox 100% on room air. Assessment and plan 1. 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 2. Coronary artery disease post stent 01/18/2020. 3. Unintentional 60 pound weight loss. 4. Chronic persistent Atrial fibrillation. 5. Chronic diastolic heart failure. 6. Diabetes mellitus type 2. 7. Hypertension. 8. Hyperlipidemia. 9. GERD. 10. Alcohol dependence. 11. Nicotine dependence, patient quit smoking 2 weeks ago. 12. Rheumatoid arthritis, stable. 13. Valvular heart disease with moderate to severe aortic regurgitation, severe mitral regurgitation, severe tricuspid regurgitation. 14. Severe pulmonary hypertension. Discharge plan: Home Impression and plan of care have been directed as dictated by the signing physician. Regina Shields nurse practitioner acting as scribe for signing physician. Patient Condition at Discharge: Good Plan - Discharge Summary Discharge Rx Participant: No New Discharge Prescriptions: Continue Isosorbide Mononitrate [Imdur] 30 mg PO DAILY Atorvastatin [Lipitor] 40 mg PO DAILY amLODIPine [Norvasc] 10 mg PO DAILY Furosemide [Lasix] 40 mg PO DAILY metFORMIN HCL [metFORMIN HCL ER] 1,000 mg PO BID Pramipexole [Mirapex] 1 mg PO HS Potassium Chloride ER [K-Dur 20] 20 meq PO BID hydrALAZINE HCL [Apresoline] 25 mg PO TID Clotrimazole Cream [Lotrimin Cream] 1 applic TOPICAL BID PRN PRN Reason: feet Losartan [Cozaar] 25 mg PO DAILY #30 tab Pantoprazole Sodium [Protonix] 40 mg PO AC-BID #60 tablet. metOLazone [Zaroxolyn] 2.5 mg PO Q48H Acetaminophen [Tylenol Arthritis] 2 tab PO BID traZODone HCL 50 mg PO HS PRN PRN Reason: Insomnia Clopidogrel [Plavix] 75 mg PO DAILY #0 Discontinued Apixaban [Eliquis] 5 mg PO BID Discharge Medication List Atorvastatin [Lipitor] 40 mg PO DAILY 04/01/14 [History] Isosorbide Mononitrate [Imdur] 30 mg PO DAILY 04/01/14 [History] amLODIPine [Norvasc] 10 mg PO DAILY 01/11/15 [History] Furosemide [Lasix] 40 mg PO DAILY 11/16/17 [History] metFORMIN HCL [metFORMIN HCL ER] 1,000 mg PO BID 11/16/17 [History] Clotrimazole Cream [Lotrimin Cream] 1 applic TOPICAL BID PRN 10/06/19 [History] Potassium Chloride ER [K-Dur 20] 20 meq PO BID 10/06/19 [History] Pramipexole [Mirapex] 1 mg PO HS 10/06/19 [History] hydrALAZINE HCL [Apresoline] 25 mg PO TID 10/06/19 [History] Losartan [Cozaar] 25 mg PO DAILY #30 tab 10/10/19 [Rx] Pantoprazole Sodium [Protonix] 40 mg PO AC-BID #60 tablet. 10/10/19 [Rx] Acetaminophen [Tylenol Arthritis] 2 tab PO BID 01/14/20 [History] metOLazone [Zaroxolyn] 2.5 mg PO Q48H 01/14/20 [History] traZODone HCL 50 mg PO HS PRN 02/06/20 [History] Clopidogrel [Plavix] 75 mg PO DAILY #0 02/09/20 [Rx] Follow up Appointment(s)/Referral(s): Fiorella Sharp MD [STAFF PHYSICIAN] - 1 Week Ilya Saavedra MD [Primary Care Provider] - 1 Week Donn Larson MD [STAFF PHYSICIAN] - 1 Week Patient Instructions/Handouts: Gastrointestinal Bleeding (DC) Activity/Diet/Wound Care/Special Instructions: Resume Plavix on February 13
[2020-02-09] MEDS ORDERED: polyethylene glycoL 3350 17 GM POWD.PACK PO SCH (09:30)
--- NOTE | 2020-02-09 11:11 | P.PN ---
Subjective Progress Note Date: 02/09/20 HISTORY OF PRESENTING ILLNESS This is a pleasant 69-year-old male past medical history significant for coronary artery disease status post recent PCI January 17, chronic persistent atrial fibrillation on long-term anticoagulation, valvular heart disease, daily alcohol abuse, rheumatoid arthritis, hypertension and dyslipidemia. He follows in the office with Dr. Sharp. He presented to the [facility] with symptoms of weakness and fatigue with associated chest discomfort. Patient had also noticed for 3 days that he had been having dark stools at home. He was maintained on Plavix and Eliquis as an outpatient. He had a similar type episode in September of this year, patient was on Coumadin at that time. This was discontinued and he was initiated on Eliquis. He underwent a GI evaluation at that time, EGD showed a small hiatal hernia and otherwise unremarkable. He also again had a similar episode in July while he was in [place], full GI workup at that time which came back to be unremarkable. At the time of my examination this morning he denies any chest discomfort, he is complaining of significant pain in his ankles. His breathing is overall stable. He is scheduled today to undergo an EGD. Blood pressure this morning 154/60 with a heart rate in the 80s, 93% on 2 L of oxygen. White blood cell count 6.9, hemoglobin 7.7, platelet count 254. Sodium 138, potassium 3.5, BUN 34, c reatinine 1.1. Tsh 1.04. 02/08/2020 Patient was seen and examined this morning, he underwent an EGD yesterday with Dr. Justice willams which revealed a nonbleeding duodenal AVM treated with ablation, small hiatal hernia. He denies having any bloody or tarry stools, no nausea or vomiting. The recommendation is to discontinue anticoagulation in the form of Eliquis, completely, no aspirin, I spoke with Dr. Larson yesterday, who was recommending to continue the Plavix, in the current note I see that the recommendation is to hold the Plavix for one week. Being that the patient just recently had a stent earlier this month, he is at increased risk, according to the notes, the Plavix for one week was approved by Dr. Leslie Sharp. Blood pressure 118/50 with a heart rate of 60, 100% on 2 L of oxygen. White blood cell count 6.1, hemoglobin 7.0, platelet count 225. 02/09/2020 Patient was seen and examined this morning, blood pressure 148/70 with a heart rate in the 60s, 100% on room air. White blood cell count 5.9, hemoglobin 7, platelet count 216. Objective - Vital Signs Vital signs: Vital Signs Temp 97.5 F L 02/09/20 08:30 Pulse 64 02/09/20 08:30 Resp 15 02/09/20 08:30 BP 149/72 02/09/20 08:30 Pulse Ox 100 02/09/20 08:30 Intake & Output 02/08/20 02/09/20 02/09/20 18:59 06:59 18:59 Intake Total 720 480 Output Total 200 Balance 520 480 Weight 71.3 kg Intake: Oral 720 480 Output: Urine 200 Other: Voiding Method Toilet Urinal # Voids 2 - Exam PHYSICAL EXAMINATION Blood pressure 155/66 heart rate 70 afebrile and maintaining oxygen saturation on room air. CONSTITUTIONAL: No apparent distress. HEENT: Head is normocephalic. Pupils are equal, round. Sclerae anicteric. Mucous membranes of the mouth are moist. No JVD. No carotid bruit. CHEST EXAMINATION: Lungs are clear to auscultation. No chest wall tenderness is noted on palpation or with deep breathing. Diminished bilaterally. HEART EXAMINATION: Regular rate and rhythm. S1, S2 heard. Holosystolic murmur at all listening points, no gallops or rub. ABDOMEN: Soft, nontender. Positive bowel sounds. EXTREMITIES: 2+ peripheral pulses, no lower extremity edema and no calf tenderness. NEUROLOGIC EXAMINATION: Patient is awake, alert and oriented x3. - Labs CBC & Chem 7: 02/09/20 07:02 02/07/20 06:54 Labs: Abnormal Lab Results - Last 24 Hours (Table) 02/08/20 02/08/20 02/08/20 Range/Units 10:48 11:54 16:55 RBC 2.51 L (4.30-5.90) m/uL Hgb 7.0 L (13.0-17.5) gm/dL Hct 22.8 L (39.0-53.0) % MCHC 30.5 L (31.0-37.0) g/dL RDW 16.6 H (11.5-15.5) % POC Glucose (mg/dL) 114 H 162 H (75-99) mg/dL Crossmatch 02/08/20 02/09/20 02/09/20 Range/Units 20:21 06:06 07:02 RBC 2.49 L (4.30-5.90) m/uL Hgb 7.0 L (13.0-17.5) gm/dL Hct 22.9 L (39.0-53.0) % MCHC 30.7 L (31.0-37.0) g/dL RDW 16.7 H (11.5-15.5) % POC Glucose (mg/dL) 169 H 157 H (75-99) mg/dL Crossmatch 02/09/20 Range/Units 10:11 RBC (4.30-5.90) m/uL Hgb (13.0-17.5) gm/dL Hct (39.0-53.0) % MCHC (31.0-37.0) g/dL RDW (11.5-15.5) % POC Glucose (mg/dL) (75-99) mg/dL Crossmatch See Detail Assessment and Plan Plan: ASSESSMENT AND PLAN #1Significant blood loss anemia, currently receiving blood transfusion #2Coronary artery disease status post recent PCI of the circumflex artery January 17 maintained on Plavix #3Chronic persistent atrial fibrillation on long-term anticoagulation with Eliquis #4Hypertension #5Dyslipidemia #6Valvular heart disease #7Daily alcohol abuse Plan Patient will be discharged home today. We'll make a follow-up appointment in the office with Dr. Leslie Sharp. DNP note has been reviewed, I agree with a documented findings and plan of care. Patient was seen and examined.
[2020-02-09 11:58] LABS: Glucose,Whole Blood 101 mg/dL (75-99)
--- NOTE | 2020-02-09 12:00 | P.PN ---
Subjective Progress Note Date: 02/09/20 Principal diagnosis: Severe symptomatic anemia The patient was seen and examined at the bedside. He denies any rectal bleeding, melena, abdominal pain, nausea, or vomiting. Today's hemoglobin was 7.0. Internal medicine has ordered the patient to get one transfusion of one unit packed red blood cells and 1 dose of IV iron prior to discharge later today. Objective - Vital Signs Vital signs: Vital Signs Temp 97.5 F L 02/09/20 08:30 Pulse 64 02/09/20 08:30 Resp 15 02/09/20 08:30 BP 149/72 02/09/20 08:30 Pulse Ox 100 02/09/20 08:30 Intake & Output 02/08/20 02/09/20 02/09/20 18:59 06:59 18:59 Intake Total 720 480 Output Total 200 Balance 520 480 Weight 71.3 kg Intake: Oral 720 480 Output: Urine 200 Other: Voiding Method Toilet Urinal # Voids 2 - Exam General appearance: The patient is alert, oriented, in no acute distress. HET: Head is normocephalic and atraumatic. Pupils are equal and reactive. Oropharynx is clear without lesions. Neck: Supple without lymphadenopathy. Trachea midline. Abdomen: Soft, nontender, nondistended with bowel sounds. No palpable organomegaly. Extremities: Normal skin color and turgor. No pedal edema. Neurological: No focal deficits. Alert and oriented 3. - Labs CBC & Chem 7: 02/09/20 07:02 02/07/20 06:54 Labs: Abnormal Lab Results - Last 24 Hours (Table) 02/08/20 02/08/20 02/08/20 Range/Units 11:54 16:55 20:21 RBC (4.30-5.90) m/uL Hgb (13.0-17.5) gm/dL Hct (39.0-53.0) % MCHC (31.0-37.0) g/dL RDW (11.5-15.5) % POC Glucose (mg/dL) 114 H 162 H 169 H (75-99) mg/dL Crossmatch 02/09/20 02/09/20 02/09/20 Range/Units 06:06 07:02 10:11 RBC 2.49 L (4.30-5.90) m/uL Hgb 7.0 L (13.0-17.5) gm/dL Hct 22.9 L (39.0-53.0) % MCHC 30.7 L (31.0-37.0) g/dL RDW 16.7 H (11.5-15.5) % POC Glucose (mg/dL) 157 H (75-99) mg/dL Crossmatch See Detail Assessment and Plan Assessment: 1. Severe symptomatic anemia with hemoglobin of 5.9 was having intermittent dark colored stools. He was on Eliquis and Plavix. He is status post 2 units of PRBC transfusion. He underwent EGD yesterday with findings that included a nonbleeding duodenal AVM treated with gold probe ablation and a small hiatal hernia. 2. History of congestive heart failure 3. Atrial fibrillation on Eliquis and Plavix, currently on hold 4. Coronary artery disease status post stent on January on aspirin and Plavix currently on hold. 5. Congestive heart failure 6. Hypertension and diabetes mellitus Plan: 1. Advance diet as tolerated 2. EGD performed findings as above 3. Agree with blood transfusion and IV iron 4. Monitor CBC closely, transfuse for hemoglobin less than 7 5. Continue with Protonix 40 mg daily 6. Patient remains high risk for anticoagulation therapy due to history of GI bleeding and findings of small bowel AVM, recommend holding anticoagulation for at least one week and recommend discontinuation of Eliquis. Review of notes from chart states that Dr. GEORGE Sharp agrees to hold Plavix for one week and will be off ASA and Eliquis permanently. 7. Patient to follow-up with Dr. Larson 2 weeks. The impression and plan of care has been dictated as directed. I performed a history and examination of this patient, discussed the same with the dictator. I agree with the dictator's note ,documented as a scribe. Any additional findings or plans will be noted.
[2020-02-09] MEDS ORDERED: HYDROcodone/APAP 7.5-325MG 1 EACH TAB PO PRN (12:28)
[2020-02-09 16:30] LABS: Glucose,Whole Blood 131 mg/dL (75-99)
[2020-02-09 16:35] VITALS: RESP 16; TEMP 97.5
[2020-02-09 16:51] VITALS: BP 141/55; PULSE 57
== END 2020-02-09 17:29 | disposition home or self-care (01) | DRG 378 ==
LOC: EC 06:26 → 3SCARD 08:03
PROVIDERS: ADMIT Internal Medicine; ATTEND Internal Medicine
PROC: 30230N1 Transfusion of Nonautologous Red Blood Cells into Peripheral Vein, Open Approach (ICD-10-PCS; 2020-02-06)
PROC: 0D598ZZ Destruction of Duodenum, Via Natural or Artificial Opening Endoscopic (ICD-10-PCS; principal; 2020-02-07 09:35)
DX: K31.811 Angiodysplasia of stomach and duodenum with bleeding (principal); D62 Acute posthemorrhagic anemia; I48.19 Other persistent atrial fibrillation; I50.32 Chronic diastolic (congestive) heart failure; I27.20 Pulmonary hypertension, unspecified; I11.0 Hypertensive heart disease with heart failure; E11.9 Type 2 diabetes mellitus without complications; G25.81 Restless legs syndrome; J44.9 Chronic obstructive pulmonary disease, unspecified; M06.9 Rheumatoid arthritis, unspecified; F10.20 Alcohol dependence, uncomplicated; K63.5 Polyp of colon; K21.9 Gastro-esophageal reflux disease without esophagitis; I25.10 Atherosclerotic heart disease of native coronary artery without angina pectoris; K44.9 Diaphragmatic hernia without obstruction or gangrene; E78.5 Hyperlipidemia, unspecified; I08.3 Combined rheumatic disorders of mitral, aortic and tricuspid valves; G89.29 Other chronic pain; M54.9 Dorsalgia, unspecified; M19.90 Unspecified osteoarthritis, unspecified site; I25.2 Old myocardial infarction; M81.0 Age-related osteoporosis without current pathological fracture; M79.602 Pain in left arm; R63.4 Abnormal weight loss; Z68.20 Body mass index [BMI] 20.0-20.9, adult; F17.200 Nicotine dependence, unspecified, uncomplicated; Z71.6 Tobacco abuse counseling; Z79.01 Long term (current) use of anticoagulants; Z79.02 Long term (current) use of antithrombotics/antiplatelets; Z79.84 Long term (current) use of oral hypoglycemic drugs; Z79.899 Other long term (current) drug therapy; Z95.5 Presence of coronary angioplasty implant and graft; Z98.42 Cataract extraction status, left eye; Z98.41 Cataract extraction status, right eye; Z87.01 Personal history of pneumonia (recurrent); Z87.39 Personal history of other diseases of the musculoskeletal system and connective tissue; Z87.19 Personal history of other diseases of the digestive system; Z98.890 Other specified postprocedural states; Z80.42 Family history of malignant neoplasm of prostate; Z82.49 Family history of ischemic heart disease and other diseases of the circulatory system
CPT/HCPCS: 36415; 43255; 71046; 80048; 80053; 81001; 82272; 82607; 82652; 82746; 83690; 83735; 83880; 84153; 84443; 84484; 85025; 85027; 85610; 85730; 86850; 86880; 86900; 86901; 86920; 93005; 94640; 96361; 96374; 96375; 99291

== ENCOUNTER → 2021-12-12 | Outpatient (CLI) | payer MEDICARE ==
--- NOTE | 2021-12-12 13:13 | XR ---
EXAMINATION TYPE: XR lumbar spine 2 or 3V DATE OF EXAM: 12/12/2021 CLINICAL HISTORY: pain TECHNIQUE: Three views of the lumbar spine are submitted. COMPARISON: CT abdomen pelvis 01/01/2019. FINDINGS: There are 5 lumbar type vertebral bodies identified. Anterior wedging of the T12 vertebral body with approximately 10% height loss and no retropulsion. Mild vascular curvature of the lumbar spine. Multi level disc space narrowing with endplate sclerosis and anterior osteophytosis most prominently involv ing L4-L5 and L5-S1. The overlying soft tissue appears unremarkable. Vascular sclerosis. IMPRESSION: * Anterior wedging deformity of the T12 vertebral body. Correlate with point tenderness. * Moderate multilevel degenerative changes of the lumbar spine.
== END | disposition home or self-care (01) ==
LOC: RADXRMAIN 11:24
PROVIDERS: ATTEND Nurse Practitioner Family
DX: M51.36 Other intervertebral disc degeneration, lumbar region (principal); M48.07 Spinal stenosis, lumbosacral region; M48.54XA Collapsed vertebra, not elsewhere classified, thoracic region, initial encounter for fracture
CPT/HCPCS: 72100

== ENCOUNTER 2021-12-21 22:18 | Observation (INO) | payer MEDICARE ==
[2021-12-22] MEDS ORDERED: FUROSEMIDE 10 MG/ML 10 ML VIAL IV STA (00:26)
--- NOTE | 2021-12-22 01:19 | XR ---
EXAMINATION TYPE: XR chest 2V DATE OF EXAM: 12/22/2021 COMPARISON: NONE HISTORY: 02/06/2020 TECHNIQUE: 2 views FINDINGS: Heart is enlarged. There is pulmonary vascular congestion. There is pulmonary mild intersti tial and airspace edema. There is mild blunting of the costophrenic angles. IMPRESSION: There is some mild pulmonary edema that is suggestive of heart failure and probably conge stion increased compared to old exam.
[2021-12-22 01:53] LABS: Glucose,Whole Blood 127 mg/dL (70-110)
[2021-12-22 02:04] LABS: Anisocytosis Slight; Basophils % (A) 0 %; Eosinophils # (A) 0.1 k/uL (0-0.7); Eosinophils % (A) 1 %; HCT 34.9 % (39.0-53.0); HGB 11.1 gm/dL (13.0-17.5); Hypochromasia Slight; Lymphocytes # (A) 0.5 k/uL (1.0-4.8); Lymphocytes % (A) 5 %; MCH 32.2 pg (25.0-35.0); MCHC 31.9 g/dL (31.0-37.0); MCV 100.9 fL (80.0-100.0); Macrocytosis Slight; Mean Platelet Volume 9.4; Monocytes # (A) 0.6 k/uL (0-1.0); Monocytes % (A) 6 %; Neutrophils # (A) 8.1 k/uL (1.3-7.7); Neutrophils % (A) 86 %; Platelet Count 222 k/uL (150-450); RBC 3.46 m/uL (4.30-5.90); RDW 16.5 % (11.5-15.5); WBC 9.4 k/uL (3.8-10.6)
[2021-12-22 02:13] LABS: Partial Thromboplastin Time 24.5 sec (22.0-30.0); Prothrombin Time 10.7 sec (9.0-12.0)
[2021-12-22 02:37] LABS: Albumin 3.7 g/dL (3.5-5.0); Calcium 9.1 mg/dL (8.4-10.2); Potassium 3.5 mmol/L (3.5-5.1); Total Bilirubin 0.8 mg/dL (0.2-1.3); Total Protein 6.3 g/dL (6.3-8.2)
--- NOTE | 2021-12-22 04:50 | ED ---
Extremity Problem HPI - General Chief complaint: Extremity Problem,Nontraumatic Stated complaint: Swelling of lower extremities Source: patient Mode of arrival: ambulatory - History of Present Illness Initial comments: This patient is 71-year-old man who presents with complaint that he is having bilateral leg swelling and pain. He is having shortness of breath and cough. The shortness of breath is worse when he is lying flat or when he sitting upright. Patient does report that he is taking Lasix for congestive heart failure but that he is not seem to be having improvement. Symptoms have been ge tting worse over the past 2-3 days or so. MD Complaint: extremity pain, extremity swelling Onset/Timin -: days(s) Location: bilateral lower extremity Quality: dull Consistency: constant Improves with: nothing Worsens with: nothing Associated Symptoms: shortness of breath - Related Data Home Medications Medication Instructions Recorded Confirmed Atorvastatin [Lipitor] 40 mg PO DAILY 04/01/14 02/06/20 Isosorbide Mononitrate [Imdur] 30 mg PO DAILY 04/01/14 02/06/20 amLODIPine [Norvasc] 10 mg PO DAILY 01/11/15 02/06/20 Furosemide [Lasix] 40 mg PO DAILY 11/16/17 02/06/20 metFORMIN HCL [metFORMIN HCL ER] 1,000 mg PO BID 11/16/17 02/06/20 Clotrimazole Cream [Lotrimin Cream] 1 applic TOPICAL BID PRN 10/06/19 02/06/20 Potassium Chloride ER [K-Dur 20] 20 meq PO BID 10/06/19 02/06/20 Pramipexole [Mirapex] 1 mg PO HS 10/06/19 02/06/20 hydrALAZINE HCL [Apresoline] 25 mg PO TID 10/06/19 02/06/20 Acetaminophen [Tylenol Arthritis] 2 tab PO BID 01/14/20 02/06/20 metOLazone [Zaroxolyn] 2.5 mg PO Q48H 01/14/20 02/06/20 traZODone HCL 50 mg PO HS PRN 02/06/20 02/06/20 Previous Rx's Medication Instructions Recorded Losartan [Cozaar] 25 mg PO DAILY #30 tab 10/10/19 Pantoprazole Sodium [Protonix] 40 mg PO AC-BID #60 tablet. 10/10/19 Clopidogrel [Plavix] 75 mg PO DAILY #0 02/09/20 Allergies Allergy/AdvReac Type Severity Reaction Status Date / Time No Known Allergies Allergy Verified 12/21/21 23:35 Review of Systems ROS Statement: Those systems with pertinent positive or pertinent negative responses have been documented in the HPI. ROS Other: All systems not noted in ROS Statement are negative. Constitutional: Denies: fever, chills Respiratory: Reports: dyspnea. Denies: cough Cardiovascular: Reports: orthopnea. Denies: palpitations Gastrointestinal: Denies: abdominal pain, nausea Genitourinary: Denies: dysuria, hematuria Musculoskeletal: Denies: back pain Skin: Denies: rash Neurological: Denies: headache Past Medical History Past Medical History: Atrial Fibrillation, Coronary Artery Disease (CAD), Heart Failure, COPD, Diabetes Mellitus, GERD/Reflux, Hyperlipidemia, Hypertension, Osteoarthritis (OA), Pneumonia, Rheumatoid Arthritis (RA) Additional Past Medical History / Comment(s): gi bleed, anemia, restless leg syndrome, alcoholism, kidney injury Last Myocardial Infarction Date:: 2013 History of Any Multi-Drug Resistant Organisms: None Reported Past Surgical History: Heart Catheterization With Stent, Orthopedic Surgery Additional Past Surgical History / Comment(s): 06/04/13 angioplasty with stent to LAD, Stent -(R) radial approach 06/07/13 JOLIE, bone spur rt elbow removed, L elbow surgery, bilateral cataract surgery. Past Anesthesia/Blood Transfusion Reactions: No Reported Reaction Additional Past Anesthesia/Blood Transfusion Reaction / Comment(s): Pt has never recieved blood. Date of Last Stent Placement:: 01/18/2020 Past Psychological History: No Psychological Hx Reported Smoking Status: Current every day smoker Past Alcohol Use History: None Reported Past Drug Use History: None Reported - Past Family History Father Family Medical History: Cancer Additional Family Medical History / Comment(s): Father of prostate cancer at age 65yrs. Mother Family Medical History: Coronary Artery Disease (CAD) Additional Family Medical History / Comment(s): Mother had CABG. She of CHF at age 73 yrs. Brother(s) Family Medical History: Coronary Artery Disease (CAD) Additional Family Medical History / Comment(s): Patient has 2 brothers and one has history of myocardial infarction and five-vessel CABG, one has history of prostate cancer. Sister(s) Family Medical History: Coronary Artery Disease (CAD), Myocardial Infarction ([place]) Additional Family Medical History / Comment(s): Patient has 2 sisters and one has history of myocardial infarction. Daughter(s) Family Medical History: No Reported History Additional Family Medical History / Comment(s): Patient has a total of 3 child pk with no major medical problems. Son(s) Family Medical History: No Reported History General Exam General appearance: alert, in no apparent distress Head exam: Present: atraumatic, normocephalic Eye exam: Present: normal appearance. Absent: scleral icterus, conjunctival injection Neck exam: Present: normal inspection Respiratory exam: Present: normal lung sounds bilaterally. Absent: respiratory distress, wheezes, rales, rhonchi, stridor Cardiovascular Exam: Present: regular rate, normal rhythm, normal heart sounds. Absent: systolic murmur, diastolic murmur, rubs, gallop GI/Abdominal exam: Present: soft. Absent: distended, tenderness, guarding, rebound, rigid, mass Extremities exam: Present: normal inspection, normal capillary refill. Absent: pedal edema, calf tenderness Back exam: Present: normal inspection. Absent: CVA tenderness (R), CVA tenderness (L) Neurological exam: Present: alert Skin exam: Present: warm, dry, intact, normal color. Absent: rash Course Vital Signs 12/21/21 12/22/21 12/22/21 23:31 01:37 05:23 Temperature 97.6 F Pulse Rate 77 72 56 L Respiratory 19 20 12 Rate Blood Pressure 145/85 143/56 144/53 O2 Sat by Pulse 98 98 99 Oximetry 12/22/21 07:28 Temperature Pulse Rate 65 Respiratory 12 Rate Blood Pressure 147/77 O2 Sat by Pulse 99 Oximetry Medical Decision Making - Lab Data Result diagrams: 12/22/21 01:44 12/22/21 01:44 Lab Results 12/22/21 12/22/21 12/22/21 Range/Units 01:44 01:44 01:44 WBC 9.4 (3.8-10.6) k/uL RBC 3.46 L (4.30-5.90) m/uL Hgb 11.1 L (13.0-17.5) gm/dL Hct 34.9 L (39.0-53.0) % MCV 100.9 H (80.0-100.0) fL MCH 32.2 (25.0-35.0) pg MCHC 31.9 (31.0-37.0) g/dL RDW 16.5 H (11.5-15.5) % Plt Count 222 (150-450) k/uL MPV 9.4 Neutrophils % 86 % Lymphocytes % 5 % Monocytes % 6 % Eosinophils % 1 % Basophils % 0 % Neutrophils # 8.1 H (1.3-7.7) k/uL Lymphocytes # 0.5 L (1.0-4.8) k/uL Monocytes # 0.6 (0-1.0) k/uL Eosinophils # 0.1 (0-0.7) k/uL Basophils # 0.0 (0-0.2) k/uL Hypochromasia Slight Anisocytosis Slight Macrocytosis Slight PT 10.7 (9.0-12.0) sec INR 1.0 (<1.2) APTT 24.5 (22.0-30.0) sec Sodium 134 L (137-145) mmol/L Potassium 3.5 (3.5-5.1) mmol/L Chloride 98 (98-107) mmol/L Carbon Dioxide 31 H (22-30) mmol/L Anion Gap 5 mmol/L BUN 39 H (9-20) mg/dL Creatinine 1.10 (0.66-1.25) mg/dL Est GFR (CKD-EPI)AfAm 78 (>60 ml/min/1.73 sqM) Est GFR (CKD-EPI)NonAf 68 (>60 ml/min/1.73 sqM) Glucose 119 H (74-99) mg/dL POC Glucose (mg/dL) (70-110) mg/dL POC Glu Nuclear Equipment Operator ID Calcium 9.1 (8.4-10.2) mg/dL Total Bilirubin 0.8 (0.2-1.3) mg/dL AST 55 (17-59) U/L ALT 50 H (4-49) U/L Alkaline Phosphatase 219 H (38-126) U/L Troponin I (0.000-0.034) ng/mL NT-Pro-B Natriuret Pep pg/mL Total Protein 6.3 (6.3-8.2) g/dL Albumin 3.7 (3.5-5.0) g/dL 12/22/21 12/22/21 12/22/21 Range/Units 01:44 01:44 01:52 WBC (3.8-10.6) k/uL RBC (4.30-5.90) m/uL Hgb (13.0-17.5) gm/dL Hct (39.0-53.0) % MCV (80.0-100.0) fL MCH (25.0-35.0) pg MCHC (31.0-37.0) g/dL RDW (11.5-15.5) % Plt Count (150-450) k/uL MPV Neutrophils % % Lymphocytes % % Monocytes % % Eosinophils % % Basophils % % Neutrophils # (1.3-7.7) k/uL Lymphocytes # (1.0-4.8) k/uL Monocytes # (0-1.0) k/uL Eosinophils # (0-0.7) k/uL Basophils # (0-0.2) k/uL Hypochromasia Anisocytosis Macrocytosis PT (9.0-12.0) sec INR (<1.2) APTT (22.0-30.0) sec Sodium (137-145) mmol/L Potassium (3.5-5.1) mmol/L Chloride (98-107) mmol/L Carbon Dioxide (22-30) mmol/L Anion Gap mmol/L BUN (9-20) mg/dL Creatinine (0.66-1.25) mg/dL Est GFR (CKD-EPI)AfAm (>60 ml/min/1.73 sqM) Est GFR (CKD-EPI)NonAf (>60 ml/min/1.73 sqM) Glucose (74-99) mg/dL POC Glucose (mg/dL) 127 H (70-110) mg/dL POC Glu Nuclear Equipment Operator ID Calcium (8.4-10.2) mg/dL Total Bilirubin (0.2-1.3) mg/dL AST (17-59) U/L ALT (4-49) U/L Alkaline Phosphatase (38-126) U/L Troponin I 0.056 H* (0.000-0.034) ng/mL NT-Pro-B Natriuret Pep 76051 pg/mL Total Protein (6.3-8.2) g/dL Albumin (3.5-5.0) g/dL Disposition Clinical Impression: Congestive heart failure Disposition: ADMITTED IP TO THIS HOSP Condition: Fair Is patient prescribed a controlled substance at d/c from ED?: No
[2021-12-22] MEDS ORDERED: FUROSEMIDE 10 MG/ML 4 ML VIAL IV SCH (06:15)
[2021-12-22] MEDS ORDERED: MORPHINE SULFATE 4 MG/ML SYRINGE IV STA (08:02)
[2021-12-22] MEDS ORDERED: traZODone HCL 50 MG TAB PO PRN (12:00)
--- NOTE | 2021-12-22 12:13 | P.HPIM ---
History of Present Illness 71-year-old gentleman came in with complaints of bilateral lower exudate edema which is getting worse patient does have history of congestive heart failure chronic diastolic dysfunction and moderate pulmonary hypertension with RVSP of around 55. Was also complaining of orthopnea and paroxysmal nocturnal dyspnea patient initially for last 3 days patient also complaining of back pain which is chronic radiaing into the leg and symptoms of radiculopathy. Chest x-ray showing pulmonary edema BNP is elevated to 10,000 mildly elevated troponin to 0.06 REVIEW OF SYSTEMS: CONSTITUTIONAL: No fever, no malaise, no fatigue. HEENT: No recent visual problems or hearing problems. Denied any sore throat. CARDIOVASCULAR: No chest pain, no palpitations, no syncope. PULMONARY: no hemoptysis. GASTROINTESTINAL: No diarrhea, no nausea, no vomiting, no abdominal pain. NEUROLOGICAL: No headaches, no weakness, no numbness. HEMATOLOGICAL: Denies any bleeding or petechiae. GENITOURINARY: Denies any burning micturition, frequency, or urgency. MUSCULOSKELETAL/RHEUMATOLOGICAL: As mentioned in HPI ENDOCRINE: Denies any polyuria or polydipsia. The rest of the 14-point review of systems is negative. PHYSICAL EXAMINATION: GENERAL: The patient is alert and oriented x3, not in any acute distress. Well developed, well nourished. HEENT: Pupils are round and equally reacting to light. EOMI. No scleral icterus. No conjunctival pallor. Normocephalic, atraumatic. No pharyngeal erythema. No thyromegaly. CARDIOVASCULAR: S1 and S2 present. No murmurs, rubs, or gallops. Patient does have elevated JVD PULMONARY: Chest is clear to auscultation, no wheezing or crackles. ABDOMEN: Soft, nontender, nondistended, normoactive bowel sounds. No palpable organomegaly. MUSCULOSKELETAL: No joint swelling or deformity. EXTREMITIES: No cyanosis, clubbing, or pedal edema. NEUROLOGICAL: Gross neurological examination did not reveal any focal deficits. SKIN: Patient has bilateral lower extremity swelling with a healed ulcer in the left leg and a stage II clean and noninfected ulcer on the dose of the foot Assessment and plan Congestive heart failure chronic diastolic dysfunction with acute exacerbation, patient usually takes 40 and 60 mg of oral Lasix at home patient was started 6 IV twice a day of Lasix and close monitoring of I's and O's. -Mild elevation of troponin secondary to congestive heart failure -Mild acute renal failure prerenal secondary to CHF expected to improve with IV Lasix -Hypervolemic hyponatremia expected improvement IV Lasix -History of atrial fibrillation probably paroxysmal, patient is not on ant icoagulation -Distress 6 syndrome -Hypertension -Moderate pulmonary hypertension -Hyperlipidemia Gastroesophageal reflux disease -COPD without any acute exacerbation -Chronic low back pain with radiculopathy DVT prophylaxis: Lovenox Past Medical History Past Medical History: Atrial Fibrillation, Coronary Artery Disease (CAD), Heart Failure, COPD, Diabetes Mellitus, GERD/Reflux, Hyperlipidemia, Hypertension, Osteoarthritis (OA), Pneumonia, Rheumatoid Arthritis (RA) Additional Past Medical History / Comment(s): gi bleed, anemia, restless leg syndrome, alcoholism, kidney injury Last Myocardial Infarction Date:: 2013 History of Any Multi-Drug Resistant Organisms: None Reported Past Surgical History: Heart Catheterization With Stent, Orthopedic Surgery Additional Past Surgical History / Comment(s): 06/04/13 angioplasty with stent to LAD, Stent -(R) radial approach 06/07/13 JOLIE, bone spur rt elbow removed, L elbow surgery, bilateral cataract surgery. Past Anesthesia/Blood Transfusion Reactions: No Reported Reaction Additional Past Anesthesia/Blood Transfusion Reaction / Comment(s): Pt has never recieved blood. Date of Last Stent Placement:: 01/18/2020 Past Psychological History: No Psychological Hx Reported Smoking Status: Current every day smoker Past Alcohol Use History: None Reported Past Drug Use History: None Reported - Past Family History Father Family Medical History: Cancer Additional Family Medical History / Comment(s): Father of prostate cancer at age 65yrs. Mother Family Medical History: Coronary Artery Disease (CAD) Additional Family Medical History / Comment(s): Mother had CABG. She of CHF at age 73 yrs. Brother(s) Family Medical History: Coronary Artery Disease (CAD) Additional Family Medical History / Comment(s): Patient has 2 brothers and one has history of myocardial infarction and five-vessel CABG, one has history of prostate cancer. Sister(s) Family Medical History: Coronary Artery Disease (CAD), Myocardial Infarction (MA) Additional Family Medical History / Comment(s): Patient has 2 sisters and one has history of myocardial infarction. Daughter(s) Family Medical History: No Reported History Additional Family Medical History / Comment(s): Patient has a total of 3 children with no major medical problems. Son(s) Family Medical History: No Reported History Medications and Allergies Home Medications Medication Instructions Recorded Confirmed Type Atorvastatin [Lipitor] 40 mg PO DAILY 04/01/14 12/22/21 History Isosorbide Mononitrate [Imdur] 30 mg PO DAILY 04/01/14 12/22/21 History amLODIPine [Norvasc] 10 mg PO DAILY 01/11/15 12/22/21 History Furosemide [Lasix] 60 mg PO DAILY 11/16/17 12/22/21 History metFORMIN HCL [metFORMIN HCL ER] 1,000 mg PO BID 11/16/17 12/22/21 History Potassium Chloride ER [K-Dur 20] 20 meq PO DAILY 10/06/19 12/22/21 History Pramipexole [Mirapex] 1 mg PO HS 10/06/19 12/22/21 History hydrALAZINE HCL [Apresoline] 25 mg PO TID 10/06/19 12/22/21 History Losartan [Cozaar] 25 mg PO DAILY #30 tab 10/10/19 12/22/21 Rx Acetaminophen [Tylenol Arthritis] 1,300 tab PO BID 01/14/20 12/22/21 History metOLazone [Zaroxolyn] 2.5 mg PO Q48H 01/14/20 12/22/21 History traZODone HCL 50 mg PO HS PRN 02/06/20 12/22/21 History Clopidogrel [Plavix] 75 mg PO DAILY #0 02/09/20 12/22/21 Rx Doxycycline Hyclate 100 mg PO DAILY 12/22/21 12/22/21 History Ferrous Sulfate [Feosol] 325 mg PO BID 12/22/21 12/22/21 History Furosemide [Lasix] 40 mg PO HS 12/22/21 12/22/21 History Omeprazole 20 mg PO BID 12/22/21 12/22/21 History predniSONE 5 mg PO DAILY 12/22/21 12/22/21 History Allergies Allergy/AdvReac Type Severity Reaction Status Date / Time No Known Allergies Allergy Verified 12/21/21 23:35 Physical Exam Vitals: Vital Signs Temp Pulse Resp BP Pulse Ox 12/22/21 11:27 82 13 129/90 96 12/22/21 07:28 65 12 147/77 99 12/22/21 05:23 56 L 12 144/53 99 12/22/21 01:37 72 20 143/56 98 12/21/21 23:31 97.6 F 77 19 145/85 98 Intake and Output 12/21/21 12/22/21 12/22/21 22:59 06:59 14:59 Output Total 1200 Balance -1200 Output: Urine 1200 Other: # Voids 1 Weight 74.843 kg Results CBC & Chem 7: 12/22/21 01:44 12/22/21 01:44 Labs: Abnormal Lab Results - Last 24 Hours (Table) 12/22/21 12/22/21 12/22/21 Range/Units 01:44 01:44 01:44 RBC 3.46 L (4.30-5.90) m/uL Hgb 11.1 L (13.0-17.5) gm/dL Hct 34.9 L (39.0-53.0) % MCV 100.9 H (80.0-100.0) fL RDW 16.5 H (11.5-15.5) % Neutrophils # 8.1 H (1.3-7.7) k/uL Lymphocytes # 0.5 L (1.0-4.8) k/uL Sodium 134 L (137-145) mmol/L Carbon Dioxide 31 H (22-30) mmol/L BUN 39 H (9-20) mg/dL Glucose 119 H (74-99) mg/dL POC Glucose (mg/dL) (70-110) mg/dL ALT 50 H (4-49) U/L Alkaline Phosphatase 219 H (38-126) U/L Troponin I 0.056 H* (0.000-0.034) ng/mL 12/22/21 12/22/21 12/22/21 Range/Units 01:52 06:49 09:57 RBC (4.30-5.90) m/uL Hgb (13.0-17.5) gm/dL Hct (39.0-53.0) % MCV (80.0-100.0) fL RDW (11.5-15.5) % Neutrophils # (1.3-7.7) k/uL Lymphocytes # (1.0-4.8) k/uL Sodium (137-145) mmol/L Carbon Dioxide (22-30) mmol/L BUN (9-20) mg/dL Glucose (74-99) mg/dL POC Glucose (mg/dL) 127 H (70-110) mg/dL ALT (4-49) U/L Alkaline Phosphatase (38-126) U/L Troponin I 0.061 H* 0.056 H* (0.000-0.034) ng/mL
[2021-12-22] MEDS: ACETAMINOPHEN TAB 325 MG TAB PO SCH ×2 (13:23→23:13)
[2021-12-22] MEDS: traMADol 50 MG TAB PO PRN (13:39)
[2021-12-22] MEDS: FUROSEMIDE 10 MG/ML 10 ML VIAL IV SCH ×2 (13:40→20:56)
--- NOTE | 2021-12-22 15:44 | P.CRDCN ---
History of Present Illness Consult date: 12/22/21 Chief complaint: Shortness of breath and bilateral lower extent his edema History of present illness: This is a pleasant 71-year-old gentleman who sees Dr. Sharp irregularly with a past medical history significant for coronary artery disease where he underwent stenting of the LCx in 2019 as well as heart failure with preserved ejection fraction and also valvular heart disease was known aortic and mitral and tricuspid regurgitation and also pulmonary hypertension as well as diabetes and hypertension and dyslipidemia and permanent atrial fibrillation. We asked to see the patient as a consult in the emergency department for heart failure. The patient is known to have heart failure with preserved ejection fraction who is somewhat poor historian and he does have history of excessive alcohol use in the past. He stated that for the last week or so he has been experiencing increasing in the lower extent with his edema associated with increasing shortness of breath with exertion but for the last few days the shortness of breath has been noticed even was laying flat in bed. No symptoms of chest pain or chest discomfort. No dizziness or lightheadedness and no feeling of heart racing or fluttering and no presyncope or syncope. He presented to the emergency department for further evaluation. He underwent an EKG which showed atrial fibrillation with diffuse nonspecific ST and T wave abnormalities and also evidence of hypertensive heart disease. His NT proBNP came in to be elevated at 10,000. The chest x-ray showed findings consistent with heart failure. The rest of the blood work overall came in to be unremarkable. [facility] the [facility]. He was started on Lasix IV. He denies any abdominal pain or any fever or chills. No nausea nor vomiting. Past Medical History Past Medical History: Atrial Fibrillation, Coronary Artery Disease (CAD), Heart Failure, COPD, Diabetes Mellitus, GERD/Reflux, Hyperlipidemia, Hypertension, Osteoarthritis (OA), Pneumonia, Rheumatoid Arthritis (RA) Additional Past Medical History / Comment(s): gi bleed, anemia, restless leg syndrome, alcoholism, kidney injury Last Myocardial Infarction Date:: 2013 History of Any Multi-Drug Resistant Organisms: None Reported Past Surgical History: Heart Catheterization With Stent, Orthopedic Surgery Additional Past Surgical History / Comment(s): 06/04/13 angioplasty with stent to LAD, Stent -(R) radial approach 06/07/13 JOLIE, bone spur rt elbow removed, L elbow surgery, bilateral cataract surgery. Past Anesthesia/Blood Transfusion Reactions: No Reported Reaction Additional Past Anesthesia/Blood Transfusion Reaction / Comment(s): Pt has never recieved blood. Date of Last Stent Placement:: 01/18/2020 Past Psychological History: No Psychological Hx Reported Smoking Status: Current every day smoker Past Alcohol Use History: None Reported Past Drug Use History: None Reported - Past Family History Father Family Medical History: Cancer Additional Family Medical History / Comment(s): Father of prostate cancer at age 65yrs. Mother Family Medical History: Coronary Artery Disease (CAD) Additional Family Medical History / Comment(s): Mother had CABG. She of CHF at age 73 yrs. Brother(s) Family Medical History: Coronary Artery Disease (CAD) Additional Family Medical History / Comment(s): Patient has 2 brothers and one has history of myocardial infarction and five-vessel CABG, one has history of prostate cancer. Sister(s) Family Medical History: Coronary Artery Disease (CAD), Myocardial Infarction (MD) Additional Family Medical History / Comment(s): Patient has 2 sisters and one has history of myocardial infarction. Daughter(s) Family Medical History: No Reported History Additional Family Medical History / Comment(s): Patient has a total of 3 children with no major medical problems. Son(s) Family Medical History: No Reported History Medications and Allergies Home Medications Medication Instructions Recorded Confirmed Type Atorvastatin [Lipitor] 40 mg PO DAILY 04/01/14 12/22/21 History Isosorbide Mononitrate [Imdur] 30 mg PO DAILY 04/01/14 12/22/21 History amLODIPine [Norvasc] 10 mg PO DAILY 01/11/15 12/22/21 History Furosemide [Lasix] 60 mg PO DAILY 11/16/17 12/22/21 History metFORMIN HCL [metFORMIN HCL ER] 1,000 mg PO BID 11/16/17 12/22/21 History Potassium Chloride ER [K-Dur 20] 20 meq PO DAILY 10/06/19 12/22/21 History Pramipexole [Mirapex] 1 mg PO HS 10/06/19 12/22/21 History hydrALAZINE HCL [Apresoline] 25 mg PO TID 10/06/19 12/22/21 History Losartan [Cozaar] 25 mg PO DAILY #30 tab 10/10/19 12/22/21 Rx Acetaminophen [Tylenol Arthritis] 1,300 tab PO BID 01/14/20 12/22/21 History metOLazone [Zaroxolyn] 2.5 mg PO Q48H 01/14/20 12/22/21 History traZODone HCL 50 mg PO HS PRN 02/06/20 12/22/21 History Clopidogrel [Plavix] 75 mg PO DAILY #0 02/09/20 12/22/21 Rx Doxycycline Hyclate 100 mg PO DAILY 12/22/21 12/22/21 History Ferrous Sulfate [Feosol] 325 mg PO BID 12/22/21 12/22/21 History Furosemide [Lasix] 40 mg PO HS 12/22/21 12/22/21 History Omeprazole 20 mg PO BID 12/22/21 12/22/21 History predniSONE 5 mg PO DAILY 12/22/21 12/22/21 History Allergies Allergy/AdvReac Type Severity Reaction Status Date / Time No Known Allergies Allergy Verified 12/21/21 23:35 Physical Exam Vitals: Vital Signs Temp Pulse Resp BP Pulse Ox 12/22/21 13:54 74 20 127/94 98 12/22/21 11:27 82 13 129/90 96 12/22/21 07:28 65 12 147/77 99 12/22/21 05:23 56 L 12 144/53 99 12/22/21 01:37 72 20 143/56 98 12/21/21 23:31 97.6 F 77 19 145/85 98 Intake and Output 12/22/21 12/22/21 12/22/21 06:59 14:59 22:59 Output Total 1200 400 Balance -1200 -400 Output: Urine 1200 400 Other: # Voids 1 Weight 74.843 kg - Constitutional General appearance: no acute distress Results 12/22/21 01:44 12/22/21 01:44 Cardiac Enzymes 12/22/21 12/22/21 12/22/21 Range/Units 01:44 01:44 06:49 AST 55 (17-59) U/L Troponin I 0.056 H* 0.061 H* (0.000-0.034) ng/mL 12/22/21 Range/Units 09:57 AST (17-59) U/L Troponin I 0.056 H* (0.000-0.034) ng/mL Coagulation 12/22/21 Range/Units 01:44 PT 10.7 (9.0-12.0) sec APTT 24.5 (22.0-30.0) sec CBC 12/22/21 Range/Units 01:44 WBC 9.4 (3.8-10.6) k/uL RBC 3.46 L (4.30-5.90) m/uL Hgb 11.1 L (13.0-17.5) gm/dL Hct 34.9 L (39.0-53.0) % Plt Count 222 (150-450) k/uL Comprehensive Metabolic Panel 12/22/21 Range/Units 01:44 Sodium 134 L (137-145) mmol/L Potassium 3.5 (3.5-5.1) mmol/L Chloride 98 (98-107) mmol/L Carbon Dioxide 31 H (22-30) mmol/L BUN 39 H (9-20) mg/dL Creatinine 1.10 (0.66-1.25) mg/dL Glucose 119 H (74-99) mg/dL Calcium 9.1 (8.4-10.2) mg/dL AST 55 (17-59) U/L ALT 50 H (4-49) U/L Alkaline Phosphatase 219 H (38-126) U/L Total Protein 6.3 (6.3-8.2) g/dL Albumin 3.7 (3.5-5.0) g/dL Current Medications Generic Name Dose Route Start Last Admin Trade Name Freq PRN Reason Stop Dose Admin Acetaminophen 650 mg 12/22/21 18:00 12/22/21 13:23 Acetaminophen Tab 325 Mg Tab PO 650 mg Q6HR GUEVARA Administration Atorvastatin Calcium 40 mg 12/23/21 09:00 Atorvastatin 40 Mg Tab PO DAILY GUEVARA Clopidogrel Bisulfate 75 mg 12/23/21 09:00 Clopidogrel 75 Mg Tab PO DAILY [facility] Furosemide 60 mg 12/22/21 12:15 12/22/21 13:40 Furosemide 10 Mg/Ml 10 Ml Vial IV 60 mg Q12HR GUEVARA Administration Hydralazine HCl 25 mg 12/22/21 16:00 Hydralazine Hcl 25 Mg Tab PO TID [facility] Isosorbide Mononitrate 30 mg 12/23/21 09:00 Isosorbide Mononitrate Er 30 Mg Tab.Er.24h PO DAILY [facility] Losartan Potassium 25 mg 12/23/21 09:00 Losartan 25 Mg Tab PO DAILY [facility] Metformin HCl 1,000 mg 12/22/21 21:00 Metformin 500 Mg Tab PO BID GUEVARA Metolazone 2.5 mg 12/23/21 09:00 Metolazone 2.5 Mg Tab PO Q48H GUEVARA Potassium Chloride 20 meq 12/23/21 09:00 Potassium Chloride Er 20 Meq Tab.Er PO DAILY GUVEARA Pramipexole Dihydrochloride 1 mg 12/22/21 21:00 Pramipexole 1 Mg Tab PO HS GUEVARA Sodium Chloride 10 ml 12/22/21 09:00 12/22/21 08:52 Sodium Chloride 0.9% Flush 10 Ml Syringe IV 10 ml BID GUEVARA Administration Tramadol HCl 50 mg 12/22/21 12:02 12/22/21 13:39 Tramadol 50 Mg Tab PO 50 mg QID PRN Administration Pain/Discomfort Trazodone HCl 50 mg 12/22/21 12:00 Trazodone Hcl 50 Mg Tab PO HS PRN Insomnia Intake and Output 12/22/21 12/22/21 12/22/21 06:59 14:59 22:59 Output Total 1200 400 Balance -1200 -400 Output: Urine 1200 400 Other: # Voids 1 Weight 74.843 kg 12/22/21 01:44 12/22/21 01:44 Assessment and Plan Assessment: Assessment #1 heart failure exacerbation secondary to heart failure with preserved ejection fraction was evidence of right and left failure #2 permanent atrial fibrillation was controlled heart rate #3 valvular heart disease was normal aortic regurgitation and mitral regurgitation #4 severe pulmonary hypertension probably WHO group to #5 severe tricuspid regurgitation #6 history of excessive alcohol use Plan #1 angry about the current dose of Lasix IV #2 monitor the kidney function and electrolytes #3 avoid aggressive blood pressure lowering #4 for some reason is a patient is not on any oral anticoagulation with further investigated that #5 medical treatment for the mildly abnormal troponin which is likely secondary to heart failure
[2021-12-22] MEDS: hydrALAZINE HCL 25 MG TAB PO SCH ×2 (17:50→20:56)
[2021-12-22 20:18] LABS: Glucose,Whole Blood 185 mg/dL (70-110)
[2021-12-22] MEDS: metFORMIN 500 MG TAB PO SCH (20:56)
[2021-12-22] MEDS: PRAMIPEXOLE 1 MG TAB PO SCH (20:56)
[2021-12-23 03:13] VITALS: RESP 18
--- NOTE | 2021-12-23 05:31 | P.PN ---
Subjective Progress Note Date: 12/23/21 Principal diagnosis: Heart failure with preserved ejection fraction This is a 8-year-old gentleman with a past medical history significant for heart failure with ejection fraction as well as valvular heart disease with aortic mitral and tricuspid regurgitation as well as pulmonary hypertension as well as permanent atrial fibrillation and history of excessive alcohol use presented to the hospital with severe bilateral lower extremities edema and shortness of breath and he was diagnosed with heart failure. He was admitted to the hospital and started on IV Lasix. He was seen this morning. He states that he is feeling somewhat better but he continues to have shortness of breath. The lower extremities edema has definitely improved compared to yesterday. He reports no pain in the chest. No dizziness or lightheadedness and no presyncope or syncope. He continues to be in atrial fibrillation was controlled heart rate. For some reasons he is not in any oral anticoagulation. We will find out the exact reason. Meanwhile I will continue the current dose of Lasix IV. Continue monitor the kidney function and electrolytes. And increased dose of losartan in the light of hypertension. His BUN and creatinine this morning are within normal limits Objective - Vital Signs Vital signs: Vital Signs Temp 97.3 F L 12/23/21 03:12 Pulse 62 12/23/21 03:12 Resp 18 12/23/21 03:12 BP 150/56 12/23/21 03:12 Pulse Ox 94 L 12/23/21 03:12 FiO2 Intake & Output 12/22/21 12/22/21 12/23/21 06:59 18:59 06:59 Intake Total 200 780 Output Total 1200 800 925 Balance -1200 -600 -145 Weight 74.843 kg 74.4 kg Intake: Oral 200 780 Output: Urine 1200 800 925 Other: Voiding Method Urinal # Voids 1 1 1 - Constitutional General appearance: Present: no acute distress - Respiratory Respiratory: bilateral: diminished, wheezing - Cardiovascular Rhythm: irregularly irregular Heart sounds: normal: S1, S2 Abnormal Heart Sounds: Present: systolic murmur - Labs CBC & Chem 7: 12/22/21 01:44 12/22/21 01:44 Labs: Abnormal Lab Results - Last 24 Hours (Table) 12/22/21 12/22/21 12/22/21 Range/Units 06:49 09:57 20:17 POC Glucose (mg/dL) 185 H (70-110) mg/dL Troponin I 0.061 H* 0.056 H* (0.000-0.034) ng/mL Assessment and Plan Assessment: Assessment #1 heart failure exacerbation secondary to heart failure with preserved ejection fraction was evidence of right and left failure #2 permanent atrial fibrillation was controlled heart rate #3 valvular heart disease was normal aortic regurgitation and mitral regurgitation #4 severe pulmonary hypertension probably WHO group to #5 severe tricuspid regurgitation #6 history of excessive alcohol use Plan #1 continue the current dose of Lasix IV #2 monitor the kidney function and electrolytes #3 increase the dose of losartan #4 for some reason is a patient is not on any oral anticoagulation with further investigated that #5 medical treatment for the mildly abnormal troponin which is likely secondary to heart failure
[2021-12-23] MEDS: ACETAMINOPHEN TAB 325 MG TAB PO SCH ×4 (06:24→23:02)
[2021-12-23] MEDS: traMADol 50 MG TAB PO PRN ×2 (06:24→16:51)
[2021-12-23 06:25] LABS: Glucose,Whole Blood 153 mg/dL (70-110)
[2021-12-23 07:02] LABS: Magnesium 1.5 mg/dL (1.6-2.3); Potassium 3.3 mmol/L (3.5-5.1)
[2021-12-23] MEDS ORDERED: Magnesium Replacement Protocol 1 EACH MISC MISCELLANE PRN (07:14)
[2021-12-23] MEDS ORDERED: Potassium Replacement Protocol 1 EACH MISC MISCELLANE PRN (07:15)
[2021-12-23] MEDS: CLOPIDOGREL 75 MG TAB PO SCH (08:17)
[2021-12-23] MEDS: LOSARTAN 50 MG TAB PO SCH (08:17)
[2021-12-23] MEDS: metFORMIN 500 MG TAB PO SCH ×2 (08:17→20:57)
[2021-12-23] MEDS: ATORVASTATIN 40 MG TAB PO SCH (08:17)
[2021-12-23] MEDS: hydrALAZINE HCL 25 MG TAB PO SCH ×3 (08:17→21:01)
[2021-12-23] MEDS: POTASSIUM CHLORIDE ER 20 MEQ TAB.ER PO SCH ×3 (08:17→09:31)
[2021-12-23] MEDS: ISOSORBIDE MONONITRATE ER 30 MG TAB.ER.24H PO SCH (08:17)
[2021-12-23] MEDS: MAGNESIUM SULFATE-D5W PMX 1 GM in DEXTROSE/WATER 1 100ML.BAG IVPB SCH ×2 (08:19→09:30)
[2021-12-23] MEDS: FUROSEMIDE 10 MG/ML 10 ML VIAL IV SCH ×2 (08:20→20:57)
[2021-12-23] MEDS ORDERED: metOLazone 2.5 MG TAB PO SCH (09:00)
[2021-12-23] MEDS ORDERED: LOSARTAN 25 MG TAB PO SCH (09:00)
[2021-12-23 11:56] LABS: Glucose,Whole Blood 158 mg/dL (70-110)
[2021-12-23] MEDS ORDERED: diphenhydrAMINE 25 MG CAP PO PRN (13:02)
[2021-12-23] MEDS ORDERED: diphenhydrAMINE 50 MG/ML 1 ML VIAL IVP PRN (13:02)
--- NOTE | 2021-12-23 13:18 | P.PN ---
Subjective Progress Note Date: 12/23/21 71-year-old gentleman came in with complaints of bilateral lower exudate edema which is getting worse patient does have history of congestive heart failure chronic diastolic dysfunction and moderate pulmonary hypertension with RVSP of around 55. Was also complaining of orthopnea and paroxysmal nocturnal dyspnea patient initially for last 3 days patient also complaining of back pain which is chronic radiaing into the leg and symptoms of radiculopathy. Chest x-ray showing pulmonary edema BNP is elevated to 10,000 mildly elevated troponin to 0.06 12/23/2021 Patient is seen in follow up today with cardiology following closely for CHF exacerbation. Patient is maintained on IV Lasix and kidney functions within normal limits at 1.05 with a BUN mildly elevated at 35. Recommend to replace electrolytes as per protocol as potassium was found to be 3.3 and magnesium is 1.5. Patient is currently on room air and continues to have some shortness of breath. Cozaar has been increased as well is patient remains hypertensive. Patient with generalized rash on his upper extremities and back along with abdomen and patient continues to scratch where there are multiple abrasions and open wounds from excessive scratching noted especially on his upper neck and will add Benadryl. Patient reports he's had this before and appears to be almost reactive with sensitivities of the skin from hospital sheets. Patient's reports this is been ongoing for approximately 3-4 days. Patient is currently sitting up at the side of the bed and continues to report shortness of breath. He does have history of atrial fibrillation although not maintained on anticoagulation and cardiology to further evaluate this. Questionable GI bleed in the past per which may be the reason for no anticoagulation. Patient is reported to be a no code. Patient is afebrile denies chest pain or palpitations at this time. Patient reports he tolerating diet with no reports of nausea or vomiting noted. Patient is diuresing well. Review of systems: Constitutional: No reports of fatigue, fever, or chills, reports rash all over the back and abdomen and upper extremities, generalized Cardiovascular: No reports of chest pain or palpitations Respiratory: reports of shortness of breath or cough GI: No reports of nausea, vomiting, or diarrhea : No reports of dysuria or retention Neurovascular: No reports of weakness or numbness All medications have been reviewed PHYSICAL EXAMINATION: GENERAL: The patient is alert and oriented x3, not in any acute distress. Well developed, well nourished. HEENT: Pupils are round and equally reacting to light. EOMI. No scleral icterus. No conjunctival pallor. Normocephalic, atraumatic. No pharyngeal erythema. No thyromegaly. CARDIOVASCULAR: S1 and S2 present. No murmurs, rubs, or gallops. Patient does have elevated JVD PULMONARY: Breath sounds are diminished with a few scattered rhonchi noted ABDOMEN: Soft, nontender, nondistended, normoactive bowel sounds. No palpable organomegaly. MUSCULOSKELETAL: No joint swelling or deformity. EXTREMITIES: No cyanosis, clubbing, or pedal edema. NEUROLOGICAL: Gross neurological examination did not reveal any focal deficits. SKIN: Patient has bilateral lower extremity swelling with a healed ulcer in the left leg and a stage II clean and non-infected ulcer on the dose of the foot, generalized rash noted with no surrounding cellulitis or drainage Assessment: -Congestive heart failure chronic diastolic dysfunction with acute exacerbation, patient usually takes 40 and 60 mg of oral Lasix at home patient was started 60 IV twice a day of Lasix and close monitoring of I's and O's. -Mild elevation of troponin secondary to congestive heart failure -Mild acute renal failure prerenal secondary to CHF, improving -Hypervolemic hyponatremia, improving currently 135 today -Hypokalemia -History of atrial fibrillation paroxysmal, patient is not on anticoagulation -Restless leg syndrome -Hypertension -Moderate pulmonary hypertension -Hyperlipidemia -Gastroesophageal reflux disease -COPD without any acute exacerbation -Chronic low back pain with radiculopathy -DVT prophylaxis: Lovenox -No code Plan: Cardiology following closely for CHF acute exacerbation and patient is maintained on IV Lasix and will continue. Recommend replacing potassium that was 3.3 today magnesium was 1.5 and recommend repeat labs Recommend close monitoring of kidney functions along with electrolytes Generalized rash noted throughout especially on the back and the upper extremities and abdomen and patient continues to scratch at them and will add Benadryl and monitor closely. No signs of cellulitis or purulent drainage at this time. Encourage the patient to avoid scratching his skin as it is very fragile. The impression and plan of care has been dictated by Marine Green, Nurse Practitioner as directed. MD Nenita I have performed a history and examination and MDM of this patient, discussed the same with the dictator, and agree with the dictator's assessment and plan as written ,documented as a scribe. Based on total visit time, I have performed more than 50% of the visit. Objective - Vital Signs Vital signs: Vital Signs Temp 97.6 F 12/23/21 08:10 Pulse 72 12/23/21 08:10 Resp 18 12/23/21 08:10 BP 149/68 12/23/21 08:10 Pulse Ox 95 12/23/21 08:10 FiO2 Intake & Output 12/22/21 12/23/21 12/23/21 18:59 06:59 18:59 Intake Total 200 780 180 Output Total 800 1050 Balance -600 -270 180 Weight 74.4 kg Intake: Oral 200 780 180 Output: Urine 800 1050 Other: Voiding Method Urinal Urinal Urinal # Voids 1 1 - Labs CBC & Chem 7: 12/22/21 01:44 12/23/21 05:50 Labs: Abnormal Lab Results - Last 24 Hours (Table) 12/22/21 12/22/21 12/23/21 Range/Units 09:57 20:17 05:50 Sodium 135 L (137-145) mmol/L Potassium 3.3 L (3.5-5.1) mmol/L Chloride 94 L (98-107) mmol/L Carbon Dioxide 36 H (22-30) mmol/L BUN 35 H (9-20) mg/dL Glucose 139 H (74-99) mg/dL POC Glucose (mg/dL) 185 H (70-110) mg/dL Magnesium 1.5 L (1.6-2.3) mg/dL Troponin I 0.056 H* (0.000-0.034) ng/mL 12/23/21 Range/Units 06:24 Sodium (137-145) mmol/L Potassium (3.5-5.1) mmol/L Chloride (98-107) mmol/L Carbon Dioxide (22-30) mmol/L BUN (9-20) mg/dL Glucose (74-99) mg/dL POC Glucose (mg/dL) 153 H (70-110) mg/dL Magnesium (1.6-2.3) mg/dL Troponin I (0.000-0.034) ng/mL
[2021-12-23] MEDS ORDERED: HYDROcodone/APAP 5-325MG 1 EACH TAB PO STA (15:10)
--- NOTE | 2021-12-23 15:40 | XR ---
EXAMINATION TYPE: XR Hip Limited LT DATE OF EXAM: 12/23/2021 COMPARISON: NONE HISTORY: Hip pain TECHNIQUE: Single view FINDINGS: There is hypertrophic acetabular spurring. There is spurring on the femoral head. No fractu re seen. Proximal femur is intact. There is vascular calcification. IMPRESSION: No acute abnormality of the left hip. Osteoarthritis.
[2021-12-23 16:53] LABS: Glucose,Whole Blood 143 mg/dL (70-110)
[2021-12-23] MEDS ORDERED: POTASSIUM CHLORIDE ER 20 MEQ TAB.ER PO SCH (18:00)
[2021-12-23] MEDS: KETOROLAC 15 MG/ML 1 ML VIAL IVP SCH ×2 (19:26→23:03)
[2021-12-23] MEDS: LIDOCAINE 5% PATCH TOPICAL SCH (19:42)
[2021-12-23 19:49] LABS: Glucose,Whole Blood 176 mg/dL (70-110)
[2021-12-23] MEDS: PRAMIPEXOLE 1 MG TAB PO SCH (20:57)
[2021-12-24] MEDS: KETOROLAC 15 MG/ML 1 ML VIAL IVP SCH ×2 (05:25→11:24)
[2021-12-24] MEDS: ACETAMINOPHEN TAB 325 MG TAB PO SCH ×2 (05:25→11:23)
[2021-12-24 05:56] LABS: Glucose,Whole Blood 155 mg/dL (70-110)
[2021-12-24] MEDS: FUROSEMIDE 10 MG/ML 10 ML VIAL IV SCH (09:03)
[2021-12-24] MEDS: ATORVASTATIN 40 MG TAB PO SCH (09:04)
[2021-12-24] MEDS: metFORMIN 500 MG TAB PO SCH (09:04)
[2021-12-24] MEDS: PRAMIPEXOLE 1 MG TAB PO SCH (09:04)
[2021-12-24] MEDS: LIDOCAINE 5% PATCH TOPICAL SCH (09:04)
[2021-12-24] MEDS: hydrALAZINE HCL 25 MG TAB PO SCH (09:04)
[2021-12-24] MEDS: CLOPIDOGREL 75 MG TAB PO SCH (09:04)
[2021-12-24] MEDS: LOSARTAN 50 MG TAB PO SCH (09:04)
[2021-12-24] MEDS: ISOSORBIDE MONONITRATE ER 30 MG TAB.ER.24H PO SCH (09:04)
[2021-12-24] MEDS: POTASSIUM CHLORIDE ER 20 MEQ TAB.ER PO SCH (11:11)
[2021-12-24] MEDS: traMADol 50 MG TAB PO PRN (11:29)
[2021-12-24] MEDS ORDERED: APIXABAN 5 MG TAB PO SCH (11:30)
[2021-12-24 11:34] LABS: Glucose,Whole Blood 135 mg/dL (70-110)
[2021-12-24 11:51] VITALS: BP 160/97; PULSE 64; TEMP 98.2
[2021-12-24 12:40] VITALS: BMI 21.2
[2021-12-24 13:08] LABS: Calcium 9.3 mg/dL (8.4-10.2); Potassium 5.1 mmol/L (3.5-5.1)
--- NOTE | 2021-12-24 13:14 | P.PN ---
Subjective Progress Note Date: 12/24/21 HISTORY OF PRESENT ILLNESS: This is a pleasant 71-year-old gentleman who sees Dr. Sharp irregularly with a past medical history significant for coronary artery disease where he underwent stenting of the LCx in 2019 as well as heart failure with preserved ejection fraction and also valvular heart disease was known aortic and mitral and tricuspid regurgitation and also pulmonary hypertension as well as diabetes and hypertension and dyslipidemia and permanent atrial fibrillation. We asked to see the patient as a consult in the emergency department for heart failure. The patient is known to have heart failure with preserved ejection fraction who is somewhat poor historian and he does have history of excessive alcohol use in the past. He stated that for the last week or so he has been experiencing increasing in the lower extent with his edema associated with increasing s hortness of breath with exertion but for the last few days the shortness of breath has been noticed even was laying flat in bed. No symptoms of chest pain or chest discomfort. No dizziness or lightheadedness and no feeling of heart racing or fluttering and no presyncope or syncope. He presented to the emergency department for further evaluation. He underwent an EKG which showed atrial fibrillation with diffuse nonspecific ST and T wave abnormalities and also evidence of hypertensive heart disease. His NT proBNP came in to be elevated at 10,000. The chest x-ray showed findings consistent with heart failure. The rest of the blood work overall came in to be unremarkable. The patient is in process to be admitted to the floor. He was started on Lasix IV. He denies any abdominal pain or any fever or chills. No nausea nor vomiting. 12/23/2021 He was seen this morning. He states that he is feeling somewhat better but he continues to have shortness of breath. The lower extremities edema has definitely improved compared to yesterday. He reports no pain in the chest. No dizziness or lightheadedness and no presyncope or syncope. He continues to be in atrial fibrillation was controlled heart rate. For some reasons he is not in any oral anticoagulation. We will find out the exact reason. Meanwhile I will continue the current dose of Lasix IV. Continue monitor the kidney function and electrolytes. And increased dose of losartan in the light of hypertension. His BUN and creatinine this morning are within normal limits 12/24/2021 Patient examined this morning at the bedside. Patient denies chest pain or pressure. He reports mild SOB with ambulation. Telemetry reveals atrial fibrillation with controlled ventricular rate. He remains on IV Lasix 60 mg every 12 hours. BUN 45. Creatinine 1.29. Echocardiogram reveals ejection fraction 55-60%. PHYSICAL EXAM: VITAL SIGNS: Reviewed. GENERAL: Well-developed in no acute distress. NECK: Supple. No JVD or thyromegaly LUNGS: Respirations even and unlabored. Lungs essentially clear to auscultation bilaterally. HEART: Irregular rate and rhythm. S1 and S2 heard. Systolic murmur. EXTREMITIES: Normal range of motion. No clubbing or cyanosis. Peripheral pulses intact. Trace lower extremity edema ASSESSMENT: Shortness of breath Acute on chronic heart failure with preserved ejection fraction, EF 55-60% Persistent atrial fibrillation, patient not on anticoagulation Coronary artery disease with previous PCI to the circumflex in 2019 Valvular heart disease Pulmonary hypertension Hypertension Hyperlipidemia Diabetes PLAN: Continue current cardiac medications Discontinue Lasix Begin Eliquis 5 mg twice a day Continue current dose of Lasix 60 mg every 12 hours Monitor kidney function Daily weights Accurate I&O Further recommendations pending patient's course Nurse practitioner note has been reviewed by physician. Signing provider agrees with the documented findings, assessment, and plan of care. Objective - Vital Signs Vital signs: Vital Signs Temp 98.2 F 12/24/21 11:49 Pulse 64 12/24/21 11:49 Resp 18 12/24/21 11:49 BP 160/97 12/24/21 11:49 Pulse Ox 96 12/24/21 11:49 FiO2 Intake & Output 12/23/21 12/24/21 12/24/21 18:59 06:59 18:59 Intake Total 1510 236 Output Total 1100 325 430 Balance 410 -325 -194 Weight 74.8 kg 74.8 kg Intake: IV 230 Invasive Line 1 30 Magnesium Sulfate-D5w Pmx 200 1 gm In Dextrose/Water 1 100ml.bag @ 100 mls/hr IVPB Q1H GUEVARA Rx#: [id number] Oral 1280 236 Output: Urine 1100 325 430 Other: Voiding Method Urinal Urinal Urinal # Voids 1 # Bowel Movements 0 - Labs CBC & Chem 7: 12/22/21 01:44 12/24/21 06:18 Labs: Abnormal Lab Results - Last 24 Hours (Table) 12/23/21 12/23/21 12/24/21 Range/Units 16:47 19:47 05:55 POC Glucose (mg/dL) 143 H 176 H 155 H (70-110) mg/dL 12/24/21 Range/Units 11:33 POC Glucose (mg/dL) 135 H (70-110) mg/dL
--- NOTE | 2021-12-24 15:54 | P.DS ---
Providers Date of admission: 12/22/21 06:06 Attending physician: Bakari Drummond MD Consults: 12/22/21 06:06 Consult Physician Routine Consulting Provider: Ar Dowling Consult Reason/Comments: CHF exacerbation Do you want consulting provider notified?: Yes Primary care physician: Ilya Quentin [facility] Course: Diagnosis -Congestive heart failure chronic diastolic dysfunction with acute exacerbation -Mild elevation of troponin secondary to congestive heart failure -Mild acute renal failure prerenal secondary to CHF, improving -Hypervolemic hyponatremia, improving currently 135 today -Hypokalemia resolved. -History of atrial fibrillation paroxysmal was not on anticoagulation outpatient. -Restless leg syndrome -Hypertension -Moderate pulmonary hypertension -Hyperlipidemia -Gastroesophageal reflux disease -COPD without any acute exacerbation -Chronic low back pain with radiculopathy -DVT prophylaxis: Lovenox -GI prophylaxis -No code Discharge Disposition Patient stable for discharge. Increase lasix to 60 mg twice a day. Patient has been started on eliquis 5 mg PO BID, plavix discontinued. Losartan has been increased to 50 mg PO daily. Hospital Course This is a 71 year old male with medical history of congestive heart failure chronic diastolic dysfunction and moderate pulmonary hypertension with RVSP of around 55. Patient presents with bilateral lower exudate edema which was worsening as well as orthopnea and paroxysmal noctural dyspnea which started about 3 days ago. He also reports chronic back pain with symptoms of radiculopathy. On admission BNP 10,000 and had elevated troponin 0.06. Chest xray consistent wtih pulmonary edema. patient was started on IV lasix, cardiology was consulted. Patient denies chest pain, no shortness of breath. He diuresed about 2.9 L and was transitioned back to oral lasix with increased to 60 mg BID. Cardiology will see patient in follow up in the office. He also had xray done of his left hip which is negative for fracture findings show osteoa rthritis. Patient has an appointment tomorrow with [facility] regarding chronic back pain. Creatinine 1.10 on admission, sodium 134, potassium 3.5, blood glucose in the 130s, hgb 11.1. 12/24/2021 Patient evaluated today sitting up at the bedside. No acute events overnight. He denies chest pain, no shortness of breath. Lungs are clear. His peripheral edema has improved, he continues with pedal edema. He received benadryl for complaints of generalized rash which has improved. Sodium 135, creatinine today 1.29. Patient would like to be discharged home he has an appointment with orthopedics that he has been waiting for. Script given for repeat labs in 2 to 3 days outpatient and to follow up with primary care provider. Blood pressure today 145/62, 96% room air, heart rate 64, afebrile. Please see medication reconciliation for a list of current medication. Thank you for allowing us to participate in the care of this patient. Total time taken in discharge planning greater than 35 minutes. The impression and plan of care has been dictated by Vale Ha Nurse Practitioner as directed. Dr. Debbie MD I have performed a history and physical examination and medical decision making of this patient, discussed the same with the dictator, and agree with the dictators assessment and plan as written, documented as a scribe. Based on total visit time, I have performed more than 50% of this visit. Patient Condition at Discharge: Fair Plan - Discharge Summary Discharge Rx Participant: No New Discharge Prescriptions: New diphenhydrAMINE [Benadryl] 25 mg PO TID PRN cap PRN Reason: Itching Losartan [Cozaar] 50 mg PO DAILY #30 tab Apixaban [Eliquis] 5 mg PO BID #60 tab Continue Isosorbide Mononitrate [Imdur] 30 mg PO DAILY Atorvastatin [Lipitor] 40 mg PO DAILY amLODIPine [Norvasc] 10 mg PO DAILY metFORMIN HCL [metFORMIN HCL ER] 1,000 mg PO BID Pramipexole [Mirapex] 1 mg PO HS Potassium Chloride ER [K-Dur 20] 20 meq PO DAILY hydrALAZINE HCL [Apresoline] 25 mg PO TID metOLazone [Zaroxolyn] 2.5 mg PO Q48H Acetaminophen [Tylenol Arthritis] 1,300 tab PO BID traZODone HCL 50 mg PO HS PRN PRN Reason: Insomnia Ferrous Sulfate [Iron (65 MG Elemental)] 325 mg PO BID Omeprazole 20 mg PO BID Changed Furosemide [Lasix] 60 mg PO BID #60 Discontinued Losartan [Cozaar] 25 mg PO DAILY #30 tab Clopidogrel [Plavix] 75 mg PO DAILY #0 Furosemide [Lasix] 40 mg PO HS predniSONE 5 mg PO DAILY Doxycycline Hyclate 100 mg PO DAILY Discharge Medication List Atorvastatin [Lipitor] 40 mg PO DAILY 04/01/14 [History] Isosorbide Mononitrate [Imdur] 30 mg PO DAILY 04/01/14 [History] amLODIPine [Norvasc] 10 mg PO DAILY 01/11/15 [History] metFORMIN HCL [metFORMIN HCL ER] 1,000 mg PO BID 11/16/17 [History] Potassium Chloride ER [K-Dur 20] 20 meq PO DAILY 10/06/19 [History] Pramipexole [Mirapex] 1 mg PO HS 10/06/19 [History] hydrALAZINE HCL [Apresoline] 25 mg PO TID 10/06/19 [History] Acetaminophen [Tylenol Arthritis] 1,300 tab PO BID 01/14/20 [History] metOLazone [Zaroxolyn] 2.5 mg PO Q48H 01/14/20 [History] traZODone HCL 50 mg PO HS PRN 02/06/20 [History] Ferrous Sulfate [Iron (65 MG Elemental)] 325 mg PO BID 12/22/21 [History] Omeprazole 20 mg PO BID 12/22/21 [History] Apixaban [Eliquis] 5 mg PO BID #60 tab 12/24/21 [Rx] Furosemide [Lasix] 60 mg PO BID #60 12/24/21 [Rx] Losartan [Cozaar] 50 mg PO DAILY #30 tab 12/24/21 [Rx] diphenhydrAMINE [Benadryl] 25 mg PO TID PRN cap 12/24/21 [Rx] Follow up Appointment(s)/Referral(s): Fiorella Sharp MD [STAFF PHYSICIAN] - 1 Week (Office will call patient to schedule) Ilya Saavedra MD [Primary Care Provider] - 1-2 days (Appt 12/31 1:30pm) Ambulatory/Diagnostic Orders: Basic Metabolic Panel [LAB.AMB] Time Frame: 3 Days, Location: None Selected Activity/Diet/Wound Care/Special Instructions: Follow up at [facility] as previously scheduled Discharge Disposition: HOME WITH HOME HEALTH SERVICES
== END 2021-12-24 15:12 | disposition home health service (06) ==
LOC: EC 22:18 → INTOOBSV 12-22 06:06 → 3SCARD 12-22 06:06 → UNDODISIN 12-24 15:12
PROVIDERS: ADMIT Internal Medicine; ATTEND Internal Medicine
DX: I11.0 Hypertensive heart disease with heart failure (principal); I50.33 Acute on chronic diastolic (congestive) heart failure; N17.9 Acute kidney failure, unspecified; E87.1 Hypo-osmolality and hyponatremia; E87.6 Hypokalemia; E87.70 Fluid overload, unspecified; E78.5 Hyperlipidemia, unspecified; E11.9 Type 2 diabetes mellitus without complications; I48.21 Permanent atrial fibrillation; I25.10 Atherosclerotic heart disease of native coronary artery without angina pectoris; I27.20 Pulmonary hypertension, unspecified; I08.3 Combined rheumatic disorders of mitral, aortic and tricuspid valves; J44.9 Chronic obstructive pulmonary disease, unspecified; D64.9 Anemia, unspecified; I25.2 Old myocardial infarction; G25.81 Restless legs syndrome; K21.9 Gastro-esophageal reflux disease without esophagitis; M06.9 Rheumatoid arthritis, unspecified; F17.200 Nicotine dependence, unspecified, uncomplicated; M19.90 Unspecified osteoarthritis, unspecified site; G89.29 Other chronic pain; M54.50 Low back pain, unspecified; M54.10 Radiculopathy, site unspecified; Z79.02 Long term (current) use of antithrombotics/antiplatelets; Z79.84 Long term (current) use of oral hypoglycemic drugs; Z79.899 Other long term (current) drug therapy; Z98.42 Cataract extraction status, left eye; Z98.41 Cataract extraction status, right eye; Z87.19 Personal history of other diseases of the digestive system; Z95.5 Presence of coronary angioplasty implant and graft; Z87.01 Personal history of pneumonia (recurrent); Z87.898 Personal history of other specified conditions; Z80.42 Family history of malignant neoplasm of prostate; Z82.49 Family history of ischemic heart disease and other diseases of the circulatory system
CPT/HCPCS: 96376 ×4; 96375; 96374; 99284; 36415; 94760; 83880; 80053; 80048 ×2; 83735 ×2; 84132; 84484; 85025; 85610; 85730; 73501; 71046; G0378 ×3; J1200; J1940 ×4; J3475; J1885 ×2; 99285

== ENCOUNTER 2022-01-17 21:05 | Inpatient (IN) | payer MEDICARE ==
--- NOTE | 2022-01-17 21:58 | XR ---
EXAMINATION TYPE: XR chest 2V DATE OF EXAM: 01/17/2022 COMPARISON: 12/22/2021 HISTORY: Chest pain TECHNIQUE: Frontal and lateral views of the chest are obtained. FINDINGS: There is diffuse moderate hazy opacity with interstitial prominence. No pleural effusion, or pneumothorax seen. The cardiac silhouette size is enlarged. The osseous structures are intact. IMPRESSION: CHF
[2022-01-17] MEDS ORDERED: ASPIRIN 81 MG PO STA (22:40)
[2022-01-17] MEDS ORDERED: FUROSEMIDE 10 MG/ML 4 ML VIAL IV STA (22:40)
--- NOTE | 2022-01-17 22:46 | ED ---
General Adult HPI - General Chief complaint: Chest Pain Stated complaint: Chest pain, THIAGO, Edema, CHF Time Seen by Provider: 01/17/22 22:35 Source: patient, RN notes reviewed, old records reviewed Mode of arrival: wheelchair - History of Present Illness Initial comments: Patient is a 71-year-old male with past medical history remarkable for CHF, atrial fibrillation on Eliquis, COPD, diabetes, hypertension who presents emergency Department complaining of a multi day history, approximately 3 days total, worsening exertional dyspnea with intermittent chest pain. No current ch est pain. The chest pain is present, it is substernal in nature. Difficult to qualify otherwise. Endorses minimal nonproductive cough. Endorses chronic orthopnea. Denies PND. Denies a belt pain, nausea, vomiting. Denies any fevers or chills. Endorses worsening lower extremity swelling. Has been compliant with medications but believes he requires more diuretics. Presents for further evaluation at this time. I evaluated patient when he was placed in agreement. - Related Data Home Medications Medication Instructions Recorded Confirmed Atorvastatin [Lipitor] 40 mg PO DAILY 04/01/14 12/22/21 Isosorbide Mononitrate [Imdur] 30 mg PO DAILY 04/01/14 12/22/21 amLODIPine [Norvasc] 10 mg PO DAILY 01/11/15 12/22/21 metFORMIN HCL [metFORMIN HCL ER] 1,000 mg PO BID 11/16/17 12/22/21 Potassium Chloride ER [K-Dur 20] 20 meq PO DAILY 10/06/19 12/22/21 Pramipexole [Mirapex] 1 mg PO HS 10/06/19 12/22/21 hydrALAZINE HCL [Apresoline] 25 mg PO TID 10/06/19 12/22/21 Acetaminophen [Tylenol Arthritis] 1,300 tab PO BID 01/14/20 12/22/21 metOLazone [Zaroxolyn] 2.5 mg PO Q48H 01/14/20 12/22/21 traZODone HCL 50 mg PO HS PRN 02/06/20 12/22/21 Ferrous Sulfate [Iron (65 MG 325 mg PO BID 12/22/21 12/22/21 Elemental)] Omeprazole 20 mg PO BID 12/22/21 12/22/21 Previous Rx's Medication Instructions Recorded Apixaban [Eliquis] 5 mg PO BID #60 tab 12/24/21 Furosemide [Lasix] 60 mg PO BID #60 12/24/21 Losartan [Cozaar] 50 mg PO DAILY #30 tab 12/24/21 diphenhydrAMINE [Benadryl] 25 mg PO TID PRN cap 12/24/21 Allergies Allergy/AdvReac Type Severity Reaction Status Date / Time No Known Allergies Allergy Verified 01/17/22 21:11 Review of Systems ROS Statement: Those systems with pertinent positive or pertinent negative responses have been documented in the HPI. Review of Systems: CONST: Denies fever EYES: Denies blurry vision ENT: Denies nasal congestion C/V: Denies Chest pain RESP: Endorses exertional shortness of breath GI: Denies abdominal pain : Denies dysuria SKIN: Denies rash. MSK: Denies joint pain. NEURO: Denies headache ROS Other: All systems not noted in ROS Statement are negative. Past Medical History Past Medical History: Atrial Fibrillation, Coronary Artery Disease (CAD), Heart Failure, COPD, Diabetes Mellitus, GERD/Reflux, GI Bleed, Hypertension, Osteoarthritis (OA), Pneumonia, Renal Disease, Rheumatoid Arthritis (RA) Additional Past Medical History / Comment(s): gi bleed, anemia, restless leg syndrome, alcoholism, kidney injury Last Myocardial Infarction Date:: 2013 History of Any Multi-Drug Resistant Organisms: None Reported Past Surgical History: Heart Catheterization With Stent, Orthopedic Surgery Additional Past Surgical History / Comment(s): 06/04/13 angioplasty with stent to LAD, Stent -(R) radial approach 06/07/13 JOLIE, bone spur rt elbow removed, L elbow surgery, bilateral cataract surgery. Past Anesthesia/Blood Transfusion Reactions: No Reported Reaction Additional Past Anesthesia/Blood Transfusion Reaction / Comment(s): Pt has never recieved blood. Date of Last Stent Placement:: 01/18/2020 Past Psychological History: No Psychological Hx Reported Smoking Status: Current every day smoker - Past Family History Father Family Medical History: Cancer Additional Family Medical History / Comment(s): Father of prostate cancer at age 65yrs. Mother Family Medical History: Coronary Artery Disease (CAD) Additional Family Medical History / Comment(s): Mother had CABG. She of CHF at age 73 yrs. Brother(s) Family Medical History: Coronary Artery Disease (CAD) Additional Family Medical History / Comment(s): Patient has 2 brothers and one has history of myocardial infarction and five-vessel CABG, one has history of prostate cancer. Sister(s) Family Medical History: Coronary Artery Disease (CAD), Myocardial Infarction ([place]) Additional Family Medical History / Comment(s): Patient has 2 sisters and one has history of myocardial infarction. Daughter(s) Family Medical History: No Reported History Additional Family Medical History / Comment(s): Patient has a total of 3 children with no major medical problems. Son(s) Family Medical History: No Reported History General Exam - General Exam Comments Initial Comments: General: Appears in no acute distress. HEAD: Normal with no signs of head trauma. EYES: PERRLA, EOMI, conjunctiva normal, no discharge. ENT: Hearing grossly intact, normal oropharynx. RESPIRATORY: Bilateral mild crackles auscultated. No obvious rhonchi. No wheezing. No hypoxia. No increased work of breathing presently. C/V: Irregular rate and rhythm. S1 and S2 auscultated. Peripheral pulses 2+ and intact throughout. Patient does have 1+ pitting edema to the level of the b ilateral mid calf. It is symmetrical. ABD: Abd is soft, nontender, nondistended EXT: Normal range of motion, no obvious deformity SKIN: No rashes or lesions observed on exposed skin. NEURO: Alert and oriented 4. Course Vital Signs 01/17/22 01/17/22 01/18/22 21:07 23:00 00:40 Temperature 97.7 F Pulse Rate 76 68 56 L Respiratory 18 21 17 Rate Blood Pressure 150/52 145/77 127/62 O2 Sat by Pulse 99 99 97 Oximetry 01/18/22 01:10 Temperature Pulse Rate 55 L Respiratory 16 Rate Blood Pressure 118/70 O2 Sat by Pulse 96 Oximetry Medical Decision Making - Medical Decision Making Based on the the patient's presentation and physical exam, I'm concerned for acute cardiopulmonary etiology for his current symptoms. Vital signs are within normal limits. We will obtain cardiopulmonary laboratory studies. He will be given an aspirin as well as a dose of Lasix due to the concern for heart failure exacerbation. Be connected to continuous cardiac monitoring. He was in agreement this plan. EKG shows chronic atrial fibrillation with no signs of acute ischemia or changes. Chest x-ray shows CHF changes.Laboratory studies are remarkable for a macrocytic anemia with a hemoglobin of 11.0. This is chronic for the patient. Patient has a mildly elevated BUN/creatinine, creatinine of 1.68 she does have a history of the setting of CK D. Patient is hypomagnesemic at 1.1 which will be replenished. Troponin is indeterminate at 0.031 which is likely secondary to his BNP being elevated to 12,900. On reevaluation I updated the patient. Vital signs remained within normal limits. Patient remains asymptomatic in terms of chest pain with mild shortness of breath at rest. No hypoxia. I would like to admit him for his CHF exacerbation. He was in agreement this plan. Patient is normally admitted to Dr. Saavedra, who is being covered by EMS. Therefore we contacted [facility] initially at 0047. Patient was admitted in stable condition to telemetry bed. MARQUIS Gilbert accepted the admission. - Lab Data Result diagrams: 01/17/22 22:45 01/17/22 22:45 Lab Results 01/17/22 01/17/22 01/17/22 Range/Units 22:45 22:45 22:45 WBC 7.6 (3.8-10.6) k/uL RBC 3.41 L (4.30-5.90) m/uL Hgb 11.0 L (13.0-17.5) gm/dL Hct 34.9 L (39.0-53.0) % MCV 102.2 H (80.0-100.0) fL MCH 32.2 (25.0-35.0) pg MCHC 31.5 (31.0-37.0) g/dL RDW 15.2 (11.5-15.5) % Plt Count 250 (150-450) k/uL MPV 9.0 Neutrophils % 81 % Lymphocytes % 8 % Monocytes % 8 % Eosinophils % 2 % Basophils % 1 % Neutrophils # 6.1 (1.3-7.7) k/uL Lymphocytes # 0.6 L (1.0-4.8) k/uL Monocytes # 0.6 (0-1.0) k/uL Eosinophils # 0.1 (0-0.7) k/uL Basophils # 0.1 (0-0.2) k/uL Hypochromasia Slight Macrocytosis Slight PT 10.9 (9.0-12.0) sec INR 1.0 (<1.2) APTT 28.7 (22.0-30.0) sec Sodium 138 (137-145) mmol/L Potassium 3.8 (3.5-5.1) mmol/L Chloride 99 (98-107) mmol/L Carbon Dioxide 19 L (22-30) mmol/L Anion Gap 20 mmol/L BUN 41 H (9-20) mg/dL Creatinine 1.68 H (0.66-1.25) mg/dL Est GFR (CKD-EPI)AfAm 47 (>60 ml/min/1.73 sqM) Est GFR (CKD-EPI)NonAf 41 (>60 ml/min/1.73 sqM) Glucose 90 (74-99) mg/dL Calcium 9.3 (8.4-10.2) mg/dL Magnesium 1.1 L (1.6-2.3) mg/dL Total Bilirubin 0.5 (0.2-1.3) mg/dL AST 35 (17-59) U/L ALT 19 (4-49) U/L Alkaline Phosphatase 186 H (38-126) U/L Troponin I (0.000-0.034) ng/mL NT-Pro-B Natriuret Pep pg/mL Total Protein 7.0 (6.3-8.2) g/dL Albumin 4.3 (3.5-5.0) g/dL 01/17/22 01/17/22 Range/Units 22:45 22:45 WBC (3.8-10.6) k/uL RBC (4.30-5.90) m/uL Hgb (13.0-17.5) gm/dL Hct (39.0-53.0) % MCV (80.0-100.0) fL MCH (25.0-35.0) pg MCHC (31.0-37.0) g/dL RDW (11.5-15.5) % Plt Count (150-450) k/uL MPV Neutrophils % % Lymphocytes % % Monocytes % % Eosinophils % % Basophils % % Neutrophils # (1.3-7.7) k/uL Lymphocytes # (1.0-4.8) k/uL Monocytes # (0-1.0) k/uL Eosinophils # (0-0.7) k/uL Basophils # (0-0.2) k/uL Hypochromasia Macrocytosis PT (9.0-12.0) sec INR (<1.2) APTT (22.0-30.0) sec Sodium (137-145) mmol/L Potassium (3.5-5.1) mmol/L Chloride (98-107) mmol/L Carbon Dioxide (22-30) mmol/L Anion Gap mmol/L BUN (9-20) mg/dL Creatinine (0.66-1.25) mg/dL Est GFR (CKD-EPI)AfAm (>60 ml/min/1.73 sqM) Est GFR (CKD-EPI)NonAf (>60 ml/min/1.73 sqM) Glucose (74-99) mg/dL Calcium (8.4-10.2) mg/dL Magnesium (1.6-2.3) mg/dL Total Bilirubin (0.2-1.3) mg/dL AST (17-59) U/L ALT (4-49) U/L Alkaline Phosphatase (38-126) U/L Troponin I 0.031 (0.000-0.034) ng/mL NT-Pro-B Natriuret Pep 32266 pg/mL Total Protein (6.3-8.2) g/dL Albumin (3.5-5.0) g/dL - EKG Data -: EKG Interpreted by Me EKG Comments: 12-lead Electrocardiogram Interpretation Note EKG was reviewed and interpreted by myself. 12-lead ECG performed at 2234 is interpreted by me as revealing atrial fibrillation with PVC at a rate of 68 beats per minute. Right axis deviation. QRS duration is 102 ms, QTc is 443 ms.. There were no acute ST or T wave abnormalities to suggest myocardial ischemia or injury. There are chronic T wave inversions in the inferior lateral distribution seen on prior EKGs from December 2021 and January 2020. R wave progression across the precordium was satisfactory. By my interpretation this EKG is non-diagnostic for acute ischemia. Disposition Clinical Impression: CHF exacerbation, Hypomagnesemia Disposition: ADMITTED IP TO THIS HOSP Condition: Stable Time of Disposition: 00:10
[2022-01-17 23:11] LABS: Basophils # (A) 0.1 k/uL (0-0.2); Basophils % (A) 1 %; Eosinophils # (A) 0.1 k/uL (0-0.7); Eosinophils % (A) 2 %; HCT 34.9 % (39.0-53.0); Hypochromasia Slight; Lymphocytes # (A) 0.6 k/uL (1.0-4.8); Lymphocytes % (A) 8 %; MCH 32.2 pg (25.0-35.0); MCHC 31.5 g/dL (31.0-37.0); MCV 102.2 fL (80.0-100.0); Macrocytosis Slight; Monocytes # (A) 0.6 k/uL (0-1.0); Monocytes % (A) 8 %; Neutrophils # (A) 6.1 k/uL (1.3-7.7); Neutrophils % (A) 81 %; Platelet Count 250 k/uL (150-450); RBC 3.41 m/uL (4.30-5.90); RDW 15.2 % (11.5-15.5); WBC 7.6 k/uL (3.8-10.6)
[2022-01-17 23:21] LABS: Albumin 4.3 g/dL (3.5-5.0); Calcium 9.3 mg/dL (8.4-10.2); Magnesium 1.1 mg/dL (1.6-2.3); Potassium 3.8 mmol/L (3.5-5.1); Total Bilirubin 0.5 mg/dL (0.2-1.3)
[2022-01-17 23:26] LABS: Partial Thromboplastin Time 28.7 sec (22.0-30.0); Prothrombin Time 10.9 sec (9.0-12.0)
[2022-01-18] MEDS ORDERED: NALOXONE 0.4 MG/ML 1 ML VIAL IV PRN (00:36)
[2022-01-18] MEDS: MAGNESIUM SULFATE-D5W PMX 1 GM in DEXTROSE/WATER 1 100ML.BAG IVPB SCH ×2 (03:08→04:01)
[2022-01-18 07:20] LABS: Glucose,Whole Blood 119 mg/dL (70-110)
[2022-01-18] MEDS: ATORVASTATIN 40 MG TAB PO SCH (09:23)
[2022-01-18] MEDS: LOSARTAN 50 MG TAB PO SCH (09:23)
[2022-01-18] MEDS: hydrALAZINE HCL 25 MG TAB PO SCH ×3 (09:23→21:40)
[2022-01-18] MEDS: metFORMIN 500 MG TAB PO SCH ×2 (09:23→21:39)
[2022-01-18] MEDS: FUROSEMIDE 10 MG/ML 4 ML VIAL IV SCH ×2 (09:23→21:39)
[2022-01-18] MEDS: amLODIPine 10 MG TAB PO SCH (09:23)
[2022-01-18] MEDS: APIXABAN 5 MG TAB PO SCH ×2 (09:23→21:39)
[2022-01-18] MEDS: ISOSORBIDE MONONITRATE ER 30 MG TAB.ER.24H PO SCH (09:23)
--- NOTE | 2022-01-18 10:15 | P.CRDCN ---
History of Present Illness History of present illness: HISTORY OF PRESENT ILLNESS: This is a 71-year-old male with a past medical history significant for chronic atrial fibrillation, coronary artery disease with previous stenting, congestive heart failure, valvular heart disease, nicotine dependence, and alcohol abuse. Patient follows in the office with Dr. Sharp. We have been asked to see the patient in consultation for CHF. Patient examined at the bedside. Patient reports increased SOB and lower extremity edema. He states his symptoms have been present for about a week. He reports he has been compliant with all his medications. However he reports he is not very compliant with a low-sodium diet. He continues to smoke a few cigarettes per day. He also reports drinking a few beers daily. The patient was started on IV Lasix. He reports his symptoms are improved but not back to his baseline. * EKG reveals atrial fibrillation with controlled ventricular rate * Chest xray congestive heart failure * Laboratory data: W BC 7.6. Hemoglobin 11.0. Platelet count 250. Sodium 138. Potassium 3.8. BUN 41. Creatinine 1.68. Troponin negative 3. ProBNP 12,900. * Current home cardiac medications include Eliquis 5mg BID, Lipitor 40 mg daily, Lasix 60 mg twice a day, Imdur 30 mg daily, losartan 50 mg daily, Norvasc 10 mg daily, hydralazine 25 mg 3 times a day, and Zaroxolyn 2.5 mg every 48 hours * Most recent echocardiogram obtained in January 2020 revealed ejection fraction 55-60%, severe MR, severe TR, moderate to severe pulmonary hypertension * Cardiac catheterization history: January 2020 with stenting of the left circumflex REVIEW OF SYSTEMS: At the time of my exam: CONSTITUTIONAL: Denies fever or chills. HEENT: Denies blurred vision, vision changes, or eye pain. Denies hemoptysis CARDIOVASCULAR: Denies chest pain. Denies orthopnea. Denies PND. Denies pal pitations RESPIRATORY: + shortness of breath. GASTROINTESTINAL: Denies abdominal pain. Denies nausea or vomiting. HEMATOLOGIC: Denies bleeding disorders. GENITOURINARY: Denies any blood in urine. SKIN: Denies pruitis. Denies rash. PHYSICAL EXAM: VITAL SIGNS: Reviewed. GENERAL: Well-developed in no acute distress. HEENT: Head is normocephalic. Pupils are equal, round. Sclerae anicteric. Mucous membranes of the mouth are moist. Neck supple. No JVD or thyromegaly LUNGS: Respirations even and unlabored. Lungs diminished with rhonchi present HEART: Irregular rate and rhythm. S1 and S2 heard. Systolic murmur noted. ABDOMEN: Soft. Nondistended. Nontender. EXTREMITIES: Normal range of motion. No clubbing or cyanosis. Peripheral pulses intact. 1+ bilateral lower extremity edema NEUROLOGIC: Awake and alert. Oriented x 3. ASSESSMENT: Shortness of breath Acute on chronic heart failure with preserved ejection fraction Acute kidney injury Chronic atrial fibrillation Coronary artery disease with previous stenting Valvular heart disease Nicotine dependence Alcohol abuse PLAN: Obtain 2-D echo to assess cardiac structure and function Repeat BMP. If creatinine remains elevated, will hold nephrotoxic agents Continue IV Lasix Daily weights Accurate I&O Further recommendations pending patient's course Nurse practitioner note has been reviewed by physician. Signing provider agrees with the documented findings, assessment, and plan of care. Past Medical History Past Medical History: Atrial Fibrillation, Coronary Artery Disease (CAD), Heart Failure, COPD, Diabetes Mellitus, GERD/Reflux, GI Bleed, Hypertension, Osteoarthritis (OA), Pneumonia, Renal Disease, Rheumatoid Arthritis (RA) Additional Past Medical History / Comment(s): gi bleed, anemia, restless leg syndrome, alcoholism, kidney injury Last Myocardial Infarction Date:: 2013 History of Any Multi-Drug Resistant Organisms: None Reported Past Surgical History: Heart Catheterization With Stent, Orthopedic Surgery Additional Past Surgical History / Comment(s): 06/04/13 angioplasty with stent to LAD, Stent -(R) radial approach 06/07/13 JOLIE, bone spur rt elbow removed, L elbow surgery, bilateral cataract surgery. Past Anesthesia/Blood Transfusion Reactions: No Reported Reaction Additional Past Anesthesia/Blood Transfusion Reaction / Comment(s): Pt has never recieved blood. Date of Last Stent Placement:: 01/18/2020 Past Psychological History: No Psychological Hx Reported Smoking Status: Current every day smoker - Past Family History Father Family Medical History: Cancer Additional Family Medical History / Comment(s): Father of prostate cancer at age 65yrs. Mother Family Medical History: Coronary Artery Disease (CAD) Additional Family Medical History / Comment(s): Mother had CABG. She of CHF at age 73 yrs. Brother(s) Family Medical History: Coronary Artery Disease (CAD) Additional Family Medical History / Comment(s): Patient has 2 brothers and one has history of myocardial infarction and five-vessel CABG, one has history of prostate cancer. Sister(s) Family Medical History: Coronary Artery Disease (CAD), Myocardial Infarction ([place]) Additional Family Medical History / Comment(s): Patient has 2 sisters and one has history of myocardial infarction. Daughter(s) Family Medical History: No Reported History Additional Family Medical History / Comment(s): Patient has a total of 3 children with no major medical problems. Son(s) Family Medical History: No Reported History Medications and Allergies Home Medications Medication Instructions Recorded Confirmed Type Atorvastatin [Lipitor] 40 mg PO DAILY 04/01/14 01/18/22 History Isosorbide Mononitrate [Imdur] 30 mg PO DAILY 04/01/14 01/18/22 History amLODIPine [Norvasc] 10 mg PO DAILY 01/11/15 01/18/22 History Potassium Chloride ER [K-Dur 20] 20 meq PO HS 10/06/19 01/18/22 History Pramipexole [Mirapex] 1 mg PO HS 10/06/19 01/18/22 History hydrALAZINE HCL [Apresoline] 25 mg PO TID 10/06/19 01/18/22 History Acetaminophen [Tylenol Arthritis] 1,300 tab PO BID 01/14/20 01/18/22 History metOLazone [Zaroxolyn] 2.5 mg PO Q48H 01/14/20 01/18/22 History traZODone HCL 50 mg PO HS PRN 02/06/20 01/18/22 History Ferrous Sulfate [Iron (65 MG 325 mg PO BID 12/22/21 01/18/22 History Elemental)] Omeprazole 20 mg PO DAILY 12/22/21 01/18/22 History Apixaban [Eliquis] 5 mg PO BID #60 tab 12/24/21 01/18/22 Rx Furosemide [Lasix] 60 mg PO BID #60 12/24/21 01/18/22 Rx Losartan [Cozaar] 50 mg PO DAILY #30 tab 12/24/21 01/18/22 Rx Cetirizine HCl [Zyrtec] 10 mg PO DAILY 01/18/22 01/18/22 History Colchicine [Colcrys] 0.6 mg PO DAILY 01/18/22 01/18/22 History HYDROcodone/APAP 5-325MG [Mathis 1 tab PO Q6H PRN 01/18/22 01/18/22 History 5-325] allopurinoL [Zyloprim] 300 mg PO DAILY 01/18/22 01/18/22 History diphenhydrAMINE [Benadryl] 25 mg PO BID 01/18/22 01/18/22 History metFORMIN HCL 1,000 mg PO BID 01/18/22 01/18/22 History Allergies Allergy/AdvReac Type Severity Reaction Status Date / Time No Known Allergies Allergy Verified 01/17/22 21:11 Physical Exam Vitals: Vital Signs Temp Pulse Pulse Resp BP BP Pulse Ox 01/18/22 07:00 97.5 F L 55 L 14 142/66 96 01/18/22 03:30 22 01/18/22 02:07 97.5 F L 61 20 138/56 99 01/18/22 01:10 55 L 16 118/70 96 01/18/22 00:40 56 L 17 127/62 97 01/17/22 23:00 68 21 145/77 99 01/17/22 21:07 97.7 F 76 18 150/52 99 Intake and Output 01/17/22 01/18/22 01/18/22 22:59 06:59 14:59 Output Total 200 Balance -200 Output: Urine 200 Other: # Voids 1 Weight 73.028 kg 76.612 kg Results 01/17/22 22:45 01/17/22 22:45 Cardiac Enzymes 01/17/22 01/17/22 01/18/22 Range/Units 22:45 22:45 02:53 AST 35 (17-59) U/L Troponin I 0.031 0.031 (0.000-0.034) ng/mL Coagulation 01/17/22 Range/Units 22:45 PT 10.9 (9.0-12.0) sec APTT 28.7 (22.0-30.0) sec CBC 01/17/22 Range/Units 22:45 WBC 7.6 (3.8-10.6) k/uL RBC 3.41 L (4.30-5.90) m/uL Hgb 11.0 L (13.0-17.5) gm/dL Hct 34.9 L (39.0-53.0) % Plt Count 250 (150-450) k/uL Comprehensive Metabolic Panel 01/17/22 Range/Units 22:45 Sodium 138 (137-145) mmol/L Potassium 3.8 (3.5-5.1) mmol/L Chloride 99 (98-107) mmol/L Carbon Dioxide 19 L (22-30) mmol/L BUN 41 H (9-20) mg/dL Creatinine 1.68 H (0.66-1.25) mg/dL Glucose 90 (74-99) mg/dL Calcium 9.3 (8.4-10.2) mg/dL AST 35 (17-59) U/L ALT 19 (4-49) U/L Alkaline Phosphatase 186 H (38-126) U/L Total Protein 7.0 (6.3-8.2) g/dL Albumin 4.3 (3.5-5.0) g/dL Current Medications Generic Name Dose Route Start Last Admin Trade Name Freq PRN Reason Stop Dose Admin Amlodipine Besylate 10 mg 01/18/22 09:00 Amlodipine 10 Mg Tab PO DAILY [facility] Apixaban 5 mg 01/18/22 09:00 Apixaban 5 Mg Tab PO BID [facility] Protocol Atorvastatin Calcium 40 mg 01/18/22 09:00 Atorvastatin 40 Mg Tab PO DAILY [facility] Furosemide 40 mg 01/18/22 09:00 Furosemide 10 Mg/Ml 4 Ml Vial IV Q12HR [facility] Hydralazine HCl 25 mg 01/18/22 09:00 Hydralazine Hcl 25 Mg Tab PO TID [facility] Isosorbide Mononitrate 30 mg 01/18/22 09:00 Isosorbide Mononitrate Er 30 Mg Tab.Er.24h PO DAILY [facility] Losartan Potassium 50 mg 01/18/22 09:00 Losartan 50 Mg Tab PO DAILY [facility] Metformin HCl 1,000 mg 01/18/22 09:00 Metformin 500 Mg Tab PO BID [facility] Naloxone HCl 0.2 mg 01/18/22 00:36 Naloxone 0.4 Mg/Ml 1 Ml Vial IV Q2M PRN Opioid Reversal Intake and Output 01/17/22 01/18/22 01/18/22 22:59 06:59 14:59 Output Total 200 Balance -200 Output: Urine 200 Other: # Voids 1 Weight 73.028 kg 76.612 kg 01/17/22 22:45 01/17/22 22:45
[2022-01-18 11:41] LABS: Glucose,Whole Blood 172 mg/dL (70-110)
[2022-01-18 11:45] LABS: African American GFR (CKD) 58 (>60 ml/min/1.73 sqM); Anion Gap 12 mmol/L; Blood Urea Nitrogen 44 mg/dL (9-20); Calcium 8.7 mg/dL (8.4-10.2); Carbon Dioxide 27 mmol/L (22-30); Chloride 99 mmol/L (98-107); Glucose 172 mg/dL (74-99); Non-African American GFR(CKD) 50 (>60 ml/min/1.73 sqM); Potassium 3.8 mmol/L (3.5-5.1); Sodium 138 mmol/L (137-145)
--- NOTE | 2022-01-18 13:19 | CA ---
Transthoracic Echo Report Name: Ricco Cordova Age: 71 Gender: M : 1950 Exam Date: 01/18/2022 07:41 Exam Location: [facility] Ht (in): 73 Wt (lb): 161 Ordering Physician: Luis Mora MD Attending/Referring Phys: Senior Recruiter Kelly Best RDCS Procedure CPT: Indications: chf Cardiac Hx: Cad Technical Quality: Good Contrast 1: Total Dose (mL): Contrast 2: Total Dose (mL): MEASUREMENTS (Male / Female) Normal Values 2D ECHO LV Diastolic Diameter PLAX 4.7 cm 4.2 - 5.9 / 3.9 - 5.3 cm LV Systolic Diameter PLAX 3.9 cm IVS Diastolic Thickness 1.3 cm 0.6 - 1.0 / 0.6 - 0.9 cm LVPW Diastolic Thickness 1.3 cm 0.6 - 1.0 / 0.6 - 0.9 cm LV Relative Wall Thickness 0.6 RV Internal Dim ED PLAX 3.6 cm LVOT Diameter 1.9 cm LV Diastolic Volume MOD BP 223.0 cm??? 67 - 155 / 56 - 104 cm??? LV Systolic Volume MOD BP 83.5 cm??? 22 - 58 / 19 - 49 cm??? LV Ejection Fraction MOD BP 62.6 % >= 55 % LV Diastolic Volume MOD 4C 197.0 cm??? LV Systolic Volume MOD 4C 63.8 cm??? LV Ejection Fraction MOD 4C 67.6 % LV Diastolic Length 4C 10.9 cm LV Systolic Length 4C 8.4 cm LV Diastolic Volume MOD 2C 252.1 cm??? LV Systolic Volume MOD 2C 101.8 cm??? LV Ejection Fraction MOD 2C 59.6 % LV Diastolic Length 2C 10.9 cm LV Systolic Length 2C 9.3 cm LA Volume 88.7 cm??? 18 - 58 / 22 - 52 cm??? M-MODE Aortic Root Diameter MM 3.5 cm LA Systolic Diameter MM 4.5 cm LA Ao Ratio MM 1.3 MV E Point Septal Separation 1.0 cm AV Cusp Separation MM 2.6 cm DOPPLER AV Peak Velocity 203.7 cm/s AV Peak Gradient 16.6 mmHg AV Mean Velocity 132.9 cm/s AV Mean Gradient 8.2 mmHg AV Velocity Time Integral 47.2 cm AI Peak Velocity 399.4 cm/s AI Peak Gradient 63.8 mmHg AI Pressure Half Time 355.0 ms LVOT Peak Velocity 82.0 cm/s LVOT Peak Gradient 2.7 mmHg AV Area Cont Eq pk 1.1 cm??? MR Peak Velocity 568.9 cm/s MR Peak Gradient 129.5 mmHg TR Peak Velocity 379.4 cm/s TR Peak Gradient 57.6 mmHg Right Ventricular Systolic Press 76.1 mmHg FINDINGS Left Ventricle Mildly increased septal wall thickness. Moderately increased left ventricular diastolic volume. Moderately increased left ventricular systolic volume. Left ventricular ejection fraction is estimated at 55-60 %. Right Ventricle Severe pulmonary hypertension. Moderate right ventricular dilatation. Right Atrium Normal right atrial size. Left Atrium Severely increased left atrial volume. Mildly increased left atrial area. Mitral Valve Mitral valve thickened. Severe mitral regurgitation. Aortic Valve Mild aortic stenosis with a peak gradient of 16 mmHg and a mean gradient of 8 mmHg. Moderate to severe aortic regurgitation. Tricuspid Valve Severe tricuspid regurgitation. Pulmonic Valve Structurally normal pulmonic valve. Pericardium No pericardial effusion. Aorta Normal size aortic root and proximal ascending aorta. CONCLUSIONS Mild LVH Moderately dilated left ventricle. Left ventricular EF 55-60% Moderate to severe aortic regurgitation Mild aortic stenosis Severe mitral regurgitation. Consider JOLIE if clinically indicated. Severe tricuspid regurgitation. Pulmonary hypertension, RVSP 76 Previewed by: Dr. Mariusz Cancino DO (Electronically Signed) Final Date: 18 January 2022 13:18
[2022-01-18] MEDS ORDERED: ACETAMINOPHEN TAB 325 MG TAB PO STA (16:35)
[2022-01-18 17:24] LABS: Glucose,Whole Blood 156 mg/dL (70-110)
[2022-01-18] MEDS: allopurinoL 300 MG TAB PO SCH (17:41)
[2022-01-18] MEDS: HYDROcodone/APAP 5-325MG 1 EACH TAB PO PRN (17:41)
[2022-01-18] MEDS: COLCHICINE 0.6 MG EACH PO SCH (17:51)
[2022-01-18 20:39] LABS: Glucose,Whole Blood 194 mg/dL (70-110)
[2022-01-18] MEDS: PRAMIPEXOLE 1 MG TAB PO SCH (21:39)
[2022-01-18] MEDS: diphenhydrAMINE 25 MG CAP PO SCH (21:39)
[2022-01-18] MEDS: POTASSIUM CHLORIDE ER 20 MEQ TAB.ER PO SCH (21:40)
[2022-01-18] MEDS: FERROUS SULFATE 325 MG TAB PO SCH (21:40)
[2022-01-18] MEDS: traZODone HCL 50 MG TAB PO PRN (21:47)
[2022-01-19 07:33] LABS: Glucose,Whole Blood 137 mg/dL (70-110)
[2022-01-19] MEDS: amLODIPine 10 MG TAB PO SCH (08:08)
[2022-01-19] MEDS: allopurinoL 300 MG TAB PO SCH (08:08)
[2022-01-19] MEDS: APIXABAN 5 MG TAB PO SCH ×2 (08:08→19:49)
[2022-01-19] MEDS: ATORVASTATIN 40 MG TAB PO SCH (08:08)
[2022-01-19] MEDS: ISOSORBIDE MONONITRATE ER 30 MG TAB.ER.24H PO SCH (08:08)
[2022-01-19] MEDS: FERROUS SULFATE 325 MG TAB PO SCH ×2 (08:08→19:49)
[2022-01-19] MEDS: LOSARTAN 50 MG TAB PO SCH (08:08)
[2022-01-19] MEDS: diphenhydrAMINE 25 MG CAP PO SCH ×2 (08:08→19:49)
[2022-01-19] MEDS: LORATADINE 10 MG TAB PO SCH (08:08)
[2022-01-19] MEDS: hydrALAZINE HCL 25 MG TAB PO SCH ×3 (08:09→19:49)
[2022-01-19] MEDS: metFORMIN 500 MG TAB PO SCH ×2 (08:09→19:49)
[2022-01-19] MEDS: PANTOPRAZOLE 40 MG TABLET PO SCH (08:09)
[2022-01-19 08:34] LABS: Basophils # (A) 0.11 X 10*3/uL (0.00-0.10); Basophils % (A) 1.2 %; Eosinophils % (A) 1.1 %; HCT 31.6 % (39.6-50.0); HGB 10.2 g/dL (13.0-17.0); Immature Grans, Automated 0.6 %; Lymphocytes # (A) 0.51 X 10*3/uL (0.90-5.00); Lymphocytes % (A) 5.6 %; MCH 32.3 pg (27.0-32.0); MCHC 32.3 g/dL (32.0-37.0); Mean Platelet Volume 10.3 fL (9.5-12.2); Monocytes # (A) 0.75 X 10*3/uL (0.20-1.00); Monocytes % (A) 8.3 %; NRBC Per 100 WBC 0 /100 WBCS (0.0-0.0); Neutrophils # (A) 7.56 X 10*3/uL (1.80-7.70); Neutrophils % (A) 83.2 %; Platelet Count 219 X 10*3/uL (140-440); RBC 3.16 X 10*6/uL (4.40-5.60); RDW 15.8 % (11.5-14.5); WBC 9.08 X 10*3/uL (4.50-10.00)
--- NOTE | 2022-01-19 08:56 | P.PN ---
Subjective Progress Note Date: 01/19/22 This is Papa Alcantara NP, I'm dictating on behalf of Dr. Carney's H&P and A&P. Patient was interviewed and examined. Patient is a pleasant 71-year-old male who initially presented to hospital with a CHF exacerbation. Patient reports today that he slept poorly, but states that this is been the way he slept for a long time. He states that his breathing feels worse, and he is on oxygen now. GENERAL: Well-appearing, well-nourished and in no acute distress. NECK: Supple without JVD or thyromegaly. LUNGS: Breath sounds demonstrate mild crackles in the bilateral lower bases posteriorly. Respiration equal and unlabored. No wheezes, rales or rhonchi. HEART: Regular rate and rhythm with a systolic murmur, no rubs or gallops. S1 and S2 heard. EXTREMITIES: Normal range of motion, no edema. No clubbing or cyanosis. Peripheral pulses intact and strong. VITALS: Temp 98.0, pulse 75, respirations 20, blood pressure 164/55, O2 saturation 88% on room air TELEMETRY: Normal sinus rhythm LABS: White count 9.0, hemoglobin 10.2, platelets 219, sodium 138, potassium 3.8, BUN 44, creatinine 1.41, magnesium 1.6, BNP 12,900 IMPRESSION: 1. Acute exacerbation of congestive heart failure 2. CKD 3. Severe pulmonary hypertension 4. EF 55-60% PLAN: Discontinue IV Lasix. Start oral Lasix 80 mg twice a day. Continue daily weights and strict intake and output. 2-D echo demonstrates severe pulmonary hypertension, preserved ejection fraction. Repeat BMP, BNP. Further recommendations based on patient's clinical course. Objective - Vital Signs Vital signs: Vital Signs Temp 98 F 01/19/22 07:00 Pulse 75 01/19/22 07:00 Resp 20 01/19/22 07:00 BP 164/55 01/19/22 07:00 Pulse Ox 88 L 01/19/22 07:00 FiO2 Intake & Output 01/18/22 01/19/22 01/19/22 18:59 06:59 18:59 Intake Total 222 580 Output Total 1700 500 Balance -1478 80 Weight 76.5 kg Intake: Oral 222 580 Output: Urine 1700 500 Other: Voiding Method Urinal Urinal - Labs CBC & Chem 7: 01/19/22 06:07 01/18/22 10:54 Labs: Abnormal Lab Results - Last 24 Hours (Table) 01/18/22 01/18/22 01/18/22 Range/Units 10:54 11:40 17:22 RBC (4.40-5.60) X 10*6/uL Hgb (13.0-17.0) g/dL Hct (39.6-50.0) % MCV (80.0-97.0) fL MCH (27.0-32.0) pg RDW (11.5-14.5) % Immature Gran # (0.00-0.04) X 10*3/uL Lymphocytes # (0.90-5.00) X 10*3/uL Basophils # (0.00-0.10) X 10*3/uL BUN 44 H (9-20) mg/dL Creatinine 1.41 H (0.66-1.25) mg/dL Glucose 172 H (74-99) mg/dL POC Glucose (mg/dL) 172 H 156 H (70-110) mg/dL 01/18/22 01/19/22 01/19/22 Range/Units 20:36 06:07 07:33 RBC 3.16 L (4.40-5.60) X 10*6/uL Hgb 10.2 L (13.0-17.0) g/dL Hct 31.6 L (39.6-50.0) % MCV 100.0 H (80.0-97.0) fL MCH 32.3 H (27.0-32.0) pg RDW 15.8 H (11.5-14.5) % Immature Gran # 0.05 H (0.00-0.04) X 10*3/uL Lymphocytes # 0.51 L (0.90-5.00) X 10*3/uL Basophils # 0.11 H (0.00-0.10) X 10*3/uL BUN (9-20) mg/dL Creatinine (0.66-1.25) mg/dL Glucose (74-99) mg/dL POC Glucose (mg/dL) 194 H 137 H (70-110) mg/dL
[2022-01-19] MEDS: FUROSEMIDE 80 MG TAB PO SCH ×2 (09:06→16:45)
[2022-01-19] MEDS: COLCHICINE 0.6 MG EACH PO SCH (09:06)
[2022-01-19 09:32] LABS: African American GFR (CKD) 64.1 (60.0-200.0); Anion Gap 14.3 mmol/L (10.00-18.00); BUN/Creat Ratio 32.08 Ratio (12.00-20.00); Blood Urea Nitrogen 41.7 mg/dL (9.0-27.0); Calcium 9.3 mg/dL (8.7-10.3); Carbon Dioxide 23.7 mmol/L (20.0-27.5); Non-African American GFR(CKD) 55.3 (60.0-200.0)
[2022-01-19 12:10] LABS: Glucose,Whole Blood 138 mg/dL (70-110)
[2022-01-19] MEDS: HYDROcodone/APAP 5-325MG 1 EACH TAB PO PRN (16:44)
[2022-01-19 17:25] LABS: Glucose,Whole Blood 212 mg/dL (70-110)
--- NOTE | 2022-01-19 18:51 | P.HPIM ---
History of Present Illness H&P Date: 01/18/22 Chief Complaint: Chest pain/difficulty breathing 71-year-old male with past medical history remarkable for CHF, atrial fibrillation on Eliquis, COPD, diabetes, hypertension who presents emergency Department complaining of a multi day history, approximately 3 days total, wors ening exertional dyspnea with intermittent chest pain. No current chest pain. The chest pain is present, it is substernal in nature. Difficult to qualify otherwise. Endorses minimal nonproductive cough. Endorses chronic orthopnea. Denies PND. Denies a belt pain, nausea, vomiting. Denies any fevers or chills. Endorses worsening lower extremity swelling. Has been compliant with medications but believes he requires more diuretics. Presents for further evaluation at this time. EKG shows chronic atrial fibrillation with no signs of acute ischemia or changes. Chest x-ray shows CHF changes.Laboratory studies are remarkable for a macrocytic anemia with a hemoglobin of 11.0. This is chronic for the patient. Patient has a mildly elevated BUN/creatinine, creatinine of 1.68 she does have a history of the setting of CK D. Patient is hypomagnesemic at 1.1 which will be replenished. Troponin is indeterminate at 0.031 which is likely secondary to his BNP being elevated to 12,900. Review of Systems REVIEW OF SYSTEMS: CONSTITUTIONAL: No fever, no malaise, no fatigue. HEENT: No recent visual problems or hearing problems. Denied any sore throat. CARDIOVASCULAR: No chest pain, orthopnea, PND, no palpitations, no syncope. PULMONARY: No shortness of breath, no cough, no hemoptysis. GASTROINTESTINAL: No diarrhea, no nausea, no vomiting, no abdominal pain. NEUROLOGICAL: No headaches, no weakness, no numbness. HEMATOLOGICAL: Denies any bleeding or petechiae. GENITOURINARY: Denies any burning micturition, frequency, or urgency. MUSCULOSKELETAL/RHEUMATOLOGICAL: Denies any joint pain, swelling, or any muscle pain. ENDOCRINE: Denies any polyuria or polydipsia. The rest of the 14-point review of systems is negative. Past Medical History Past Medical History: Atrial Fibrillation, Coronary Artery Disease (CAD), Heart Failure, COPD, Diabetes Mellitus, GERD/Reflux, GI Bleed, Hypertension, Osteoarthritis (OA), Pneumonia, Renal Disease, Rheumatoid Arthritis (RA) Additional Past Medical History / Comment(s): gi bleed, anemia, restless leg syndrome, alcoholism, kidney injury Last Myocardial Infarction Date:: 2013 History of Any Multi-Drug Resistant Organisms: None Reported Past Surgical History: Heart Catheterization With Stent, Orthopedic Surgery Additional Past Surgical History / Comment(s): 06/04/13 angioplasty with stent to LAD, Stent -(R) radial approach 06/07/13 JOLIE, bone spur rt elbow removed, L elbow surgery, bilateral cataract surgery. Past Anesthesia/Blood Transfusion Reactions: No Reported Reaction Additional Past Anesthesia/Blood Transfusion Reaction / Comment(s): Pt has never recieved blood. Date of Last Stent Placement:: 01/18/2020 Past Psychological History: No Psychological Hx Reported Smoking Status: Current every day smoker - Past Family History Father Family Medical History: Cancer Additional Family Medical History / Comment(s): Father of prostate cancer at age 65yrs. Mother Family Medical History: Coronary Artery Disease (CAD) Additional Family Medical History / Comment(s): Mother had CABG. She of CHF at age 73 yrs. Brother(s) Family Medical History: Coronary Artery Disease (CAD) Additional Family Medical History / Comment(s): Patient has 2 brothers and one has history of myocardial infarction and five-vessel CABG, one has history of prostate cancer. Sister(s) Family Medical History: Coronary Artery Disease (CAD), Myocardial Infarction (NH) Additional Family Medical History / Comment(s): Patient has 2 sisters and one has history of myocardial infarction. Daughter(s) Family Medical History: No Reported History Additional Family Medical History / Comment(s): Patient has a total of 3 children with no major medical problems. Son(s) Family Medical History: No Reported History Medications and Allergies Home Medications Medication Instructions Recorded Confirmed Type Atorvastatin [Lipitor] 40 mg PO DAILY 04/01/14 01/18/22 History Isosorbide Mononitrate [Imdur] 30 mg PO DAILY 04/01/14 01/18/22 History amLODIPine [Norvasc] 10 mg PO DAILY 01/11/15 01/18/22 History Potassium Chloride ER [K-Dur 20] 20 meq PO HS 10/06/19 01/18/22 History Pramipexole [Mirapex] 1 mg PO HS 10/06/19 01/18/22 History hydrALAZINE HCL [Apresoline] 25 mg PO TID 10/06/19 01/18/22 History Acetaminophen [Tylenol Arthritis] 1,300 tab PO BID 01/14/20 01/18/22 History metOLazone [Zaroxolyn] 2.5 mg PO Q48H 01/14/20 01/18/22 History traZODone HCL 50 mg PO HS PRN 02/06/20 01/18/22 History Ferrous Sulfate [Iron (65 MG 325 mg PO BID 12/22/21 01/18/22 History Elemental)] Omeprazole 20 mg PO DAILY 12/22/21 01/18/22 History Apixaban [Eliquis] 5 mg PO BID #60 tab 12/24/21 01/18/22 Rx Furosemide [Lasix] 60 mg PO BID #60 12/24/21 01/18/22 Rx Losartan [Cozaar] 50 mg PO DAILY #30 tab 12/24/21 01/18/22 Rx Cetirizine HCl [Zyrtec] 10 mg PO DAILY 01/18/22 01/18/22 History Colchicine [Colcrys] 0.6 mg PO DAILY 01/18/22 01/18/22 History HYDROcodone/APAP 5-325MG [[place] 1 tab PO Q6H PRN 01/18/22 01/18/22 History 5-325] allopurinoL [Zyloprim] 300 mg PO DAILY 01/18/22 01/18/22 History diphenhydrAMINE [Benadryl] 25 mg PO BID 01/18/22 01/18/22 History metFORMIN HCL 1,000 mg PO BID 01/18/22 01/18/22 History Allergies Allergy/AdvReac Type Severity Reaction Status Date / Time No Known Allergies Allergy Verified 01/17/22 21:11 Physical Exam Vitals: Vital Signs Temp Pulse Pulse Resp BP BP Pulse Ox 01/18/22 08:00 55 L 14 01/18/22 07:00 97.5 F L 55 L 14 142/66 96 01/18/22 03:30 22 01/18/22 02:07 97.5 F L 61 20 138/56 99 01/18/22 01:10 55 L 16 118/70 96 01/18/22 00:40 56 L 17 127/62 97 01/17/22 23:00 68 21 145/77 99 01/17/22 21:07 97.7 F 76 18 150/52 99 Intake and Output 01/17/22 01/18/22 01/18/22 22:59 06:59 14:59 Output Total 200 1150 Balance -200 -1150 Output: Urine 200 1150 Other: Voiding Method Urinal # Voids 1 Weight 73.028 kg 76.612 kg - Constitutional General appearance: Present: average body habitus, cooperative, no acute distress - EENT Eyes: Present: anicteric sclerae, EOMI, PERRLA, normal appearance ENT: Present: hearing grossly normal, normal oropharynx Ears: bilateral: normal - Neck Neck: Present: normal ROM. Absent: lymphadenopathy, rigidity, thyromegaly Carotids: negative: bruit present Thyroid: bilateral: normal size, negative: enlarged, nodule - Respiratory Respiratory: bilateral: CTA, negative: rales, rhonchi, wheezing - Cardiovascular Rhythm: regular Heart sounds: normal: S1, S2 Abnormal Heart Sounds: Absent: systolic murmur, diastolic murmur - Gastrointestinal General gastrointestinal: Present: normal bowel sounds, soft. Absent: distended, organomegaly, tenderness - Genitourinary Genitourinary Comment(s): deferred - Integumentary Integumentary: Present: normal turgor. Absent: jaundiced, rash, ulcer - Neurologic Neurologic: Present: CNII-XII intact. Absent: focal deficits - Musculoskeletal Musculoskeletal: Present: gait normal, strength equal bilaterally - Psychiatric Psychiatric: Present: A&O x's 3, appropriate affect, intact judgment & insight Results CBC & Chem 7: 01/19/22 06:07 01/19/22 06:07 Labs: Abnormal Lab Results - Last 24 Hours (Table) 01/17/22 01/17/22 01/18/22 Range/Units 22:45 22:45 07:19 RBC 3.41 L (4.30-5.90) m/uL Hgb 11.0 L (13.0-17.5) gm/dL Hct 34.9 L (39.0-53.0) % MCV 102.2 H (80.0-100.0) fL Lymphocytes # 0.6 L (1.0-4.8) k/uL Carbon Dioxide 19 L (22-30) mmol/L BUN 41 H (9-20) mg/dL Creatinine 1.68 H (0.66-1.25) mg/dL Glucose (74-99) mg/dL POC Glucose (mg/dL) 119 H (70-110) mg/dL Magnesium 1.1 L (1.6-2.3) mg/dL Alkaline Phosphatase 186 H (38-126) U/L 01/18/22 01/18/22 Range/Units 10:54 11:40 RBC (4.30-5.90) m/uL Hgb (13.0-17.5) gm/dL Hct (39.0-53.0) % MCV (80.0-100.0) fL Lymphocytes # (1.0-4.8) k/uL Carbon Dioxide (22-30) mmol/L BUN 44 H (9-20) mg/dL Creatinine 1.41 H (0.66-1.25) mg/dL Glucose 172 H (74-99) mg/dL POC Glucose (mg/dL) 172 H (70-110) mg/dL Magnesium (1.6-2.3) mg/dL Alkaline Phosphatase (38-126) U/L Thrombosis Risk Factor Assmnt - Choose All That Apply Each Factor Represents 1 point: Abnormal pulmonary function (COPD), Heart failure (<1month) Each Risk Factor Represents 2 Points: Age 61-74 years Other congenital or acquired thrombophilia - If yes, enter type in comment: No Thrombosis Risk Factor Assessment Total Risk Factor Score: 4 Thrombosis Risk Factor Assessment Level: Moderate Risk Assessment and Plan Assessment: 1. Chest pain/history of CAD; chest pain has resolved; EKG is unremarkable; troponin remains negative; 2-D echo is ordered; await further recommendations from cardiology - Patient remains on aspirin statins and Imdur 2. Acute exacerbation CHF with preserved EF - Patient has been placed on IV Lasix; we will monitor strict ANT's and daily weights; low-salt and fluid restricted diet - 2-D echo; cardiology to evaluate and make further recommendations 3. Hypomagnesemia; supplemented in ED we will monitor I lites closely and make further recommendations; 4. Acute renal injury; we'll IV fluid hydration; monitor renal function and electrolytes closely; avoid hypotension and nephrotoxins 5. Hypertension; amlodipine 5 mg daily; hydralazine 25 mg 3 times a day; Cozaar 50 mg daily 6. Diabetes mellitus; metformin thousand milligrams twice a day; monitor Accu- Cheks before meals and at bedtime sliding scale 7. Chronic atrial fibrillation; clinically rate controlled ; continue with anticoagulation with L Eubanks 5 mg twice a day 9. hyperlipidemia ; Lipitor 40 mg daily DVT prophylaxis; SCDs CODE STATUS; full code
--- NOTE | 2022-01-19 18:52 | P.PN ---
Subjective Progress Note Date: 01/19/22 71-year-old male with past medical history remarkable for CHF, atrial fibrillation on Eliquis, COPD, diabetes, hypertension who presents emergency Department complaining of a multi day history, approximately 3 days total, worsening exertional dyspnea with intermittent chest pain. No current chest pain. The chest pain is present, it is substernal in nature. Difficult to qualify otherwise. Endorses minimal nonproductive cough. Endorses chronic orthopnea. Denies PND. Denies a belt pain, nausea, vomiting. Denies any fevers or chills. Endorses worsening lower extremity swelling. Has been compli ant with medications but believes he requires more diuretics. Presents for further evaluation at this time. EKG shows chronic atrial fibrillation with no signs of acute ischemia or changes. Chest x-ray shows CHF changes.Laboratory studies are remarkable for a macrocytic anemia with a hemoglobin of 11.0. This is chronic for the patient. Patient has a mildly elevated BUN/creatinine, creatinine of 1.68 she does have a history of the setting of CK D. Patient is hypomagnesemic at 1.1 which will be replenished. Troponin is indeterminate at 0.031 which is likely secondary to his BNP being elevated to 12,900. Objective - Vital Signs Vital signs: Vital Signs Temp 98.2 F 01/19/22 14:18 Pulse 70 01/19/22 14:18 Resp 20 01/19/22 14:18 BP 150/65 01/19/22 14:18 Pulse Ox 95 01/19/22 14:18 FiO2 Intake & Output 01/18/22 01/19/22 01/19/22 18:59 06:59 18:59 Intake Total 222 580 522 Output Total 1700 500 Balance -1478 80 522 Weight 76.5 kg Intake: Oral 222 580 522 Output: Urine 1700 500 Other: Voiding Method Urinal Urinal Urinal # Voids 1 - Exam - Constitutional General appearance: Present: average body habitus, cooperative, no acute distress - EENT Eyes: Present: anicteric sclerae, EOMI, PERRLA, normal appearance ENT: Present: hearing grossly normal, normal oropharynx Ears: bilateral: normal - Neck Neck: Present: normal ROM. Absent: lymphadenopathy, rigidity, thyromegaly Carotids: negative: bruit present Thyroid: bilateral: normal size, negative: enlarged, nodule - Respiratory Respiratory: bilateral: CTA, negative: rales, rhonchi, wheezing - Cardiovascular Rhythm: regular Heart sounds: normal: S1, S2 Abnormal Heart Sounds: Absent: systolic murmur, diastolic murmur - Gastrointestinal General gastrointestinal: Present: normal bowel sounds, soft. Absent: distended, organomegaly, tenderness - Genitourinary Genitourinary Comment(s): deferred - Integumentary Integumentary: Present: normal turgor. Absent: jaundiced, rash, ulcer - Neurologic Neurologic: Present: CNII-XII intact. Absent: focal deficits - Musculoskeletal Musculoskeletal: Present: gait normal, strength equal bilaterally - Psychiatric Psychiatric: Present: A&O x's 3, appropriate affect, intact judgment & insight - Labs CBC & Chem 7: 01/19/22 06:07 01/19/22 06:07 Labs: Abnormal Lab Results - Last 24 Hours (Table) 01/18/22 01/18/22 01/19/22 Range/Units 17:22 20:36 06:07 RBC 3.16 L (4.40-5.60) X 10*6/uL Hgb 10.2 L (13.0-17.0) g/dL Hct 31.6 L (39.6-50.0) % MCV 100.0 H (80.0-97.0) fL MCH 32.3 H (27.0-32.0) pg RDW 15.8 H (11.5-14.5) % Immature Gran # 0.05 H (0.00-0.04) X 10*3/uL Lymphocytes # 0.51 L (0.90-5.00) X 10*3/uL Basophils # 0.11 H (0.00-0.10) X 10*3/uL BUN (9.0-27.0) mg/dL Est GFR (CKD-EPI)NonAf (60.0-200.0) BUN/Creatinine Ratio (12.00-20.00) Ratio Glucose (70-110) mg/dL POC Glucose (mg/dL) 156 H 194 H (70-110) mg/dL 01/19/22 01/19/22 01/19/22 Range/Units 06:07 07:33 12:06 RBC (4.40-5.60) X 10*6/uL Hgb (13.0-17.0) g/dL Hct (39.6-50.0) % MCV (80.0-97.0) fL MCH (27.0-32.0) pg RDW (11.5-14.5) % Immature Gran # (0.00-0.04) X 10*3/uL Lymphocytes # (0.90-5.00) X 10*3/uL Basophils # (0.00-0.10) X 10*3/uL BUN 41.7 H (9.0-27.0) mg/dL Est GFR (CKD-EPI)NonAf 55.3 L (60.0-200.0) BUN/Creatinine Ratio 32.08 H (12.00-20.00) Ratio Glucose 133 H (70-110) mg/dL POC Glucose (mg/dL) 137 H 138 H (70-110) mg/dL Assessment and Plan Assessment: 1. Chest pain/history of CAD; chest pain has resolved; EKG is unremarkable; troponin remains negative; 2-D echo is ordered; await further recommendations from cardiology - Patient remains on aspirin statins and Imdur 2. Acute exacerbation CHF with preserved EF - Patient has been placed on IV Lasix; we will monitor strict ANT's and daily weights; low-salt and fluid restricted diet - 2-D echo; cardiology to evaluate and make further recommendations 3. Hypomagnesemia; supplemented in ED we will monitor I lites closely and make further recommendations; 4. Acute renal injury; we'll IV fluid hydration; monitor renal function and electrolytes closely; avoid hypotension and nephrotoxins 5. Hypertension; amlodipine 5 mg daily; hydralazine 25 mg 3 times a day; Cozaar 50 mg daily 6. Diabetes mellitus; metformin thousand milligrams twice a day; monitor Accu- Cheks before meals and at bedtime sliding scale 7. Chronic atrial fibrillation; clinically rate controlled ; continue with anticoagulation with L Eubanks 5 mg twice a day 9. hyperlipidemia ; Lipitor 40 mg daily DVT prophylaxis; SCDs CODE STATUS; full code
[2022-01-19] MEDS: POTASSIUM CHLORIDE ER 20 MEQ TAB.ER PO SCH (19:49)
[2022-01-19] MEDS: PRAMIPEXOLE 1 MG TAB PO SCH (19:57)
[2022-01-19 21:05] LABS: Glucose,Whole Blood 198 mg/dL (70-110)
[2022-01-19] MEDS: traZODone HCL 50 MG TAB PO PRN (22:39)
[2022-01-20 07:15] LABS: Glucose,Whole Blood 140 mg/dL (70-110)
[2022-01-20] MEDS: LOSARTAN 50 MG TAB PO SCH ×2 (07:43→11:26)
[2022-01-20] MEDS: FERROUS SULFATE 325 MG TAB PO SCH ×2 (07:43→20:28)
[2022-01-20] MEDS: PANTOPRAZOLE 40 MG TABLET PO SCH (07:43)
[2022-01-20] MEDS: APIXABAN 5 MG TAB PO SCH ×2 (07:43→20:28)
[2022-01-20] MEDS: metFORMIN 500 MG TAB PO SCH ×2 (07:43→20:28)
[2022-01-20] MEDS: ISOSORBIDE MONONITRATE ER 30 MG TAB.ER.24H PO SCH (07:43)
[2022-01-20] MEDS: allopurinoL 300 MG TAB PO SCH (07:43)
[2022-01-20] MEDS: LORATADINE 10 MG TAB PO SCH (07:43)
[2022-01-20] MEDS: FUROSEMIDE 80 MG TAB PO SCH ×2 (07:43→17:24)
[2022-01-20] MEDS: ATORVASTATIN 40 MG TAB PO SCH (07:43)
[2022-01-20] MEDS: diphenhydrAMINE 25 MG CAP PO SCH ×2 (07:43→20:28)
[2022-01-20] MEDS: amLODIPine 10 MG TAB PO SCH (07:43)
[2022-01-20] MEDS: hydrALAZINE HCL 25 MG TAB PO SCH ×3 (07:44→20:28)
[2022-01-20] MEDS: COLCHICINE 0.6 MG EACH PO SCH (07:44)
--- NOTE | 2022-01-20 11:04 | P.PN ---
Subjective Progress Note Date: 01/20/22 The patient is a 71-year-old male who initially presented to the emergency room with CHF exacerbation. He has subsequently been diuresed. The patient was interviewed and examined sitting comfortably on the side of his bed. Lung sounds have improved over the last 24 hours. GENERAL: Well-appearing, well-nourished and in no acute distress. NECK: Supple without JVD or thyromegaly. LUNGS: Breath sounds are coarse to auscultation bilaterally. Respiration equal and unlabored. Rhonchi throughout HEART: Regular rate and rhythm without murmurs, rubs or gallops. S1 and S2 heard. EXTREMITIES: Normal range of motion, no edema. No clubbing or cyanosis. Peripheral pulses intact and strong. VITALS: Blood pressure 157/42, pulse 74, respiratory rate 20, temp 98.3F, SpO2 96% on 4 L nasal cannula TELEMETRY: Sinus rhythm overnight IMPRESSION: Acute exacerbation of congestive heart failure Chronic kidney disease Severe pulmonary hypertension Hypertension PLAN: Increase losartan to 75 mg daily Continue all other cardiac medications Outpatient follow-up with primary sports editor Dr. Sharp I am dictating on behalf of Dr Philip Carney's history/physical and assessment/plan. Objective - Vital Signs Vital signs: Vital Signs Temp 98.3 F 01/20/22 07:00 Pulse 74 01/20/22 07:00 Resp 20 01/20/22 07:00 BP 157/42 01/20/22 07:00 Pulse Ox 96 01/20/22 07:00 FiO2 Intake & Output 01/19/22 01/20/22 01/20/22 18:59 06:59 18:59 Intake Total 522 300 118 Output Total 700 Balance 522 -400 118 Intake: Oral 522 300 118 Output: Urine 700 Other: Voiding Method Urinal Urinal # Voids 1 1 - Labs CBC & Chem 7: 01/19/22 06:07 01/19/22 06:07 Labs: Abnormal Lab Results - Last 24 Hours (Table) 01/19/22 01/19/22 01/19/22 Range/Units 12:06 17:23 21:03 POC Glucose (mg/dL) 138 H 212 H 198 H (70-110) mg/dL 01/20/22 Range/Units 07:12 POC Glucose (mg/dL) 140 H (70-110) mg/dL
[2022-01-20 11:49] LABS: African American GFR (CKD) 58.6 (60.0-200.0); Anion Gap 10.8 mmol/L (10.00-18.00); BUN/Creat Ratio 28.21 Ratio (12.00-20.00); Blood Urea Nitrogen 39.5 mg/dL (9.0-27.0); Carbon Dioxide 27.2 mmol/L (20.0-27.5); Non-African American GFR(CKD) 50.5 (60.0-200.0); Potassium 4.2 mmol/L (3.5-5.5)
[2022-01-20 12:32] LABS: Glucose,Whole Blood 162 mg/dL (70-110)
[2022-01-20 17:26] LABS: Glucose,Whole Blood 159 mg/dL (70-110)
--- NOTE | 2022-01-20 18:39 | P.PN ---
Subjective Progress Note Date: 01/20/22 Principal diagnosis: Acute renal injury Acute exacerbation of CHF with preserved EF 55-60% Dyspnea/hypoxia 71-year-old male with past medical history remarkable for CHF, atrial fibrillation on Eliquis, COPD, diabetes, hypertension who presents emergency Department complaining of a multi day history, approximately 3 days total, worsening exertional dyspnea with intermittent chest pain. No current chest pain. The chest pain is present, it is substernal in nature. Difficult to qualify otherwise. Endorses minimal nonproductive cough. Endorses chronic orthopnea. Denies PND. Denies a belt pain, nausea, vomiting. Denies any fevers or chills. Endorses worsening lower extremity swelling. Has been compliant with medications but believes he requires more diuretics. Presents for further evaluation at this time. EKG shows chronic atrial fibrillation with no signs of acute ischemia or changes. Chest x-ray shows CHF changes.Laboratory studies are remarkable for a macrocytic anemia with a hemoglobin of 11.0. This is chronic for the patient. Patient has a mildly elevated BUN/creatinine, creatinine of 1.68 she does have a history of the setting of CK D. Patient is hypomagnesemic at 1.1 which will be replenished. Troponin is indeterminate at 0.031 which is likely secondary to his BNP being elevated to 12,900. 01/20/2022 Patient is seen and evaluated in room at bedside; discussed with nursing staff; patient had 2 episodes of complain of shortness of breath with O2 saturation dropping in 80s; results with using oxygen temporarily Vital signs remained stable; O2 saturation currently at 100% on room air; didn't has used around 4 L of oxygen which was easily titratable Laboratory review shows sodium 140, potassium 4.2, BUN/creatinine of 39.5 with creatinine of 1.4; BNP is elevated at 20,800 which is up from 12,900 upon admission Patient has been switched to Lasix 80 mg by mouth twice a day; we will use an extra dose of IV Lasix 60 mg and monitor patient closely; we will repeat a chest x-ray Objective - Vital Signs Vital signs: Vital Signs Temp 98 F 01/20/22 15:00 Pulse 64 01/20/22 15:00 Resp 18 01/20/22 15:00 BP 138/48 01/20/22 15:00 Pulse Ox 100 01/20/22 15:00 FiO2 Intake & Output 09/03/22 09/04/22 09/04/22 18:59 06:59 18:59 Intake Total 522 300 340 Output Total 700 400 Balance 522 -400 -60 Intake: Oral 522 300 340 Output: Urine 700 400 Other: Voiding Method Urinal Urinal # Voids 1 1 - Exam - Constitutional General appearance: Present: average body habitus, cooperative, no acute distress - EENT Eyes: Present: anicteric sclerae, EOMI, PERRLA, normal appearance ENT: Present: hearing grossly normal, normal oropharynx Ears: bilateral: normal - Neck Neck: Present: normal ROM. Absent: lymphadenopathy, rigidity, thyromegaly Carotids: negative: bruit present Thyroid: bilateral: normal size, negative: enlarged, nodule - Respiratory Respiratory: bilateral: CTA, negative: rales, rhonchi, wheezing - Cardiovascular Rhythm: regular Heart sounds: normal: S1, S2 Abnormal Heart Sounds: Absent: systolic murmur, diastolic murmur - Gastrointestinal General gastrointestinal: Present: normal bowel sounds, soft. Absent: distended, organomegaly, tenderness - Genitourinary Genitourinary Comment(s): deferred - Integumentary Integumentary: Present: normal turgor. Absent: jaundiced, rash, ulcer - Neurologic Neurologic: Present: CNII-XII intact. Absent: focal deficits - Musculoskeletal Musculoskeletal: Present: gait normal, strength equal bilaterally - Psychiatric Psychiatric: Present: A&O x's 3, appropriate affect, intact judgment & insight - Labs CBC & Chem 7: 01/19/22 06:07 01/20/22 06:04 Labs: Abnormal Lab Results - Last 24 Hours (Table) 01/19/22 01/20/22 01/20/22 Range/Units 21:03 06:04 07:12 BUN 39.5 H (9.0-27.0) mg/dL Est GFR (CKD-EPI)AfAm 58.6 L (60.0-200.0) Est GFR (CKD-EPI)NonAf 50.5 L (60.0-200.0) BUN/Creatinine Ratio 28.21 H (12.00-20.00) Ratio Glucose 121 H (70-110) mg/dL POC Glucose (mg/dL) 198 H 140 H (70-110) mg/dL 01/20/22 01/20/22 Range/Units 12:31 17:24 BUN (9.0-27.0) mg/dL Est GFR (CKD-EPI)AfAm (60.0-200.0) Est GFR (CKD-EPI)NonAf (60.0-200.0) BUN/Creatinine Ratio (12.00-20.00) Ratio Glucose (70-110) mg/dL POC Glucose (mg/dL) 162 H 159 H (70-110) mg/dL Assessment and Plan Assessment: 1. Chest pain/history of CAD; chest pain has resolved; EKG is unremarkable; troponin remains negative; 2-D echo is ordered; await further recommendations from cardiology - Patient remains on aspirin statins and Imdur 2. Acute exacerbation CHF with preserved EF - Patient has been placed on IV Lasix; we will monitor strict ANT's and daily weights; low-salt and fluid restricted diet - 2-D echo; cardiology to evaluate and make further recommendations 3. Hypomagnesemia; supplemented in ED we will monitor I lites closely and make further recommendations; 4. Acute renal injury; we'll IV fluid hydration; monitor renal function and electrolytes closely; avoid hypotension and nephrotoxins 5. Hypertension; amlodipine 5 mg daily; hydralazine 25 mg 3 times a day; Cozaar 50 mg daily 6. Diabetes mellitus; metformin thousand milligrams twice a day; monitor Accu-Cheks before meals and at bedtime sliding scale 7. Chronic atrial fibrillation; clinically rate controlled ; continue with anticoagulation with L Eubanks 5 mg twice a day 9. hyperlipidemia ; Lipitor 40 mg daily DVT prophylaxis; SCDs CODE STATUS; full code
[2022-01-20] MEDS ORDERED: FUROSEMIDE 10 MG/ML 4 ML VIAL IV STA (18:40)
--- NOTE | 2022-01-20 19:34 | XR ---
EXAMINATION TYPE: XR chest 1V portable DATE OF EXAM: 01/20/2022 COMPARISON: 01/17/2022 HISTORY: Hypoxemia TECHNIQUE: FINDINGS: Heart is enlarged. There is some pulmonary vascular congestion. There is mild blunting of t he costophrenic angles. There are chest leads. IMPRESSION: Congestive heart failure with small pleural effusions. Bony congestion slightly worse immanuel n old exam.
[2022-01-20] MEDS: POTASSIUM CHLORIDE ER 20 MEQ TAB.ER PO SCH (20:28)
[2022-01-20] MEDS: PRAMIPEXOLE 1 MG TAB PO SCH (20:28)
[2022-01-20] MEDS: traZODone HCL 50 MG TAB PO PRN (20:34)
[2022-01-20 21:44] LABS: Glucose,Whole Blood 233 mg/dL (70-110)
[2022-01-21 07:13] LABS: Glucose,Whole Blood 139 mg/dL (70-110)
[2022-01-21] MEDS: FUROSEMIDE 80 MG TAB PO SCH ×2 (08:09→17:00)
[2022-01-21] MEDS: ATORVASTATIN 40 MG TAB PO SCH (08:09)
[2022-01-21] MEDS: diphenhydrAMINE 25 MG CAP PO SCH ×2 (08:09→21:36)
[2022-01-21] MEDS: amLODIPine 10 MG TAB PO SCH (08:09)
[2022-01-21] MEDS: hydrALAZINE HCL 25 MG TAB PO SCH ×3 (08:09→21:37)
[2022-01-21] MEDS: allopurinoL 300 MG TAB PO SCH (08:09)
[2022-01-21] MEDS: COLCHICINE 0.6 MG EACH PO SCH (08:09)
[2022-01-21] MEDS: FERROUS SULFATE 325 MG TAB PO SCH ×2 (08:09→21:36)
[2022-01-21] MEDS: PANTOPRAZOLE 40 MG TABLET PO SCH (08:09)
[2022-01-21] MEDS: LORATADINE 10 MG TAB PO SCH (08:09)
[2022-01-21] MEDS: ISOSORBIDE MONONITRATE ER 30 MG TAB.ER.24H PO SCH (08:09)
[2022-01-21] MEDS: APIXABAN 5 MG TAB PO SCH ×2 (08:09→21:36)
[2022-01-21] MEDS: metFORMIN 500 MG TAB PO SCH ×2 (08:10→21:36)
[2022-01-21] MEDS: LOSARTAN 50 MG TAB PO SCH (08:10)
[2022-01-21] MEDS ORDERED: IPRATROPIUM-ALBUTEROL 3 ML NEB INHALATION PRN (12:14)
[2022-01-21] MEDS ORDERED: IPRATROPIUM-ALBUTEROL 3 ML NEB INHALATION STA (12:14)
[2022-01-21 12:25] LABS: Glucose,Whole Blood 149 mg/dL (70-110)
[2022-01-21] MEDS: CEPHALEXIN 500 MG CAP PO SCH ×3 (13:48→21:37)
[2022-01-21] MEDS: NICOTINE 21MG/24HR PATCH TRANSDERM SCH (13:49)
[2022-01-21 16:52] LABS: Glucose,Whole Blood 131 mg/dL (70-110)
[2022-01-21] MEDS: methylPREDNISolone SOD SUCCI 40 MG/ML 1 ML VIAL IV SCH ×2 (16:57→23:33)
[2022-01-21 20:57] LABS: Glucose,Whole Blood 399 mg/dL (70-110)
[2022-01-21] MEDS ORDERED: INSULIN DETEMIR (LEVEMIR) 100 UNIT/ML SYR SQ SCH (21:15)
--- NOTE | 2022-01-21 21:27 | P.PN ---
Subjective 71-year-old male with past medical history remarkable for CHF, atrial fibrillation on Eliquis, COPD, diabetes, hypertension who presents emergency Department complaining of a multi day history, approximately 3 days total, worsening exertional dyspnea with intermittent chest pain. No current chest pain. The chest pain is present, it is substernal in nature. Difficult to qualify otherwise. Endorses minimal nonproductive cough. Endorses chronic orthopnea. Denies PND. Denies a belt pain, nausea, vomiting. Denies any fevers or chills. Endorses worsening lower extremity swelling. Has been compliant with medications but believes he requires more diuretics. Presents for further evaluation at this time. EKG shows chronic atrial fibrillation with no signs of acute ischemia or changes. Chest x-ray shows CHF changes.Laboratory studies are remarkable for a macrocytic anemia with a hemoglobin of 11.0. This is chronic for the patient. Patient has a mildly elevated BUN/creatinine, creatinine of 1.68 she does have a history of the setting of CK D. Patient is hypomagnesemic at 1.1 which will be replenished. Troponin is indeterminate at 0.031 which is likely secondary to his BNP being elevated to 12,900. 01/20/2022 Patient is seen and evaluated in room at bedside; discussed with nursing staff; patient had 2 episodes of complain of shortness of breath with O2 saturation dropping in 80s; results with using oxygen temporarily Vital signs remained stable; O2 saturation currently at 100% on room air; didn't has used around 4 L of oxygen which was easily titratable Laboratory review shows sodium 140, potassium 4.2, BUN/creatinine of 39.5 with creatinine of 1.4; BNP is elevated at 20,800 which is up from 12,900 upon admission Patient has been switched to Lasix 80 mg by mouth twice a day; we will use an extra dose of IV Lasix 60 mg and monitor patient closely; we will repeat a chest x-ray 01-21-2022 Patient is a pleasant 71 years old male with history of heart failure presents with acute CHF exacerbation with ejection fraction 55-60% with moderate to severe aortic regurgitation and severe mitral regurgitation. Also it is currently every day smoker about half pack per day and he states he has history of COPD as well. He is not on home oxygen. Also for the last 8 weeks he's been complaining of from pain in his left lower back radiating to his left leg, he follow-up with orthopedic team who had him get MRI of the back as an outpatient which is not available results Also patient on both legs has evidence of some erythema, with left lower leg there is some closed wound with surrounding redness suspicious for cellulitis. Cartilage team already evaluated the patient and currently he is on Lasix 80 mg twice daily and recommended to follow-up with Dr. Al. However patient is still short of breath and chest x-ray still showing pulmonary congestion therefore readmitted to fluid restriction for now. Resume his metformin 1000, continue with insulin while he is on steroids. He is on home dose of Eliquis 5 mg for his history of A. fib Creatinine 1.4, hemoglobin 10.2. Blood pressure 169/53. Objective - Vital Signs Vital signs: Vital Signs Temp 98 F 01/21/22 07:00 Pulse 70 01/21/22 08:00 Resp 24 01/21/22 08:00 BP 157/54 01/21/22 07:00 Pulse Ox 96 01/21/22 11:00 FiO2 Intake & Output 01/20/22 01/21/22 01/21/22 18:59 06:59 18:59 Intake Total 340 360 Output Total 525 670 450 Balance -185 -670 -90 Weight 77.6 kg Intake: Oral 340 360 Output: Urine 525 670 450 Other: Voiding Method Urinal Urinal Urinal - Exam GENERAL: The patient is alert and oriented x3, not in any acute distress. Well developed, well nourished. HEENT: Pupils are round and equally reacting to light. EOMI. No scleral icterus. No conjunctival pallor. Normocephalic, atraumatic. No pharyngeal erythema. No thyromegaly. -CARDIOVASCULAR: S1 and S2 present. Diastolic murmurs, rubs, or gallops. -PULMONARY: Chest is clear to auscultation, no crackles. Tachypneic with scattered wheezing ABDOMEN: Soft, nontender, nondistended, normoactive bowel sounds. No palpable organomegaly. MUSCULOSKELETAL: No joint swelling or deformity. -EXTREMITIES: No cyanosis, clubbing, or pedal edema. Bilateral redness of the anterior legs, with small wound in the left lower leg and surrounding redness suspicious for cellulitis NEUROLOGICAL: Gross neurological examination did not reveal any focal deficits. SKIN: No rashes. no petechiae. - Labs CBC & Chem 7: 01/19/22 06:07 01/20/22 06:04 Labs: Abnormal Lab Results - Last 24 Hours (Table) 01/20/22 01/20/22 01/21/22 Range/Units 17:24 21:42 07:12 POC Glucose (mg/dL) 159 H 233 H 139 H (70-110) mg/dL 01/21/22 Range/Units 12:23 POC Glucose (mg/dL) 149 H (70-110) mg/dL Assessment and Plan Assessment: Diagnoses: 1. Acute diastolic CHF with ejection fraction of 55-60% -Improving, continue with oral Lasix 80 mg twice daily and fluid restriction -Cigarette Filter Inspector on the case 2. Acute COPD exacerbation -Start the patient on Solu-Medrol, with insulin sliding scale -Patient has history of smoking 3. Left leg cellulitis, start the patient on Keflex 4. Acute renal injury; we'll IV fluid hydration; monitor renal function and electrolytes closely; avoid hypotension and nephrotoxins 5. Hypertension; amlodipine 5 mg daily; hydralazine 25 mg 3 times a day; Cozaar 50 mg daily 6. Diabetes mellitus; metformin thousand milligrams twice a day; monitor Accu- Cheks before meals and at bedtime sliding scale 7. Chronic atrial fibrillation; clinically rate controlled ; continue with anticoagulation with L Eubanks 5 mg twice a day 9. hyperlipidemia ; Lipitor 40 mg daily DVT prophylaxis; SCDs CODE STATUS; full code
[2022-01-21] MEDS: SYMBICORT 160-4.5 MCG INHALER INHALATION SCH (21:29)
[2022-01-21] MEDS: POTASSIUM CHLORIDE ER 20 MEQ TAB.ER PO SCH (21:36)
[2022-01-21] MEDS: PRAMIPEXOLE 1 MG TAB PO SCH (21:36)
[2022-01-21] MEDS: HYDROcodone/APAP 5-325MG 1 EACH TAB PO PRN (22:47)
[2022-01-21] MEDS: traZODone HCL 50 MG TAB PO PRN (22:48)
[2022-01-22] MEDS: SYMBICORT 160-4.5 MCG INHALER INHALATION SCH ×2 (07:18→19:12)
[2022-01-22 07:27] LABS: Glucose,Whole Blood 210 mg/dL (70-110)
[2022-01-22] MEDS: diphenhydrAMINE 25 MG CAP PO SCH ×2 (07:52→21:30)
[2022-01-22] MEDS: APIXABAN 5 MG TAB PO SCH ×2 (07:52→21:30)
[2022-01-22] MEDS: CEPHALEXIN 500 MG CAP PO SCH (07:52)
[2022-01-22] MEDS: PANTOPRAZOLE 40 MG TABLET PO SCH (07:52)
[2022-01-22] MEDS: NICOTINE 21MG/24HR PATCH TRANSDERM SCH (07:52)
[2022-01-22] MEDS: metFORMIN 500 MG TAB PO SCH ×2 (07:52→21:31)
[2022-01-22] MEDS: hydrALAZINE HCL 25 MG TAB PO SCH ×3 (07:52→21:31)
[2022-01-22] MEDS: ISOSORBIDE MONONITRATE ER 30 MG TAB.ER.24H PO SCH (07:52)
[2022-01-22] MEDS: LORATADINE 10 MG TAB PO SCH (07:53)
[2022-01-22] MEDS: FERROUS SULFATE 325 MG TAB PO SCH ×2 (07:53→21:30)
[2022-01-22] MEDS: methylPREDNISolone SOD SUCCI 40 MG/ML 1 ML VIAL IV SCH (07:53)
[2022-01-22] MEDS: FUROSEMIDE 80 MG TAB PO SCH ×2 (07:53→19:58)
[2022-01-22] MEDS: ATORVASTATIN 40 MG TAB PO SCH (07:53)
[2022-01-22] MEDS: LOSARTAN 50 MG TAB PO SCH (07:53)
[2022-01-22] MEDS: amLODIPine 10 MG TAB PO SCH (07:53)
[2022-01-22] MEDS: allopurinoL 300 MG TAB PO SCH (07:53)
[2022-01-22] MEDS: COLCHICINE 0.6 MG EACH PO SCH (08:31)
--- NOTE | 2022-01-22 10:27 | P.CNOR ---
History of Present Illness - [facility] Consult date: 01/22/22 Consult reason: low back pain History of present illness: Patient is a 71-year-old male who was admitted to [facility] last week with regards to chest pain and exertional dyspnea. Patient has a k nown history of congestive heart failure and other medical comorbidities. Patient was admitted under internal medicine, multiple medical specialties were consulted. Since his hospital stay, he has complained of his chronic back pain becoming worse involving his left lower extremity. Patient was evaluated at our orthopedic practice by Chelsey Brian nurse practitioner who works with Dr. Greenfield orthopedic spine surgeon. An MRI of the lumbar spine had been ordered at that time. Patient was initially scheduled to follow-up with her later today for the results. Patient was evaluated today at bedside, he is resting in his hospital chair. He states that his back pain has been bothering him for the last 2 months or so. Patient states that he was doing some lifting and felt a pop in his back and since then he has had significant pain. He has noticed weakness in the bilateral lower extremities, worse on the left-hand side. He is having radicular pain that has affected the posterior aspect of the left leg and it does try down to the foot. He denies any low symptoms on the right-hand side. Patient denies any neck pain for upper extremity weakness or radicular pain. He denies any changes in his bowel or bladder function. Review of Systems Constitutional: Reports as per HPI Past Medical History Past Medical History: Atrial Fibrillation, Coronary Artery Disease (CAD), Heart Failure, COPD, Diabetes Mellitus, GERD/Reflux, GI Bleed, Hypertension, Osteoarthritis (OA), Pneumonia, Renal Disease, Rheumatoid Arthritis (RA) Additional Past Medical History / Comment(s): gi bleed, anemia, restless leg syndrome, alcoholism, kidney injury Last Myocardial Infarction Date:: 2013 History of Any Multi-Drug Resistant Organisms: None Reported Past Surgical History: Heart Catheterization With Stent, Orthopedic Surgery Additional Past Surgical History / Comment(s): 06/04/13 angioplasty with stent to LAD, Stent -(R) radial approach 06/07/13 JOLIE, bone spur rt elbow rem marcia, L elbow surgery, bilateral cataract surgery. Past Anesthesia/Blood Transfusion Reactions: No Reported Reaction Additional Past Anesthesia/Blood Transfusion Reaction / Comm: Pt has never recieved blood. Date of Last Stent Placement:: 01/18/2020 Past Psychological History: No Psychological Hx Reported Smoking Status: Current every day smoker - Past Family History Father Family Medical History: Cancer Additional Family Medical History / Comment(s): Father of prostate cancer at age 65yrs. Mother Family Medical History: Coronary Artery Disease (CAD) Additional Family Medical History / Comment(s): Mother had CABG. She of CHF at age 73 yrs. Brother(s) Family Medical History: Coronary Artery Disease (CAD) Additional Family Medical History / Comment(s): Patient has 2 brothers and one has history of myocardial infarction and five-vessel CABG, one has history of p rostate cancer. Sister(s) Family Medical History: Coronary Artery Disease (CAD), Myocardial Infarction (NH) Additional Family Medical History / Comment(s): Patient has 2 sisters and one has history of myocardial infarction. Daughter(s) Family Medical History: No Reported History Additional Family Medical History / Comment(s): Patient has a total of 3 children with no major medical problems. Son(s) Family Medical History: No Reported History Medications and Allergies Home Medications Medication Instructions Recorded Confirmed Type Atorvastatin [Lipitor] 40 mg PO DAILY 04/01/14 01/18/22 History Isosorbide Mononitrate [Imdur] 30 mg PO DAILY 04/01/14 01/18/22 History amLODIPine [Norvasc] 10 mg PO DAILY 01/11/15 01/18/22 History Potassium Chloride ER [K-Dur 20] 20 meq PO HS 10/06/19 01/18/22 History Pramipexole [Mirapex] 1 mg PO HS 10/06/19 01/18/22 History hydrALAZINE HCL [Apresoline] 25 mg PO TID 10/06/19 01/18/22 History Acetaminophen [Tylenol Arthritis] 1,300 tab PO BID 01/14/20 01/18/22 History metOLazone [Zaroxolyn] 2.5 mg PO Q48H 01/14/20 01/18/22 History traZODone HCL 50 mg PO HS PRN 02/06/20 01/18/22 History Ferrous Sulfate [Iron (65 MG 325 mg PO BID 12/22/21 01/18/22 History Elemental)] Omeprazole 20 mg PO DAILY 12/22/21 01/18/22 History Apixaban [Eliquis] 5 mg PO BID #60 tab 12/24/21 01/18/22 Rx Furosemide [Lasix] 60 mg PO BID #60 12/24/21 01/18/22 Rx Losartan [Cozaar] 50 mg PO DAILY #30 tab 12/24/21 01/18/22 Rx Cetirizine HCl [Zyrtec] 10 mg PO DAILY 01/18/22 01/18/22 History Colchicine [Colcrys] 0.6 mg PO DAILY 01/18/22 01/18/22 History HYDROcodone/APAP 5-325MG [[place] 1 tab PO Q6H PRN 01/18/22 01/18/22 History 5-325] allopurinoL [Zyloprim] 300 mg PO DAILY 01/18/22 01/18/22 History diphenhydrAMINE [Benadryl] 25 mg PO BID 01/18/22 01/18/22 History metFORMIN HCL 1,000 mg PO BID 01/18/22 01/18/22 History Allergies Allergy/AdvReac Type Severity Reaction Status Date / Time No Known Allergies Allergy Verified 01/17/22 21:11 Physical Examination Gen: AOx3, NAD VSS stable at this time Integument: No open lesions or sores, areas of erythema are visualized throughout the cervical, thoracic or lumbar spine Palpation: Nontender with palpation to the midline and paraspinal region of the cervical and thoracic spine. He demonstrates mild tenderness with palpation of the lower lumbar spine and both paraspinally and midline region ROM: Range of motion is intact in the bilateral upper extremities with all major muscle groups, he does lack full shoulder elevation and abduction, this is been a chronic problem for many years Full range of motion in all major muscle groups of the bilateral lower extremity, no focal deficits appreciated Sensory Exam: Senory exam to light touch is intact C5-T1 Senosry exam to light touch is intact L2-S1 Motor: 4/5 strength appreciated in the bilateral upper extremities with shoulder elevation, shoulder abduction, wrist extension, wrist flexion, elbow extension, elbow flexion, therapy aide 4/5 strength in the right lower extremity with hip flexion, knee extension, knee flexion, plantar flexion, dorsiflexion, EHL, FHL 4-/5 strength in the left lower extremity with hip flexion, knee extension, knee flexion, plantar flexion, dorsiflexion, EHL, FHL Reflexes: 2/4 in all UE and LE Negative Regis's bilaterally Negative Babinski bilaterally Negative clonus bilaterally Special Test: Logroll maneuver the bilateral extremities reproduces no groin pain Positive straight leg raise left side Results - Labs Labs: Abnormal Lab Results - Last 24 Hours (Table) 01/21/22 01/21/22 01/21/22 Range/Units 12:23 16:50 20:56 POC Glucose (mg/dL) 149 H 131 H 399 H (70-110) mg/dL 01/22/22 Range/Units 07:25 POC Glucose (mg/dL) 210 H (70-110) mg/dL H & H 01/17/22 01/19/22 Range/Units 22:45 06:07 Hgb 11.0 L 10.2 L (13.0-17.5) gm/dL Hct 34.9 L 31.6 L (39.0-53.0) % Coagulation 01/17/22 Range/Units 22:45 INR 1.0 (<1.2) Result Diagrams: 01/19/22 06:07 01/20/22 06:04 Assessment and Plan Assessment: Multilevel lumbar spondylosis L3-L4 facet arthropathy, moderate/severe neural foraminal stenosis right side L4-L5 facet arthropathy, bilateral moderate/severe neural foraminal stenosis L5-S1 facet arthropathy moderate/severe neural foraminal stenosis left side Multiple medical comorbidities Plan: Imaging: Report and images were reviewed of MRI of the lumbar spine. Images demonstrated multilevel spondylosis. Facet arthropathy with neural foraminal stenosis present L3-L4, L4-L5, L5-S1. No severe central cord stenosis is appreciated Plan: I was able to discuss the case, his strength above physical exam findings and imaging studies with my attending Dr. Greenfield. No emergent orthopedic surgical intervention is recommended at this time. Patient is a very porous orthopedic surgical candidate at this time with his other medical comorbidities Due to patient's radicular symptoms and MRI findings of the lumbar spine, we'll place pain management consult for further evaluation and treatment options Pain control, continue with current regimen GI and DVT prophylaxis per primary medical service Weight-bear as tolerated, recommend use of walker/cane at all times Recommend follow-up in the outpatient setting in the next 1-2 weeks for recheck Time with Patient: Less than 30
[2022-01-22 12:02] LABS: Glucose,Whole Blood 277 mg/dL (70-110)
[2022-01-22 19:11] LABS: Glucose,Whole Blood 373 mg/dL (70-110)
[2022-01-22] MEDS: CEPHALEXIN 250 MG CAP PO SCH ×2 (19:58→21:35)
[2022-01-22 20:24] LABS: African American GFR (CKD) 50 (>60 ml/min/1.73 sqM); Anion Gap 15 mmol/L; Blood Urea Nitrogen 51 mg/dL (9-20); Carbon Dioxide 21 mmol/L (22-30); Chloride 103 mmol/L (98-107); Glucose 279 mg/dL (74-99); Magnesium 1.2 mg/dL (1.6-2.3); Non-African American GFR(CKD) 44 (>60 ml/min/1.73 sqM); Potassium 4.7 mmol/L (3.5-5.1); Sodium 139 mmol/L (137-145)
--- NOTE | 2022-01-22 20:27 | P.PN ---
Subjective 71-year-old male with past medical history remarkable for CHF, atrial fibrillation on Eliquis, COPD, diabetes, hypertension who presents emergency Department complaining of a multi day history, approximately 3 days total, worsening exertional dyspnea with intermittent chest pain. No current chest pain. The chest pain is present, it is substernal in nature. Difficult to qualify otherwise. Endorses minimal nonproductive cough. Endorses chronic orthopnea. Denies PND. Denies a belt pain, nausea, vomiting. Denies any fevers or chills. Endorses worsening lower extremity swelling. Has been compliant with medications but believes he requires more diuretics. Presents for further evaluation at this time. EKG shows chronic atrial fibrillation with no signs of acute ischemia or changes. Chest x-ray shows CHF changes.Laboratory studies are remarkable for a macrocytic anemia with a hemoglobin of 11.0. This is chronic for the patient. Patient has a mildly elevated BUN/creatinine, creatinine of 1.68 she does have a history of the setting of CK D. Patient is hypomagnesemic at 1.1 which will be replenished. Troponin is indeterminate at 0.031 which is likely secondary to his BNP being elevated to 12,900. 01/20/2022 Patient is seen and evaluated in room at bedside; discussed with nursing staff; patient had 2 episodes of complain of shortness of breath with O2 saturation dropping in 80s; results with using oxygen temporarily Vital signs remained stable; O2 saturation currently at 100% on room air; didn't has used around 4 L of oxygen which was easily titratable Laboratory review shows sodium 140, potassium 4.2, BUN/creatinine of 39.5 with creatinine of 1.4; BNP is elevated at 20,800 which is up from 12,900 upon admission Patient has been switched to Lasix 80 mg by mouth twice a day; we will use an extra dose of IV Lasix 60 mg and monitor patient closely; we will repeat a chest x-ray 01-21-2022 Patient is a pleasant 71 years old male with history of heart failure presents with acute CHF exacerbation with ejection fraction 55-60% with moderate to severe aortic regurgitation and severe mitral regurgitation. Also it is currently every day smoker about half pack per day and he states he has history of COPD as well. He is not on home oxygen. Also for the last 8 weeks he's been complaining of from pain in his left lower back radiating to his left leg, he follow-up with orthopedic team who had him get MRI of the back as an outpatient which is not available results Also patient on both legs has evidence of some erythema, with left lower leg there is some closed wound with surrounding redness suspicious for cellulitis. Cartilage team already evaluated the patient and currently he is on Lasix 80 mg twice daily and recommended to follow-up with Dr. Al. However patient is still short of breath and chest x-ray still showing pulmonary congestion therefore readmitted to fluid restriction for now. Resume his metformin 1000, continue with insulin while he is on steroids. He is on home dose of Eliquis 5 mg for his history of A. fib Creatinine 1.4, hemoglobin 10.2. Blood pressure 169/53. 01/22/2022 patient was complaining from left side sciatica pain which is radicular pain from his lumbar spine, MRI of the spine on 01/11 showing L5-S1 severe left foraminal stenosis and L3-L4 severe right neuro foraminal stenosis. No spinal stenosis. No disc herniation. Orthopedic team recommended no surgical intervention and they consulted pain management service who could not make it today. Patient currently on home dose of Eliquis for his chronic A. fib Breathing is still mildly tachypneic but improving. However wheezing significantly improved. We will change his Solu-Medrol to prednisone. He rem ains on oral Lasix 80 mg twice daily with cardiology team cleared him for discharge already. Also he is mild left leg cellulitis improving on Keflex and we will lower the dose of Keflex 500 and output 50 mg. He is chronically on metformin 1000 twice a day Objective - Vital Signs Vital signs: Vital Signs Temp 97.4 F L 01/22/22 07:37 Pulse 56 L 01/22/22 08:56 Resp 18 01/22/22 08:56 BP 131/60 01/22/22 07:37 Pulse Ox 94 L 01/22/22 07:37 FiO2 Intake & Output 01/21/22 01/22/22 01/22/22 18:59 06:59 18:59 Intake Total 360 Output Total 776 775 375 Balance -112 -348 -796 Weight 77.8 kg Intake: Oral 360 Output: Urine 893 425 375 Other: Voiding Method Urinal Urinal Urinal # Voids 0 1 - Exam GENERAL: The patient is alert and oriented x3, not in any acute distress. Well developed, well nourished. HEENT: Pupils are round and equally reacting to light. EOMI. No scleral icterus. No conjunctival pallor. Normocephalic, atraumatic. No pharyngeal erythema. No thyromegaly. -CARDIOVASCULAR: S1 and S2 present. Diastolic murmurs, rubs, or gallops. -PULMONARY: Chest is clear to auscultation, no crackles. Tachypneic with scattered wheezing ABDOMEN: Soft, nontender, nondistended, normoactive bowel sounds. No palpable organomegaly. MUSCULOSKELETAL: No joint swelling or deformity. -EXTREMITIES: No cyanosis, clubbing, or pedal edema. Bilateral redness of the anterior legs, with small wound in the left lower leg and surrounding redness suspicious for cellulitis NEUROLOGICAL: Gross neurological examination did not reveal any focal deficits. SKIN: No rashes. no petechiae. - Labs CBC & Chem 7: 01/19/22 06:07 01/22/22 18:19 Labs: Abnormal Lab Results - Last 24 Hours (Table) 01/21/22 01/21/22 01/21/22 Range/Units 12:23 16:50 20:56 POC Glucose (mg/dL) 149 H 131 H 399 H (70-110) mg/dL 01/22/22 Range/Units 07:25 POC Glucose (mg/dL) 210 H (70-110) mg/dL Assessment and Plan Assessment: Diagnoses: 1. Acute diastolic CHF with ejection fraction of 55-60% -Improving, continue with oral Lasix 80 mg twice daily and fluid restriction -Multiple Wire Sawyer on the case 2. Acute COPD exacerbation -Continue with prednisone, and burst taper upon discharge -Patient has history of smoking 3. Left leg cellulitis, continue with Keflex 4. Acute renal injury; we'll IV fluid hydration; monitor renal function and electrolytes closely; avoid hypotension and nephrotoxins 5. Hypertension; amlodipine 5 mg daily; hydralazine 25 mg 3 times a day; Cozaar 50 mg daily 6. Diabetes mellitus; metformin thousand milligrams twice a day; monitor Accu- Cheks before meals and at bedtime sliding scale 7. Chronic atrial fibrillation; clinically rate controlled ; continue with anticoagulation with L Eubanks 5 mg twice a day 9. hyperlipidemia ; Lipitor 40 mg daily 10. Left sciatic Pain, acute on chronic back pain. Orthopedic team evaluated the patient. MRI of the spine on 01/11 showing L5-S1 severe left foraminal stenosis and L3-L4 severe right neuro foraminal stenosis. Pain consult is requested and pending DVT prophylaxis; SCDs CODE STATUS; full code
[2022-01-22 20:47] LABS: Glucose,Whole Blood 352 mg/dL (70-110)
[2022-01-22] MEDS: traZODone HCL 50 MG TAB PO PRN (21:30)
[2022-01-22] MEDS: HYDROcodone/APAP 5-325MG 1 EACH TAB PO PRN (21:30)
[2022-01-22] MEDS: POTASSIUM CHLORIDE ER 20 MEQ TAB.ER PO SCH (21:31)
[2022-01-22] MEDS: PRAMIPEXOLE 1 MG TAB PO SCH (21:31)
[2022-01-23] MEDS: SYMBICORT 160-4.5 MCG INHALER INHALATION SCH ×2 (07:08→21:32)
[2022-01-23 07:19] LABS: Glucose,Whole Blood 166 mg/dL (70-110)
[2022-01-23] MEDS: FERROUS SULFATE 325 MG TAB PO SCH ×2 (07:52→21:59)
[2022-01-23] MEDS: LOSARTAN 50 MG TAB PO SCH (07:52)
[2022-01-23] MEDS: ISOSORBIDE MONONITRATE ER 30 MG TAB.ER.24H PO SCH (07:52)
[2022-01-23] MEDS: ATORVASTATIN 40 MG TAB PO SCH (07:52)
[2022-01-23] MEDS: APIXABAN 5 MG TAB PO SCH ×2 (07:53→21:59)
[2022-01-23] MEDS: allopurinoL 300 MG TAB PO SCH (07:53)
[2022-01-23] MEDS: metFORMIN 500 MG TAB PO SCH ×2 (07:53→21:59)
[2022-01-23] MEDS: amLODIPine 10 MG TAB PO SCH (07:53)
[2022-01-23] MEDS: diphenhydrAMINE 25 MG CAP PO SCH (07:53)
[2022-01-23] MEDS: PANTOPRAZOLE 40 MG TABLET PO SCH (07:53)
[2022-01-23] MEDS: LORATADINE 10 MG TAB PO SCH (07:53)
[2022-01-23] MEDS: hydrALAZINE HCL 25 MG TAB PO SCH ×3 (07:53→22:00)
[2022-01-23] MEDS: CEPHALEXIN 250 MG CAP PO SCH ×2 (07:54→22:00)
[2022-01-23] MEDS: FUROSEMIDE 80 MG TAB PO SCH ×2 (07:54→16:37)
[2022-01-23] MEDS: COLCHICINE 0.6 MG EACH PO SCH (07:55)
[2022-01-23] MEDS: NICOTINE 21MG/24HR PATCH TRANSDERM SCH (07:55)
[2022-01-23] MEDS ORDERED: predniSONE 10 MG TAB PO SCH (09:00)
[2022-01-23 12:33] LABS: Glucose,Whole Blood 243 mg/dL (70-110)
--- NOTE | 2022-01-23 12:33 | P.PAINCN ---
History of Present Illness - Reason for Consult Consult date: 01/23/22 - History of Present Illness This is 71 years old male who was admitted to [facility] secondary to increased shortness of breath, patient had history of chronic atrial fibrillation and he had congestive heart failure, patient had a chronic history of severe low back pain and is complaining severe low back pain with radiation to the left lower extremity associated with some numbness, patient currently on ELIQUIS is secondary to chronic atrial fibrillation ,and he is already on [place] 5/325 when necessary for pain, but that his pain increases with any activity interfere with the quality of life, denies any fever or night sweats he denies any change in bowel movement or urination Past Medical History Past Medical History: Atrial Fibrillation, Coronary Artery Disease (CAD), Heart Failure, COPD, Diabetes Mellitus, GERD/Reflux, GI Bleed, Hypertension, Osteoarthritis (OA), Pneumonia, Renal Disease, Rheumatoid Arthritis (RA) Additional Past Medical History / Comment(s): gi bleed, anemia, restless leg syndrome, alcoholism, kidney injury Last Myocardial Infarction Date:: 2013 History of Any Multi-Drug Resistant Organisms: None Reported Past Surgical History: Heart Catheterization With Stent, Orthopedic Surgery Additional Past Surgical History / Comment(s): 06/04/13 angioplasty with stent to LAD, Stent -(R) radial approach 06/07/13 JOLIE, bone spur rt elbow removed, L elbow surgery, bilateral cataract surgery. Past Anesthesia/Blood Transfusion Reactions: No Reported Reaction Additional Past Anesthesia/Blood Transfusion Reaction / Comm: Pt has never recieved blood. Date of Last Stent Placement:: 01/18/2020 Past Psychological History: No Psychological Hx Reported Smoking Status: Current every day smoker - Past Family History Father Family Medical History: Cancer Additional Family Medical History / Comment(s): Father of prostate cancer at age 65yrs. Mother Family Medical History: Coronary Artery Disease (CAD) Additional Family Medical History / Comment(s): Mother had CABG. She of CHF at age 73 yrs. Brother(s) Family Medical History: Coronary Artery Disease (CAD) Additional Family Medical History / Comment(s): Patient has 2 brothers and one has history of myocardial infarction and five-vessel CABG, one has history of prostate cancer. Sister(s) Family Medical History: Coronary Artery Disease (CAD), Myocardial Infarction (PR) Additional Family Medical History / Comment(s): Patient has 2 sisters and one has history of myocardial infarction. Daughter(s) Family Medical History: No Reported History Additional Family Medical History / Comment(s): Patient has a total of 3 children with no major medical problems. Son(s) Family Medical History: No Reported History Medications and Allergies Home Medications Medication Instructions Recorded Confirmed Type Atorvastatin [Lipitor] 40 mg PO DAILY 04/01/14 01/18/22 History Isosorbide Mononitrate [Imdur] 30 mg PO DAILY 04/01/14 01/18/22 History amLODIPine [Norvasc] 10 mg PO DAILY 01/11/15 01/18/22 History Potassium Chloride ER [K-Dur 20] 20 meq PO HS 10/06/19 01/18/22 History Pramipexole [Mirapex] 1 mg PO HS 10/06/19 01/18/22 History hydrALAZINE HCL [Apresoline] 25 mg PO TID 10/06/19 01/18/22 History Acetaminophen [Tylenol Arthritis] 1,300 tab PO BID 01/14/20 01/18/22 History metOLazone [Zaroxolyn] 2.5 mg PO Q48H 01/14/20 01/18/22 History traZODone HCL 50 mg PO HS PRN 02/06/20 01/18/22 History Ferrous Sulfate [Iron (65 MG 325 mg PO BID 12/22/21 01/18/22 History Elemental)] Omeprazole 20 mg PO DAILY 12/22/21 01/18/22 History Apixaban [Eliquis] 5 mg PO BID #60 tab 12/24/21 01/18/22 Rx Furosemide [Lasix] 60 mg PO BID #60 12/24/21 01/18/22 Rx Losartan [Cozaar] 50 mg PO DAILY #30 tab 12/24/21 01/18/22 Rx Cetirizine HCl [Zyrtec] 10 mg PO DAILY 01/18/22 01/18/22 History Colchicine [Colcrys] 0.6 mg PO DAILY 01/18/22 01/18/22 History HYDROcodone/APAP 5-325MG [[place] 1 tab PO Q6H PRN 01/18/22 01/18/22 History 5-325] allopurinoL [Zyloprim] 300 mg PO DAILY 01/18/22 01/18/22 History diphenhydrAMINE [Benadryl] 25 mg PO BID 01/18/22 01/18/22 History metFORMIN HCL 1,000 mg PO BID 01/18/22 01/18/22 History Allergies Allergy/AdvReac Type Severity Reaction Status Date / Time No Known Allergies Allergy Verified 01/17/22 21:11 Physical Exam Vitals: Vital Signs Temp Pulse Resp BP BP Pulse Ox 01/23/22 07:54 18 01/23/22 07:40 96 F L 73 18 150/67 97 01/23/22 03:08 97.4 F L 49 L 16 150/67 100 01/22/22 19:59 97.6 F 62 20 142/64 98 01/22/22 19:12 99 Intake and Output 01/22/22 01/23/22 01/23/22 22:59 06:59 14:59 Intake Total 240 Output Total 125 1100 Balance -125 -860 Intake: Oral 240 Output: Urine 125 1100 Other: Voiding Method Toilet Toilet # Voids 0 1 0 Weight 82.5 kg Physical Examinations : -Constitutiona : Cooperative , not in acute distress . -HEENT : nech : supple , no Lymphadenopathy , normal thyroid size . : eyes : no ptosis , no icterus, no photophobia . - neurologic : Cranial nerve II to XII intact , no focal neurological deffecit . -psychatric : alert , oriented X 3 , appropriate affect , intact judgment and insight . -Lymphatic : no Lymphadenopathy . - musculoskeltal : Lumber spine moter stegnth lower extremities ,thigh and legs 5/5 Right side , 4/5 Left side deep tendon reflexes : normal Knee Jerk , normal ankle Jerk lumber facet Loading Test = positive Left Range of motion of the lumbar spine Flexion 30 degrees, extension 10 degrees strait leg raising test = positive at 45 degree on the left side Fabere test= positive LT . Sever tenderness over the Sacroiliac joint on the Left sides Gaenslen test= positive left . Seated flexion test= positive Left . Distraction test= positive left side Sacroiliac compression test= positive left-sided Results CBC & Chem 7: 01/19/22 06:07 01/22/22 18:19 Labs: Abnormal Lab Results - Last 24 Hours (Table) 01/22/22 01/22/22 01/22/22 Range/Units 17:05 18:19 20:45 Carbon Dioxide 21 L (22-30) mmol/L BUN 51 H (9-20) mg/dL Creatinine 1.59 H (0.66-1.25) mg/dL Glucose 279 H (74-99) mg/dL POC Glucose (mg/dL) 373 H 352 H (70-110) mg/dL Magnesium 1.2 L (1.6-2.3) mg/dL 01/23/22 Range/Units 07:12 Carbon Dioxide (22-30) mmol/L BUN (9-20) mg/dL Creatinine (0.66-1.25) mg/dL Glucose (74-99) mg/dL POC Glucose (mg/dL) 166 H (70-110) mg/dL Magnesium (1.6-2.3) mg/dL Comments: MRI of the lumbar spine= L3 4 through L5-S1 foraminal stenosis and lumbar degenerative disc disease Assessment and Plan Plan: Assessment and plan=1-lumbar radiculopathy. 2-Lumbar foraminal stenosis. 3-lumbar degenerative disc disease. 4-lumbar spondylosis. 5-chronic use of anticoagulation ( ELIQUIS ) secondary to atrial fibrillation he could benefit from a left-sided transforaminal epidural steroid injection at L4 5 and L5-S1, currentely he is not candidate to have pain management interventions ,(he have to hold liquids for 72 hours before proced ure) Command to continue [place] 5/325 when necessary, we can arrange for pain management interventions as an outpatient Time with Patient: Less than 30 PQRS Measure Charge Sheet PQRS Narrative: Smoking Status Current some day smoker Do You Want the Pneumonia Yes Vaccine AT THIS TIME? Blood Pressure [Right Arm] 150/67 Blood Pressure [Right Arm 152/61 Sitting] Blood Pressure [Left Arm] 150/67 Blood Pressure 118/70 Pain Intensity [None] 0 Pain Intensity 4 Pain Scale Used Numeric (1 - 10) Scale Used Numeric (1 - 10) Home Medications: Ambulatory Orders Atorvastatin [Lipitor] 40 mg PO DAILY 04/01/14 Isosorbide Mononitrate [Imdur] 30 mg PO DAILY 04/01/14 amLODIPine [Norvasc] 10 mg PO DAILY 01/11/15 Potassium Chloride ER [K-Dur 20] 20 meq PO HS 10/06/19 Pramipexole [Mirapex] 1 mg PO HS 10/06/19 hydrALAZINE HCL [Apresoline] 25 mg PO TID 10/06/19 Acetaminophen [Tylenol Arthritis] 1,300 tab PO BID 01/14/20 metOLazone [Zaroxolyn] 2.5 mg PO Q48H 01/14/20 traZODone HCL 50 mg PO HS PRN 02/06/20 Ferrous Sulfate [Iron (65 MG Elemental)] 325 mg PO BID 12/22/21 Omeprazole 20 mg PO DAILY 12/22/21 Apixaban [Eliquis] 5 mg PO BID #60 tab 12/24/21 Furosemide [Lasix] 60 mg PO BID #60 12/24/21 Losartan [Cozaar] 50 mg PO DAILY #30 tab 12/24/21 Cetirizine HCl [Zyrtec] 10 mg PO DAILY 01/18/22 Colchicine [Colcrys] 0.6 mg PO DAILY 01/18/22 HYDROcodone/APAP 5-325MG [[place] 5-325] 1 tab PO Q6H PRN 01/18/22 allopurinoL [Zyloprim] 300 mg PO DAILY 01/18/22 diphenhydrAMINE [Benadryl] 25 mg PO BID 01/18/22 metFORMIN HCL 1,000 mg PO BID 01/18/22
--- NOTE | 2022-01-23 14:00 | P.PN ---
Subjective Progress Note Date: 01/23/22 Principal diagnosis: Multilevel lumbar spondylosis L3-L4 facet arthropathy, moderate/severe neural foraminal stenosis right side L4-L5 facet arthropathy, bilateral moderate/severe neural foraminal stenosis L5-S1 facet arthropathy moderate/severe neural foraminal stenosis left side Patient was seen at bedside this morning sitting up in bed. Patient says about 8 weeks ago he was doing work around his house when he felt a pop in his back and ever since he has had LLE pain. Patient says he is ready/wanting to go home. Patient does have an appointment to see pain management doctors for possible LETY on 01/30/2022. Patient says he does have some labored breathing. Patient denies chest pain, fever, nausea/vomiting, change in vision, loss of bowel/bladder control. Objective - Vital Signs Vital signs: Vital Signs Temp 96 F L 01/23/22 07:40 Pulse 73 01/23/22 07:40 Resp 18 01/23/22 07:40 BP 150/67 01/23/22 07:40 Pulse Ox 97 01/23/22 07:40 FiO2 Intake & Output 01/22/22 01/23/22 01/23/22 18:59 06:59 18:59 Output Total 375 125 550 Balance -375 -125 -550 Weight 82.5 kg Output: Urine 375 125 550 Other: Voiding Method Urinal Toilet # Voids 1 1 0 - Exam Negative for any open fractures, ecchymosis, erythema, ulcers. Sensation is equal, symmetric, bilaterally intact throughout the upper and lower extremities. Patient does have TTP along the lower lumbar spine. NTTP throughout rest exam. Patient has full range of motion bilateral upper and lower extremities. 4+/5 motor exam in bilateral upper extremities. 4-/5 in left lower extremity and resisted hip flexion/extension, knee flexion/extension, plantar/dorsiflexion left ankle. 4/5 in all major motor groups in RLE. Radial pulses intact bilaterally. Negative Homans bilaterally. Cap refill under 3 seconds in digits of UE. Negative clonus. Negative hoffmans. - Labs CBC & Chem 7: 01/19/22 06:07 01/22/22 18:19 Labs: Abnormal Lab Results - Last 24 Hours (Table) 01/22/22 01/22/22 01/22/22 Range/Units 11:58 17:05 18:19 Carbon Dioxide 21 L (22-30) mmol/L BUN 51 H (9-20) mg/dL Creatinine 1.59 H (0.66-1.25) mg/dL Glucose 279 H (74-99) mg/dL POC Glucose (mg/dL) 277 H 373 H (70-110) mg/dL Magnesium 1.2 L (1.6-2.3) mg/dL 01/22/22 01/23/22 Range/Units 20:45 07:12 Carbon Dioxide (22-30) mmol/L BUN (9-20) mg/dL Creatinine (0.66-1.25) mg/dL Glucose (74-99) mg/dL POC Glucose (mg/dL) 352 H 166 H (70-110) mg/dL Magnesium (1.6-2.3) mg/dL Assessment and Plan Assessment: Multilevel lumbar spondylosis L3-L4 facet arthropathy, moderate/severe neural foraminal stenosis right side L4-L5 facet arthropathy, bilateral moderate/severe neural foraminal stenosis L5-S1 facet arthropathy moderate/severe neural foraminal stenosis left side Plan: 1. Multilevel lumbar spondylosis; L3-L4 facet arthropathy, moderate/severe neural foraminal stenosis right side; L4-L5 facet arthropathy, bilateral moderate/severe neural foraminal stenos; L5-S1 facet arthropathy moderate/severe neural foraminal stenosis left side - patient stable at bedside this morning. Due to patient's history of multiple medical comorbidities, patient is not a great surgical candidate at this time. At this time we are not recommending any emergent/urgent orthopedic surgical intervention. We are recommending intervention in the form of consult to pain management with possible LETY. Patient does have an appointment already scheduled for 01/30/2022 with pain management. At this time we're recommending patient follow-up in the outpatient setting with Dr. Greenfield. Patient is orthopedically stable for discharge home. At this time orthopedics is signing off. Please do not hesitate to contact us for any further questions. 2. Appreciate medical management 3. Pain Management - [place] 4. DVT ppx - Eliquis 5. GI ppx - Protonix 6. PT/OT - WBAT w/walker Time with Patient: Less than 30
[2022-01-23] MEDS ORDERED: Magnesium Replacement Protocol 1 EACH MISC MISCELLANE PRN (15:33)
[2022-01-23] MEDS ORDERED: MAGNESIUM SULFATE D5W PMX IVPB ONE (16:01)
[2022-01-23] MEDS ORDERED: WATER IVPB ONE (16:01)
[2022-01-23] MEDS ORDERED: DEXTROSE IVPB ONE (16:01)
[2022-01-23 16:40] LABS: Appearance,Urine Clear (Clear); Bilirubin,Urine Negative (Negative); Blood,Urine Negative (Negative); Color,Urine Light Yellow; Glucose,Urine (UA) Negative (Negative); Ketones,Urine Negative (Negative); Leukocyte Esterase,Urine Negative (Negative); Nitrite,Urine Negative (Negative); Protein,Urine Negative (Negative); Urobilinogen,Urine <2.0 mg/dL (<2.0)
[2022-01-23] MEDS: MAGNESIUM SULFATE-D5W PMX 1 GM in DEXTROSE/WATER 1 100ML.BAG IVPB SCH ×3 (17:25→20:07)
[2022-01-23 17:30] LABS: Glucose,Whole Blood 289 mg/dL (70-110)
--- NOTE | 2022-01-23 17:42 | P.PN ---
Subjective 71-year-old male with past medical history remarkable for CHF, atrial fibrillation on Eliquis, COPD, diabetes, hypertension who presents emergency Department complaining of a multi day history, approximately 3 days total, worsening exertional dyspnea with intermittent chest pain. No current chest pain. The chest pain is present, it is substernal in nature. Difficult to qualify otherwise. Endorses minimal nonproductive cough. Endorses chronic orthopnea. Denies PND. Denies a belt pain, nausea, vomiting. Denies any fevers or chills. Endorses worsening lower extremity swelling. Has been compliant with medications but believes he requires more diuretics. Presents for further evaluation at this time. EKG shows chronic atrial fibrillation with no signs of acute ischemia or changes. Chest x-ray shows CHF changes.Laboratory studies are remarkable for a macrocytic anemia with a hemoglobin of 11.0. This is chronic for the patient. Patient has a mildly elevated BUN/creatinine, creatinine of 1.68 she does have a history of the setting of CK D. Patient is hypomagnesemic at 1.1 which will be replenished. Troponin is indeterminate at 0.031 which is likely secondary to his BNP being elevated to 12,900. 01/20/2022 Patient is seen and evaluated in room at bedside; discussed with nursing staff; patient had 2 episodes of complain of shortness of breath with O2 saturation dropping in 80s; results with using oxygen temporarily Vital signs remained stable; O2 saturation currently at 100% on room air; didn't has used around 4 L of oxygen which was easily titratable Laboratory review shows sodium 140, potassium 4.2, BUN/creatinine of 39.5 with creatinine of 1.4; BNP is elevated at 20,800 which is up from 12,900 upon admission Patient has been switched to Lasix 80 mg by mouth twice a day; we will use an extra dose of IV Lasix 60 mg and monitor patient closely; we will repeat a chest x-ray 01-21-2022 Patient is a pleasant 71 years old male with history of heart failure presents with acute CHF exacerbation with ejection fraction 55-60% with moderate to severe aortic regurgitation and severe mitral regurgitation. Also it is currently every day smoker about half pack per day and he states he has history of COPD as well. He is not on home oxygen. Also for the last 8 weeks he's been complaining of from pain in his left lower back radiating to his left leg, he follow-up with orthopedic team who had him get MRI of the back as an outpatient which is not available results Also patient on both legs has evidence of some erythema, with left lower leg there is some closed wound with surrounding redness suspicious for cellulitis. Cartilage team already evaluated the patient and currently he is on Lasix 80 mg twice daily and recommended to follow-up with Dr. Al. However patient is still short of breath and chest x-ray still showing pulmonary congestion therefore readmitted to fluid restriction for now. Resume his metformin 1000, continue with insulin while he is on steroids. He is on home dose of Eliquis 5 mg for his history of A. fib Creatinine 1.4, hemoglobin 10.2. Blood pressure 169/53. 01/22/2022 patient was complaining from left side sciatica pain which is radicular pain from his lumbar spine, MRI of the spine on 01/11 showing L5-S1 severe left foraminal stenosis and L3-L4 severe right neuro foraminal stenosis. No spinal stenosis. No disc herniation. Orthopedic team recommended no surgical intervention and they consulted pain management service who could not make it today. Patient currently on home dose of Eliquis for his chronic A. fib Breathing is still mildly tachypneic but improving. However wheezing significantly improved. We will change his Solu-Medrol to prednisone. He rem ains on oral Lasix 80 mg twice daily with cardiology team cleared him for discharge already. Also he is mild left leg cellulitis improving on Keflex and we will lower the dose of Keflex 500 and output 50 mg. He is chronically on metformin 1000 twice a day 01/24/2012 Today patient was up and move into the bathroom by himself however he still limping in his leg. Orthopedic team recommended pain management consult was on today and if her until his already made appointment on 01/30 as an outpatient. As per staff patient is already aware of this appointment and willing to follow- up. Orthopedic team actually signed off. Patient is already been cleared for discharge by staff engineer. However his creatinine is went up today at 1.59, patient is already on high-dose of Lasix 80 mg twice daily, compared to 60 mg twice daily at home. He is also on Cozaar 75 mg and metformin 1000, twice daily because of these things were going to ask for handbag designer evaluated the patient. For discharge. Patient only he is already have an appointment set up with Dr. Chamorro and the has the information. And also has appointment coming with his staff engineer Dr. Sharp Objective - Vital Signs Vital signs: Vital Signs Temp 96 F L 01/23/22 07:40 Pulse 73 01/23/22 07:40 Resp 18 01/23/22 07:54 BP 150/67 01/23/22 07:40 Pulse Ox 97 01/23/22 07:40 FiO2 Intake & Output 01/22/22 01/23/22 01/23/22 18:59 06:59 18:59 Intake Total 240 Output Total 057 806 3118 Balance -446 -100 -596 Weight 82.5 kg Intake: Oral 240 Output: Urine 714 424 3921 Other: Voiding Method Urinal Toilet Toilet # Voids 1 1 0 - Exam GENERAL: The patient is alert and oriented x3, not in any acute distress. Well developed, well nourished. HEENT: Pupils are round and equally reacting to light. EOMI. No scleral icterus. No conjunctival pallor. Normocephalic, atraumatic. No pharyngeal erythema. No thyromegaly. -CARDIOVASCULAR: S1 and S2 present. Diastolic murmurs, rubs, or gallops. -PULMONARY: Chest is clear to auscultation, no crackles. Tachypneic with scattered wheezing ABDOMEN: Soft, nontender, nondistended, normoactive bowel sounds. No palpable organomegaly. MUSCULOSKELETAL: No joint swelling or deformity. -EXTREMITIES: No cyanosis, clubbing, or pedal edema. Bilateral redness of the anterior legs, with small wound in the left lower leg and surrounding redness suspicious for cellulitis NEUROLOGICAL: Gross neurological examination did not reveal any focal deficits. SKIN: No rashes. no petechiae. - Labs CBC & Chem 7: 01/19/22 06:07 01/22/22 18:19 Labs: Abnormal Lab Results - Last 24 Hours (Table) 01/22/22 01/22/22 01/22/22 Range/Units 11:58 17:05 18:19 Carbon Dioxide 21 L (22-30) mmol/L BUN 51 H (9-20) mg/dL Creatinine 1.59 H (0.66-1.25) mg/dL Glucose 279 H (74-99) mg/dL POC Glucose (mg/dL) 277 H 373 H (70-110) mg/dL Magnesium 1.2 L (1.6-2.3) mg/dL 01/22/22 01/23/22 Range/Units 20:45 07:12 Carbon Dioxide (22-30) mmol/L BUN (9-20) mg/dL Creatinine (0.66-1.25) mg/dL Glucose (74-99) mg/dL POC Glucose (mg/dL) 352 H 166 H (70-110) mg/dL Magnesium (1.6-2.3) mg/dL Assessment and Plan Assessment: Diagnoses: 1. Acute diastolic CHF with ejection fraction of 55-60% -Improving, continue with oral Lasix 80 mg twice daily and fluid restriction -Osteologist on the case 2. Acute COPD exacerbation -Continue with prednisone, and burst taper upon discharge -Patient has history of smoking 3. Left leg cellulitis, continue with Keflex. Improved 4. Acute renal injury; we'll IV fluid hydration; monitor renal function and electrolytes closely; avoid hypotension and nephrotoxins . Consult nephrology service 5. Hypertension; amlodipine 5 mg daily; hydralazine 25 mg 3 times a day; Cozaar 50 mg daily 6. Diabetes mellitus; metformin thousand milligrams twice a day; monitor Accu-Cheks before meals and at bedtime sliding scale 7. Chronic atrial fibrillation; clinically rate controlled ; continue with anticoagulation with L E[place] 5 mg twice a day 9. hyperlipidemia ; Lipitor 40 mg daily 10. Left sciatic Pain, acute on chronic back pain. Orthopedic team evaluated the patient. MRI of the spine on 01/11 showing L5-S1 severe left foraminal stenosis and L3-L4 severe right neuro foraminal stenosis. Pain consult is requested and pending DVT prophylaxis; SCDs CODE STATUS; full code
[2022-01-23] MEDS ORDERED: DEXTROSE 50% SYRINGE 50 ML IVP PRN ×2 (18:21)
[2022-01-23 20:11] VITALS: TEMP 97.4
[2022-01-23 20:12] LABS: Glucose,Whole Blood 419 mg/dL (70-110)
[2022-01-23] MEDS ORDERED: INSULIN ASPART (NovoLOG) 100 UNIT/ML VIAL SQ ONE (21:43)
[2022-01-23] MEDS: INSULIN ASPART (NovoLOG) 100 UNIT/ML VIAL SQ SCH (21:58)
[2022-01-23] MEDS: POTASSIUM CHLORIDE ER 20 MEQ TAB.ER PO SCH (21:59)
[2022-01-23] MEDS: traZODone HCL 50 MG TAB PO PRN (22:00)
[2022-01-23] MEDS: HYDROcodone/APAP 5-325MG 1 EACH TAB PO PRN (22:00)
[2022-01-23] MEDS: PRAMIPEXOLE 1 MG TAB PO SCH (22:00)
[2022-01-24 07:34] LABS: Glucose,Whole Blood 93 mg/dL (70-110)
[2022-01-24] MEDS: INSULIN ASPART (NovoLOG) 100 UNIT/ML VIAL SQ SCH ×2 (07:43→12:28)
[2022-01-24] MEDS: NICOTINE 21MG/24HR PATCH TRANSDERM SCH (07:45)
[2022-01-24] MEDS: FERROUS SULFATE 325 MG TAB PO SCH (07:45)
[2022-01-24] MEDS: amLODIPine 10 MG TAB PO SCH (07:46)
[2022-01-24] MEDS: metFORMIN 500 MG TAB PO SCH (07:46)
[2022-01-24] MEDS: LOSARTAN 50 MG TAB PO SCH (07:46)
[2022-01-24] MEDS: ATORVASTATIN 40 MG TAB PO SCH (07:46)
[2022-01-24] MEDS: FUROSEMIDE 80 MG TAB PO SCH (07:46)
[2022-01-24] MEDS: APIXABAN 5 MG TAB PO SCH (07:47)
[2022-01-24] MEDS: CEPHALEXIN 250 MG CAP PO SCH (07:47)
[2022-01-24] MEDS: LORATADINE 10 MG TAB PO SCH (07:47)
[2022-01-24] MEDS: PANTOPRAZOLE 40 MG TABLET PO SCH (07:47)
[2022-01-24] MEDS: COLCHICINE 0.6 MG EACH PO SCH (07:47)
[2022-01-24] MEDS: allopurinoL 300 MG TAB PO SCH (07:47)
[2022-01-24] MEDS: hydrALAZINE HCL 25 MG TAB PO SCH (07:47)
[2022-01-24] MEDS: ISOSORBIDE MONONITRATE ER 30 MG TAB.ER.24H PO SCH (07:48)
[2022-01-24 08:15] VITALS: RESP 18
[2022-01-24] MEDS: SYMBICORT 160-4.5 MCG INHALER INHALATION SCH (08:29)
[2022-01-24 08:59] LABS: Basophils # (A) 0.04 X 10*3/uL (0.00-0.10); Basophils % (A) 0.5 %; Eosinophils # (A) 0.01 X 10*3/uL (0.04-0.35); Eosinophils % (A) 0.1 %; HCT 27.5 % (39.6-50.0); HGB 8.9 g/dL (13.0-17.0); Immature Grans, Automated 0.5 %; Lymphocytes # (A) 0.56 X 10*3/uL (0.90-5.00); Lymphocytes % (A) 7.2 %; MCH 32.5 pg (27.0-32.0); MCHC 32.4 g/dL (32.0-37.0); MCV 100.4 fL (80.0-97.0); Mean Platelet Volume 10.8 fL (9.5-12.2); Monocytes # (A) 0.83 X 10*3/uL (0.20-1.00); Monocytes % (A) 10.7 %; NRBC Per 100 WBC 0 /100 WBCS (0.0-0.0); Neutrophils # (A) 6.25 X 10*3/uL (1.80-7.70); Platelet Count 207 X 10*3/uL (140-440); RBC 2.74 X 10*6/uL (4.40-5.60); RDW 15.6 % (11.5-14.5); WBC 7.73 X 10*3/uL (4.50-10.00)
[2022-01-24] MEDS ORDERED: predniSONE 20 MG TAB PO SCH (09:00)
[2022-01-24 09:09] LABS: ALT 24 U/L (10-49); AST 22 U/L (14-35); African American GFR (CKD) 53.9 (60.0-200.0); Albumin 3.6 g/dL (3.8-4.9); Alkaline Phosphatase 180 U/L (41-126); BUN/Creat Ratio 41.53 Ratio (12.00-20.00); Bilirubin, Conjugated <0.20 mg/dL (0.20-0.40); Blood Urea Nitrogen 62.3 mg/dL (9.0-27.0); Calcium 9.1 mg/dL (8.7-10.3); Carbon Dioxide 22.4 mmol/L (20.0-27.5); Chloride 103 mmol/L (96-109); Globulin 2.4 g/dL (1.6-3.3); Glucose 83 mg/dL (70-110); Magnesium 1.9 mg/dL (1.5-2.4); Non-African American GFR(CKD) 46.5 (60.0-200.0); Potassium 4.7 mmol/L (3.5-5.5); Sodium 138 mmol/L (135-145)
--- NOTE | 2022-01-24 11:33 | P.NPCON ---
History of Present Illness - Reason for Consult acute renal failure - History of Present Illness Patient is a 71-year-old male with history of type 2 diabetes, hypertension, chronic A. fib, CHF. He was admitted to the hospital with complaints of increased shortness of breath as well as lower extremity swelling. Patient has been diuresed. Serum creatinine was 1.68 on initial admission and did decreased about 1.3 mg/dL and increased back up to 1.5 mg/dL. Patient has had good urine output. Lasix dose has been changed to by mouth. Patient wants to go home. Currently no complaints of shortness of breath nausea or vomiting or chest pains. Previous creatinine 1.0-1.5 in August and earlier part of December 2021 with multiple episodes of acute kidney injury noted Review of Systems As per HPI other systems negative. Past Medical History Past Medical History: Atrial Fibrillation, Coronary Artery Disease (CAD), Heart Failure, COPD, Diabetes Mellitus, GERD/Reflux, GI Bleed, Hypertension, Osteoarthritis (OA), Pneumonia, Renal Disease, Rheumatoid Arthritis (RA) Additional Past Medical History / Comment(s): gi bleed, anemia, restless leg syndrome, alcoholism, kidney injury Last Myocardial Infarction Date:: 2013 History of Any Multi-Drug Resistant Organisms: None Reported Past Surgical History: Heart Catheterization With Stent, Orthopedic Surgery Additional Past Surgical History / Comment(s): 06/04/13 angioplasty with stent to LAD, Stent -(R) radial approach 06/07/13 JOLIE, bone spur rt elbow rem marcia, L elbow surgery, bilateral cataract surgery. Past Anesthesia/Blood Transfusion Reactions: No Reported Reaction Additional Past Anesthesia/Blood Transfusion Reaction / Comment(s): Pt has never recieved blood. Date of Last Stent Placement:: 01/18/2020 Past Psychological History: No Psychological Hx Reported Smoking Status: Current every day smoker - Past Family History Father Family Medical History: Cancer Additional Family Medical History / Comment(s): Father of prostate cancer a t age 65yrs. Mother Family Medical History: Coronary Artery Disease (CAD) Additional Family Medical History / Comment(s): Mother had CABG. She of CHF at age 73 yrs. Brother(s) Family Medical History: Coronary Artery Disease (CAD) Additional Family Medical History / Comment(s): Patient has 2 brothers and one has history of myocardial infarction and five-vessel CABG, one has history of prostate cancer. Sister(s) Family Medical History: Coronary Artery Disease (CAD), Myocardial Infarction (NH) Additional Family Medical History / Comment(s): Patient has 2 sisters and one has history of myocardial infarction. Daughter(s) Family Medical History: No Reported History Additional Family Medical History / Comment(s): Patient has a total of 3 children with no major medical problems. Son(s) Family Medical History: No Reported History Medications and Allergies Home Medications Medication Instructions Recorded Confirmed Type Atorvastatin [Lipitor] 40 mg PO DAILY 04/01/14 01/18/22 History Isosorbide Mononitrate [Imdur] 30 mg PO DAILY 04/01/14 01/18/22 History amLODIPine [Norvasc] 10 mg PO DAILY 01/11/15 01/18/22 History Potassium Chloride ER [K-Dur 20] 20 meq PO HS 10/06/19 01/18/22 History Pramipexole [Mirapex] 1 mg PO HS 10/06/19 01/18/22 History hydrALAZINE HCL [Apresoline] 25 mg PO TID 10/06/19 01/18/22 History Acetaminophen [Tylenol Arthritis] 1,300 tab PO BID 01/14/20 01/18/22 History metOLazone [Zaroxolyn] 2.5 mg PO Q48H 01/14/20 01/18/22 History traZODone HCL 50 mg PO HS PRN 02/06/20 01/18/22 History Ferrous Sulfate [Iron (65 MG 325 mg PO BID 12/22/21 01/18/22 History Elemental)] Omeprazole 20 mg PO DAILY 12/22/21 01/18/22 History Apixaban [Eliquis] 5 mg PO BID #60 tab 12/24/21 01/18/22 Rx Furosemide [Lasix] 60 mg PO BID #60 12/24/21 01/18/22 Rx Losartan [Cozaar] 50 mg PO DAILY #30 tab 12/24/21 01/18/22 Rx Cetirizine HCl [Zyrtec] 10 mg PO DAILY 01/18/22 01/18/22 History Colchicine [Colcrys] 0.6 mg PO DAILY 01/18/22 01/18/22 History HYDROcodone/APAP 5-325MG [[place] 1 tab PO Q6H PRN 01/18/22 01/18/22 History 5-325] allopurinoL [Zyloprim] 300 mg PO DAILY 01/18/22 01/18/22 History diphenhydrAMINE [Benadryl] 25 mg PO BID 01/18/22 01/18/22 History metFORMIN HCL 1,000 mg PO BID 01/18/22 01/18/22 History Allergies Allergy/AdvReac Type Severity Reaction Status Date / Time No Known Allergies Allergy Verified 01/17/22 21:11 Physical Exam Vitals: Vital Signs Temp Pulse Resp BP Pulse Ox Pulse Ox Pulse Ox 01/24/22 09:37 96 95 01/24/22 08:00 97.4 F L 65 18 112/38 92 L 01/23/22 20:00 97.4 F L 50 L 16 131/65 95 01/23/22 14:07 99 01/23/22 13:24 96.7 F L 67 18 130/58 98 Intake and Output 01/23/22 01/24/22 01/24/22 22:59 06:59 14:59 Intake Total 540 Output Total 901 375 Balance -361 -375 Intake: Intake, IV Titration 300 Amount Magnesium Sulfate-D5w Pmx 300 1 gm In Dextrose/Water 1 100ml.bag @ 100 mls/hr IVPB Q1H [facility] Rx#: [id number] Oral 240 Output: Urine 900 375 Post Void Residual 1 Other: Voiding Method Toilet Toilet # Voids 1 Weight 86.5 kg Awake, comfortable, not in any acute distress Examination of the heart S1 and S2 Examination of the lungs bilateral breath sounds are heard Abdomen is soft nontender Examination of the lower extremities shows no significant edema 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 Acute kidney injury mostly cardiorenal currently improved since admission. May continue with current dose of diuretics. Patient has been voiding well. He likely has underlying CK D and will need follow-up as outpatient 2. CHF acute on top of chronic post a diastolic with ejection fraction 55-60% 3. Volume overload currently improved 4. CK D NKF stage III a with baseline creatinine about 1.0-1.5 mg/dL Plan: Patient can be discharged on current dose of diuretics. He will need follow-up as outpatient for CK D and monitoring volume status. We will check imagings studies for the kidneys as outpatient. Thank you for the consultation.
[2022-01-24 12:11] LABS: Glucose,Whole Blood 175 mg/dL (70-110)
[2022-01-24 12:51] VITALS: BP 141/81; PULSE 70
--- NOTE | 2022-01-25 00:13 | P.DS ---
Providers Date of admission: 01/22/22 09:38 Attending physician: Jose Holder Consults: 01/18/22 00:46 Consult Physician Routine Consulting Provider: [facility] Consult Reason/Comments: chf exacerbation Do you want consulting provider notified?: Yes, Notify in am 01/21/22 12:12 Consult Physician Urgent Consulting Provider: Ricky Staples Consult Reason/Comments: low back pain with sicatica Do you want consulting provider notified?: Yes 01/23/22 15:33 Consult Physician Urgent Consulting Provider: Michelle Santos Consult Reason/Comments: CKD, on lasix, cozaar & metformin Do you want consulting provider notified?: Yes Primary care physician: [facility] Course: Diagnoses: 1. Acute diastolic CHF with ejection fraction of 55-60%, improved. Associated with moderate to severe aortic regurgitation and severe mitral regurgitation 2. Acute COPD exacerbation, improved 3. Left leg cellulitis, continue with Keflex. Improved. Continue with short course of oral antibiotic upon discharge 4. 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 Hypertension 6. Diabetes mellitus 7. Chronic atrial fibrillation 9. hyperlipidemia 10. Left sciatic Pain, acute on chronic back pain. Orthopedic team evaluated the patient. MRI of the spine on 01/11 showing L5-S1 severe left foraminal stenosis and L3-L4 severe right neuro foraminal stenosis. Pain consult is requested and recommended conservative management and follow-up outpatient with the clinic clinic on 01/30, patient aware of his appointment and willing to follow up Hospital course: 71-year-old male with past medical history remarkable for CHF, atrial fibrillation on Eliquis, COPD, diabetes, hypertension who presents emergency Department complaining of a multi day history, approximately 3 days total, worsening exertional dyspnea with intermittent chest pain. Patient has been evaluated by college intern team and found to have acute CHF with ejection fraction preserved 55-60% but moderate to severe aortic regurgitation and severe mitral regurgitation Patient was treated with IV Solu-Medrol and steroids tapered quickly because of positive response and interval improvement in his dyspnea. Also his Lasix i ncreased from hose dose of 60 mg twice daily and to 80 mg twice daily. Also he kept on metformin, Cozaar and Norvasc. Patient developed by college intern and utility porter and both surfaces cleared him for discharge. Orthopedic team evaluated him for this sciatic Pain on the left side and recommended outpatient follow-up with his pain clinic on 01/30. Patient is able to ambulate with little limp. PT/OT recommended home health care which is ordered. On the back patient denies any other symptoms, he was working in the room by himself. He tolerates diet well. He denies any chest pain or significant dyspnea. No diarrhea or vomiting. No abdominal pain or dysuria. No headache or weakness or numbness. Patient to be discharged on tapered to steroids which will help COPD and back pain, short oral course of Keflex, Lasix IV and is on liquids which she confirms he has at home. Problems and management plan were discussed with the patient and he verbalized understanding and acceptance Patient was found stable and can be discharged home however he needs follow-up as an outpatient. Patient was instructed to follow up with PCP Dr. Herndon within one week and patient agrees Patient also was instructed to follow up with his college intern Dr. Sharp and he already has an appointment with both his PCP and Dr. Sharp. Patient, Was patient was instructed to follow up with Dr. staples in one week and he agrees. And to follow up with Dr. Wallace utility porter in 2-3 weeks and he agrees Physical exam Gen: patient is a AAOx3, no distress CVS: S1-S2, RRR, no murmur Lungs: B/L CTA, no wheezing Abdomen: soft, no distention, no tenderness, positive bowel sounds Extremity: no leg edema or induration -Gait: Proximal himself with little limp and due to his sciatic pain Time spent more than 35 minutes Patient Condition at Discharge: Stable Plan - Discharge Summary Discharge Rx Participant: No New Discharge Prescriptions: New Cephalexin [Keflex] 250 mg PO BID 3 Days #6 cap predniSONE 10 mg PO DIRECTED #12 tab Albuterol Inhaler [Ventolin Hfa Inhaler] 1 - 2 puff INHALATION Q6H PRN #1 each PRN Reason: Shortness Of Breath Or Wheezing Losartan [Cozaar] 75 mg PO DAILY #60 tab Furosemide [Lasix] 80 mg PO BID@0900,1600 #60 tab Continue Isosorbide Mononitrate [Imdur] 30 mg PO DAILY Atorvastatin [Lipitor] 40 mg PO DAILY amLODIPine [Norvasc] 10 mg PO DAILY Pramipexole [Mirapex] 1 mg PO HS Potassium Chloride ER [K-Dur 20] 20 meq PO HS hydrALAZINE HCL [Apresoline] 25 mg PO TID Acetaminophen [Tylenol Arthritis] 1,300 tab PO BID traZODone HCL 50 mg PO HS PRN PRN Reason: Insomnia Ferrous Sulfate [Iron (65 MG Elemental)] 325 mg PO BID Omeprazole 20 mg PO DAILY Apixaban [Eliquis] 5 mg PO BID #60 tab allopurinoL [Zyloprim] 300 mg PO DAILY Colchicine [Colcrys] 0.6 mg PO DAILY Cetirizine HCl [Zyrtec] 10 mg PO DAILY metFORMIN HCL 1,000 mg PO BID Discontinued metOLazone [Zaroxolyn] 2.5 mg PO Q48H HYDROcodone/APAP 5-325MG [[place] 5-325] 1 tab PO Q6H PRN PRN Reason: Pain Losartan [Cozaar] 50 mg PO DAILY #30 tab Furosemide [Lasix] 60 mg PO BID #60 diphenhydrAMINE [Benadryl] 25 mg PO BID Discharge Medication List Atorvastatin [Lipitor] 40 mg PO DAILY 04/01/14 [History] Isosorbide Mononitrate [Imdur] 30 mg PO DAILY 04/01/14 [History] amLODIPine [Norvasc] 10 mg PO DAILY 01/11/15 [History] Potassium Chloride ER [K-Dur 20] 20 meq PO HS 10/06/19 [History] Pramipexole [Mirapex] 1 mg PO HS 10/06/19 [History] hydrALAZINE HCL [Apresoline] 25 mg PO TID 10/06/19 [History] Acetaminophen [Tylenol Arthritis] 1,300 tab PO BID 01/14/20 [History] traZODone HCL 50 mg PO HS PRN 02/06/20 [History] Ferrous Sulfate [Iron (65 MG Elemental)] 325 mg PO BID 12/22/21 [History] Omeprazole 20 mg PO DAILY 12/22/21 [History] Apixaban [Eliquis] 5 mg PO BID #60 tab 12/24/21 [Rx] Cetirizine HCl [Zyrtec] 10 mg PO DAILY 01/18/22 [History] Colchicine [Colcrys] 0.6 mg PO DAILY 01/18/22 [History] allopurinoL [Zyloprim] 300 mg PO DAILY 01/18/22 [History] metFORMIN HCL 1,000 mg PO BID 01/18/22 [History] Albuterol Inhaler [Ventolin Hfa Inhaler] 1 - 2 puff INHALATION Q6H PRN #1 each 01/24/22 [Rx] Cephalexin [Keflex] 250 mg PO BID 3 Days #6 cap 01/24/22 [Rx] Furosemide [Lasix] 80 mg PO BID@0900,1600 #60 tab 01/24/22 [Rx] Losartan [Cozaar] 75 mg PO DAILY #60 tab 01/24/22 [Rx] predniSONE 10 mg PO DIRECTED #12 tab 01/24/22 [Rx] Follow up Appointment(s)/Referral(s): Fiorella Sharp MD [STAFF PHYSICIAN] - 1 Week (Office will call with appointment time and date.) Ilya Saavedra MD [Primary Care Provider] - 1-2 days Nacho Cervantes MD [STAFF PHYSICIAN] - 1 Week Ricky Staples DO [Doctor of Osteopathic Medicine] - 1 Week (Please keep appointment for January 30 at 11:00am.) Casimiro Orozco DO [STAFF PHYSICIAN] - 02/08/22 11:00 am (Appointment will be with JONATHAN Jones) Patient Instructions/Handouts: Heart Failure (DC), Low-Sodium Diet (DC) Activity/Diet/Wound Care/Special Instructions: Heart healthy diet, low carbohydrate diet 1800 kcal per day Activity is restricted till you see your doctor check you glucose 4 times per day, before each meal and at bed time, keep the results in a log book and bring it to your doctor on your appointment date if your glucose is less than 70 or more than 400 then call 911 and come to emergency room Discharge Disposition: HOME WITH HOME HEALTH SERVICES
== END 2022-01-24 13:45 | disposition home health service (06) | DRG 291 ==
LOC: EC 21:05 → 6NMEDSUR 01-18 00:36 → OBSVTOIN 01-22 09:38
PROVIDERS: ADMIT Hospitalist; ATTEND Hospitalist
DX: I13.0 Hypertensive heart and chronic kidney disease with heart failure and stage 1 through stage 4 chronic kidney disease, or unspecified chronic kidney disease (principal); I50.33 Acute on chronic diastolic (congestive) heart failure; J44.1 Chronic obstructive pulmonary disease with (acute) exacerbation; I48.20 Chronic atrial fibrillation, unspecified; N17.9 Acute kidney failure, unspecified; L03.116 Cellulitis of left lower limb; I27.20 Pulmonary hypertension, unspecified; D63.1 Anemia in chronic kidney disease; E11.22 Type 2 diabetes mellitus with diabetic chronic kidney disease; G25.81 Restless legs syndrome; D53.9 Nutritional anemia, unspecified; Z79.01 Long term (current) use of anticoagulants; N18.31 Chronic kidney disease, stage 3a; M06.9 Rheumatoid arthritis, unspecified; F10.20 Alcohol dependence, uncomplicated; K21.9 Gastro-esophageal reflux disease without esophagitis; I25.10 Atherosclerotic heart disease of native coronary artery without angina pectoris; E83.42 Hypomagnesemia; E78.5 Hyperlipidemia, unspecified; I08.0 Rheumatic disorders of both mitral and aortic valves; I25.2 Old myocardial infarction; M47.26 Other spondylosis with radiculopathy, lumbar region; M48.061 Spinal stenosis, lumbar region without neurogenic claudication; M48.07 Spinal stenosis, lumbosacral region; M54.42 Lumbago with sciatica, left side; G89.29 Other chronic pain; R09.02 Hypoxemia; F17.210 Nicotine dependence, cigarettes, uncomplicated; M19.90 Unspecified osteoarthritis, unspecified site; Z79.84 Long term (current) use of oral hypoglycemic drugs; Z79.899 Other long term (current) drug therapy; Z95.5 Presence of coronary angioplasty implant and graft; Z82.49 Family history of ischemic heart disease and other diseases of the circulatory system
CPT/HCPCS: 36415; 71045; 71046; 80048; 80053; 80076; 81003; 83036; 83735; 83880; 84484; 85025; 85610; 85730; 93005; 93306; 94640; 94760; 96374; 99285

== ENCOUNTER → 2022-02-11 | Outpatient (CLI) | payer MEDICARE ==
[2022-02-11 08:53] VITALS: BP 168/69; PULSE 77; RESP 16; TEMP 98.6
--- NOTE | 2022-02-11 14:21 | P.PAINPG ---
PQRS Measure Charge Sheet Comment: HISTORY OF PRESENT ILLNESS: 72 yr old male as a referral from [facility], [place] presents today w severe and chronic LBP secondary to DDD, spondylosis and facet arthropathy without myelopathy for evaluation. Pt states his pain level is currently at 10/10 in intensity, stabbing in character in the lower lumbar spine w radiation to LLE. PT finished a few weeks ago, massage integrated w PT, home exercise therapy daily, meds ([place], Voltaren gel), repositioning and rest. Pain is provoked w lifting as 9 wks ago he was lifting a porch. PMH: Atrial Fibrillation, CAD, CHF, COPD, Diabetes Mellitus, GERD, HTN, OA, Renal Disease, RA, Alcoholism, RLS PSH: Cardiac Cath, Angioplasty w Stent to LAD (2013), Stent (2019), JOLIE, R Elbow Surgery, L Elbow Surgery, BL Cataract Resection SH: Daily tobacco user, Occasional ETOH use, No illicit drug use. FH: Fa- Prostate CA/ age 65. Mo- CAD/ CHF/ age 73. Brother- CAD/ NE/ CABG. Brother- Prostate CA. Sister- NE. Daughter- No Reported History. Son- No Reported History. All: NKDA Meds: See list REVIEW OF ORGAN SYSTEMS: CONSTITUTIONAL: No fevers or chills. No recent weight loss. NEUROLOGICAL: + numbness and tingling along the distal extremities. No seizure disorders or headaches. MUSCULOSKELETAL: + pain PSYCHIATRIC: Denies current depression or suicidal thoughts. Physical Examinations : Constitutional : Cooperative , not in acute distress . Neurologic : Cranial nerve II to XII intact. No focal neurological deficits. Psychiatric : alert & oriented x 3. Matching mood & appropriate affect. Judgment & insight intact. Musculoskeletal : Cervical Spine Motor strength in the deltoid and biceps: Normal right side. Normal Left side Motor strength biceps and the wrist extensors: Normal right side . Normal left side Motor strength in the triceps muscle: Normal right side. Normal left side Deep tendon reflexes: Normal at the biceps. Normal at Brachioradialis. Normal at triceps Vertebral body tenderness to deep palpation over Cervical facet loading test: positive bilaterally Spurling test: positive bilaterally Neck distraction test: positive bilaterally Regis sign: positive bilaterally Lumbar spine Motor strength lower extremities ,thigh and legs 5/5 Right side , 5/5 Left side Deep tendon reflexes : Normal Knee Jerk. Normal Ankle Jerk Vertebral body tenderness over L5 Lumbar facet Loading Test: positive Right / positive Left Range of motion of the lumbar spine Flexion 30 degrees, extension 10 degrees Straight Leg Raise test: Left/ Right positive at degree Reina test: positive right / positive left. Severe tenderness over the Sacroiliac joint on the Right / Left sides Gaenslen test: positive bilaterally Seated flexion test: positive bilaterally. Sacral spine : Severe tenderness over the Sacroiliac joint: right side / left side Range of motion: Flexion of the lumbar spine <60 degrees Range of motion: Extension of the lumbar spine <20 degrees Gaenslen's Test positive Hai's Test positive Reina test: positive right side / left side Thigh Thrust Test Sacral Thrust Test Imaging: MRI without contrast of the lumbar spine from 01/11/22 reviewed Assessment/ Plan : Lumbar DDD, Lumbar Spondylosis Recommendation of L TFESI L5-S1. May need a series of injections, up to 3 within a 6 mo period, for optimal pain relief. Risks, benefits of procedure discussed and patient verbalized understanding. Admits to anti- coagulant use or medical history of diabetes. Protocol for discontinuation/ continuation of medications eliza procedure discussed. All questions answered. I have spent greater than 30 minutes on patient care today. Dr Cervantes was available by phone for the evaluation of this patient. The time was used to review the medical records including relevant urine studies and Prescription history (MAPs), review of the available imaging, evaluation and examination of the patient, coordination of care with the medical staff and if applicable referring physicians, as well as creation of the medical record PQRS Narrative: Smoking Status Current some day smoker Home Medications: Ambulatory Orders Atorvastatin [Lipitor] 40 mg PO DAILY 04/01/14 Isosorbide Mononitrate [Imdur] 30 mg PO DAILY 04/01/14 amLODIPine [Norvasc] 10 mg PO DAILY 01/11/15 Potassium Chloride ER [K-Dur 20] 20 meq PO HS 10/06/19 Pramipexole [Mirapex] 1 mg PO HS 10/06/19 hydrALAZINE HCL [Apresoline] 25 mg PO TID 10/06/19 Acetaminophen [Tylenol Arthritis] 1,300 tab PO BID 01/14/20 traZODone HCL 50 mg PO HS PRN 02/06/20 Ferrous Sulfate [Iron (65 MG Elemental)] 325 mg PO BID 12/22/21 Omeprazole 20 mg PO DAILY 12/22/21 Apixaban [Eliquis] 5 mg PO BID #60 tab 12/24/21 Cetirizine HCl [Zyrtec] 10 mg PO DAILY 01/18/22 Colchicine [Colcrys] 0.6 mg PO DAILY 01/18/22 allopurinoL [Zyloprim] 300 mg PO DAILY 01/18/22 metFORMIN HCL 1,000 mg PO BID 01/18/22 Albuterol Inhaler [Ventolin Hfa Inhaler] 1 - 2 puff INHALATION Q6H PRN #1 each 01/24/22 Cephalexin [Keflex] 250 mg PO BID 3 Days #6 cap 01/24/22 Furosemide [Lasix] 80 mg PO BID@0900,1600 #60 tab 01/24/22 Losartan [Cozaar] 75 mg PO DAILY #60 tab 01/24/22 predniSONE 10 mg PO DIRECTED #12 tab 01/24/22 Controlled Substance Measures - Controlled Substance Measures Is patient prescribed a controlled substance at discharge?: No
== END ==
LOC: PNWHC3 08:06
PROVIDERS: ATTEND Specialist
DX: M51.16 Intervertebral disc disorders with radiculopathy, lumbar region (principal); M47.26 Other spondylosis with radiculopathy, lumbar region; M48.061 Spinal stenosis, lumbar region without neurogenic claudication; I48.91 Unspecified atrial fibrillation; I25.10 Atherosclerotic heart disease of native coronary artery without angina pectoris; I11.0 Hypertensive heart disease with heart failure; I50.9 Heart failure, unspecified; E11.9 Type 2 diabetes mellitus without complications; J44.9 Chronic obstructive pulmonary disease, unspecified; M06.9 Rheumatoid arthritis, unspecified; F17.200 Nicotine dependence, unspecified, uncomplicated
CPT/HCPCS: 99211

== ENCOUNTER → 2022-02-20 | Outpatient (CLI) | payer MEDICARE ==
--- NOTE | 2022-02-20 16:29 | US ---
EXAMINATION TYPE: US kidneys/renal and bladder DATE OF EXAM: 02/20/2022 COMPARISON: 10/10/2019 CLINICAL HISTORY: N17.9 ACUTE KIDNEY FAILURE. EXAM MEASUREMENTS: Right Kidney: 11.3 x 4.9 x 4.2 cm Left Kidney: 10.5 x 6.1 x 5.0 cm Right Kidney: Echogenic sinus Left Kidney: Echogenic sinus Bladder: wnl Bilateral Jets seen: Left jet visualized, right jet not visualized . Free fluid visualized within the abdomen. IMPRESSION: 1. No evidence of obstructive uropathy. 2. Small ascites.
== END | disposition home or self-care (01) ==
LOC: RADUSWWP 15:16
PROVIDERS: ATTEND Internal Medicine Nephrology
DX: N17.9 Acute kidney failure, unspecified (principal); R18.8 Other ascites
CPT/HCPCS: 76770

== ENCOUNTER 2022-02-21 11:45 | Inpatient (IN) | payer MEDICARE ==
--- NOTE | 2022-02-21 13:26 | XR ---
EXAMINATION TYPE: XR chest 2V DATE OF EXAM: 02/21/2022 COMPARISON: Chest x-ray January 20, 2022 HISTORY: Difficulty in breathing. TECHNIQUE: Frontal and lateral views of the chest are obtained. FINDINGS: There is persistent cardiomegaly with small to tiny bilateral pleural effusions on current study. Some chronic parenchymal changes bilaterally are present without suspicious focal airspace o pacity or pneumothorax seen. The osseous structures are intact. IMPRESSION: Cardiomegaly with small to tiny bilateral pleural effusions remain present. Cannot exclud e CHF exacerbation. Findings appear similar to prior.
[2022-02-21 13:56] LABS: Anisocytosis Slight; Basophils # (A) 0.1 k/uL (0-0.2); Basophils % (A) 1 %; Eosinophils # (A) 0.2 k/uL (0-0.7); Eosinophils % (A) 2 %; HGB 9.9 gm/dL (13.0-17.5); Hypochromasia Moderate; Lymphocytes # (A) 0.5 k/uL (1.0-4.8); Lymphocytes % (A) 5 %; MCH 31.8 pg (25.0-35.0); MCHC 31.8 g/dL (31.0-37.0); MCV 100.1 fL (80.0-100.0); Macrocytosis Slight; Mean Platelet Volume 9.8; Monocytes # (A) 0.8 k/uL (0-1.0); Monocytes % (A) 9 %; Neutrophils # (A) 8.1 k/uL (1.3-7.7); Neutrophils % (A) 82 %; Platelet Count 301 k/uL (150-450); RDW 16.9 % (11.5-15.5); WBC 9.8 k/uL (3.8-10.6)
[2022-02-21 14:05] LABS: Albumin 3.7 g/dL (3.5-5.0); Calcium 7.7 mg/dL (8.4-10.2); Potassium 3.5 mmol/L (3.5-5.1); Total Bilirubin 0.6 mg/dL (0.2-1.3); Total Protein 6.7 g/dL (6.3-8.2)
[2022-02-21 14:10] LABS: INR 1.1 (<1.2); Prothrombin Time 11.9 sec (9.0-12.0)
[2022-02-21 14:11] LABS: Partial Thromboplastin Time 29.2 sec (22.0-30.0)
--- NOTE | 2022-02-21 14:23 | ED ---
General Adult HPI - General Chief complaint: Shortness of Breath Stated complaint: Leg swelling Time Seen by Provider: 02/21/22 13:53 Source: patient, RN notes reviewed Mode of arrival: ambulatory Limitations: no limitations - History of Present Illness Initial comments: Patient is a pleasant 72-year-old male presenting to the emergency department with difficulty breathing. Symptoms have been present for the past few days. A roa is swelling of his legs and gaining weight. Dyspnea worsens with exertion. Patient was in the hospital with similar problems associated with CHF around a month ago. No fever. - Related Data Home Medications Medication Instructions Recorded Confirmed Atorvastatin [Lipitor] 40 mg PO DAILY 04/01/14 02/21/22 Isosorbide Mononitrate [Imdur] 30 mg PO DAILY 04/01/14 02/21/22 amLODIPine [Norvasc] 10 mg PO DAILY 01/11/15 02/21/22 Potassium Chloride ER [K-Dur 20] 20 meq PO HS 10/06/19 02/21/22 Pramipexole [Mirapex] 1 mg PO HS 10/06/19 02/21/22 hydrALAZINE HCL [Apresoline] 25 mg PO BID 10/06/19 02/21/22 Acetaminophen [Tylenol Arthritis] 1,300 tab PO BID 01/14/20 02/21/22 traZODone HCL 50 mg PO HS PRN 02/06/20 02/21/22 Ferrous Sulfate [Iron (65 MG 325 mg PO BID 12/22/21 02/21/22 Elemental)] Omeprazole 20 mg PO DAILY 12/22/21 02/21/22 Cetirizine HCl [Zyrtec] 10 mg PO DAILY 01/18/22 02/21/22 metFORMIN HCL 1,000 mg PO BID 01/18/22 02/21/22 Albuterol Inhaler [Ventolin Hfa 1 - 2 puff INHALATION RT-QID PRN 02/21/22 02/21/22 Inhaler] HYDROcodone/APAP 5-325MG [[place] 1 tab PO Q6H PRN 02/21/22 02/21/22 5-325] diphenhydrAMINE HCL [Benadryl] 25 mg PO DAILY PRN 02/21/22 02/21/22 Previous Rx's Medication Instructions Recorded Apixaban [Eliquis] 5 mg PO BID #60 tab 12/24/21 Furosemide [Lasix] 80 mg PO BID@0900,1600 #60 tab 01/24/22 Losartan [Cozaar] 75 mg PO DAILY #60 tab 01/24/22 Allergies Allergy/AdvReac Type Severity Reaction Status Date / Time No Known Allergies Allergy Verified 02/21/22 15:16 Review of Systems ROS Statement: Those systems with pertinent positive or pertinent negative responses have been documented in the HPI. ROS Other: All systems not noted in ROS Statement are negative. Constitutional: Denies: fever Eyes: Denies: eye pain ENT: Denies: ear pain Respiratory: Reports: as per HPI, dyspnea. Denies: cough Cardiovascular: Reports: dyspnea on exertion, edema. Denies: chest pain Endocrine: Denies: fatigue Gastrointestinal: Denies: abdominal pain Genitourinary: Denies: dysuria Musculoskeletal: Denies: back pain Skin: Denies: rash Neurological: Denies: weakness Past Medical History Past Medical History: Atrial Fibrillation, Coronary Artery Disease (CAD), Heart Failure, COPD, Diabetes Mellitus, GERD/Reflux, GI Bleed, Hypertension, Osteoarthritis (OA), Pneumonia, Renal Disease, Rheumatoid Arthritis (RA) Additional Past Medical History / Comment(s): gi bleed, anemia, restless leg syndrome, alcoholism, kidney injury Last Myocardial Infarction Date:: 2013 History of Any Multi-Drug Resistant Organisms: None Reported Past Surgical History: Heart Catheterization With Stent, Orthopedic Surgery Additional Past Surgical History / Comment(s): 06/04/13 angioplasty with stent to LAD, Stent -(R) radial approach 06/07/13 JOLIE, bone spur rt elbow removed, L elbow surgery, bilateral cataract surgery. Past Anesthesia/Blood Transfusion Reactions: No Reported Reaction Additional Past Anesthesia/Blood Transfusion Reaction / Comment(s): Pt has never recieved blood. Date of Last Stent Placement:: 01/18/2020 Past Psychological History: No Psychological Hx Reported Smoking Status: Current every day smoker - Past Family History Father Family Medical History: Cancer Additional Family Medical History / Comment(s): Father of prostate cancer at age 65yrs. Mother Family Medical History: Coronary Artery Disease (CAD) Additional Family Medical History / Comment(s): Mother had CABG. She of CHF at age 73 yrs. Brother(s) Family Medical History: Coronary Artery Disease (CAD) Additional Family Medical History / Comment(s): Patient has 2 brothers and one has history of myocardial infarction and five-vessel CABG, one has history of prostate cancer. Sister(s) Family Medical History: Coronary Artery Disease (CAD), Myocardial Infarction (CA) Additional Family Medical History / Comment(s): Patient has 2 sisters and one has history of myocardial infarction. Daughter(s) Family Medical History: No Reported History Additional Family Medical History / Comment(s): Patient has a total of 3 childr en with no major medical problems. Son(s) Family Medical History: No Reported History General Exam Limitations: no limitations General appearance: alert, in no apparent distress Head exam: Present: normocephalic Eye exam: Present: normal appearance Neck exam: Present: normal inspection Respiratory exam: Present: decreased breath sounds Cardiovascular Exam: Present: irregular rhythm GI/Abdominal exam: Present: soft. Absent: tenderness Extremities exam: Present: pedal edema Neurological exam: Present: alert Psychiatric exam: Present: normal affect, normal mood Skin exam: Present: erythema (Bilateral lower extremity such patient states is chronic) Course Vital Signs 02/21/22 02/21/22 12:49 14:19 Temperature 97.5 F L Pulse Rate 69 Respiratory 20 20 Rate Blood Pressure 141/51 O2 Sat by Pulse 100 Oximetry Medical Decision Making - Medical Decision Making Patient reevaluated and updated. Case discussed with Dr. Holder, who will admit covering for Dr. Saavedra - Lab Data Result diagrams: 02/21/22 13:30 02/21/22 13:30 Lab Results 02/21/22 02/21/22 02/21/22 Range/Units 13:30 13:30 13:30 WBC 9.8 (3.8-10.6) k/uL RBC 3.10 L (4.30-5.90) m/uL Hgb 9.9 L (13.0-17.5) gm/dL Hct 31.0 L (39.0-53.0) % MCV 100.1 H (80.0-100.0) fL MCH 31.8 (25.0-35.0) pg MCHC 31.8 (31.0-37.0) g/dL RDW 16.9 H (11.5-15.5) % Plt Count 301 (150-450) k/uL MPV 9.8 Neutrophils % 82 % Lymphocytes % 5 % Monocytes % 9 % Eosinophils % 2 % Basophils % 1 % Neutrophils # 8.1 H (1.3-7.7) k/uL Lymphocytes # 0.5 L (1.0-4.8) k/uL Monocytes # 0.8 (0-1.0) k/uL Eosinophils # 0.2 (0-0.7) k/uL Basophils # 0.1 (0-0.2) k/uL Hypochromasia Moderate Anisocytosis Slight Macrocytosis Slight PT 11.9 (9.0-12.0) sec INR 1.1 (<1.2) APTT 29.2 (22.0-30.0) sec Sodium 140 (137-145) mmol/L Potassium 3.5 (3.5-5.1) mmol/L Chloride 101 (98-107) mmol/L Carbon Dioxide 22 (22-30) mmol/L Anion Gap 17 mmol/L BUN 56 H (9-20) mg/dL Creatinine 1.70 H (0.66-1.25) mg/dL Est GFR (CKD-EPI)AfAm 46 (>60 ml/min/1.73 sqM) Est GFR (CKD-EPI)NonAf 40 (>60 ml/min/1.73 sqM) Glucose 122 H (74-99) mg/dL Calcium 7.7 L (8.4-10.2) mg/dL Total Bilirubin 0.6 (0.2-1.3) mg/dL AST 27 (17-59) U/L ALT 19 (4-49) U/L Alkaline Phosphatase 216 H (38-126) U/L Troponin I (0.000-0.034) ng/mL NT-Pro-B Natriuret Pep pg/mL Total Protein 6.7 (6.3-8.2) g/dL Albumin 3.7 (3.5-5.0) g/dL 02/21/22 02/21/22 Range/Units 13:30 13:30 WBC (3.8-10.6) k/uL RBC (4.30-5.90) m/uL Hgb (13.0-17.5) gm/dL Hct (39.0-53.0) % MCV (80.0-100.0) fL MCH (25.0-35.0) pg MCHC (31.0-37.0) g/dL RDW (11.5-15.5) % Plt Count (150-450) k/uL MPV Neutrophils % % Lymphocytes % % Monocytes % % Eosinophils % % Basophils % % Neutrophils # (1.3-7.7) k/uL Lymphocytes # (1.0-4.8) k/uL Monocytes # (0-1.0) k/uL Eosinophils # (0-0.7) k/uL Basophils # (0-0.2) k/uL Hypochromasia Anisocytosis Macrocytosis PT (9.0-12.0) sec INR (<1.2) APTT (22.0-30.0) sec Sodium (137-145) mmol/L Potassium (3.5-5.1) mmol/L Chloride (98-107) mmol/L Carbon Dioxide (22-30) mmol/L Anion Gap mmol/L BUN (9-20) mg/dL Creatinine (0.66-1.25) mg/dL Est GFR (CKD-EPI)AfAm (>60 ml/min/1.73 sqM) Est GFR (CKD-EPI)NonAf (>60 ml/min/1.73 sqM) Glucose (74-99) mg/dL Calcium (8.4-10.2) mg/dL Total Bilirubin (0.2-1.3) mg/dL AST (17-59) U/L ALT (4-49) U/L Alkaline Phosphatase (38-126) U/L Troponin I 0.028 (0.000-0.034) ng/mL NT-Pro-B Natriuret Pep 61144 pg/mL Total Protein (6.3-8.2) g/dL Albumin (3.5-5.0) g/dL - Radiology Data Radiology results: image reviewed (Chest x-ray suspicious for CHF) Disposition Clinical Impression: Congestive heart failure Disposition: ADMITTED IP TO THIS HOSP Is patient prescribed a controlled substance at d/c from ED?: No Referrals: Ilya Saavedra MD [Primary Care Provider] - 1-2 days Time of Disposition: 15:43
[2022-02-21] MEDS ORDERED: ASPIRIN 325 MG TAB PO STA (15:44)
[2022-02-21] MEDS: FUROSEMIDE 10 MG/ML 4 ML VIAL IV SCH ×2 (16:29→23:27)
[2022-02-21] MEDS: FERROUS SULFATE 325 MG TAB PO SCH (22:14)
[2022-02-21] MEDS: PRAMIPEXOLE 1 MG TAB PO SCH (22:14)
[2022-02-21] MEDS: hydrALAZINE HCL 25 MG TAB PO SCH (22:14)
[2022-02-21] MEDS: APIXABAN 5 MG TAB PO SCH (22:14)
[2022-02-21] MEDS: NITROGLYCERIN OINT 1 INCH/GM PACKET TOPICAL SCH ×2 (22:15→22:21)
--- NOTE | 2022-02-22 03:03 | HP ---
HISTORY AND PHYSICAL CHIEF COMPLAINT: Shortness of breath and leg swelling. HISTORY OF PRESENT ILLNESS: This 72-year-old gentleman with a past medical history of multiple medical issues, atrial ablation, CHF, COPD, being followed by Dr. Saavedra in the outpatient setting, complaining of increasing shortness of breath. Patient also had bilateral leg swelling and oozing also, which is also extending to the thigh according to him. Chest x-ray showed CHF. There is no history of any fever, rigors, or chills at this time. PAST MEDICAL HISTORY: Reviewed include atrial fibrillation, CAD, CHF with multiple medical issues. HOME MEDICATIONS: Again reviewed include trazodone, dose and rest of medications noted. ALLERGIES: None. FAMILY HISTORY: History of cancer in the family. SOCIAL HISTORY: History of smoking continued ongoing. REVIEW OF SYSTEMS: A 14-point review is negative as mentioned earlier. PHYSICAL EXAMINATION: VITAL SIGNS: Pulse is 69, blood pressure 141/51, and respirations 20. HEENT: Conjunctivae normal. NECK: No jugular venous distention. RESPIRATIONS: Diminished at the bases, scattered rhonchi and crackles. ABDOMEN: Soft and nontender. LEGS: Bilateral leg swelling and erythema of the legs present. NERVOUS SYSTEM: No focal deficits. SKIN: As mentioned earlier. JOINTS: No active arthropathy. LABS: Hemoglobin 9.6, rest of the labs are noted. ASSESSMENT: 1. Congestive heart failure acute exacerbation. 2. Bilateral leg cellulitis. 3. History of coronary artery disease. 4. Chronic obstructive pulmonary disease. 5. Diabetes mellitus, type 2. 6. Multiple medical issues. RECOMMENDATIONS: This 72-year-old gentleman presented with multiple complex medical issues, we will monitor the patient closely, will initiate diuretics, cardiology and pulmonology consultations. Guarded prognosis because of multiple complex medical issues and further recommendations to follow. See orders for further details. MMODL / IJN: [id number] /
[2022-02-22 07:55] LABS: Glucose,Whole Blood 144 mg/dL (70-110)
[2022-02-22] MEDS: INSULIN ASPART (NovoLOG) 100 UNIT/ML VIAL SQ SCH ×4 (08:21→20:59)
[2022-02-22] MEDS ORDERED: LOSARTAN 50 MG TAB PO SCH (09:00)
[2022-02-22] MEDS ORDERED: ASPIRIN 325 MG TAB PO SCH (09:00)
[2022-02-22] MEDS: hydrALAZINE HCL 25 MG TAB PO SCH ×2 (09:06→20:59)
[2022-02-22] MEDS: FERROUS SULFATE 325 MG TAB PO SCH ×2 (09:06→20:59)
[2022-02-22] MEDS: ISOSORBIDE MONONITRATE ER 30 MG TAB.ER.24H PO SCH (09:07)
[2022-02-22] MEDS: APIXABAN 5 MG TAB PO SCH ×2 (09:07→20:59)
[2022-02-22] MEDS: amLODIPine 10 MG TAB PO SCH (09:07)
[2022-02-22] MEDS: ATORVASTATIN 40 MG TAB PO SCH (09:07)
[2022-02-22] MEDS: LORATADINE 10 MG TAB PO SCH (09:07)
[2022-02-22] MEDS: FUROSEMIDE 10 MG/ML 4 ML VIAL IV SCH ×2 (09:07→18:34)
[2022-02-22 09:25] LABS: Anisocytosis Slight; Basophils % (A) 0 %; Eosinophils # (A) 0.1 k/uL (0-0.7); Eosinophils % (A) 1 %; HCT 27.8 % (39.0-53.0); HGB 8.8 gm/dL (13.0-17.5); Hypochromasia Moderate; Lymphocytes # (A) 0.4 k/uL (1.0-4.8); Lymphocytes % (A) 4 %; MCH 31.6 pg (25.0-35.0); MCHC 31.6 g/dL (31.0-37.0); MCV 99.9 fL (80.0-100.0); Macrocytosis Slight; Mean Platelet Volume 9.7; Monocytes # (A) 0.5 k/uL (0-1.0); Monocytes % (A) 6 %; Neutrophils % (A) 87 %; Platelet Count 280 k/uL (150-450); RBC 2.78 m/uL (4.30-5.90); RDW 17.2 % (11.5-15.5); WBC 9.2 k/uL (3.8-10.6)
[2022-02-22 09:54] LABS: African American GFR (CKD) 49 (>60 ml/min/1.73 sqM); Anion Gap 13 mmol/L; Blood Urea Nitrogen 52 mg/dL (9-20); Calcium 7.1 mg/dL (8.4-10.2); Carbon Dioxide 25 mmol/L (22-30); Chloride 100 mmol/L (98-107); Glucose 253 mg/dL (74-99); Non-African American GFR(CKD) 43 (>60 ml/min/1.73 sqM); Potassium 3.7 mmol/L (3.5-5.1); Sodium 138 mmol/L (137-145)
[2022-02-22] MEDS: NITROGLYCERIN OINT 1 INCH/GM PACKET TOPICAL SCH (10:15)
[2022-02-22 12:06] LABS: Glucose,Whole Blood 250 mg/dL (70-110)
--- NOTE | 2022-02-22 12:54 | P.CRDCN ---
History of Present Illness History of present illness: This is a 72-year-old male with a past medical history significant for persistent atrial fibrillation on Eliquis, coronary artery disease with PCI mid LAD 2013, PCI LCx 2019, congestive heart failure, valvular heart disease with severe mitral and severe tricuspid regurgitation, nicotine dependence, and alcohol abuse. Patient follows in the office with Dr. Sharp. We have been asked to see the patient in consultation for CHF. Patient presents to the ER with complaints of worsening shortness of breath, cough, LE edema, and 15lb weight gain since discharge 01/2022. Over the past few days he noticed his symptoms have worsening. He denies any chest pain, palpitations, lightheadedness, diz ziness, fever, chills, night sweats. He denies any change in his medications. He endorses compliance with his medications. He denies any increased salt intake. DIAGNOSTICS: * EKG not available at time of dictation * Chest xray cardiomegaly, small to tiny bilateral pleural effusions remain present. * Laboratory data: WBC 9.2, hemoglobin 8.8, platelets 280, sodium 140, potassium 3.5, BUN 56, serum creatinine 1.7, proBNP 14,900, troponin negative * Current home cardiac medications include Lasix 80 mg twice a day, hydralazine 20 mg twice a day, amlodipine 10 mg daily, losartan 75 mg daily, Imdur 30 mg daily, atorvastatin 40 mg daily, Eliquis 5 mg twice a day * Most recent echocardiogram obtained 01/18/2022 with EF 55%, severe mitral regurgitation and severe tricuspid regurgitation, RVS 76mmHg, mild aortic stenosis with mean gradient 8mmHg, moderate to severe aortic regurgitation * Cardiac catheterization history: January 2020 with stenting of the left circumflex, Dominant RCA, mildly elevated filling pressures no gradient across AV, RCA moderate 40% lesion, LAD 30-40% narrowings previous stented segment widely patent. Lcx had 85% lesion. REVIEW OF SYSTEMS: At the time of my exam: CONSTITUTIONAL: Denies fever or chills. +weight gain HEENT: Denies blurred vision, vision changes, or eye pain. Denies hemoptysis CARDIOVASCULAR: Denies chest pain. Denies orthopnea. Denies PND. Denies p alpitations. RESPIRATORY: + shortness of breath. +cough GASTROINTESTINAL: Denies abdominal pain. Denies nausea or vomiting. HEMATOLOGIC: Denies bleeding disorders. +anemia GENITOURINARY: Denies any blood in urine. SKIN: Denies pruitis. Denies rash. PHYSICAL EXAM: VITAL SIGNS: Reviewed. GENERAL: Well-developed in no acute distress. HEENT: Head is normocephalic. Pupils are equal, round. Sclerae anicteric. Mucous membranes of the mouth are moist. Neck supple. No JVD LUNGS: Respirations even and unlabored. Lungs diminished, some expiratory wheezing, and mild crackles in the bases HEART: Irregular rate and rhythm. S1 and S2 heard. Systolic murmur noted. ABDOMEN: Soft. Nondistended. Nontender. EXTREMITIES: Normal range of motion. No edema. No clubbing or cyanosis. Peripheral pulses intact. Redness and scabbing noted bilateral legs. NEUROLOGIC: Awake and alert. Oriented x 3. ASSESSMENT: Shortness of breath Acute on chronic heart failure with preserved ejection fraction Acute kidney injury Chronic atrial fibrillation Coronary artery disease with previous stenting Valvular heart disease- severe mitral and severe tricuspid regurgitation, mild aortic stenosis, moderate to severe aortic regurgitation Nicotine dependence Alcohol abuse PLAN: Continue IV Lasix Monitor renal function and electrolytes Continue IV Lasix Daily weights Accurate I&O Continue other cardiac medications Continue anticoagulation with Eliquis Further recommendations pending patient's course Nurse practitioner note has been reviewed by physician. Signing provider agrees with the documented findings, assessment, and plan of care. Past Medical History Past Medical History: Atrial Fibrillation, Coronary Artery Disease (CAD), Heart Failure, COPD, Diabetes Mellitus, GERD/Reflux, GI Bleed, Hypertension, Osteoarthritis (OA), Pneumonia, Renal Disease, Rheumatoid Arthritis (RA) Additional Past Medical History / Comment(s): gi bleed, anemia, restless leg syndrome, alcoholism, kidney injury Last Myocardial Infarction Date:: 2013 History of Any Multi-Drug Resistant Organisms: None Reported Past Surgical History: Heart Catheterization With Stent, Orthopedic Surgery Additional Past Surgical History / Comment(s): 06/04/13 angioplasty with stent to LAD, Stent -(R) radial approach 06/07/13 JOLIE, bone spur rt elbow removed, L elbow surgery, bilateral cataract surgery. Past Anesthesia/Blood Transfusion Reactions: No Reported Reaction Additional Past Anesthesia/Blood Transfusion Reaction / Comment(s): Pt has never recieved blood. Date of Last Stent Placement:: 01/18/2020 Past Psychological History: No Psychological Hx Reported Additional Psychological History / Comment(s): Pt resides with his spouse. He is independent. He uses no assistive device or home care. He drives. Smoking Status: Current every day smoker Past Alcohol Use History: None Reported Additional Past Alcohol Use History / Comment(s): Patient is a smoker one pack per day since he was 15 years of age. He is currently drinking 3 beers per day. He lives at home with his . He does have a nebulizer. No CPAP, no oxygen at home. Patient denies any marijuana use, street drug use. Past Drug Use History: None Reported - Past Family History Father Family Medical History: Cancer Additional Family Medical History / Comment(s): Father of prostate cancer at age 65yrs. Mother Family Medical History: Coronary Artery Disease (CAD) Additional Family Medical History / Comment(s): Mother had CABG. She of CHF at age 73 yrs. Brother(s) Family Medical History: Coronary Artery Disease (CAD) Additional Family Medical History / Comment(s): Patient has 2 brothers and one has history of myocardial infarction and five-vessel CABG, one has history of prostate cancer. Sister(s) Family Medical History: Coronary Artery Disease (CAD), Myocardial Infarction ([place]) Additional Family Medical History / Comment(s): Patient has 2 sisters and one has history of myocardial infarction. Daughter(s) Family Medical History: No Reported History Additional Family Medical History / Comment(s): Patient has a total of 3 children with no major medical problems. Son(s) Family Medical History: No Reported History Medications and Allergies Home Medications Medication Instructions Recorded Confirmed Type Atorvastatin [Lipitor] 40 mg PO DAILY 04/01/14 02/21/22 History Isosorbide Mononitrate [Imdur] 30 mg PO DAILY 04/01/14 02/21/22 History amLODIPine [Norvasc] 10 mg PO DAILY 01/11/15 02/21/22 History Potassium Chloride ER [K-Dur 20] 20 meq PO HS 10/06/19 02/21/22 History Pramipexole [Mirapex] 1 mg PO HS 10/06/19 02/21/22 History hydrALAZINE HCL [Apresoline] 25 mg PO BID 10/06/19 02/21/22 History Acetaminophen [Tylenol Arthritis] 1,300 tab PO BID 01/14/20 02/21/22 History traZODone HCL 50 mg PO HS PRN 02/06/20 02/21/22 History Ferrous Sulfate [Iron (65 MG 325 mg PO BID 12/22/21 02/21/22 History Elemental)] Omeprazole 20 mg PO DAILY 12/22/21 02/21/22 History Apixaban [Eliquis] 5 mg PO BID #60 tab 12/24/21 02/21/22 Rx Cetirizine HCl [Zyrtec] 10 mg PO DAILY 01/18/22 02/21/22 History metFORMIN HCL 1,000 mg PO BID 01/18/22 02/21/22 History Furosemide [Lasix] 80 mg PO BID@0900,1600 #60 tab 01/24/22 02/21/22 Rx Losartan [Cozaar] 75 mg PO DAILY #60 tab 01/24/22 02/21/22 Rx Albuterol Inhaler [Ventolin Hfa 1 - 2 puff INHALATION RT-QID PRN 02/21/22 02/21/22 History Inhaler] HYDROcodone/APAP 5-325MG [[place] 1 tab PO Q6H PRN 02/21/22 02/21/22 History 5-325] diphenhydrAMINE HCL [Benadryl] 25 mg PO DAILY PRN 02/21/22 02/21/22 History Allergies Allergy/AdvReac Type Severity Reaction Status Date / Time No Known Allergies Allergy Verified 02/21/22 15:16 Physical Exam Vitals: Vital Signs Temp Pulse Pulse Resp BP BP Pulse Ox 02/22/22 04:53 98.5 F 86 16 149/57 95 02/22/22 02:00 18 02/21/22 20:59 98.7 F 80 16 139/56 92 L 02/21/22 20:00 20 02/21/22 19:39 97.5 F L 80 20 148/80 99 02/21/22 18:52 97.7 F 73 18 114/58 97 02/21/22 14:19 20 02/21/22 12:49 97.5 F L 69 20 141/51 100 Intake and Output 02/21/22 02/22/22 02/22/22 22:59 06:59 14:59 Intake Total 590 Output Total 600 Balance -10 Intake: Oral 590 Output: Urine 600 Other: Voiding Method Urinal Urinal # Voids 1 2 Weight 73.028 kg Results 02/22/22 08:51 02/22/22 08:51 Cardiac Enzymes 02/21/22 02/21/22 Range/Units 13:30 13:30 AST 27 (17-59) U/L Troponin I 0.028 (0.000-0.034) ng/mL Coagulation 02/21/22 Range/Units 13:30 PT 11.9 (9.0-12.0) sec APTT 29.2 (22.0-30.0) sec CBC 02/21/22 Range/Units 13:30 WBC 9.8 (3.8-10.6) k/uL RBC 3.10 L (4.30-5.90) m/uL Hgb 9.9 L (13.0-17.5) gm/dL Hct 31.0 L (39.0-53.0) % Plt Count 301 (150-450) k/uL Comprehensive Metabolic Panel 02/21/22 Range/Units 13:30 Sodium 140 (137-145) mmol/L Potassium 3.5 (3.5-5.1) mmol/L Chloride 101 (98-107) mmol/L Carbon Dioxide 22 (22-30) mmol/L BUN 56 H (9-20) mg/dL Creatinine 1.70 H (0.66-1.25) mg/dL Glucose 122 H (74-99) mg/dL Calcium 7.7 L (8.4-10.2) mg/dL AST 27 (17-59) U/L ALT 19 (4-49) U/L Alkaline Phosphatase 216 H (38-126) U/L Total Protein 6.7 (6.3-8.2) g/dL Albumin 3.7 (3.5-5.0) g/dL Current Medications Generic Name Dose Route Start Last Admin Trade Name Freq PRN Reason Stop Dose Admin Hydrocodone Bitart/Acetaminophen 1 each 02/21/22 20:25 Hydrocodone/Apap 5-325mg 1 Each Tab PO Q6H PRN Pain Amlodipine Besylate 10 mg 02/22/22 09:00 Amlodipine 10 Mg Tab PO DAILY [facility]A Apixaban 5 mg 02/21/22 21:00 02/21/22 22:14 Apixaban 5 Mg Tab PO 5 mg BID [facility] Administration Protocol Aspirin 325 mg 02/22/22 09:00 Aspirin 325 Mg Tab PO DAILY [facility] Atorvastatin Calcium 40 mg 02/22/22 09:00 Atorvastatin 40 Mg Tab PO DAILY [facility] Ferrous Sulfate 325 mg 02/21/22 21:00 02/21/22 22:14 Ferrous Sulfate 325 Mg Tab PO 325 mg BID [facility] Administration Furosemide 40 mg 02/21/22 16:00 02/21/22 23:27 Furosemide 10 Mg/Ml 4 Ml Vial IV 40 mg Q8HR [facility] Administration Hydralazine HCl 25 mg 02/21/22 21:00 02/21/22 22:14 Hydralazine Hcl 25 Mg Tab PO 25 mg BID [facility] Administration Insulin Aspart 0 unit 02/22/22 07:30 Insulin Aspart (Novolog) 100 Unit/Ml Vial SQ ACHS [facility] Protocol Isosorbide Mononitrate 30 mg 02/22/22 09:00 Isosorbide Mononitrate Er 30 Mg Tab.Er.24h PO DAILY [facility] Loratadine 10 mg 02/22/22 09:00 Loratadine 10 Mg Tab PO DAILY [facility] Losartan Potassium 75 mg 02/22/22 09:00 Losartan 50 Mg Tab PO DAILY [facility] Nitroglycerin 1 inch 02/21/22 18:00 02/21/22 22:21 Nitroglycerin Oint 1 Inch/Gm Packet TOPICAL Not Given QID [facility] Pramipexole Dihydrochloride 1 mg 02/21/22 21:00 02/21/22 22:14 Pramipexole 1 Mg Tab PO 1 mg HS [facility] Administration Sodium Chloride 10 ml 02/21/22 21:00 02/21/22 22:15 Sodium Chloride 0.9% Flush 10 Ml Syringe IV 10 ml BID [facility] Administration Trazodone HCl 50 mg 02/21/22 20:25 Trazodone Hcl 50 Mg Tab PO HS PRN Insomnia Intake and Output 02/21/22 02/22/22 02/22/22 22:59 06:59 14:59 Intake Total 590 Output Total 600 Balance -10 Intake: Oral 590 Output: Urine 600 Other: Voiding Method Urinal Urinal # Voids 1 2 Weight 73.028 kg 02/21/22 13:30 02/21/22 13:30
[2022-02-22 15:39] VITALS: BMI 22.8
[2022-02-22 18:32] LABS: Glucose,Whole Blood 295 mg/dL (70-110)
[2022-02-22 20:09] LABS: Glucose,Whole Blood 243 mg/dL (70-110)
[2022-02-22] MEDS: PRAMIPEXOLE 1 MG TAB PO SCH (20:59)
[2022-02-22] MEDS: traZODone HCL 50 MG TAB PO PRN (20:59)
[2022-02-22] MEDS: guaiFENesin SYRUP 100MG/5ML 200 MG/10 ML CUP PO PRN (20:59)
[2022-02-22] MEDS: guaiFENesin 600 MG TABLET.ER PO SCH (20:59)
[2022-02-22] MEDS: HYDROcodone/APAP 5-325MG 1 EACH TAB PO PRN (22:51)
[2022-02-23] MEDS: FUROSEMIDE 10 MG/ML 4 ML VIAL IV SCH ×4 (00:28→23:56)
--- NOTE | 2022-02-23 04:36 | PN ---
PROGRESS NOTE SUBJECTIVE: This 72-year-old gentleman, admitted with CHF acute exacerbation, also had bilateral leg cellulitis, and also no chest pain, no palpitations, no fever. Creatinine is 1.61. OBJECTIVE: VITAL SIGNS: Pulse is 93, blood pressure n, respirations 18. CHEST: Few scattered rhonchi. ABDOMEN: Soft. LEGS: Bilateral leg edema. LABORATORY DATA: Reviewed. ASSESSMENT: 1. Congestive heart failure acute exacerbation. 2. Bilateral leg cellulitis. 3. History of coronary artery disease. 4. Chronic obstructive pulmonary disease. 5. Diabetes mellitus, type 2. 6. Multiple medical issues. RECOMMENDATIONS: I recommend to continue current medications and symptomatic treatment. Otherwise at this time, continue with diuretics. Closely follow repeat labs. I would also recommend Cardiology and Nephrology consultations. Guarded prognosis. Further recommendations to follow. MMFRANCISCA / TRACEYN: [id number] / MTDD
[2022-02-23 07:24] LABS: Glucose,Whole Blood 192 mg/dL (70-110)
[2022-02-23] MEDS: INSULIN ASPART (NovoLOG) 100 UNIT/ML VIAL SQ SCH ×4 (08:41→21:22)
[2022-02-23] MEDS: guaiFENesin 600 MG TABLET.ER PO SCH ×2 (08:42→20:07)
[2022-02-23] MEDS: FERROUS SULFATE 325 MG TAB PO SCH ×2 (08:42→20:07)
[2022-02-23] MEDS: ISOSORBIDE MONONITRATE ER 30 MG TAB.ER.24H PO SCH (08:42)
[2022-02-23] MEDS: hydrALAZINE HCL 25 MG TAB PO SCH ×2 (08:42→20:06)
[2022-02-23] MEDS: ATORVASTATIN 40 MG TAB PO SCH (08:42)
[2022-02-23] MEDS: APIXABAN 5 MG TAB PO SCH ×2 (08:42→20:06)
[2022-02-23] MEDS: amLODIPine 10 MG TAB PO SCH (08:42)
[2022-02-23] MEDS: LORATADINE 10 MG TAB PO SCH (08:42)
[2022-02-23] MEDS: LOSARTAN 50 MG TAB PO SCH (08:42)
[2022-02-23] MEDS: guaiFENesin SYRUP 100MG/5ML 200 MG/10 ML CUP PO PRN ×2 (08:51→18:00)
[2022-02-23 09:12] LABS: Anion Gap 16.8 mmol/L (10.00-18.00); BUN/Creat Ratio 34.7 Ratio (12.00-20.00); Blood Urea Nitrogen 56.9 mg/dL (9.0-27.0); Calcium 7.9 mg/dL (8.7-10.3); Carbon Dioxide 22.6 mmol/L (20.0-27.5); Non-African American GFR(CKD) 41.5 (60.0-200.0); Potassium 3.7 mmol/L (3.5-5.5)
[2022-02-23 09:21] LABS: Basophils # (A) 0.06 X 10*3/uL (0.00-0.10); Basophils % (A) 0.5 %; Eosinophils # (A) 0.01 X 10*3/uL (0.04-0.35); Eosinophils % (A) 0.1 %; HCT 28.8 % (39.6-50.0); HGB 8.9 g/dL (13.0-17.0); Immature Grans, Automated 0.5 %; Lymphocytes # (A) 0.49 X 10*3/uL (0.90-5.00); Lymphocytes % (A) 3.7 %; MCH 31.3 pg (27.0-32.0); MCHC 30.9 g/dL (32.0-37.0); MCV 101.4 fL (80.0-97.0); Mean Platelet Volume 10.2 fL (9.5-12.2); Monocytes # (A) 0.97 X 10*3/uL (0.20-1.00); Monocytes % (A) 7.4 %; NRBC Per 100 WBC 0 /100 WBCS (0.0-0.0); Neutrophils # (A) 11.59 X 10*3/uL (1.80-7.70); Neutrophils % (A) 87.8 %; Platelet Count 277 X 10*3/uL (140-440); RBC 2.84 X 10*6/uL (4.40-5.60); RDW 17.4 % (11.5-14.5); WBC 13.19 X 10*3/uL (4.50-10.00)
[2022-02-23] MEDS ORDERED: Potassium Replacement Protocol 1 EACH MISC MISCELLANE PRN (09:21)
[2022-02-23] MEDS ORDERED: Magnesium Replacement Protocol 1 EACH MISC MISCELLANE PRN (09:21)
[2022-02-23] MEDS: MAGNESIUM SULFATE-D5W PMX 1 GM in DEXTROSE/WATER 1 100ML.BAG IVPB SCH ×3 (10:00→12:34)
--- NOTE | 2022-02-23 10:11 | P.PN ---
Subjective Progress Note Date: 02/23/22 Principal diagnosis: Shortness of breath The patient is a pleasant 72-year-old gentleman with a past medical history significant for heart failure with preserved ejection fraction, valvular heart disease was known mitral and tricuspid regurgitation, permanent atrial fibrillation, coronary artery disease with prior PCI, as well as chronic kidney disease. The patient was admitted to the hospital with symptoms of heart failure. He was started on Lasix. The patient was seen this morning. He continues to be short of breath with minimal activities. He reports no pain in the chest. On examination he continues to have diminished breathing sounds bilaterally with bilateral rhonchi. Creatinine has been stable at 1.6. Hemoglobin is stable. I would advise continuing the patient on IV Lasix for additional 24 hours and continue monitor the kidney function and electrolytes. Obviously his mitral regurgitation which is severe in to be addressed as an outpatient for further investigation transesophageal echocardiogram and possible he would benefit from mitral valve clip Objective - Vital Signs Vital signs: Vital Signs Temp 98.6 F 02/23/22 04:25 Pulse 79 02/23/22 04:25 Resp 16 02/23/22 04:25 BP 131/61 02/23/22 04:25 Pulse Ox 93 L 02/23/22 04:25 FiO2 Intake & Output 02/22/22 02/23/22 02/23/22 18:59 06:59 18:59 Intake Total 592 240 Output Total 500 550 Balance 92 -310 Weight 82.9 kg Intake: Oral 592 240 Output: Urine 500 550 Other: Voiding Method Urinal Urinal - Constitutional General appearance: Present: no acute distress - Respiratory Respiratory: bilateral: diminished - Cardiovascular Rhythm: irregularly irregular Heart sounds: normal: S1, S2 Abnormal Heart Sounds: Present: systolic murmur - Labs CBC & Chem 7: 02/23/22 06:23 02/23/22 06:23 Labs: Abnormal Lab Results - Last 24 Hours (Table) 02/22/22 02/22/22 02/22/22 Range/Units 12:04 18:31 20:07 WBC (4.50-10.00) X 10*3/uL RBC (4.40-5.60) X 10*6/uL Hgb (13.0-17.0) g/dL Hct (39.6-50.0) % MCV (80.0-97.0) fL MCHC (32.0-37.0) g/dL RDW (11.5-14.5) % Immature Gran # (0.00-0.04) X 10*3/uL Neutrophils # (1.80-7.70) X 10*3/uL Lymphocytes # (0.90-5.00) X 10*3/uL Eosinophils # (0.04-0.35) X 10*3/uL BUN (9.0-27.0) mg/dL Creatinine (0.6-1.5) mg/dL Est GFR (CKD-EPI)AfAm (60.0-200.0) Est GFR (CKD-EPI)NonAf (60.0-200.0) BUN/Creatinine Ratio (12.00-20.00) Ratio Glucose (70-110) mg/dL POC Glucose (mg/dL) 250 H 295 H 243 H (70-110) mg/dL Calcium (8.7-10.3) mg/dL Magnesium (1.6-2.3) mg/dL 02/23/22 02/23/22 02/23/22 Range/Units 06:23 06:23 06:23 WBC 13.19 H (4.50-10.00) X 10*3/uL RBC 2.84 L (4.40-5.60) X 10*6/uL Hgb 8.9 L (13.0-17.0) g/dL Hct 28.8 L (39.6-50.0) % MCV 101.4 H (80.0-97.0) fL MCHC 30.9 L (32.0-37.0) g/dL RDW 17.4 H (11.5-14.5) % Immature Gran # 0.07 H (0.00-0.04) X 10*3/uL Neutrophils # 11.59 H (1.80-7.70) X 10*3/uL Lymphocytes # 0.49 L (0.90-5.00) X 10*3/uL Eosinophils # 0.01 L (0.04-0.35) X 10*3/uL BUN 56.9 H (9.0-27.0) mg/dL Creatinine 1.6 H (0.6-1.5) mg/dL Est GFR (CKD-EPI)AfAm 48.0 L (60.0-200.0) Est GFR (CKD-EPI)NonAf 41.5 L (60.0-200.0) BUN/Creatinine Ratio 34.70 H (12.00-20.00) Ratio Glucose 141 H (70-110) mg/dL POC Glucose (mg/dL) (70-110) mg/dL Calcium 7.9 L (8.7-10.3) mg/dL Magnesium 1.1 L (1.6-2.3) mg/dL 02/23/22 Range/Units 07:23 WBC (4.50-10.00) X 10*3/uL RBC (4.40-5.60) X 10*6/uL Hgb (13.0-17.0) g/dL Hct (39.6-50.0) % MCV (80.0-97.0) fL MCHC (32.0-37.0) g/dL RDW (11.5-14.5) % Immature Gran # (0.00-0.04) X 10*3/uL Neutrophils # (1.80-7.70) X 10*3/uL Lymphocytes # (0.90-5.00) X 10*3/uL Eosinophils # (0.04-0.35) X 10*3/uL BUN (9.0-27.0) mg/dL Creatinine (0.6-1.5) mg/dL Est GFR (CKD-EPI)AfAm (60.0-200.0) Est GFR (CKD-EPI)NonAf (60.0-200.0) BUN/Creatinine Ratio (12.00-20.00) Ratio Glucose (70-110) mg/dL POC Glucose (mg/dL) 192 H (70-110) mg/dL Calcium (8.7-10.3) mg/dL Magnesium (1.6-2.3) mg/dL Assessment and Plan Assessment: Assessment Heart failure with preserved ejection fraction exacerbation Valvular heart disease with severe mitral and tricuspid regurgitation Permanent atrial fibrillation was controlled heart rate Coronary artery disease Chronic kidney disease Multiple comorbid conditions Plan Continue the IV Lasix for additional 24 hours Continue monitor the kidney function and electrolytes The creatinine is 1.6 which has not changed Further evaluation regarding mitral valve clip down the line as an outpatient
[2022-02-23] MEDS ORDERED: IPRATROPIUM-ALBUTEROL 3 ML NEB INHALATION PRN (11:28)
[2022-02-23] MEDS: IPRATROPIUM-ALBUTEROL 3 ML NEB INHALATION SCH ×3 (11:32→19:34)
[2022-02-23] MEDS: HYDROcodone/APAP 5-325MG 1 EACH TAB PO PRN ×3 (12:38→23:56)
[2022-02-23 13:15] LABS: Glucose,Whole Blood 267 mg/dL (70-110)
--- NOTE | 2022-02-23 14:35 | P.NPCON ---
History of Present Illness - Reason for Consult Consult date: 02/23/22 chronic renal failure - Chief Complaint Shortness of breath - History of Present Illness 72-year-old gentleman coming to the hospital with worsening shortness of breath. He has diastolic CHF with pulmonary hypertension. He also has chronic kidney disease stage III A with history of diabetes and hypertension with a baseline creatinine of 1.5-1.6 MG per DL. He has multiple admissions with similar complaints, admits taking diuretics at home. As per the family he also has history of alcohol abuse. No nausea vomiting diarrhea. While in the hospital he is on Lasix 40 mg IV twice a day. Symptoms seems to be improving. But still has edema. Review of Systems Constitutional: Reports as per HPI Past Medical History Past Medical History: Atrial Fibrillation, Coronary Artery Disease (CAD), Heart Failure, COPD, Diabetes Mellitus, GERD/Reflux, GI Bleed, Hypertension, Osteoarthritis (OA), Pneumonia, Renal Disease, Rheumatoid Arthritis (RA) Additional Past Medical History / Comment(s): gi bleed, anemia, restless leg syndrome, alcoholism, kidney injury Last Myocardial Infarction Date:: 2013 History of Any Multi-Drug Resistant Organisms: None Reported Past Surgical History: Heart Catheterization With Stent, Orthopedic Surgery Additional Past Surgical History / Comment(s): 06/04/13 angioplasty with stent to LAD, Stent -(R) radial approach 06/07/13 JOLIE, bone spur rt elbow re moved, L elbow surgery, bilateral cataract surgery. Past Anesthesia/Blood Transfusion Reactions: No Reported Reaction Additional Past Anesthesia/Blood Transfusion Reaction / Comment(s): Pt has never recieved blood. Date of Last Stent Placement:: 01/18/2020 Past Psychological History: No Psychological Hx Reported Additional Psychological History / Comment(s): Pt resides with his spouse. He is independent. He uses no assistive device or home care. He drives. Smoking Status: Current every day smoker Past Alcohol Use History: None Reported Additional Past Alcohol Use History / Comment(s): Patient is a smoker one pack per day since he was 15 years of age. He is currently drinking 3 beers per day. He lives at home with his . He does have a nebulizer. No CPAP, no oxygen at home. Patient denies any marijuana use, street drug use. Past Drug Use History: None Reported - Past Family History Father Family Medical History: Cancer Additional Family Medical History / Comment(s): Father of prostate cancer at age 65yrs. Mother Family Medical History: Coronary Artery Disease (CAD) Additional Family Medical History / Comment(s): Mother had CABG. She of CHF at age 73 yrs. Brother(s) Family Medical History: Coronary Artery Disease (CAD) Additional Family Medical History / Comment(s): Patient has 2 brothers and one has history of myocardial infarction and five-vessel CABG, one has history of prostate cancer. Sister(s) Family Medical History: Coronary Artery Disease (CAD), Myocardial Infarction ([place]) Additional Family Medical History / Comment(s): Patient has 2 sisters and one has history of myocardial infarction. Daughter(s) Family Medical History: No Reported History Additional Family Medical History / Comment(s): Patient has a total of 3 c hildren with no major medical problems. Son(s) Family Medical History: No Reported History Medications and Allergies Home Medications Medication Instructions Recorded Confirmed Type Atorvastatin [Lipitor] 40 mg PO DAILY 04/01/14 02/21/22 History Isosorbide Mononitrate [Imdur] 30 mg PO DAILY 04/01/14 02/21/22 History amLODIPine [Norvasc] 10 mg PO DAILY 01/11/15 02/21/22 History Potassium Chloride ER [K-Dur 20] 20 meq PO HS 10/06/19 02/21/22 History Pramipexole [Mirapex] 1 mg PO HS 10/06/19 02/21/22 History hydrALAZINE HCL [Apresoline] 25 mg PO BID 10/06/19 02/21/22 History Acetaminophen [Tylenol Arthritis] 1,300 tab PO BID 01/14/20 02/21/22 History traZODone HCL 50 mg PO HS PRN 02/06/20 02/21/22 History Ferrous Sulfate [Iron (65 MG 325 mg PO BID 12/22/21 02/21/22 History Elemental)] Omeprazole 20 mg PO DAILY 12/22/21 02/21/22 History Apixaban [Eliquis] 5 mg PO BID #60 tab 12/24/21 02/21/22 Rx Cetirizine HCl [Zyrtec] 10 mg PO DAILY 01/18/22 02/21/22 History metFORMIN HCL 1,000 mg PO BID 01/18/22 02/21/22 History Furosemide [Lasix] 80 mg PO BID@0900,1600 #60 tab 01/24/22 02/21/22 Rx Losartan [Cozaar] 75 mg PO DAILY #60 tab 01/24/22 02/21/22 Rx Albuterol Inhaler [Ventolin Hfa 1 - 2 puff INHALATION RT-QID PRN 02/21/22 02/21/22 History Inhaler] HYDROcodone/APAP 5-325MG [[place] 1 tab PO Q6H PRN 02/21/22 02/21/22 History 5-325] diphenhydrAMINE HCL [Benadryl] 25 mg PO DAILY PRN 02/21/22 02/21/22 History Allergies Allergy/AdvReac Type Severity Reaction Status Date / Time No Known Allergies Allergy Verified 02/21/22 15:16 Physical Exam Vitals: Vital Signs Temp Pulse Pulse Resp BP Pulse Ox 02/23/22 12:28 98 F 86 16 131/68 94 L 02/23/22 11:42 82 02/23/22 11:33 88 02/23/22 04:25 98.6 F 79 16 131/61 93 L 02/22/22 19:30 18 02/22/22 18:00 98 F 82 18 125/43 93 L Intake and Output 02/22/22 02/23/22 02/23/22 22:59 06:59 14:59 Intake Total 296 240 Output Total 550 150 Balance 296 -310 -150 Intake: Oral 296 240 Output: Urine 550 150 Other: Voiding Method Urinal Urinal Weight 84 kg No acute distress S1-S2 heard Decreased breath sounds Abdomen distended Edema Results - Lab Results Most recent lab results Calcium 7.9 mg/dL (8.7-10.3) L 02/23/22 06:23 Magnesium 1.1 mg/dL (1.6-2.3) L 02/23/22 06:23 02/23/22 06:23 02/23/22 06:23 Assessment and Plan Assessment: #1 chronic kidney disease stage IIIB suspected diabetes and hypertensive nephropathy with a baseline creatinine of 1.5-1.6 MG per DL. #2 volume overload #3 diastolic CHF with pulmonary hypertension #4 anemia with chronic kidney disease Plan: #1 continue with Lasix 40 mg IV 3 times a day. Add metolazone 5 mg twice a day #2 strict ins and outs and daily weights #3 avoid nephrotoxic agents and hypotensive episodes. #4 labs in the morning
[2022-02-23] MEDS: metOLazone 5 MG TAB PO SCH ×2 (15:13→20:07)
[2022-02-23 18:05] LABS: Glucose,Whole Blood 108 mg/dL (70-110)
[2022-02-23] MEDS: SYMBICORT 160-4.5 MCG INHALER INHALATION SCH (19:35)
[2022-02-23] MEDS: PRAMIPEXOLE 1 MG TAB PO SCH (20:06)
[2022-02-23 21:21] LABS: Glucose,Whole Blood 208 mg/dL (70-110)
[2022-02-23] MEDS: traZODone HCL 50 MG TAB PO PRN (23:56)
[2022-02-24 07:45] LABS: Glucose,Whole Blood 180 mg/dL (70-110)
[2022-02-24] MEDS: FERROUS SULFATE 325 MG TAB PO SCH (08:20)
[2022-02-24] MEDS: ISOSORBIDE MONONITRATE ER 30 MG TAB.ER.24H PO SCH (08:20)
[2022-02-24] MEDS: HYDROcodone/APAP 5-325MG 1 EACH TAB PO PRN ×2 (08:20→16:01)
[2022-02-24] MEDS: hydrALAZINE HCL 25 MG TAB PO SCH (08:20)
[2022-02-24] MEDS: amLODIPine 10 MG TAB PO SCH (08:21)
[2022-02-24] MEDS: APIXABAN 5 MG TAB PO SCH (08:21)
[2022-02-24] MEDS: guaiFENesin 600 MG TABLET.ER PO SCH (08:21)
[2022-02-24] MEDS: LORATADINE 10 MG TAB PO SCH (08:21)
[2022-02-24] MEDS: FUROSEMIDE 10 MG/ML 4 ML VIAL IV SCH (08:21)
[2022-02-24] MEDS: ATORVASTATIN 40 MG TAB PO SCH (08:21)
[2022-02-24] MEDS: INSULIN ASPART (NovoLOG) 100 UNIT/ML VIAL SQ SCH ×3 (08:22→18:06)
[2022-02-24] MEDS: guaiFENesin SYRUP 100MG/5ML 200 MG/10 ML CUP PO PRN ×2 (08:22)
[2022-02-24] MEDS: metOLazone 5 MG TAB PO SCH (08:22)
[2022-02-24] MEDS: LOSARTAN 50 MG TAB PO SCH (08:23)
[2022-02-24] MEDS: IPRATROPIUM-ALBUTEROL 3 ML NEB INHALATION SCH ×4 (08:38→20:19)
[2022-02-24] MEDS: SYMBICORT 160-4.5 MCG INHALER INHALATION SCH ×2 (08:38→20:19)
--- NOTE | 2022-02-24 09:04 | P.PN ---
Subjective Progress Note Date: 02/24/22 Principal diagnosis: Shortness of breath The patient is a pleasant 72-year-old gentleman with a past medical history significant for heart failure with preserved ejection fraction, valvular heart disease was known mitral and tricuspid regurgitation, permanent atrial fibrillation, coronary artery disease with prior PCI, as well as chronic kidney disease. The patient was admitted to the hospital with symptoms of heart failure. He was started on Lasix. The patient was seen this morning. He continues to be short of breath with minimal activities. He reports no pain in the chest. On examination he continues to have diminished breathing sounds bilaterally with bilateral rhonchi. Creatinine has been stable at 1.6. Hemoglobin is stable. I would advise continuing the patient on IV Lasix for additional 24 hours and continue monitor the kidney function and electrolytes. Obviously his mitral regurgitation which is severe in to be addressed as an outpatient for further investigation transesophageal echocardiogram and possible he would benefit from mitral valve clip February [id number] The patient was seen this morning. He had to have the Rapp catheter yesterday because of urinary retention. He put overall a total of 350 mL of urine. Creatinine remained stable. Hemoglobin remained stable as well. Overall he seems to be euvolemic on examination with no crackles year and very mild bilateral lower extremities edema. With that being said going to DC Lasix IV and start the patient on Lasix by mouth 80 mg twice a day. Objective - Vital Signs Vital signs: Vital Signs Temp 98.3 F 02/24/22 05:00 Pulse 90 02/24/22 08:51 Resp 16 02/24/22 05:00 BP 153/64 02/24/22 05:00 Pulse Ox 94 L 02/24/22 05:00 FiO2 Intake & Output 02/23/22 02/24/22 02/24/22 18:59 06:59 18:59 Output Total 350 1350 Balance -350 -1350 Weight 84 kg 84.1 kg Output: Urine 350 1350 Uretheral (Rapp) 350 Other: Voiding Method Urinal Urinal - Labs CBC & Chem 7: 02/23/22 06:23 02/23/22 06:23 Labs: Abnormal Lab Results - Last 24 Hours (Table) 02/23/22 02/23/22 02/23/22 Range/Units 06:23 06:23 13:13 WBC 13.19 H (4.50-10.00) X 10*3/uL RBC 2.84 L (4.40-5.60) X 10*6/uL Hgb 8.9 L (13.0-17.0) g/dL Hct 28.8 L (39.6-50.0) % MCV 101.4 H (80.0-97.0) fL MCHC 30.9 L (32.0-37.0) g/dL RDW 17.4 H (11.5-14.5) % Immature Gran # 0.07 H (0.00-0.04) X 10*3/uL Neutrophils # 11.59 H (1.80-7.70) X 10*3/uL Lymphocytes # 0.49 L (0.90-5.00) X 10*3/uL Eosinophils # 0.01 L (0.04-0.35) X 10*3/uL BUN 56.9 H (9.0-27.0) mg/dL Creatinine 1.6 H (0.6-1.5) mg/dL Est GFR (CKD-EPI)AfAm 48.0 L (60.0-200.0) Est GFR (CKD-EPI)NonAf 41.5 L (60.0-200.0) BUN/Creatinine Ratio 34.70 H (12.00-20.00) Ratio Glucose 141 H (70-110) mg/dL POC Glucose (mg/dL) 267 H (70-110) mg/dL Calcium 7.9 L (8.7-10.3) mg/dL 02/23/22 02/24/22 Range/Units 21:19 07:44 WBC (4.50-10.00) X 10*3/uL RBC (4.40-5.60) X 10*6/uL Hgb (13.0-17.0) g/dL Hct (39.6-50.0) % MCV (80.0-97.0) fL MCHC (32.0-37.0) g/dL RDW (11.5-14.5) % Immature Gran # (0.00-0.04) X 10*3/uL Neutrophils # (1.80-7.70) X 10*3/uL Lymphocytes # (0.90-5.00) X 10*3/uL Eosinophils # (0.04-0.35) X 10*3/uL BUN (9.0-27.0) mg/dL Creatinine (0.6-1.5) mg/dL Est GFR (CKD-EPI)AfAm (60.0-200.0) Est GFR (CKD-EPI)NonAf (60.0-200.0) BUN/Creatinine Ratio (12.00-20.00) Ratio Glucose (70-110) mg/dL POC Glucose (mg/dL) 208 H 180 H (70-110) mg/dL Calcium (8.7-10.3) mg/dL Assessment and Plan Assessment: Assessment Heart failure with preserved ejection fraction exacerbation Valvular heart disease with severe mitral and tricuspid regurgitation Permanent atrial fibrillation was controlled heart rate Coronary artery disease Chronic kidney disease Multiple comorbid conditions Plan DC Lasix IV and start the patient on Lasix by mouth Follow-up with the patient on when necessary
[2022-02-24 10:39] LABS: Albumin 3.4 g/dL (3.8-4.9); Albumin/Globulin Ratio 1.26 (1.60-3.17); Anion Gap 18.7 mmol/L (10.00-18.00); BUN/Creat Ratio 43.24 Ratio (12.00-20.00); Basophils # (A) 0.04 X 10*3/uL (0.00-0.10); Basophils % (A) 0.3 %; Blood Urea Nitrogen 73.5 mg/dL (9.0-27.0); Calcium 8.3 mg/dL (8.7-10.3); Carbon Dioxide 22.3 mmol/L (20.0-27.5); Eosinophils # (A) 0 X 10*3/uL (0.04-0.35); Eosinophils % (A) 0 %; Globulin 2.7 g/dL (1.6-3.3); HCT 25.1 % (39.6-50.0); Immature Grans, Automated 0.8 %; Lymphocytes # (A) 0.41 X 10*3/uL (0.90-5.00); Lymphocytes % (A) 2.8 %; MCH 31.9 pg (27.0-32.0); MCHC 31.9 g/dL (32.0-37.0); Magnesium 1.9 mg/dL (1.5-2.4); Mean Platelet Volume 10.1 fL (9.5-12.2); Monocytes # (A) 1.21 X 10*3/uL (0.20-1.00); Monocytes % (A) 8.4 %; NRBC Per 100 WBC 0.3 /100 WBCS (0.0-0.0); Neutrophils % (A) 87.7 %; Non-African American GFR(CKD) 39.7 (60.0-200.0); Platelet Count 319 X 10*3/uL (140-440); Potassium 4.3 mmol/L (3.5-5.5); RBC 2.51 X 10*6/uL (4.40-5.60); RDW 17.2 % (11.5-14.5); Total Bilirubin 0.7 mg/dL (0.30-1.20); Total Protein 6.1 g/dL (6.2-8.2); WBC 14.48 X 10*3/uL (4.50-10.00)
--- NOTE | 2022-02-24 11:32 | P.PN ---
Subjective Progress Note Date: 02/24/22 Follow-up for chronic kidney disease and volume overload. Urine output of 1.7 L in the last 24 hours. Objective - Vital Signs Vital signs: Vital Signs Temp 98.3 F 02/24/22 05:00 Pulse 90 02/24/22 08:51 Resp 16 02/24/22 05:00 BP 153/64 02/24/22 05:00 Pulse Ox 94 L 02/24/22 05:00 FiO2 Intake & Output 02/23/22 02/24/22 02/24/22 18:59 06:59 18:59 Output Total 350 1350 Balance -350 -1350 Weight 84 kg 84.1 kg Output: Urine 350 1350 Uretheral (Rapp) 350 Other: Voiding Method Urinal Urinal Indwelling Catheter - Exam No acute distress S1-S2 heard Decreased breath sounds Edema - Labs CBC & Chem 7: 02/24/22 06:07 02/24/22 06:07 Labs: Abnormal Lab Results - Last 24 Hours (Table) 02/23/22 02/23/22 02/24/22 Range/Units 13:13 21:19 06:07 WBC 14.48 H (4.50-10.00) X 10*3/uL RBC 2.51 L (4.40-5.60) X 10*6/uL Hgb 8.0 L (13.0-17.0) g/dL Hct 25.1 L (39.6-50.0) % MCV 100.0 H (80.0-97.0) fL MCHC 31.9 L (32.0-37.0) g/dL RDW 17.2 H (11.5-14.5) % Absolute Nucleated RBC 0.04 H (0.00-0.00) X 10*3/uL Immature Gran # 0.12 H (0.00-0.04) X 10*3/uL Neutrophils # 12.70 H (1.80-7.70) X 10*3/uL Lymphocytes # 0.41 L (0.90-5.00) X 10*3/uL Monocytes # 1.21 H (0.20-1.00) X 10*3/uL Eosinophils # 0 L (0.04-0.35) X 10*3/uL NRBC/100 WBC Diff 0.3 H (0.0-0.0) /100 WBCS Anion Gap (10.00-18.00) mmol/L BUN (9.0-27.0) mg/dL Creatinine (0.6-1.5) mg/dL Est GFR (CKD-EPI)AfAm (60.0-200.0) Est GFR (CKD-EPI)NonAf (60.0-200.0) BUN/Creatinine Ratio (12.00-20.00) Ratio Glucose (70-110) mg/dL POC Glucose (mg/dL) 267 H 208 H (70-110) mg/dL Calcium (8.7-10.3) mg/dL Alkaline Phosphatase (41-126) U/L Total Protein (6.2-8.2) g/dL Albumin (3.8-4.9) g/dL Albumin/Globulin Ratio (1.60-3.17) g/dL 02/24/22 02/24/22 Range/Units 06:07 07:44 WBC (4.50-10.00) X 10*3/uL RBC (4.40-5.60) X 10*6/uL Hgb (13.0-17.0) g/dL Hct (39.6-50.0) % MCV (80.0-97.0) fL MCHC (32.0-37.0) g/dL RDW (11.5-14.5) % Absolute Nucleated RBC (0.00-0.00) X 10*3/uL Immature Gran # (0.00-0.04) X 10*3/uL Neutrophils # (1.80-7.70) X 10*3/uL Lymphocytes # (0.90-5.00) X 10*3/uL Monocytes # (0.20-1.00) X 10*3/uL Eosinophils # (0.04-0.35) X 10*3/uL NRBC/100 WBC Diff (0.0-0.0) /100 WBCS Anion Gap 18.70 H (10.00-18.00) mmol/L BUN 73.5 H (9.0-27.0) mg/dL Creatinine 1.7 H (0.6-1.5) mg/dL Est GFR (CKD-EPI)AfAm 46.0 L (60.0-200.0) Est GFR (CKD-EPI)NonAf 39.7 L (60.0-200.0) BUN/Creatinine Ratio 43.24 H (12.00-20.00) Ratio Glucose 174 H (70-110) mg/dL POC Glucose (mg/dL) 180 H (70-110) mg/dL Calcium 8.3 L (8.7-10.3) mg/dL Alkaline Phosphatase 192 H (41-126) U/L Total Protein 6.1 L (6.2-8.2) g/dL Albumin 3.4 L (3.8-4.9) g/dL Albumin/Globulin Ratio 1.26 L (1.60-3.17) g/dL Assessment and Plan Assessment: #1 chronic kidney disease stage IIIB suspected diabetes and hypertensive nephropathy with a baseline creatinine of 1.5-1.6 MG per DL. #2 volume overload #3 diastolic CHF with pulmonary hypertension #4 anemia with chronic kidney disease Plan: #1 continue with Lasix and metolazone. At discharge change Lasix to torsemide 40 mg by mouth daily and continue with metolazone 2.5 mg every other day. #2 strict ins and outs and daily weights #3 avoid nephrotoxic agents and hypotensive episodes. #4 labs in the morning
[2022-02-24 12:12] LABS: Glucose,Whole Blood 208 mg/dL (70-110)
[2022-02-24] MEDS ORDERED: FUROSEMIDE 80 MG TAB PO SCH (16:00)
[2022-02-24 16:12] LABS: Glucose,Whole Blood 104 mg/dL (70-110)
[2022-02-24 17:12] LABS: Amorphous Sediment,Urine Occasional /hpf; Appearance,Urine Cloudy (Clear); Bacteria,Urine Occasional /hpf; Bilirubin,Urine Negative (Negative); Blood,Urine Moderate (Negative); Color,Urine Yellow; Glucose,Urine (UA) Negative (Negative); Hyaline Casts,Urine 1 /lpf (0-2); Ketones,Urine 1+ (Negative); Leukocyte Esterase,Urine Large (Negative); Mucus,Urine Rare /hpf; Nitrite,Urine Negative (Negative); PH, Urine 5.5 (5.0-8.0); Protein,Urine 1+ (Negative); RBC,Urine 26 /hpf (0-5); Specific Gravity,Urine 1.016 (1.001-1.035); Squamous Epithelial Cell,Urine <1 /hpf (0-4); Urobilinogen,Urine <2.0 mg/dL (<2.0); WBC,Urine 98 /hpf (0-5)
--- NOTE | 2022-02-24 17:24 | XR ---
EXAMINATION TYPE: XR chest 1V portable DATE OF EXAM: 02/24/2022 COMPARISON: 02/21/2022 HISTORY: Tachypnea TECHNIQUE: Single view FINDINGS: Heart appears enlarged. There is mild pulmonary congestion. There is slight blunting of the costophrenic angles. IMPRESSION: There is evidence for some mild congestive heart failure without much change compared to recent exam
[2022-02-24 17:34] LABS: Glucose,Whole Blood 92 mg/dL (70-110)
[2022-02-24] MEDS ORDERED: NALOXONE 0.4 MG/ML 1 ML VIAL IV PRN (17:38)
[2022-02-24 17:42] LABS: Anisocytosis Slight; Basophils % (A) 0 %; Eosinophils % (A) 0 %; Hypochromasia Marked; Lymphocytes # (A) 0.5 k/uL (1.0-4.8); Lymphocytes % (A) 3 %; MCH 31.3 pg (25.0-35.0); MCHC 29.3 g/dL (31.0-37.0); MCV 106.6 fL (80.0-100.0); Macrocytosis Marked; Mean Platelet Volume 9.8; Monocytes # (A) 1.2 k/uL (0-1.0); Monocytes % (A) 8 %; Neutrophils # (A) 12.4 k/uL (1.3-7.7); Neutrophils % (A) 86 %; Platelet Count 340 k/uL (150-450); RDW 17.8 % (11.5-15.5); WBC 14.5 k/uL (3.8-10.6)
[2022-02-24 17:45] LABS: HCT 18.1 % (39.0-53.0); HGB 5.3 gm/dL (13.0-17.5)
[2022-02-24] MEDS ORDERED: SODIUM CHLORIDE 0.9% 1,000 ML IV SCH (17:45)
[2022-02-24 17:51] LABS: AST 309 U/L (17-59); African American GFR (CKD) 39 (>60 ml/min/1.73 sqM); Albumin 2.5 g/dL (3.5-5.0); Albumin/Globulin Ratio 1.3; Alkaline Phosphatase 77 U/L (38-126); Anion Gap 21 mmol/L; Blood Urea Nitrogen 91 mg/dL (9-20); Calcium 7.7 mg/dL (8.4-10.2); Carbon Dioxide 17 mmol/L (22-30); Chloride 102 mmol/L (98-107); Globulin 1.9 g/dL; Glucose 78 mg/dL (74-99); Non-African American GFR(CKD) 34 (>60 ml/min/1.73 sqM); Potassium 5.7 mmol/L (3.5-5.1); Sodium 140 mmol/L (137-145); Total Bilirubin 0.8 mg/dL (0.2-1.3); Total Protein 4.4 g/dL (6.3-8.2)
[2022-02-24 17:58] LABS: ALT 110 U/L (4-49)
[2022-02-24] MEDS ORDERED: SODIUM CHLORIDE 0.9% 1,000 ML IV ONE (18:06)
[2022-02-24 18:07] LABS: Poikilocytosis (M) Present
[2022-02-24 18:10] VITALS: TEMP 98.5
--- NOTE | 2022-02-24 18:50 | PN ---
PROGRESS NOTE SUBJECTIVE: This is a 72-year-old gentleman who was admitted with CHF acute exacerbation, also had bilateral leg edema and cellulitis also. No chest pain. No palpitations. No fever. PHYSICAL EXAMINATION: VITAL SIGNS: Pulse is 66, blood pressure 131/66, respirations 16. HEENT: Conjunctivae normal. NECK: . RESPIRATION: scattered rhonchi. ABDOMEN: Soft. LEGS: Bilateral leg edema as well as cellulitis and erythema present. LABS: Reviewed. ASSESSMENT: 1. Congestive heart failure, acute exacerbation. 2. Bilateral leg cellulitis. 3. History of coronary artery disease. 4. Chronic obstructive pulmonary disease. 5. Diabetes mellitus, type 2. 6. Multiple medical issues. RECOMMENDATIONS AND DISCUSSION: I recommend to continue diuretics. We will repeat labs, local treatment, antibiotics. Guarded prognosis. Further recommendations to follow. MMODL / IJN: [id number] /
[2022-02-24] MEDS ORDERED: NOREPINEPHRIN 4 MG-0.9% NS PMX 4 MG/250 ML ML IV ONE (19:31)
[2022-02-24] MEDS ORDERED: NOREPINEPHRINE 4 MG in SODIUM CHLORIDE 0.9% 250 ML IV SCH (19:45)
[2022-02-24] MEDS ORDERED: PANTOPRAZOLE 40 MG/10 ML VIAL IV SCH (21:00)
[2022-02-24 21:48] VITALS: BP 34/20; PULSE 22; RESP 0
--- NOTE | 2022-02-25 07:26 | PN ---
PROGRESS NOTE SUBJECTIVE: This 72-year-old gentleman was admitted with CHF acute exacerbation, is being closely monitored. No chest pain. No palpitation. Cardiology and Nephrology seen the patient, and diuretics have been adjusted. Creatinine 1.7. OBJECTIVE: VITAL SIGNS: Pulse is 47, blood pressure 136/51, respirations 20. CHEST: Few scattered rhonchi. CARDIOVASCULAR: S1, S2. ABDOMEN: Soft. NERVOUS SYSTEM: No focal deficits. LABORATORY DATA: Reviewed. ASSESSMENT: 1. Congestive heart failure acute exacerbation. 2. Bilateral leg cellulitis. 3. History of coronary artery disease. 4. Chronic obstructive pulmonary disease. 5. Diabetes mellitus type 2. 6. Multiple medical issues. RECOMMENDATIONS: I recommend to continue with current medications. Continue with diuretics. Otherwise, closely monitor. Closely follow with Nephrology and Cardiology. Repeat labs in the morning. Possible discharge in the next 24 to 48 hours. MMODL / IJN: [id number] /
[2022-02-25] MEDS ORDERED: metOLazone 2.5 MG TAB PO SCH (09:00)
--- NOTE | 2022-02-25 13:47 | PN ---
PROGRESS NOTE SUBJECTIVE: This is a 72-year-old gentleman, who was admitted with CHF acute exacerbation. He is tremulous. He is confused. The patient is extremely weak and the patient is possibly becoming septic at this time. I would recommend a stat CBC, BMP, blood cultures, lactate, chest x-ray, and initiate antibiotics. Transfer to telemetry and continue to monitor. The prognosis guarded because of multiple complex medical issues. White count is elevated and further recommendations to follow. I would also recommend UA also. See orders for details. PAST MEDICAL HISTORY: Reviewed. REVIEW OF SYSTEMS: A 14-point review of systems is negative except as mentioned earlier. MEDICATIONS: Reviewed. MMODL / IJN: [id number] /
--- NOTE | 2022-02-27 11:58 | CDI ---
Documentation Clarification Form Date: 02/27/2022 11:34:25 AM From: Socorro Rangel RN, CCDS Email: [email or web address] Admit Date: 02/22/2022 01:52:00 PM Patient Name: Ricco Cordova Visit Number: [id number] Discharge Date: 02/24/2022 07:33:00 PM ATTENTION: The Clinical Documentation Specialists (CDI) and [facility] Coding Staff appreciate your assistance in clarifying documentation. Please respond to the clarification below the line at the bottom and electronically sign. The CDI & [facility] Coding staff will review the response and follow-up if needed. Please note: Queries are made part of the Legal Health Record. If you have any questions, please contact the author of this message via ITS. Dr. Jose Holder Your patient had bleeding from nose and blood in stool. Based on this information and the findings below, is there an additional diagnosis that is clinically appropriate for this patient? Patient history/risk factors: atrial ablation, CHF, COPD, GI Bleed and anemia, ETOH abuse. Patient also had bilateral leg swelling and oozing extending to the thigh. Clinical Indicators: 02/24 Labs: Hgb 5.3, Hct 18.1, lactic acid 14.2, WBC 14.5 02/24 VS: Temp 98.5, HR 102 down to 22, RR 31 down to 0, BP 107/51 down to 34/20 02/24 Nursing Note: Dr. Prater notified of critical Hgb, HCT and lactic acid." 02/24 A Team note: Patient having active GI bleed and altered mental status, Dr. Prater notified and transferred to ICU." 02/24 Nursing ICU assessment: "large black liquid stool with blood" 02/24 IM: He is confused. The patient is extremely weak and the patient is possibly becoming septic at this time. I would recommend a stat CBC, BMP, blood cultures, lactate, chest x-ray, and initiate antibiotics. Transfer to telemetry and continue to monitor. The prognosis guarded because of multiple complex medical issues. White count is elevated and further recommendations to follow." 02/24 Nursing Note: "Patient acutely bleeding from nose at 1920, oral and nasal suctioning completed, patient became unresponsive, pulse checked, and no pulse felt, at bedside and confirmed patient as DNR, patient pronounced at 1933, Dr. Prater notified." Treatment: Transfer to telemetry/ICU, 02/24 1L 0.9 NS IV bolus, IV Ceftriaxone 1gm Q24H on 02/24, Levophed ordered, supplemental oxygen, suctioning, transfusion ordered. Is there an additional diagnosis that is clinically appropriate for this patient? [ x ] GI bleed with hemorrhagic shock [ ] GI Bleed without hemorrhagic shock [ ] Other, please specify [ ] Unable to determine MTDD
--- NOTE | 2022-02-27 12:10 | CDI ---
Documentation Clarification Form Date: 02/27/2022 11:58:36 AM From: Socorro Rangel RN, CCDS Email: [email or web address] Admit Date: 02/22/2022 01:52:00 PM Patient Name: Ricco Cordova Visit Number: [id number] Discharge Date: 02/24/2022 07:33:00 PM ATTENTION: The Clinical Documentation Specialists (CDI) and [facility] Coding Staff appreciate your assistance in clarifying documentation. Please respond to the clarification below the line at the bottom and electronically sign. The CDI & [facility] Coding staff will review the response and follow-up if needed. Please note: Queries are made part of the Legal Health Record. If you have any questions, please contact the author of this message via ITS. Dr. Jose Holder The patient was possibly becoming septic is documented in the 02/24 progress note. Additional clarification is requested. Patient history/risk factors: atrial ablation, CHF, CKD, COPD, GI Bleed and anemia, ETOH abuse. Patient also had bilateral leg swelling and oozing extending to the thigh. Clinical Indicators: 02/24 Labs: Hgb 5.3, Hct 18.1, lactic acid 14.2, WBC 14.5, Cr 1.93, AST 309, ALT 110 02/24 VS: Temp 98.5, HR 102 down to 22, RR 31 down to 0, BP 107/51 down to 34/20 02/24 Nursing Note: Dr. Prater notified of critical Hgb, HCT and lactic acid." 02/24 A Team note: Patient having active GI bleed and altered mental status, Dr. Prater notified and transferred to ICU." 02/24 Nursing ICU assessment: "large black liquid stool with blood" 02/24 IM: He is confused. The patient is extremely weak and the patient is possibly becoming septic at this time. I would recommend a stat CBC, BMP, blood cultures, lactate, chest x-ray, and initiate antibiotics. Transfer to telemetry and continue to monitor. The prognosis guarded because of multiple complex medical issues. White count is elevated and further recommendations to follow." 02/24 Nursing Note: "Patient acutely bleeding from nose at 1920, oral and nasal suctioning completed, patient became unresponsive, pulse checked, and no pulse felt, at bedside and confirmed patient as DNR, patient pronounced at 1933, Dr. Prater notified." Treatment: Transfer to telemetry/ICU, 02/24 1L 0.9 NS IV bolus, IV Ceftriaxone 1gm Q24H on 02/24, Levophed ordered, supplemental oxygen, suctioning, transfusion ordered. In your professional opinion, please clarify if these findings signify any of the following conditions: [ x ] Sepsis with septic shock [ ] Severe Sepsis with organ failure [ ] Other, please specify [ ] Unable to determine SIRS Criteria: 2 or more of the following may indicate SIRS -Temperature < 96.8F (36C) or > 101.0F (38.3C) -Heart Rate > 90 bpm -Respiratory Rate > 20 breaths/min or PaCO2 < 32 mmHg -White Blood Cell Count > 12,000 or < 4,000 cells/mm3 or > 10% bands MTDD
--- NOTE | 2022-02-27 12:29 | CDI ---
Documentation Clarification Form Date: 02/27/2022 12:11:22 PM From: Socorro Rangel RN, CCDS Email: [email or web address] Admit Date: 02/22/2022 01:52:00 PM Patient Name: Ricco Cordova Visit Number: [id number] Discharge Date: 02/24/2022 07:33:00 PM ATTENTION: The Clinical Documentation Specialists (CDI) and [facility] Coding Staff appreciate your assistance in clarifying documentation. Please respond to the clarification below the line at the bottom and electronically sign. The CDI & [facility] Coding staff will review the response and follow-up if needed. Please note: Queries are made part of the Legal Health Record. If you have any questions, please contact the author of this message via ITS. Dr. Jose Holder Your patient had increased shortness of breath, increase in weakness and change in mentation per 02/24 nursing note. Based on this information and the findings below, is there an additional diagnosis that is clinically appropriate for this patient? Patient history/risk factors: atrial ablation, CHF, CKD, COPD, GI Bleed and anemia, ETOH abuse. Patient also had bilateral leg swelling and oozing extending to the thigh. Clinical Indicators: 02/24 VS: Temp 98.5, HR 102 down to 22, RR 31 down to 0, BP 107/51 down to 34/20, pulse ox 90% 02/24 Nursing Note: Dr. Prater notified of critical Hgb, HCT and lactic acid." 02/24 A Team note: Patient having active GI bleed and altered mental status, Dr. Prater notified and transferred to ICU." 02/24 Nursing ICU assessment: Respirations are shallow, diminished, tachypnea. Patient was restless, lethargic and confused. 02/24 IM: He is confused. The patient is extremely weak and the patient is possibly becoming septic at this time. I would recommend a stat CBC, BMP, blood cultures, lactate, chest x-ray, and initiate antibiotics. Transfer to telemetry and continue to monitor. The prognosis guarded because of multiple complex medical issues. White count is elevated and further recommendations to follow." 02/24 Nursing Note: "Patient acutely bleeding from nose at 1920, oral and nasal suctioning completed, patient became unresponsive, pulse checked, and no pulse felt, at bedside and confirmed patient as DNR, patient pronounced at 1933, Dr. Prater notified." Transfer to telemetry/ICU, 02/24 1L 0.9 NS IV bolus, IV Ceftriaxone 1gm Q24H on 02/24, Levophed ordered, supplemental oxygen, suctioning, transfusion ordered. Is there an additional diagnosis that is clinically appropriate for this patient? [x ] Acute Hypoxic Respiratory Failure (pO2 <60 mm Hg or SpO2 <91% on room air [ ] Other Diagnosis, please specify [ ] Unable to determine MTDD
--- NOTE | 2022-03-04 12:57 | DS ---
DISCHARGE SUMMARY PRELIMINARY CAUSE OF : CHF acute exacerbation. OTHER DIAGNOSES: 1. Gastrointestinal bleed. 2. Bilateral leg cellulitis. 3. History of coronary artery disease. 4. History of chronic obstructive pulmonary disease. 5. Diabetes type 2. 6. Multiple medical issues. HISTORY OF PRESENT ILLNESS AND HOSPITAL COURSE: This 72-year-old gentleman with a past medical history of multiple medical problems, admitted with CHF exacerbation, leg cellulitis. From the CHF point of view, the patient was rather stable, was improving, but however, while on the floor, the patient developed a sudden GI bleed and became unstable, transferred to ICU. Hemoglobin was 5.1, but the patient became suddenly unresponsive and the patient is no code, and the patient succumbed to his above-mentioned illnesses. As mentioned earlier, before the bleeding, the patient was rather stable, but the patient became completely unstable after the bleeding and was referred to ICU. Please refer to the ICU notes and staff notes for further details, and as mentioned earlier, the patient is no code, which is confirmed by his the patient's . Please refer to the previous consultation notes and notes by Nephrology for further details. The prognosis remains guarded throughout the hospital stay. MMODL / IJN: [id number] /
== END 2022-02-24 19:33 | disposition expired | DRG 291 ==
LOC: EC 11:45 → 6NMEDSUR 15:44 → 5NMEDONC 18:58 → OBSVTOIN 02-22 13:52 → 2SICU 02-24 17:27
PROVIDERS: ADMIT Hospitalist; ATTEND Hospitalist
PROC: 3E033XZ Introduction of Vasopressor into Peripheral Vein, Percutaneous Approach (ICD-10-PCS; principal; 2022-02-24)
DX: I13.0 Hypertensive heart and chronic kidney disease with heart failure and stage 1 through stage 4 chronic kidney disease, or unspecified chronic kidney disease (principal); A41.9 Sepsis, unspecified organism; I50.33 Acute on chronic diastolic (congestive) heart failure; J96.01 Acute respiratory failure with hypoxia; R65.21 Severe sepsis with septic shock; I48.21 Permanent atrial fibrillation; L03.115 Cellulitis of right lower limb; L03.116 Cellulitis of left lower limb; N17.9 Acute kidney failure, unspecified; K92.2 Gastrointestinal hemorrhage, unspecified; J44.9 Chronic obstructive pulmonary disease, unspecified; R41.0 Disorientation, unspecified; I25.10 Atherosclerotic heart disease of native coronary artery without angina pectoris; R57.8 Other shock; I27.20 Pulmonary hypertension, unspecified; M06.9 Rheumatoid arthritis, unspecified; N18.32 Chronic kidney disease, stage 3b; I08.3 Combined rheumatic disorders of mitral, aortic and tricuspid valves; Z66 Do not resuscitate; D63.1 Anemia in chronic kidney disease; E11.22 Type 2 diabetes mellitus with diabetic chronic kidney disease; F10.10 Alcohol abuse, uncomplicated; F17.210 Nicotine dependence, cigarettes, uncomplicated; G25.81 Restless legs syndrome; I25.2 Old myocardial infarction; Z79.01 Long term (current) use of anticoagulants; Z79.84 Long term (current) use of oral hypoglycemic drugs; Z79.899 Other long term (current) drug therapy; Z95.5 Presence of coronary angioplasty implant and graft; Z87.19 Personal history of other diseases of the digestive system; Z82.49 Family history of ischemic heart disease and other diseases of the circulatory system
CPT/HCPCS: 36415; 71045; 71046; 80048; 80053; 81001; 83605; 83735; 83880; 84484; 85025; 85610; 85730; 86850; 86900; 86901; 86920; 93005; 94640; 96374; 99285